=== PATIENT | female | born 1935 | race Hispanic/Latino ===

== ENCOUNTER 2018-10-23 20:38 | Inpatient (IN) | payer MEDICARE, BC ==
[2018-10-23 20:39] VITALS: BMI 24.9
--- NOTE | 2018-10-23 21:40 | ED PDOC ---
Arrival/HPI - General Chief Complaint: Altered Mental Status Time Seen by Provider: 10/23/18 20:58 Historian: Patient - History of Present Illness Narrative History of Present Illness (Text): 10/23/18 21:36 83 year old female, with some history of dementia, presents to the emergency department accompanied by son, for evaluation of shortness of breath. Son informs patient was helped onto toilet, and began becoming short of breath. Son states patient became slightly unresponsive, while breathing heavily. Son states patient has had increased leg swelling in both legs for the past few days as well. Patient denies any chest pain, abdominal pain, fevers, chills, headache, dizziness, nausea, vomiting, diarrhea, back pain, neck pain, or any other complaint. Time/Duration: Prior to Arrival Symptom Onset: Gradual Symptom Course: Resolved Activities at Onset: Light Context: Home Past Medical History - Provider Review Nursing Documentation Reviewed: Yes - Infectious Disease Hx of Infectious Diseases: None - Cardiac Hx Peripheral Edema: Yes (+1) - Pulmonary Hx Respiratory Disorders: No - Neurological Hx Neurological Disorder: No - HEENT Hx HEENT Disorder: (eye glasses) Hx Glaucoma: Yes - Renal Hx Renal Disorder: No - Endocrine/Metabolic Hx Endocrine Disorders: No - Hematological/Oncological Hx Blood Transfusions: Yes (1st transfusion running now) Hx Blood Transfusion Reaction: No - Integumentary Hx Dermatological Disorder: Yes Other/Comment: eccymosis to right lower thigh above right knee - Musculoskeletal/Rheumatological Hx Arthritis: Yes - Gastrointestinal Hx Gastrointestinal Disorders: No - Genitourinary/Gynecological Hx Genitourinary Disorders: No - Psychiatric Hx Psychophysiologic Disorder: No Hx Substance Use: No - Anesthesia Hx Anesthesia Reactions: No Hx Malignant Hyperthermia: No Family/Social History - Physician Review Nursing Documentation Reviewed: Yes Family/Social History: No Known Family HX Smoking Status: Never Smoked Hx Alcohol Use: No Hx Substance Use: No Allergies/Home Meds Allergies/Adverse Reactions: Allergies No Known Allergies Allergy (Verified 02/23/16 20:28) Review of Systems - Physician Review All systems were reviewed & negative as marked: Yes - Review of Systems Constitutional: absent: Fevers, Night Sweats Respiratory: SOB. absent: Cough Cardiovascular: absent: Chest Pain Gastrointestinal: absent: Abdominal Pain, Diarrhea, Nausea, Vomiting Musculoskeletal: absent: Back Pain, Neck Pain Neurological: absent: Headache, Dizziness Physical Exam Mental Status: No: Alert and Oriented X 3 - Systems Exam Head: Present: Atraumatic, Normocephalic Pupils: Present: PERRL Extroacular Muscles: Present: EOMI Conjunctiva: Present: Normal Mouth: Present: Dry. No: Moist Mucous Membranes Neck: Present: Normal Range of Motion Respiratory/Chest: Present: Clear to Auscultation, Decreased Breath Sounds. No: Respiratory Distress, Accessory Muscle Use Cardiovascular: Present: Regular Rate and Rhythm, Murmurs (Systolic ejection murmur) Abdomen: No: Tenderness, Distention, Peritoneal Signs Back: Present: Normal Inspection Upper Extremity: Present: Normal Inspection. No: Cyanosis, Edema Lower Extremity: Present: Edema (+3 pitting edema bilaterally ) Neurological: Present: GCS=15, CN II-XII Intact, Speech Normal Skin: Present: Warm, Dry, Normal Color. No: Rashes Psychiatric: Present: Alert, Oriented x 3, Normal Insight, Normal Concentration Medical Decision Making ED Course and Treatment: 10/23/18 21:43 Impression: 83 year old female presents for episode of shortness of breath Differential Diagnoses Include But Are Not Limited To: --ACS --PNA --CHF(new onset) Plan: -- VBG --Lasix -- Labs -- Chest X-ray -- Blood cultures -- Urinalysis -- Reassess and disposition Prior Visits: Notes and results from previous visits were reviewed. Progress Notes: 10/24/18 01:06 Labs reviewed with leukocytosis noted as well as elevated BNP 1,230 & troponin of 0.12. Call placed to Dr. House(PCP). 10/24/[address] House who accepts patient onto his service. Patient updated on plan for admission and is in agreement. - Lab Interpretations Lab Results: 10/23/18 22:41 10/23/18 23:15 Lab Results 10/23/18 23:15: Sodium 134, Chloride 101, Potassium Pending, Carbon Dioxide 25, Anion Gap 13, BUN 22 H, Creatinine 0.8, Est GFR ( Amer) > 60, Est GFR (Non-Af Amer) > 60, Random Glucose 144 H, Calcium 9.1, Magnesium 2.3 H, Total Bilirubin 0.6, AST 37 H, ALT 20, Alkaline Phosphatase 101, Troponin I Pending, NT-Pro-B Natriuret Pep Pending, Total Protein 8.1, Albumin 3.9, Globulin 4.2, Albumin/Globulin Ratio 0.9 L 10/23/18 22:41: PT 13.9 H, INR 1.25, APTT 26.3 L 10/23/18 22:41: WBC 14.2 H, RBC 4.23, Hgb 12.9, Hct 38.7, MCV 91.5, MCH 30.5, MCHC 33.3, RDW 13.7, Plt Count 231, MPV 11.0, Neut % (Auto) 77.3 H, Lymph % (Auto) 12.9 L, Chester % (Auto) 9.6 H, Eos % (Auto) 0.1 L, Baso % (Auto) 0.1, Lymph # (Auto) 1.8, Chester # (Auto) 1.4 H, Eos # (Auto) 0.0, Baso # (Auto) 0.02, Absolute Neuts (auto) 10.99 H 10/23/18 22:37: pO2 80 H, VBG pH 7.37, VBG pCO2 44.0, VBG HCO3 25.4, VBG Total CO2 26.8, VBG O2 Sat (Calc) 97.5 H, VBG Base Excess -0.2 L, VBG Potassium 6.0 H, Sodium 133.0, Chloride 102.0, Glucose 149 H, Lactate 2.2 H, FiO2 21.0, Venous Blood Potassium 6.0 H I have reviewed the lab results: Yes - RAD Interpretation Radiology Orders: 10/23/18 21:32 CHEST PORTABLE [RAD] Stat - Medication Orders Current Medication Orders: 10/27/18 08:14 Apixaban (Eliquis) 10 mg PO BID [facility]; Protocol Stop: 10/31/18 23:59 Last Admin: 10/26/18 17:30 Dose: 10 mg Apixaban (Eliquis) 5 mg PO BID [facility]; Protocol Aspirin (Ecotrin) 81 mg PO DAILY [facility] Last Admin: 10/26/18 09:53 Dose: 81 mg Furosemide (Lasix) 40 mg IVP DAILY [facility] Last Admin: 10/26/18 09:53 Dose: 40 mg MAR Blood Pressure Document 10/26/18 09:53 RDS (Rec: 10/26/18 09:53 RDS [id number]) Blood Pressure Blood Pressure (100/60-150/90 mm Hg) 120/75 IVP Administration Document 10/26/18 09:53 RDS (Rec: 10/26/18 09:53 RDS [id number]) Charges for Administration # of IVP Administrations 1 Cefepime HCl (Maxipime 1gm) 1 gm in 100 mls @ 100 mls/hr IVPB Q12 [facility]; Protocol Last Admin: 10/26/18 22:33 Dose: 100 mls/hr eMAR Start Stop Document 10/26/18 22:33 JN (Rec: 10/26/18 22:33 JN [id number]) Intravenous Solution Start Date 10/26/18 Start Time 22:33 Metoprolol Tartrate (Lopressor) 25 mg PO BID [facility] Last Admin: 10/26/18 17:31 Dose: 25 mg MAR Pulse and Blood Pressure Document 10/26/18 17:31 RDS (Rec: 10/26/18 17:31 RDS [id number]) Pulse Pulse Rate (60-90 beats/min) 82 Blood Pressure Blood Pressure (100/60-150/90 mm Hg) 134/87 Discontinued Medications Aspirin (Aspirin) 325 mg PO STAT STA Stop: 10/24/18 11:03 Last Admin: 10/24/18 11:19 Dose: 325 mg Enoxaparin Sodium (Lovenox) 65 mg SC Q12H [facility]; Protocol Enoxaparin Sodium (Lovenox) 65 mg SC Q12 [facility] Last Admin: 10/24/18 21:54 Dose: 65 mg Subcutaneous Administrations Document 10/24/18 21:54 EUSTL (Rec: 10/24/18 21:54 EUSTL [id number]) Charges for Administration # of Subcutaneous Administrations 1 Furosemide (Lasix) 40 mg IVP STAT STA Stop: 10/24/18 01:30 Last Admin: 10/24/18 02:29 Dose: 40 mg MAR Blood Pressure Document 10/24/18 02:29 JOL (Rec: 10/24/18 02:29 JOL [id number]) Blood Pressure Blood Pressure (100/60-150/90 mm Hg) 112/72 IVP Administration Document 10/24/18 02:29 JOL (Rec: 10/24/18 02:29 JOL [id number]) Charges for Administration # of IVP Administrations 1 Sodium Chloride (Sodium Chloride 0.9%) 1,000 mls @ 75 mls/hr IV .[id number] [facility] Last Admin: 10/24/18 02:29 Dose: 75 mls/hr eMAR Start Stop Document 10/24/18 02:29 JOL (Rec: 10/24/18 02:30 JOL [id number]) Intravenous Solution Start Date 10/24/18 Start Time 02:30 Metoprolol Tartrate (Lopressor) 25 mg PO STAT STA Stop: 10/24/18 11:05 Last Admin: 10/24/18 11:20 Dose: 25 mg MAR Pulse and Blood Pressure Document 10/24/18 11:20 (Rec: 10/24/18 11:20 [id number] Pulse Pulse Rate (60-90 beats/min) 84 Blood Pressure Blood Pressure (100/60-150/90 mm Hg) 114/74 Nitroglycerin (Nitro-Bid 2% Oint) 0.5 ea TOP Q6H [facility] Last Admin: 10/26/18 05:27 Dose: 0.5 ea Potassium Chloride (Potassium Chloride Oral Soln) 20 meq PO STAT STA Stop: 10/26/18 15:18 Last Admin: 10/26/18 17:46 Dose: 20 meq - Scribe Statement The provider has reviewed the documentation as recorded by the Scribadriane Hernandes Provider Scribe Attestation: All medical record entries made by the Scribe were at my direction and personal ly dictated by me. I have reviewed the chart and agree that the record accurately reflects my personal performance of the history, physical exam, medical decision making, and the department course for this patient. I have also personally directed, reviewed, and agree with the discharge instructions and disposition. Disposition/Present on Arrival - Present on Arrival Any Indicators Present on Arrival: No History of DVT/PE: No History of Uncontrolled Diabetes: No Urinary Catheter: No History of Decub. Ulcer: No History Surgical Site Infection Following: None - Disposition Have Diagnosis and Disposition been Completed?: Yes Diagnosis: NSTEMI (non-ST elevated myocardial infarction), Edema Disposition: HOSPITALIZED Disposition Time: 01:45 Patient Plan: Admission, Telemetry Patient Problems: Current Active Problems Problem Status Onset NSTEMI (non-ST elevated myocardial infarction) Acute Condition: GUARDED
[2018-10-23 22:42] LABS: VENOUS BLOOD GAS BASE EXCESS -0.2 mmol/L (0.0-2.0); VENOUS BLOOD GAS PO2 80 mm/Hg (30-55); VENOUS BLOOD PH 7.37 (7.32-7.43)
[2018-10-23 22:46] LABS: BASO # 0.02 K/mm3 (0.0-2.0); BASO % 0.1 % (0.0-3.0); EOS % 0.1 % (1.5-5.0); HEMOGLOBIN 12.9 g/dL (12.0-16.0); LYMPH # 1.8 (1.2-3.4); LYMPH % 12.9 % (22.0-35.0); MEAN CELL VOLUME 91.5 fl (80.0-105.0); MEAN CORPUSCULAR HEMOGLOBIN 30.5 pg (25.0-35.0); MEAN CORPUSCULAR HGB CONC 33.3 g/dl (31.0-37.0); MONO # 1.4 (0.1-0.6); MONO % 9.6 % (1.0-6.0); RBC 4.23 10^6/uL (3.5-6.1); RED CELL DISTRIBUTION WIDTH 13.7 % (11.5-14.5); WHITE BLOOD COUNT 14.2 10^3/uL (4.5-11.0)
[2018-10-23 23:02] LABS: INR 1.25; PARTIAL THROMBOPLASTIN TIME 26.3 Seconds (26.9-38.3); PROTHROMBIN TIME 13.9 SECONDS (9.4-12.5)
[2018-10-23] MEDS ORDERED: Dextrose 50% SYRINGE Inj (50 ml) IVP STA (23:02)
[2018-10-23] MEDS ORDERED: Albuterol 0.083% Inhal Sol (2.5 mg/3 mL) UD INH STA (23:02)
[2018-10-23] MEDS ORDERED: Insulin Regular 1 UNITS/0.01 ML ML IVP ONE (23:03)
[2018-10-24 00:27] LABS: ALB/GLOB RATIO 0.9 (1.1-1.8); ALBUMIN 3.9 g/dL (3.0-4.8); ALT/SGPT 20 U/L (7-56); AST/SGOT 37 U/L (14-36); BLOOD UREA NITROGEN 22 mg/dL (7-21); CALCIUM 9.1 mg/dL (8.4-10.5); GFR NON-AFRICAN AMERICAN > 60
[2018-10-24 01:11] LABS: B-TYPE NATRIURETIC PEPTIDE 1230 pg/mL (0-450); TROPONIN I 0.12 ng/mL
[2018-10-24] MEDS ORDERED: Sodium Chloride 0.9% 1,000 ML IV SCH (01:45)
[2018-10-24 02:38] LABS: VENOUS BLOOD GAS BASE EXCESS 1.5 mmol/L (0.0-2.0); VENOUS BLOOD GAS PO2 43 mm/Hg (30-55); VENOUS BLOOD PH 7.47 (7.32-7.43)
--- NOTE | 2018-10-24 08:29 | RAD ---
Date of service: 10/23/2018 HISTORY: sob COMPARISON: 09/26/2016 FINDINGS: LUNGS: No active pulmonary disease. PLEURA: No significant pleural effusion identified, no pneumothorax apparent. CARDIOVASCULAR: Aortic calcification and tortuosity Normal cardiac size. No pulmonary vascular congestion. OSSEOUS STRUCTURES: No significant abnormalities. VISUALIZED UPPER ABDOMEN: Normal. OTHER FINDINGS: None. IMPRESSION: No active disease.
[2018-10-24 08:56] LABS: BASO # 0.01 K/mm3 (0.0-2.0); BASO % 0.1 % (0.0-3.0); HEMOGLOBIN 12.6 g/dL (12.0-16.0); LYMPH # 2.2 (1.2-3.4); LYMPH % 20.3 % (22.0-35.0); MEAN CELL VOLUME 91.3 fl (80.0-105.0); MEAN CORPUSCULAR HEMOGLOBIN 30.5 pg (25.0-35.0); MEAN CORPUSCULAR HGB CONC 33.4 g/dl (31.0-37.0); MEAN PLATELET VOLUME 10.8 fl (7.0-11.0); MONO % 9.7 % (1.0-6.0); RBC 4.13 10^6/uL (3.5-6.1); RED CELL DISTRIBUTION WIDTH 13.7 % (11.5-14.5); WHITE BLOOD COUNT 10.6 10^3/uL (4.5-11.0)
[2018-10-24 09:12] LABS: ALB/GLOB RATIO 0.9 (1.1-1.8); ALBUMIN 3.7 g/dL (3.0-4.8); ALT/SGPT 15 U/L (7-56); AST/SGOT 42 U/L (14-36); BLOOD UREA NITROGEN 21 mg/dL (7-21); CALCIUM 8.9 mg/dL (8.4-10.5); GFR NON-AFRICAN AMERICAN 60
[2018-10-24] MEDS ORDERED: Enoxaparin 40 mg Syringe SC SCH (09:15)
[2018-10-24 09:26] LABS: TROPONIN I 0.08 ng/mL
--- NOTE | 2018-10-24 10:13 | CARD ---
APPROVED REPORT Date of service: 10/24/2018 EKG Measurement Heart [id number] <Conclusion> Normal sinus rhythm Left axis deviation Low voltage QRS Inferior infarct, age undetermined Cannot rule out Anterior infarct, age undetermined Abnormal ECG
--- NOTE | 2018-10-24 10:16 | CARD ---
APPROVED REPORT Date of service: 10/23/2018 EKG Measurement Heart [id number] ID [id number] <Conclusion> Sinus tachycardia Left axis deviation Low voltage QRS Inferior infarct, age undetermined Possible Anterolateral infarct, age undetermined Abnormal ECG
[2018-10-24] MEDS: Enoxaparin 100 mg Syringe SC SCH ×2 (10:45→21:54)
[2018-10-24] MEDS: Cefepime 1gm in NS 100ml 1 GM/100 ML BAG IVPB SCH ×2 (10:52→21:54)
--- NOTE | 2018-10-24 10:52 | CP.PCM.HP ---
<Zak Catalan - Last Filed: 10/24/18 11:00> History of Present Illness - History of Present Illness History of Present Illness: PGY-2 H&P note for Dr Gray Mrs Gil is a 83 year old female with a PMHx of dementia, chronic peripheral edema, glaucoma, right radius fracture (2016), right tibia/fibula fracture (2017) who presents because her son noticed she was weak and had increased s hortness of breath. Son stated to ED physician patient became slightly unresponsive, while breathing heavily. Son states patient has had increased leg swelling in both legs for the past few days as well. Upon interview/exam today the patient was AAOx2 (believed the year was 1948) thus hx is limited by patient's baseline dementia. She complained of pain in her right ankle. I spoke to her son who stated she lives alone and gets around with wheelchair, and has a live-in 24 hour health aide. Patient denies any chest pain, abdominal pain, fevers, chills, headache, dizziness, nausea, vomiting, diarrhea, back pain, neck pain. PMHx: dementia, chronic peripheral edema, glaucoma, right radius fracture (2016), right tibia/fibula fracture (2017) PSHx: open reduction, internal fixation right tibia/fibula 09/2016 SocialHx: never smoked; denies alcohol FamHx: denies Allergies: NKA Home Meds: latonoprost eye drops for glaucoma Present on Admission - Present on Admission Any Indicators Present on Admission: No Review of Systems - Review of Systems Systems not reviewed;Unavailable: Dementia Past Patient History - Infectious Disease Hx of Infectious Diseases: None - Past Social History Smoking Status: Never Smoked - CARDIAC Hx Cardiac Disorders: Yes Hx Angina: No Hx Cardia Arrhythmia: No Hx Congestive Heart Failure: Yes - PULMONARY Hx Respiratory Disorders: No - NEUROLOGICAL Hx Neurological Disorder: Yes Hx Dementia: Yes - HEENT Hx HEENT Problems: No - RENAL Hx Chronic Kidney Disease: No - ENDOCRINE/METABOLIC Hx Endocrine Disorders: No - HEMATOLOGICAL/ONCOLOGICAL Hx Blood Disorders: No - INTEGUMENTARY Hx Dermatological Problems: No - MUSCULOSKELETAL/RHEUMATOLOGICAL Hx Musculoskeletal Disorders: Yes Hx Falls: Yes - GASTROINTESTINAL Hx Gastrointestinal Disorders: No - GENITOURINARY/GYNECOLOGICAL Hx Genitourinary Disorders: No - PSYCHIATRIC Hx Psychophysiologic Disorder: No - SURGICAL HISTORY Hx Surgeries: No (pt couldnt answer) Hx Cardiac Catheterization: No - ANESTHESIA Hx Anesthesia Reactions: No Hx Malignant Hyperthermia: No Meds Allergies/Adverse Reactions: Allergies Allergy/AdvReac Type Severity Reaction Status Date / Time No Known Allergies Allergy Verified 02/23/16 20:28 Physical Exam - Constitutional Appears: Well, Non-toxic, No Acute Distress, Confused - Head Exam Head Exam: ATRAUMATIC, NORMAL INSPECTION - Eye Exam Eye Exam: EOMI, Normal appearance, PERRL. absent: Scleral icterus - ENT Exam ENT Exam: Mucous Membranes Moist - Respiratory Exam Respiratory Exam: Clear to Auscultation Bilateral, NORMAL BREATHING PATTERN. absent: Rales, Rhonchi, Wheezes - Cardiovascular Exam Cardiovascular Exam: Tachycardia, REGULAR RHYTHM, +S1, +S2, Systolic Murmur. absent: JVD - GI/Abdominal Exam GI & Abdominal Exam: Normal Bowel Sounds, Soft. absent: Distended, Firm, Guarding, Tenderness - Extremities Exam Extremities exam: Positive for: calf tenderness, pedal edema, tenderness. Negative for: normal inspection Additional comments: pedal pulses diminished R>L right foot cold compared to left sensation intact b/l pain to palpation of right ankle - Neurological Exam Neurological exam: Alert Additional comments: AAOx2 - Psychiatric Exam Psychiatric exam: Normal Affect - Skin Additional comments: right ankle skin changes appear to be venous stasis right ankle cold compared to left Results - Vital Signs Recent Vital Signs: Last Vital Signs Temp 97.6 F 10/24/18 06:00 Pulse 96 H 10/24/18 06:00 Resp 20 10/24/18 06:00 BP 128/95 H 10/24/18 06:00 Pulse Ox 95 10/24/18 02:59 - Labs Result Diagrams: 10/24/18 08:40 10/24/18 08:40 Labs: Laboratory Results - last 24 hr 10/23/18 10/23/18 10/23/18 22:37 22:41 22:41 WBC 14.2 H RBC 4.23 Hgb 12.9 Hct 38.7 MCV 91.5 MCH 30.5 MCHC 33.3 RDW 13.7 Plt Count 231 MPV 11.0 Neut % (Auto) 77.3 H Lymph % (Auto) 12.9 L Aiken % (Auto) 9.6 H Eos % (Auto) 0.1 L Baso % (Auto) 0.1 Lymph # (Auto) 1.8 Aiken # (Auto) 1.4 H Eos # (Auto) 0.0 Baso # (Auto) 0.02 Absolute Neuts (auto) 10.99 H PT 13.9 H INR 1.25 APTT 26.3 L D-Dimer, Quantitative pO2 80 H VBG pH 7.37 VBG pCO2 44.0 VBG HCO3 25.4 VBG Total CO2 26.8 VBG O2 Sat (Calc) 97.5 H VBG Base Excess -0.2 L VBG Potassium 6.0 H Sodium 133.0 Chloride 102.0 Glucose 149 H Lactate 2.2 H FiO2 21.0 Potassium Carbon Dioxide Anion Gap BUN Creatinine Est GFR ( Amer) Est GFR (Non-Af Amer) Random Glucose Calcium Magnesium Total Bilirubin AST ALT Alkaline Phosphatase Troponin I NT-Pro-B Natriuret Pep Total Protein Albumin Globulin Albumin/Globulin Ratio Venous Blood Potassium 6.0 H 10/23/18 10/24/18 10/24/18 23:15 02:30 02:31 WBC RBC Hgb Hct MCV MCH MCHC RDW Plt Count MPV Neut % (Auto) Lymph % (Auto) Aiken % (Auto) Eos % (Auto) Baso % (Auto) Lymph # (Auto) Aiken # (Auto) Eos # (Auto) Baso # (Auto) Absolute Neuts (auto) PT INR APTT D-Dimer, Quantitative > 5250 H pO2 43 VBG pH 7.47 H VBG pCO2 34.0 L VBG HCO3 24.7 VBG Total CO2 25.7 VBG O2 Sat (Calc) 89.0 H VBG Base Excess 1.5 VBG Potassium 4.5 Sodium 134 134.0 Chloride 101 104.0 Glucose 132 H Lactate 1.1 FiO2 21.0 Potassium 4.9 Carbon Dioxide 25 Anion Gap 13 BUN 22 H Creatinine 0.8 Est GFR ( Amer) > 60 Est GFR (Non-Af Amer) > 60 Random Glucose 144 H Calcium 9.1 Magnesium 2.3 H Total Bilirubin 0.6 AST 37 H ALT 20 Alkaline Phosphatase 101 Troponin I 0.12 D NT-Pro-B Natriuret Pep 1230 H Total Protein 8.1 Albumin 3.9 Globulin 4.2 Albumin/Globulin Ratio 0.9 L Venous Blood Potassium 4.5 10/24/18 10/24/18 08:40 08:40 WBC 10.6 D RBC 4.13 Hgb 12.6 Hct 37.7 MCV 91.3 MCH 30.5 MCHC 33.4 RDW 13.7 Plt Count 239 MPV 10.8 Neut % (Auto) 69.9 H Lymph % (Auto) 20.3 L Aiken % (Auto) 9.7 H Eos % (Auto) 0.0 L Baso % (Auto) 0.1 Lymph # (Auto) 2.2 Aiken # (Auto) 1.0 H Eos # (Auto) 0.0 Baso # (Auto) 0.01 Absolute Neuts (auto) 7.38 H PT INR APTT D-Dimer, Quantitative pO2 VBG pH VBG pCO2 VBG HCO3 VBG Total CO2 VBG O2 Sat (Calc) VBG Base Excess VBG Potassium Sodium 138 Chloride 100 Glucose Lactate FiO2 Potassium 4.1 Carbon Dioxide 31 Anion Gap 10 BUN 21 Creatinine 0.9 Est GFR ( Amer) > 60 Est GFR (Non-Af Amer) 60 Random Glucose 122 H Calcium 8.9 Magnesium Total Bilirubin 0.7 AST 42 H ALT 15 Alkaline Phosphatase 90 Troponin I 0.08 D NT-Pro-B Natriuret Pep Total Protein 7.7 Albumin 3.7 Globulin 4.0 Albumin/Globulin Ratio 0.9 L Venous Blood Potassium Assessment & Plan - Assessment and Plan (Free Text) Plan: Mrs Gil is a 83 year old female with a PMHx of dementia, chronic peripheral edema, glaucoma, right radius fracture (2016), right tibia/fibula fracture (2017) who presents because her son noticed she was weak and had increased shortness of breath: Left Leg DVT -preliminary venous duplex ultrasound shows DVT -treat with therapeutic lovenox 65mg ivp q12h (started 10/24) Elevated D-Dimer -on admission d-dimer was 5250 -order for V/Q scan (ideally prefer CTA chest however given patient's advanced age the contrast could irreversibly harm her kidneys) -currently on lovenox 65mg ivp q12h (started 10/24) Cold Right Foot -f/u arterial doppler and BRYAN Elevated pro-bnp -probnp on admission 1230 -echo from 2015 showed normal EF however and mild concentric LVH with grade-I abnormal relaxation pattern -f/u echo -metoprolol tartrate 25mg po bid -consult cardiology, Dr Leahy Equivocal Troponin -trop on admission was 0.12 -f/u repeat trops -aspirin 325mg po given once -on aspirin 81mg po qd -2% nitrobid topical q6h scheduled -metoprolol tartrate 25mg po bid -consult cardiology, Dr Leahy Elevated White Count -wbc on admission was 14.2 -possibly due to left leg DVT -f/u urine and blood cultures -start empiric cefepime 1g q12h until cultures return - if cultures negative we'll de-escalate abx Shortness of Breath, Improved -CHF vs PE -CXR 10/23 showed no active disease -lasix 40ivp qd Weakness, Chronic -uses wheel chair at home; right tibia/fibula fracture (2016) -physical therapy eval and treat Decreased Appetite, Chronic -soft dysphagia diet PPX -on therapeutic lovenox -GI ppx not indicated Case discussed with Dr Gray Decision To Admit - . Bed Request Type: Telemetry <Dave Gray S - Last Filed: 10/24/18 19:41> Results - Vital Signs Recent Vital Signs: Last Vital Signs Temp 97.7 F 10/24/18 18:43 Pulse 90 10/24/18 18:43 Resp 19 10/24/18 18:43 BP 122/79 10/24/18 18:43 Pulse Ox 95 10/24/18 02:59 - Labs Result Diagrams: 10/24/18 08:40 10/24/18 08:40 Labs: Laboratory Results - last 24 hr 10/23/18 10/23/18 10/23/18 22:37 22:41 22:41 WBC 14.2 H RBC 4.23 Hgb 12.9 Hct 38.7 MCV 91.5 MCH 30.5 MCHC 33.3 RDW 13.7 Plt Count 231 MPV 11.0 Neut % (Auto) 77.3 H Lymph % (Auto) 12.9 L Aiken % (Auto) 9.6 H Eos % (Auto) 0.1 L Baso % (Auto) 0.1 Lymph # (Auto) 1.8 Aiken # (Auto) 1.4 H Eos # (Auto) 0.0 Baso # (Auto) 0.02 Absolute Neuts (auto) 10.99 H PT 13.9 H INR 1.25 APTT 26.3 L D-Dimer, Quantitative pO2 80 H VBG pH 7.37 VBG pCO2 44.0 VBG HCO3 25.4 VBG Total CO2 26.8 VBG O2 Sat (Calc) 97.5 H VBG Base Excess -0.2 L VBG Potassium 6.0 H Sodium 133.0 Chloride 102.0 Glucose 149 H Lactate 2.2 H FiO2 21.0 Potassium Carbon Dioxide Anion Gap BUN Creatinine Est GFR ( Amer) Est GFR (Non-Af Amer) Random Glucose Calcium Magnesium Total Bilirubin AST ALT Alkaline Phosphatase Troponin I NT-Pro-B Natriuret Pep Total Protein Albumin Globulin Albumin/Globulin Ratio Venous Blood Potassium 6.0 H 10/23/18 10/24/18 10/24/18 23:15 02:30 02:31 WBC RBC Hgb Hct MCV MCH MCHC RDW Plt Count MPV Neut % (Auto) Lymph % (Auto) Aiken % (Auto) Eos % (Auto) Baso % (Auto) Lymph # (Auto) Aiken # (Auto) Eos # (Auto) Baso # (Auto) Absolute Neuts (auto) PT INR APTT D-Dimer, Quantitative > 5250 H pO2 43 VBG pH 7.47 H VBG pCO2 34.0 L VBG HCO3 24.7 VBG Total CO2 25.7 VBG O2 Sat (Calc) 89.0 H VBG Base Excess 1.5 VBG Potassium 4.5 Sodium 134 134.0 Chloride 101 104.0 Glucose 132 H Lactate 1.1 FiO2 21.0 Potassium 4.9 Carbon Dioxide 25 Anion Gap 13 BUN 22 H Creatinine 0.8 Est GFR ( Amer) > 60 Est GFR (Non-Af Amer) > 60 Random Glucose 144 H Calcium 9.1 Magnesium 2.3 H Total Bilirubin 0.6 AST 37 H ALT 20 Alkaline Phosphatase 101 Troponin I 0.12 D NT-Pro-B Natriuret Pep 1230 H Total Protein 8.1 Albumin 3.9 Globulin 4.2 Albumin/Globulin Ratio 0.9 L Venous Blood Potassium 4.5 10/24/18 10/24/18 10/24/18 08:40 08:40 13:00 WBC 10.6 D RBC 4.13 Hgb 12.6 Hct 37.7 MCV 91.3 MCH 30.5 MCHC 33.4 RDW 13.7 Plt Count 239 MPV 10.8 Neut % (Auto) 69.9 H Lymph % (Auto) 20.3 L Aiken % (Auto) 9.7 H Eos % (Auto) 0.0 L Baso % (Auto) 0.1 Lymph # (Auto) 2.2 Aiken # (Auto) 1.0 H Eos # (Auto) 0.0 Baso # (Auto) 0.01 Absolute Neuts (auto) 7.38 H PT INR APTT D-Dimer, Quantitative pO2 VBG pH VBG pCO2 VBG HCO3 VBG Total CO2 VBG O2 Sat (Calc) VBG Base Excess VBG Potassium Sodium 138 Chloride 100 Glucose Lactate FiO2 Potassium 4.1 Carbon Dioxide 31 Anion Gap 10 BUN 21 Creatinine 0.9 Est GFR ( Amer) > 60 Est GFR (Non-Af Amer) 60 Random Glucose 122 H Calcium 8.9 Magnesium Total Bilirubin 0.7 AST 42 H ALT 15 Alkaline Phosphatase 90 Troponin I 0.08 D 0.07 NT-Pro-B Natriuret Pep Total Protein 7.7 Albumin 3.7 Globulin 4.0 Albumin/Globulin Ratio 0.9 L Venous Blood Potassium Assessment & Plan - Assessment and Plan (Free Text) Plan: Pt seen and examined by me. I have reviewed the note of the medical surgery nurse and I agree with it. I have discussed the assessment and plan with the resident. I have reviewed the medications and the last labs. Pt with SOB at home and LE edema. She was found to have a DVT and PE on evaluation. She is on Lovenox. UCx are pending and she is on Cefepime for ABx. She has gait instability and will need PT. I spoke to the son this morning to give an update. The pt will need DAV and he is agreeable. Will place on Lasix for LE edema. She is deconditioned. She is not aware of her medical issues due to her Dementia- Alzh ghassan. She was given ASA and Metoprolol due to her elevated trop. This is most likely from the PE and less likely to be ACS. Will get cardiology evaluation.
[2018-10-24] MEDS: Nitroglycerin 2% Ointment Foilpak UD TOP SCH ×2 (11:19→17:18)
--- NOTE | 2018-10-24 11:30 | CP.PCM.APN ---
Subjective - Date & Time of Evaluation Date of Evaluation: 10/24/18 Time of Evaluation: 10:15 - Subjective Subjective: pt seen receiving am care pt in NAD pt with no complaints when questioned Review of Systems - Review of Systems All systems: reviewed and no additional remarkable complaints except Objective - Vital Signs/Intake and Output Vital Signs (last 24 hours): Temp Pulse Resp BP Pulse Ox 97.6 F 96 H 20 114/74 95 10/24/18 06:00 10/24/18 06:00 10/24/18 06:00 10/24/18 10:52 10/24/18 02:59 Intake and Output: 10/24/18 10/24/18 06:59 18:59 Intake Total 0 Balance 0 - Medications Medications: Current Medications Aspirin (Ecotrin) 81 mg PO DAILY [facility] Enoxaparin Sodium (Lovenox) 65 mg SC Q12 [facility] Last Admin: 10/24/18 10:45 Dose: 65 mg Furosemide (Lasix) 40 mg IVP DAILY [facility] Last Admin: 10/24/18 10:52 Dose: 40 mg Cefepime HCl (Maxipime 1gm) 1 gm in 100 mls @ 100 mls/hr IVPB Q12 [facility]; Protocol Last Admin: 10/24/18 10:52 Dose: 100 mls/hr Metoprolol Tartrate (Lopressor) 25 mg PO BID [facility] Nitroglycerin (Nitro-Bid 2% Oint) 0.5 ea TOP Q6H [facility] - Labs Labs: 10/24/18 08:40 10/24/18 08:40 PT 13.9 SECONDS (9.4-12.5) H 10/23/18 22:41 INR 1.25 10/23/18 22:41 APTT 26.3 Seconds (26.9-38.3) L 10/23/18 22:41 - Head Exam Head Exam: ATRAUMATIC - ENT Exam ENT Exam: Mucous Membranes Moist, Normal Exam - Respiratory Exam Respiratory Exam: Decreased Breath Sounds, NORMAL BREATHING PATTERN - Cardiovascular Exam Cardiovascular Exam: REGULAR RHYTHM, +S1, +S2 - GI/Abdominal Exam GI & Abdominal Exam: Soft, Normal Bowel Sounds - Extremities Exam Extremities Exam: Pedal Edema - Back Exam Back Exam: NORMAL INSPECTION - Neurological Exam Neurological Exam: Awake - Skin Skin Exam: Dry, Intact Assessment and Plan - Assessment and Plan (Free Text) Plan: ITS Impressions Chest X-Ray 10/23/18 21:32 IMPRESSION: No active disease. 83 yr old white female with pmh sig for dementia, glaucoma, right tib/fib fracture who presented to the Er with son due to increasing SOB, LE edema found to have elevated troponins, elevated ddimer over 5000, lactate 2.1, elevated BNP and leukocytosis. pt is now admitted for further mgmt with cardiology eval in progress #SOB pt with positive LE dvt on therapeutic lovenox dose VQ pending to r/o PE #LE Edema pt on IV lasix for diuresis, will monitor renal function #elevated lactate now resolved bc and uc pending # dementia stable will follow VQ results Pt discussed with [employer] team in rounds BPCI/TIC - BPCIA/TIC Educated pt/family on BPCIA/CIR/Med to Bed Programs: Yes Flyers given, including [facility] Beneficiary letter: Yes Pt/family verbalized understanding & agreed to program: Yes (info left at bedside)
--- NOTE | 2018-10-24 11:40 | US ---
PROCEDURE: Lower extremity BRYAN exam HISTORY: Peripheral vascular disease with ischemic pain PHYSICIAN(S): Bryson Obrien MD. FINDINGS: The exam is limited by calcified vessels distally. The resting ABIs are not obtainable. The brachial systolic pressures are symmetric. The high thigh PVR waveforms are relatively normal and symmetric. The calf PVR waveforms are relatively normal and symmetric. Nose obvious gradients are present. The ankle and metatarsal waveforms are moderately blunted and symmetric. This could represent bilateral tibial disease IMPRESSION: 1. Limited study due to calcified vessels. 2. Bilateral tibial disease.
--- NOTE | 2018-10-24 11:42 | US ---
HISTORY: Leg pain and swelling. Evaluate for DVT PHYSICIAN(S): Bryson Obrien MD. TECHNIQUE: Duplex sonography and color-flow Doppler with graded compression were used to evaluate the deep venous systems of both lower extremities. FINDINGS: There is hypoechoic occlusive thrombus noted in the left femoral vein and popliteal vein. Adherent thrombus is noted in the left common femoral vein. There is no sonographic evidence for deep venous thrombosis in the visualized segments of the right lower extremity. The right tibial veins are not visualized. IMPRESSION: Acute hypoechoic occlusive thrombus in the left femoral and popliteal veins.
--- NOTE | 2018-10-24 12:43 | NM ---
Date of service: 10/24/2018 COMPARISON: Chest x-ray 10/23/2018 TECHNIQUE: 30.1 mCi technetium 99-m DTPA aerosol. 4.4 mCI technetium 99-m MAA administered intravenously. FINDINGS: VENTILATION COMPONENT: Normal PERFUSION COMPONENT: Mismatched perfusion defects are seen in the right upper lobe and left lower lobe IMPRESSION: Highprobability ventilation perfusion scan for pulmonary embolism. Perfusion defects in the right upper lobe and left lower lobe
--- NOTE | 2018-10-24 18:46 | CON ---
DATE: 10/24/2018 REASON FOR CONSULTATION: Cardiac evaluation, elevated D-dimer, elevated BNP, elevated troponin, initially admitted with altered mental status. BRIEF CLINICAL HISTORY: This is an 83-year-old female, bed bound, brought by the son because of shortness of breath. Denies any chest pain. Denies any shortness of breath. Denies any palpitation. The patient is oriented to only time and place x2. Very poor historian, unable to give any detailed history, though denies specifically any chest pain or abdominal pain or leg pain. PAST MEDICAL HISTORY: Significant for hypertension borderline and history of gastroesophageal reflux. PAST SURGICAL HISTORY: Significant for fall and status post tibial fracture, status post open reduction internal fixation in 2017. Prior to that, also history of right radius fracture in 2016, history of fall, and history of glaucoma. ALLERGIES: NO KNOWN DRUG ALLERGIES. SOCIAL HISTORY: In the electronic medical record shows no history of smoking, no history of drinking. The patient is unable to give any detailed history. CURRENT MEDICATIONS: The patient at home is taking Protonix 20 mg daily, morphine 2 mg IV every 6 hours p.r.n., metoprolol tartrate 12.5 mg p.o. b.i.d., eye drops for glaucoma, Lovenox, and acetaminophen. REVIEW OF SYSTEMS: As per HPI. The patient is a poor historian, unable to get any more detailed history. PHYSICAL EXAMINATION GENERAL: Height of the patient 5 feet 2 inches, weight of the patient 145 pounds, and body mass index 26.5 kg/m2. VITAL SIGNS: Temperature afebrile, heart rate 96, and blood pressure 128/95. HEENT: PERRLA. Extraocular muscles intact. NECK: Supple. No carotid bruits or thyromegaly. CHEST: Clear to auscultation. HEART: S1 and S2, regular. ABDOMEN: Soft. EXTREMITIES: Clubbing and cyanosis negative. EKG shows normal sinus rate of 94, left axis deviation inferior wall OK of undetermined age. LABORATORY DATA: Blood workup as follows; WBC 10.6, hemoglobin 12.6, hematocrit 37.7, and platelet count 239. Chemistry shows sodium 130, potassium 4. , chloride 100, carbon dioxide 31, anion gap of 10, BUN of 20, and creatinine 0.9. Troponin 0.1 to 0.08. IMPRESSION: An 83-year-old female, very poor historian, possible dementia, bed bound, admitted after being brought by the family with shortness of breath. Denies any chest pain. History of tibial fracture in 2017, history of radial fracture in 2016, history of gastroesophageal reflux, and glaucoma. Borderline troponin positive, indeterminate range, but the patient has significantly D-dimer positive. RECOMMENDATIONS: We will start Lovenox. We will get the V/Q scan to rule out PE. The patient is bed bound completely setup for, though the patient was at home on Lovenox. We will get echo to assess LV function. Keeping the patient's condition, overall the patient's quality of life, bed bound, no evidence of ischemia or chest pain, we will try to treat medically. We will get low dose of beta kimberly, nitrates and Lovenox. We will get a V/Q scan to rule out PE, also with lower extremity duplex and echo. Further recommendations pending hospital course. We will follow with you. Thank you Dr. Gray for providing us the opportunity in taking care of the patient, Michelle Gil. Drea Leahy MD
[2018-10-25] MEDS: Nitroglycerin 2% Ointment Foilpak UD TOP SCH ×6 (02:16→22:50)
[2018-10-25 07:04] LABS: BASO # 0.01 K/mm3 (0.0-2.0); BASO % 0.1 % (0.0-3.0); EOS # 0.2 (0.0-0.7); EOS % 1.8 % (1.5-5.0); HEMOGLOBIN 10.5 g/dL (12.0-16.0); LYMPH # 2.2 (1.2-3.4); LYMPH % 24.3 % (22.0-35.0); MEAN CELL VOLUME 91.6 fl (80.0-105.0); MEAN CORPUSCULAR HEMOGLOBIN 29.2 pg (25.0-35.0); MEAN CORPUSCULAR HGB CONC 31.9 g/dl (31.0-37.0); MEAN PLATELET VOLUME 10.7 fl (7.0-11.0); MONO # 1.1 (0.1-0.6); MONO % 11.6 % (1.0-6.0); RBC 3.59 10^6/uL (3.5-6.1); RED CELL DISTRIBUTION WIDTH 13.9 % (11.5-14.5); WHITE BLOOD COUNT 9.2 10^3/uL (4.5-11.0)
[2018-10-25 07:32] LABS: TROPONIN I 0.06 ng/mL
[2018-10-25 07:52] LABS: LDL CHOLESTEROL 79 mg/dL (0-129)
[2018-10-25 07:57] LABS: ALB/GLOB RATIO 0.9 (1.1-1.8); ALBUMIN 3.2 g/dL (3.0-4.8); ALT/SGPT 15 U/L (7-56); AST/SGOT 42 U/L (14-36); BLOOD UREA NITROGEN 30 mg/dL (7-21); CALCIUM 8.5 mg/dL (8.4-10.5); GFR NON-AFRICAN AMERICAN 53; HDL CHOLESTEROL 30 mg/dL (29-60)
[2018-10-25] MEDS: Cefepime 1gm in NS 100ml 1 GM/100 ML BAG IVPB SCH ×2 (10:00→21:00)
--- NOTE | 2018-10-25 13:47 | CP.PCM.PN ---
<Zak Catalan - Last Filed: 10/25/18 13:42> Subjective - Date & Time of Evaluation Date of Evaluation: 10/25/18 Time of Evaluation: 13:42 - Subjective Subjective: PGY-[address] Gray No acute events overnight. Patient is AAOx2. Still complains of pain in right ankle. Otherwise denied other issues such as sob, abdominal pain, fevers, chest pain. Objective - Vital Signs/Intake and Output Vital Signs (last 24 hours): Temp Pulse Resp BP Pulse Ox 98.5 F 73 18 96/61 L 96 10/25/18 12:00 10/25/18 12:00 10/25/18 12:00 10/25/18 12:00 10/25/18 06:00 Intake and Output: 10/25/18 10/25/18 06:59 18:59 Intake Total 1610 Output Total 402 Balance 1208 - Medications Medications: Current Medications Apixaban (Eliquis) 10 mg PO BID [facility]; Protocol Stop: 10/31/18 23:59 Last Admin: 10/25/18 09:58 Dose: 10 mg Aspirin (Ecotrin) 81 mg PO DAILY [facility] Last Admin: 10/25/18 09:58 Dose: 81 mg Furosemide (Lasix) 40 mg IVP DAILY [facility] Last Admin: 10/25/18 09:59 Dose: 40 mg Cefepime HCl (Maxipime 1gm) 1 gm in 100 mls @ 100 mls/hr IVPB Q12 [facility]; Protocol Last Admin: 10/25/18 10:00 Dose: 100 mls/hr Metoprolol Tartrate (Lopressor) 25 mg PO BID [facility] Last Admin: 10/25/18 09:58 Dose: 25 mg Nitroglycerin (Nitro-Bid 2% Oint) 0.5 ea TOP Q6H [facility] Last Admin: 10/25/18 10:20 Dose: 0.5 ea - Labs Labs: 10/25/18 06:30 10/25/18 06:30 PT 13.9 SECONDS (9.4-12.5) H 10/23/18 22:41 INR 1.25 10/23/18 22:41 APTT 26.3 Seconds (26.9-38.3) L 10/23/18 22:41 - Additional Findings Additional findings: - Constitutional Appears: Well, Non-toxic, No Acute Distress, Confused - Head Exam Head Exam: ATRAUMATIC, NORMAL INSPECTION - Eye Exam Eye Exam: EOMI, Normal appearance, PERRL. absent: Scleral icterus - ENT Exam ENT Exam: Mucous Membranes Moist - Respiratory Exam Respiratory Exam: Clear to Auscultation Bilateral, NORMAL BREATHING PATTERN. absent: Rales, Rhonchi, Wheezes - Cardiovascular Exam Cardiovascular Exam: Tachycardia, REGULAR RHYTHM, +S1, +S2, Systolic Murmur. absent: JVD - GI/Abdominal Exam GI & Abdominal Exam: Normal Bowel Sounds, Soft. absent: Distended, Firm, Guarding, Tenderness - Extremities Exam Extremities exam: Positive for: calf tenderness, pedal edema, tenderness. Negative for: normal inspection Additional comments: pedal pulses diminished R>L right foot cold compared to left sensation intact b/l pain to palpation of right ankle - Neurological Exam Neurological exam: Alert Additional comments: AAOx2 - Psychiatric Exam Psychiatric exam: Normal Affect - Skin Additional comments: right ankle skin changes appear to be venous stasis right ankle cold compared to left Assessment and Plan - Assessment and Plan (Free Text) Plan: Mrs Gil is a 83 year old female with a PMHx of dementia, chronic peripheral edema, glaucoma, right radius fracture (2016), right tibia/fibula fracture (2017) who presents because her son noticed she was weak and had increased shortness of breath: Left Leg DVT -venous duplex ultrasound 10/24: * Acute hypoechoic occlusive thrombus in the left femoral and popliteal veins. -treat with therapeutic lovenox 65mg ivp q12h (started 10/24) Pulmonary Embolism -on admission d-dimer was 5250 -order for V/Q scan (ideally prefer CTA chest however given patient's advanced age the contrast could irreversibly harm her kidneys) * High probability ventilation perfusion scan for pulmonary embolism. Perfusion defects in the right upper lobe and left lower lobe -currently on lovenox 65mg ivp q12h (started 10/24) -will transition to eliquis soon Cold Right Foot -arterial doppler and BRYAN 10/24: * 1. Limited study due to calcified vessels. 2. Bilateral tibial disease. Elevated pro-bnp -probnp on admission 1230 -echo from 2015 showed normal EF however and mild concentric LVH with grade-I abnormal relaxation pattern -f/u echo -on metoprolol tartrate 25mg po bid and lasix 40mg ivp qd -consult cardiology, Dr Leahy Equivocal Troponin -trop on admission was 0.12 then -> 0.08 -> 0.07 -aspirin 325mg po given once -on aspirin 81mg po qd -2% nitrobid topical q6h scheduled -metoprolol tartrate 25mg po bid -consult cardiology, Dr Leahy Elevated White Count, Resolved -wbc on admission was 14.2 -possibly due to left leg DVT -f/u urine; blood cultures 10/24 are negative up to date -start empiric cefepime 1g q12h until cultures return - if cultures negative we'll de-escalate abx Shortness of Breath, Improved -etiology CHF vs PE -CXR 10/23 showed no active disease -lasix 40ivp qd Weakness, Chronic -uses wheel chair at home; right tibia/fibula fracture (2017) -physical therapy eval and treat Decreased Appetite, Chronic -soft dysphagia diet PPX -on therapeutic lovenox -GI ppx not indicated Dispo: Son prefers [facility], either [facility] or [facility]'s Case discussed with Dr Gray <Dave Gray S - Last Filed: 10/29/18 20:48> Objective - Vital Signs/Intake and Output Vital Signs (last 24 hours): Temp Pulse Resp BP Pulse Ox 98.3 F 84 20 130/71 98 10/27/18 06:00 10/27/18 10:06 10/27/18 06:00 10/27/18 10:06 10/27/18 06:00 - Labs Labs: 10/27/18 07:20 10/27/18 07:20 PT 13.9 SECONDS (9.4-12.5) H 10/23/18 22:41 INR 1.25 10/23/18 22:41 APTT 26.3 Seconds (26.9-38.3) L 10/23/18 22:41 Assessment and Plan - Assessment and Plan (Free Text) Plan: Pt seen and examined by me. This is a late entry. I have reviewed the note of the medical care evaluation specialist and I agree with it. I have discussed the assessment and plan with the resident. I have reviewed the medications and the last labs. Pt with DVT and PE and is on Lovenox. She has Dementia - Alz and is at risk for Delerium. Pt with LE edema.
--- NOTE | 2018-10-25 15:12 | PN ---
DATE: 10/25/2018 REASON FOR CONSULTATION AND FOLLOWUP: Cardiac evaluation, elevated D-dimer, elevated BNP, troponin, high probability for PE, altered mental status. SUBJECTIVE: The patient denied any chest pain, shortness of breath, or any palpitation. PHYSICAL EXAMINATION: GENERAL: Not in apparent distress. VITAL SIGNS: Temperature afebrile. Heart rate 78, blood pressure 110/62. HEENT: PERRLA. Extraocular muscles are intact. NECK: Supple. No carotid or thyromegaly. CHEST: Clear to auscultation. HEART: S1 and S2, regular. ABDOMEN: Soft. EXTREMITIES: Clubbing and cyanosis, negative. LABORATORY DATA: Blood workup as follows, WBC 9.9, hemoglobin 10.9, hematocrit 32.9, and platelet count 200. Chemistry shows sodium 137, potassium 3.9, chloride 102, carbon dioxide 22, anion gap of 9, BUN 30, and creatinine 1. Troponin 0.1 to 0.9 and 0.06. VQ scan high probability for PE. IMPRESSION: An 83-year-old female, bed-bound, very poor historian with dementia, admitted after being with the family because of shortness of breath. Denies any history of chest pain. History of fracture and internal fixation in 2017 and history of radial fracture in 2016, history of gastroesophageal reflux, glaucoma, borderline positive troponin, D-dimer was elevated. Yesterday sent a stat for VQ scan, to start a VQ scan is high probability for pulmonary embolism, most likely this is borderline troponin secondary to RV strain. RECOMMENDATION: Continue 1 mg/kg every 12 hours Lovenox and continue gentle diurese. Continue low dose beta kimberly. We will start Eliquis 10 mg p.o. b.i.d. for one week followed by 2.5 mg because of the renal adjusted dose and we will discontinue enoxaparin. We will monitor H and H. Most likely as mentioned troponin is secondary to RV strain. We will follow with you. Thank you Dr. Sen for providing us the opportunity in taking care of your patient, Michelle Gil. We will review the echo when is available. Drea Leahy MD
[2018-10-26] MEDS: Nitroglycerin 2% Ointment Foilpak UD TOP SCH (05:27)
[2018-10-26 07:15] LABS: BASO # 0.02 K/mm3 (0.0-2.0); BASO % 0.2 % (0.0-3.0); EOS # 0.1 (0.0-0.7); EOS % 1.3 % (1.5-5.0); HEMOGLOBIN 10.7 g/dL (12.0-16.0); LYMPH # 2.2 (1.2-3.4); LYMPH % 20.7 % (22.0-35.0); MEAN CELL VOLUME 91.8 fl (80.0-105.0); MEAN CORPUSCULAR HEMOGLOBIN 30.2 pg (25.0-35.0); MEAN CORPUSCULAR HGB CONC 32.9 g/dl (31.0-37.0); MEAN PLATELET VOLUME 10.7 fl (7.0-11.0); MONO # 1.1 (0.1-0.6); MONO % 10.2 % (1.0-6.0); RBC 3.54 10^6/uL (3.5-6.1); RED CELL DISTRIBUTION WIDTH 13.8 % (11.5-14.5); WHITE BLOOD COUNT 10.5 10^3/uL (4.5-11.0)
--- NOTE | 2018-10-26 07:18 | CP.PCM.PN ---
<Zak Catalan - Last Filed: 10/26/18 10:32> Subjective - Date & Time of Evaluation Date of Evaluation: 10/26/18 Time of Evaluation: 07:10 - Subjective Subjective: PGY-[address] Gray No acute events overnight. Patient stated "no" when i asked her if she was in pain. She is AAOx1 with limited verbal ability due to her dementia. Objective - Vital Signs/Intake and Output Vital Signs (last 24 hours): Temp Pulse Resp BP Pulse Ox 98.0 F 75 20 119/68 97 10/26/18 06:00 10/26/18 06:00 10/26/18 06:00 10/26/18 06:00 10/26/18 06:00 Intake and Output: 10/26/18 10/26/18 06:59 18:59 Intake Total 1236 Output Total 1100 Balance 136 - Medications Medications: Current Medications Apixaban (Eliquis) 10 mg PO BID [facility]; Protocol Stop: 10/31/18 23:59 Last Admin: 10/25/18 17:53 Dose: 10 mg Aspirin (Ecotrin) 81 mg PO DAILY [facility] Last Admin: 10/25/18 09:58 Dose: 81 mg Furosemide (Lasix) 40 mg IVP DAILY [facility] Last Admin: 10/25/18 09:59 Dose: 40 mg Cefepime HCl (Maxipime 1gm) 1 gm in 100 mls @ 100 mls/hr IVPB Q12 [facility]; Protocol Last Admin: 10/25/18 21:00 Dose: 100 mls/hr Metoprolol Tartrate (Lopressor) 25 mg PO BID [facility] Last Admin: 10/25/18 17:53 Dose: 25 mg Nitroglycerin (Nitro-Bid 2% Oint) 0.5 ea TOP Q6H [facility] Last Admin: 10/26/18 05:27 Dose: 0.5 ea - Labs Labs: 10/25/18 06:30 10/25/18 06:30 PT 13.9 SECONDS (9.4-12.5) H 10/23/18 22:41 INR 1.25 10/23/18 22:41 APTT 26.3 Seconds (26.9-38.3) L 10/23/18 22:41 - Additional Findings Additional findings: - Constitutional Appears: Well, Non-toxic, No Acute Distress, Confused - Head Exam Head Exam: ATRAUMATIC, NORMAL INSPECTION - Eye Exam Eye Exam: EOMI, Normal appearance, PERRL. absent: Scleral icterus - ENT Exam ENT Exam: Mucous Membranes Moist - Respiratory Exam Respiratory Exam: Clear to Auscultation Bilateral, NORMAL BREATHING PATTERN. absent: Rales, Rhonchi, Wheezes - Cardiovascular Exam Cardiovascular Exam: Tachycardia, REGULAR RHYTHM, +S1, +S2, Systolic Murmur. absent: JVD - GI/Abdominal Exam GI & Abdominal Exam: Normal Bowel Sounds, Soft. absent: Distended, Firm, Guarding, Tenderness - Extremities Exam Extremities exam: Positive for: calf tenderness, pedal edema, tenderness. Negative for: normal inspection Additional comments: temperature normal b/l, pedal pulses present, no pain to palpation - Neurological Exam Neurological exam: Alert Additional comments: AAOx2 - Psychiatric Exam Psychiatric exam: Normal Affect - Skin Additional comments: right ankle skin changes appear to be venous stasis Assessment and Plan - Assessment and Plan (Free Text) Plan: Mrs Gil is a 83 year old female with a PMHx of dementia, chronic peripheral edema, glaucoma, right radius fracture (2016), right tibia/fibula fracture (2017) who presents because her son noticed she was weak and had increased shortness of breath: Left Leg DVT -venous duplex ultrasound 10/24: * Acute hypoechoic occlusive thrombus in the left femoral and popliteal veins. -lovenox 65mg ivp q12h (started 10/24 - discontinued 10/25) -currently on Eliquis 10mg po bid (started evening 10/25) Pulmonary Embolism -on admission d-dimer was 5250 -order for V/Q scan (ideally prefer CTA chest however given patient's advanced age the contrast could irreversibly harm her kidneys) * High probability ventilation perfusion scan for pulmonary embolism. Perfusion defects in the right upper lobe and left lower lobe -lovenox 65mg ivp q12h (started 10/24 - discontinued 10/25) -currently on Eliquis 10mg po bid (started evening 10/25) Elevated pro-bnp -probnp on admission 1230 -echo from 2015 showed normal EF however and mild concentric LVH with grade-I abnormal relaxation pattern -f/u echo -on metoprolol tartrate 25mg po bid and lasix 40mg ivp qd -consult cardiology, Dr Leahy Equivocal Troponin -trop on admission was 0.12 then -> 0.08 -> 0.07 -aspirin 325mg po given once -lipid panel and Hgba1c normal -on aspirin 81mg po qd -2% nitrobid topical q6h scheduled -metoprolol tartrate 25mg po bid -consult cardiology, Dr Leahy Elevated White Count, Resolved -wbc on admission was 14.2 -possibly due to left leg DVT -f/u urine; blood cultures 10/24 are negative up to date -start empiric cefepime 1g q12h until cultures return - if cultures negative we'll de-escalate abx Cold Right Foot, Resolved -arterial doppler and BRYAN 10/24: * 1. Limited study due to calcified vessels. 2. Bilateral tibial disease. -currently temperature normal b/l with pedal pulses present and no pain Shortness of Breath, Improved -etiology CHF vs PE -CXR 10/23 showed no active disease -lasix 40ivp qd Weakness, Chronic -uses wheel chair at home; right tibia/fibula fracture (2017) -physical therapy eval and treat Decreased Appetite, Chronic -soft dysphagia diet PPX -on therapeutic lovenox -GI ppx not indicated Dispo: PT recs DAV; son to make a decision soon - possibly [facility] or [facility] or [facility]'s Case discussed with Dr Gray <Dave Gray S - Last Filed: 10/29/18 20:25> Objective - Vital Signs/Intake and Output Vital Signs (last 24 hours): Temp Pulse Resp BP Pulse Ox 98.3 F 84 20 130/71 98 10/27/18 06:00 10/27/18 10:06 10/27/18 06:00 10/27/18 10:06 10/27/18 06:00 - Labs Labs: 10/27/18 07:20 10/27/18 07:20 PT 13.9 SECONDS (9.4-12.5) H 10/23/18 22:41 INR 1.25 10/23/18 22:41 APTT 26.3 Seconds (26.9-38.3) L 10/23/18 22:41 Assessment and Plan - Assessment and Plan (Free Text) Plan: Pt seen and examined by me. This is a late entry. I have reviewed the note of the electromedical equipment technician and I agree with it. I have discussed the assessment and plan with the resident. I have reviewed the medications and the last labs.Pt with DVT and PE and is on anticoatulation. She will need DAV. Pt has Dementia- Alz and is at risk for Delerium. She has LE edema.
[2018-10-26 07:33] LABS: ALB/GLOB RATIO 0.9 (1.1-1.8); ALBUMIN 3.5 g/dL (3.0-4.8); ALT/SGPT 16 U/L (7-56); AST/SGOT 39 U/L (14-36); BLOOD UREA NITROGEN 34 mg/dL (7-21); CALCIUM 8.6 mg/dL (8.4-10.5); GFR NON-AFRICAN AMERICAN 60
--- NOTE | 2018-10-26 09:46 | CP.PCM.PN ---
Subjective - Date & Time of Evaluation Date of Evaluation: 10/26/18 Time of Evaluation: 06:40 - Subjective Subjective: Awake, denies shortness of breath, feels okay Reason for consultation and follow up:Cardiac evaluation of shortness of breath,elevated D-dimer,elevated BNP, high probability of pulmonary embolism Seen and examined by me and Dr. Leahy Objective - Vital Signs/Intake and Output Vital Signs (last 24 hours): Temp Pulse Resp BP Pulse Ox 98.0 F 75 20 119/68 97 10/26/18 06:00 10/26/18 06:00 10/26/18 06:00 10/26/18 06:00 10/26/18 06:00 Intake and Output: 10/26/18 10/26/18 06:59 18:59 Intake Total 1236 Output Total 1100 Balance 136 - Medications Medications: Current Medications Apixaban (Eliquis) 10 mg PO BID [facility]; Protocol Stop: 10/31/18 23:59 Last Admin: 10/25/18 17:53 Dose: 10 mg Aspirin (Ecotrin) 81 mg PO DAILY [facility] Last Admin: 10/25/18 09:58 Dose: 81 mg Furosemide (Lasix) 40 mg IVP DAILY [facility] Last Admin: 10/25/18 09:59 Dose: 40 mg Cefepime HCl (Maxipime 1gm) 1 gm in 100 mls @ 100 mls/hr IVPB Q12 [facility]; Protocol Last Admin: 10/25/18 21:00 Dose: 100 mls/hr Metoprolol Tartrate (Lopressor) 25 mg PO BID [facility] Last Admin: 10/25/18 17:53 Dose: 25 mg - Labs Labs: 10/26/18 07:05 10/26/18 07:05 PT 13.9 SECONDS (9.4-12.5) H 10/23/18 22:41 INR 1.25 10/23/18 22:41 APTT 26.3 Seconds (26.9-38.3) L 10/23/18 22:41 - Constitutional Appears: Non-toxic, No Acute Distress - Head Exam Head Exam: NORMAL INSPECTION, NORMOCEPHALIC - Eye Exam Eye Exam: Normal appearance Pupil Exam: NORMAL ACCOMODATION - ENT Exam ENT Exam: Mucous Membranes Moist, Normal Exam - Respiratory Exam Respiratory Exam: Decreased Breath Sounds, Clear to Ausculation Bilateral, NORMAL BREATHING PATTERN - Cardiovascular Exam Cardiovascular Exam: REGULAR RHYTHM, +S1, +S2 Additional comments: Telemetry NSR 70's - GI/Abdominal Exam GI & Abdominal Exam: Soft, Normal Bowel Sounds - Extremities Exam Extremities Exam: Full ROM, Normal Capillary Refill - Neurological Exam Neurological Exam: Alert, Awake, Oriented x3 - Psychiatric Exam Psychiatric exam: Normal Affect, Normal Mood - Skin Skin Exam: Dry, Normal Color, Warm Assessment and Plan - Assessment and Plan (Free Text) Assessment: An 83 year old female who came in to the ER due to altered mental status and shortness of breath. Poor historian, history dementia, chronic peripheral edema, glaucoma, right radius fracture (2016), right tibia/fibula fracture ORIF (2017). Son states increased swelling on both legs. She lives alone with home health aide, on a wheelchair. Complaints of right ankle pain. US of lower extremities done and showed bilateral tibial disease,limited study due to calcified vessels. VQ lung scan done and showed high probability of pulmonary embolism,perfusion defects on in the right upper lobe and left lower lobe. Borderline elevated troponin due to RV strain but trending down. On Eliquis for anticoagulation. Cardiac status stable. Echo done pending final results. Plan: Denies chest pain, denies shortness of breath Continue Eliquis 10 mg BID x 1 week then 2.5 mg BID Heart rate controlled Blood pressure controlled On ASA 81 mg daily, Lasix 40 mg daily, Lopressor 25 mg BID, Eliquis 10 mg BID Continue current treatment Continue current medications Will monitor renal function Echo done pending final results Will follow up Plan and treatment discussed with Dr. Leahy
[2018-10-26] MEDS: Cefepime 1gm in NS 100ml 1 GM/100 ML BAG IVPB SCH ×2 (10:03→22:33)
[2018-10-26] MEDS ORDERED: Potassium Chloride 20 mEq/15 ml LIQ UD PO STA (15:17)
--- NOTE | 2018-10-26 16:02 | CARD ---
APPROVED REPORT Date of service: 10/25/2018 EXAM: Two-dimensional and M-mode echocardiogram with Doppler and color Doppler. INDICATION Non STEMI 2D DIMENSIONS Left Atrium (2D)3.5 (1.6-4.0cm)IVSd1.0 (0.7-1.1cm) LVDd4.6 (3.9-5.9cm)PWd1.1 (0.7-1.1cm) LVDs3.2 (2.5-4.0cm)FS (%) 30.5 % LVEF (%)57.9 (>50%) M-Mode DIMENSIONS Aortic Root2.90 (2.2-3.7cm)Aortic Cusp Exc.0.80 (1.5-2.0cm) Aortic Valve AoV Peak Iylapylh099.0cm/Letha Peak GR.16mmHg Mitral Valve MV E Cebiabdb81.5cm/sMV A Shjjhdps26.5cm/sE/A ratio0.6 TDI E/Lateral E'0.0E/Medial E'0.0 Tricuspid Valve TR Peak Znufcaop810wl/sRAP [id number] Peak Gr.28mmHg [id number] LEFT VENTRICLE The left ventricle is normal size. There is normal left ventricular wall thickness. Left ventricle systolic function is low normal.EF-50% There is mild hypokinesis in the apical anterior wall. Transmitral Doppler flow pattern is Grade III-reversible restrictive diastolic dysfunction. No left ventricle thrombus noted on this study. There is no ventricular septal defect visualized. There is no left ventricular aneurysm. There is no mass noted in the left ventricle. RIGHT VENTRICLE The right ventricle is normal size. There is normal right ventricular wall thickness. The right ventricular systolic function is normal. AORTIC VALVE The aortic valve is calcified and displays decreased opening. There is trace aortic regurgitation. There is mild valvular aortic stenosis. There is no aortic valvular vegetation. MITRAL VALVE The mitral valve is thickened but opens well. Mitral regurgitation is mild. There is no mitral valve stenosis. There is no evidence of mitral valve prolapse. TRICUSPID VALVE The tricuspid valve leaflets are thickened , but open well. There is mild tricuspid regurgitation.RVSP-38 mmof hg. There is no tricuspid valve stenosis. There is no tricuspid valve prolapse or vegetation. PULMONIC VALVE The pulmonary valve is normal in structure. Trivial PI. There is no pulmonic valvular stenosis. GREAT VESSELS The aortic root is normal in size. The ascending aorta is normal in size. The pulmonary artery is normal. The IVC is normal in size and collapses >50% with inspiration. PERICARDIAL EFFUSION There is no pleural effusion. There is no pericardial effusion. <Conclusion> Normal chamber Size. EF-50-55%,low normal There is trace aortic regurgitation. There is mild valvular aortic stenosis. Mitral regurgitation is mild. There is mild tricuspid regurgitation.RVSP-38 mmof hg. Trivial PI. The IVC is normal in size and collapses >50% with inspiration. There is no pericardial effusion. No vegetatio or thrombus noted.
[2018-10-27 07:35] LABS: BASO # 0.01 K/mm3 (0.0-2.0); BASO % 0.1 % (0.0-3.0); HEMOGLOBIN 11.2 g/dL (12.0-16.0); LYMPH # 2.1 (1.2-3.4); LYMPH % 20.2 % (22.0-35.0); MEAN CORPUSCULAR HEMOGLOBIN 29.9 pg (25.0-35.0); MEAN CORPUSCULAR HGB CONC 32.5 g/dl (31.0-37.0); MEAN PLATELET VOLUME 10.7 fl (7.0-11.0); MONO # 0.8 (0.1-0.6); MONO % 7.6 % (1.0-6.0); RBC 3.75 10^6/uL (3.5-6.1); RED CELL DISTRIBUTION WIDTH 13.8 % (11.5-14.5); WHITE BLOOD COUNT 10.5 10^3/uL (4.5-11.0)
[2018-10-27 08:13] LABS: ALB/GLOB RATIO 0.9 (1.1-1.8); ALBUMIN 3.6 g/dL (3.0-4.8); ALT/SGPT 17 U/L (7-56); AST/SGOT 44 U/L (14-36); BLOOD UREA NITROGEN 36 mg/dL (7-21); CALCIUM 8.9 mg/dL (8.4-10.5); GFR NON-AFRICAN AMERICAN 60
[2018-10-27 09:21] VITALS: RESP 20; TEMP 98.3; O2SAT 98
--- NOTE | 2018-10-27 09:40 | CP.PCM.DIS ---
<AlaynaZak R - Last Filed: 10/27/18 09:36> Provider - Provider Date of Admission: 10/24/18 01:29 Attending physician: Dave Gray MD Primary care physician: NO FAMILY PROVIDER Consults: 10/24/18 06:00 Cardiology Consult ROUTINE AM Comment: Consulting Provider: Drea Leahy Consulting Physician: Drea Leahy Reason for Consult: elevated troponin and BNP Time Spent in preparation of Discharge (in minutes): 34 Diagnosis - Discharge Diagnosis (1) Pulmonary embolism Status: Acute Priority: High (2) DVT (deep venous thrombosis) Status: Acute Priority: High (3) Weakness Status: Chronic Priority: High Hospital Course - Lab Results Lab Results: Micro Results 10/24/18 00:47 Blood-Venous Blood Culture - Preliminary NO GROWTH AFTER 3 DAYS 10/23/18 22:20 Blood-Venous Blood Culture - Preliminary NO GROWTH AFTER 3 DAYS Most Recent Lab Values WBC 10.5 10^3/uL (4.5-11.0) 10/27/18 07:20 RBC 3.75 10^6/uL (3.5-6.1) 10/27/18 07:20 Hgb 11.2 g/dL (12.0-16.0) L 10/27/18 07:20 Hct 34.5 % (36.0-48.0) L 10/27/18 07:20 MCV 92.0 fl (80.0-105.0) 10/27/18 07:20 MCH 29.9 pg (25.0-35.0) 10/27/18 07:20 MCHC 32.5 g/dl (31.0-37.0) 10/27/18 07:20 RDW 13.8 % (11.5-14.5) 10/27/18 07:20 Plt Count 246 10^3/uL (120.0-450.0) 10/27/18 07:20 MPV 10.7 fl (7.0-11.0) 10/27/18 07:20 Neut % (Auto) 72.1 % (50.0-68.0) H 10/27/18 07:20 Lymph % (Auto) 20.2 % (22.0-35.0) L 10/27/18 07:20 Roberts % (Auto) 7.6 % (1.0-6.0) H 10/27/18 07:20 Eos % (Auto) 0.0 % (1.5-5.0) L 10/27/18 07:20 Baso % (Auto) 0.1 % (0.0-3.0) 10/27/18 07:20 Lymph # (Auto) 2.1 (1.2-3.4) 10/27/18 07:20 Roberts # (Auto) 0.8 (0.1-0.6) H 10/27/18 07:20 Eos # (Auto) 0.0 (0.0-0.7) 10/27/18 07:20 Baso # (Auto) 0.01 K/mm3 (0.0-2.0) 10/27/18 07:20 Absolute Neuts (auto) 7.60 (1.4-6.5) H 10/27/18 07:20 PT 13.9 SECONDS (9.4-12.5) H 10/23/18 22:41 INR 1.25 10/23/18 22:41 APTT 26.3 Seconds (26.9-38.3) L 10/23/18 22:41 D-Dimer, Quantitative > 5250 ng/mlDDU (0-243) H 10/24/18 02:31 pO2 43 mm/Hg (30-55) 10/24/18 02:30 VBG pH 7.47 (7.32-7.43) H 10/24/18 02:30 VBG pCO2 34.0 (40-60) L 10/24/18 02:30 VBG HCO3 24.7 mmol/l (21-28) 10/24/18 02:30 VBG Total CO2 25.7 mmol.L (22-28) 10/24/18 02:30 VBG O2 Sat (Calc) 89.0 % (40-65) H 10/24/18 02:30 VBG Base Excess 1.5 mmol/L (0.0-2.0) 10/24/18 02:30 VBG Potassium 4.5 mmol/L (3.6-5.2) 10/24/18 02:30 Sodium 134.0 mmol/L (132-148) 10/24/18 02:30 Chloride 104.0 mmol/L (98-107) 10/24/18 02:30 Glucose 132 mg/dl (65-105) H 10/24/18 02:30 Lactate 1.1 mmol/L (0.7-2.1) 10/24/18 02:30 FiO2 21.0 % 10/24/18 02:30 Sodium 140 mmol/L (132-148) 10/27/18 07:20 Potassium 3.6 mmol/L (3.6-5.0) 10/27/18 07:20 Chloride 102 mmol/L (98-107) 10/27/18 07:20 Carbon Dioxide 29 mmol/L (21-33) 10/27/18 07:20 Anion Gap 13 (10-20) 10/27/18 07:20 BUN 36 mg/dL (7-21) H 10/27/18 07:20 Creatinine 0.9 mg/dl (0.7-1.2) 10/27/18 07:20 Est GFR ( Amer) > 60 10/27/18 07:20 Est GFR (Non-Af Amer) 60 10/27/18 07:20 Random Glucose 115 mg/dL (70-110) H 10/27/18 07:20 Hemoglobin A1c 5.6 % (4.2-6.5) 10/25/18 06:30 Calcium 8.9 mg/dL (8.4-10.5) 10/27/18 07:20 Phosphorus 3.1 mg/dL (2.5-4.5) 10/26/18 07:05 Magnesium 2.0 mg/dL (1.7-2.2) 10/26/18 07:05 Total Bilirubin 0.8 mg/dL (0.2-1.3) 10/27/18 07:20 AST 44 U/L (14-36) H 10/27/18 07:20 ALT 17 U/L (7-56) 10/27/18 07:20 Alkaline Phosphatase 85 U/L (38-126) 10/27/18 07:20 Lactate Dehydrogenase 511 U/L (333-699) 10/25/18 06:30 Total Creatine Kinase 163 U/L (35-230) 10/25/18 06:30 Troponin I 0.06 ng/mL 10/25/18 06:30 NT-Pro-B Natriuret Pep 1230 pg/mL (0-450) H 10/23/18 23:15 Total Protein 7.6 g/dL (5.8-8.3) 10/27/18 07:20 Albumin 3.6 g/dL (3.0-4.8) 10/27/18 07:20 Globulin 4.0 gm/dL 10/27/18 07:20 Albumin/Globulin Ratio 0.9 (1.1-1.8) L 10/27/18 07:20 Triglycerides 79 mg/dL (35-160) 10/25/18 06:30 Cholesterol 129 mg/dL (130-200) L 10/25/18 06:30 LDL Cholesterol Direct 79 mg/dL (0-129) 10/25/18 06:30 HDL Cholesterol 30 mg/dL (29-60) 10/25/18 06:30 TSH 3rd Generation 2.80 mIU/mL (0.46-4.68) 10/25/18 06:30 Venous Blood Potassium 4.5 mmol/L (3.6-5.2) 10/24/18 02:30 - Hospital Course Hospital Course: Mrs Gil is a 83 year old female with a PMHx of dementia, chronic peripheral edema, glaucoma, right radius fracture (2015), right tibia/fibula fracture (2017) who presents because her son noticed she was weak and had increased shortness of breath. Son stated to ED physician patient became slightly unresponsive, while breathing heavily. Son states patient has had increased leg swelling in both legs for the past few days as well. Upon interview/exam today the patient was AAOx2 (believed the year was 1948) thus hx is limited by patient's baseline dementia. She complained of pain in her right ankle. I spoke to her son who stated she lives alone and gets around with wheelchair, and has a live-in 24 hour health aide. Patient denies any chest pain, abdominal pain, fevers, chills, headache, dizziness, nausea, vomiting, diarrhea, back pain, neck pain. PMHx: dementia, chronic peripheral edema, glaucoma, right radius fracture (2015), right tibia/fibula fracture (2017) PSHx: open reduction, internal fixation right tibia/fibula 09/2016 SocialHx: never smoked; denies alcohol FamHx: denies Allergies: NKA Home Meds: latonoprost eye drops for glaucoma Patient will be discharged to [facility] for rehab. She is currently on Eliquis 10mg po BID and will need to switch to Eliquis 5mg po BID on 11/01/18. Mrs Gil is a 83 year old female with a PMHx of dementia, chronic peripheral edema, glaucoma, right radius fracture (2015), right tibia/fibula fracture (2017) who presents because her son noticed she was weak and had increased shortness of breath: Left Leg DVT -venous duplex ultrasound 10/24: * Acute hypoechoic occlusive thrombus in the left femoral and popliteal veins. -lovenox 65mg ivp q12h (started 10/24 - discontinued 10/25) -currently on Eliquis 10mg po bid (started evening 10/25) - switch to Eliquis 5mg po bid on 11/01/18 Pulmonary Embolism -on admission d-dimer was 5250 -order for V/Q scan (ideally prefer CTA chest however given patient's advanced age the contrast could irreversibly harm her kidneys) * High probability ventilation perfusion scan for pulmonary embolism. Perfusion defects in the right upper lobe and left lower lobe -lovenox 65mg ivp q12h (started 10/24 - discontinued 10/25) -currently on Eliquis 10mg po bid (started evening 10/25) - - switch to Eliquis 5mg po bid on 11/01/18 Elevated pro-bnp -probnp on admission 1230 -echo from 2016 showed normal EF however and mild concentric LVH with grade-I abnormal relaxation pattern -f/u echo -on metoprolol tartrate 25mg po bid and lasix 40mg ivp qd -consult cardiology, Dr Leahy Equivocal Troponin -trop on admission was 0.12 then -> 0.08 -> 0.07 -aspirin 325mg po given once -lipid panel and Hgba1c normal -on aspirin 81mg po qd -metoprolol tartrate 25mg po bid -consult cardiology, Dr Leahy Elevated White Count, Resolved -wbc on admission was 14.2 -possibly due to left leg DVT -f/u urine; blood cultures 10/24 are negative up to date -start empiric cefepime 1g q12h until cultures return - if cultures negative we'll de-escalate abx Cold Right Foot, Resolved -arterial doppler and BRYAN 10/24: * 1. Limited study due to calcified vessels. 2. Bilateral tibial disease. -currently temperature normal b/l with pedal pulses present and no pain Shortness of Breath, Improved -etiology CHF vs PE -CXR 10/23 showed no active disease -lasix 40ivp qd Weakness, Chronic -uses wheel chair at home; right tibia/fibula fracture (2017) -physical therapy eval and treat Decreased Appetite, Chronic -soft dysphagia diet PPX -on therapeutic lovenox -GI ppx not indicated Dispo: PT recs DAV; son to make a decision soon - possibly [facility] or [facility] or [facility] Case discussed with Dr Gray Discharge Exam - Head Exam Head Exam: NORMAL INSPECTION, NORMOCEPHALIC - Additional Findings Additional findings: - Constitutional Appears: Well, Non-toxic, No Acute Distress, Confused - Head Exam Head Exam: ATRAUMATIC, NORMAL INSPECTION - Eye Exam Eye Exam: EOMI, Normal appearance, PERRL. absent: Scleral icterus - ENT Exam ENT Exam: Mucous Membranes Moist - Respiratory Exam Respiratory Exam: Clear to Auscultation Bilateral, NORMAL BREATHING PATTERN. absent: Rales, Rhonchi, Wheezes - Cardiovascular Exam Cardiovascular Exam: Tachycardia, REGULAR RHYTHM, +S1, +S2, Systolic Murmur. absent: JVD - GI/Abdominal Exam GI & Abdominal Exam: Normal Bowel Sounds, Soft. absent: Distended, Firm, Guarding, Tenderness - Extremities Exam Extremities exam: Positive for: calf tenderness, pedal edema, tenderness. Negative for: normal inspection Additional comments: temperature normal b/l, pedal pulses present, no pain to palpation - Neurological Exam Neurological exam: Alert Additional comments: AAOx2 - Psychiatric Exam Psychiatric exam: Normal Affect - Skin Additional comments: right ankle skin changes appear to be venous stasis Discharge Plan - Follow Up Plan Condition: GUARDED Disposition: REHAB FACILITY/REHAB UNIT Instructions: Pulmonary Embolism (Blood Clot in the Lungs), Deep Vein Thrombosis (Blood Clots in the Legs), Dangers of Secondhand Smoke, Apixaban, Flu Vaccine Additional Instructions: Patient will be discharged to [facility] She is currently on Eliquis 10mg po BID which will need to be switched over to Eliquis 5mg po BID starting 11/01/18 Please have her continue the following medications: 1. Aspirin 81mg po qd 2. Metoprolol Tartrate 25mg po BID 3. Latanoprost 0.005% Opht [Xalatan Opht] OU Daily 4. Colace 100mg po Daily 5. She is currently on Eliquis 10mg po BID which will need to be switched over to Eliquis 5mg po BID starting 11/01/18 Please have her follow-up with her primary medical doctor within 7 days If symptoms return please go to your nearest emergency department. Referrals: FAMILY PROVIDER,NO [Primary Care Provider] - <Dave Gray - Last Filed: 10/29/18 10:38> Provider - Provider Date of Admission: 10/24/18 01:29 Attending physician: Dave Gray MD Primary care physician: JEFFERY FAMILY PROVIDER Consults: 10/24/18 06:00 Cardiology Consult ROUTINE AM Comment: Consulting Provider: Drea Leahy Consulting Physician: Drea Leahy Reason for Consult: elevated troponin and BNP Hospital Course - Lab Results Lab Results: Micro Results 10/24/18 00:47 Blood-Venous Blood Culture - Final NO GROWTH AFTER 5 DAYS 10/24/18 00:47 Blood-Venous Gram Stain - Final TEST NOT PERFORMED 10/23/18 22:20 Blood-Venous Blood Culture - Final NO GROWTH AFTER 5 DAYS 10/23/18 22:20 Blood-Venous Gram Stain - Final TEST NOT PERFORMED Most Recent Lab Values WBC 10.5 10^3/uL (4.5-11.0) 10/27/18 07:20 RBC 3.75 10^6/uL (3.5-6.1) 10/27/18 07:20 Hgb 11.2 g/dL (12.0-16.0) L 10/27/18 07:20 Hct 34.5 % (36.0-48.0) L 10/27/18 07:20 MCV 92.0 fl (80.0-105.0) 10/27/18 07:20 MCH 29.9 pg (25.0-35.0) 10/27/18 07:20 MCHC 32.5 g/dl (31.0-37.0) 10/27/18 07:20 RDW 13.8 % (11.5-14.5) 10/27/18 07:20 Plt Count 246 10^3/uL (120.0-450.0) 10/27/18 07:20 MPV 10.7 fl (7.0-11.0) 10/27/18 07:20 Neut % (Auto) 72.1 % (50.0-68.0) H 10/27/18 07:20 Lymph % (Auto) 20.2 % (22.0-35.0) L 10/27/18 07:20 Roberts % (Auto) 7.6 % (1.0-6.0) H 10/27/18 07:20 Eos % (Auto) 0.0 % (1.5-5.0) L 10/27/18 07:20 Baso % (Auto) 0.1 % (0.0-3.0) 10/27/18 07:20 Lymph # (Auto) 2.1 (1.2-3.4) 10/27/18 07:20 Roberts # (Auto) 0.8 (0.1-0.6) H 10/27/18 07:20 Eos # (Auto) 0.0 (0.0-0.7) 10/27/18 07:20 Baso # (Auto) 0.01 K/mm3 (0.0-2.0) 10/27/18 07:20 Absolute Neuts (auto) 7.60 (1.4-6.5) H 10/27/18 07:20 PT 13.9 SECONDS (9.4-12.5) H 10/23/18 22:41 INR 1.25 10/23/18 22:41 APTT 26.3 Seconds (26.9-38.3) L 10/23/18 22:41 D-Dimer, Quantitative > 5250 ng/mlDDU (0-243) H 10/24/18 02:31 pO2 43 mm/Hg (30-55) 10/24/18 02:30 VBG pH 7.47 (7.32-7.43) H 10/24/18 02:30 VBG pCO2 34.0 (40-60) L 10/24/18 02:30 VBG HCO3 24.7 mmol/l (21-28) 10/24/18 02:30 VBG Total CO2 25.7 mmol.L (22-28) 10/24/18 02:30 VBG O2 Sat (Calc) 89.0 % (40-65) H 10/24/18 02:30 VBG Base Excess 1.5 mmol/L (0.0-2.0) 10/24/18 02:30 VBG Potassium 4.5 mmol/L (3.6-5.2) 10/24/18 02:30 Sodium 134.0 mmol/L (132-148) 10/24/18 02:30 Chloride 104.0 mmol/L (98-107) 10/24/18 02:30 Glucose 132 mg/dl (65-105) H 10/24/18 02:30 Lactate 1.1 mmol/L (0.7-2.1) 10/24/18 02:30 FiO2 21.0 % 10/24/18 02:30 Sodium 140 mmol/L (132-148) 10/27/18 07:20 Potassium 3.6 mmol/L (3.6-5.0) 10/27/18 07:20 Chloride 102 mmol/L (98-107) 10/27/18 07:20 Carbon Dioxide 29 mmol/L (21-33) 10/27/18 07:20 Anion Gap 13 (10-20) 10/27/18 07:20 BUN 36 mg/dL (7-21) H 10/27/18 07:20 Creatinine 0.9 mg/dl (0.7-1.2) 10/27/18 07:20 Est GFR ( Amer) > 60 10/27/18 07:20 Est GFR (Non-Af Amer) 60 10/27/18 07:20 Random Glucose 115 mg/dL (70-110) H 10/27/18 07:20 Hemoglobin A1c 5.6 % (4.2-6.5) 10/25/18 06:30 Calcium 8.9 mg/dL (8.4-10.5) 10/27/18 07:20 Phosphorus 3.1 mg/dL (2.5-4.5) 10/26/18 07:05 Magnesium 2.0 mg/dL (1.7-2.2) 10/26/18 07:05 Total Bilirubin 0.8 mg/dL (0.2-1.3) 10/27/18 07:20 AST 44 U/L (14-36) H 10/27/18 07:20 ALT 17 U/L (7-56) 10/27/18 07:20 Alkaline Phosphatase 85 U/L (38-126) 10/27/18 07:20 Lactate Dehydrogenase 511 U/L (333-699) 10/25/18 06:30 Total Creatine Kinase 163 U/L (35-230) 10/25/18 06:30 Troponin I 0.06 ng/mL 10/25/18 06:30 NT-Pro-B Natriuret Pep 1230 pg/mL (0-450) H 10/23/18 23:15 Total Protein 7.6 g/dL (5.8-8.3) 10/27/18 07:20 Albumin 3.6 g/dL (3.0-4.8) 10/27/18 07:20 Globulin 4.0 gm/dL 10/27/18 07:20 Albumin/Globulin Ratio 0.9 (1.1-1.8) L 10/27/18 07:20 Triglycerides 79 mg/dL (35-160) 10/25/18 06:30 Cholesterol 129 mg/dL (130-200) L 10/25/18 06:30 LDL Cholesterol Direct 79 mg/dL (0-129) 10/25/18 06:30 HDL Cholesterol 30 mg/dL (29-60) 10/25/18 06:30 TSH 3rd Generation 2.80 mIU/mL (0.46-4.68) 10/25/18 06:30 Venous Blood Potassium 4.5 mmol/L (3.6-5.2) 10/24/18 02:30 - Hospital Course Hospital Course: Pt seen and examined by me. This is a late entry. I have reviewed the note of the medical supply technician and I agree with it. I have discussed the assessment and plan with the resident. I have reviewed the medications and the last labs. Pt with DVT and PE. Sheis on anticoagulation. She is on Lasix for CHF and LE edema.
[2018-10-27] MEDS: Cefepime 1gm in NS 100ml 1 GM/100 ML BAG IVPB SCH (10:06)
[2018-10-27 10:09] VITALS: BP 130/71; PULSE 84
--- NOTE | 2018-10-27 19:15 | PN ---
DATE: 10/27/2018 LOCATION: The patient is in room 568, bed 1. REASON FOR CONSULTATION: Shortness of breath, swelling of legs, the patient found to have pulmonary embolism. SUBJECTIVE: The patient is lying comfortably. Denies chest pain. Breathing is stable. Denies any palpitation. PHYSICAL EXAMINATION: VITAL SIGNS: Blood pressure 130/71, respirations 20, pulse 84, temperature 98.3. HEENT: Head is normocephalic. Eyes, pupils normal. Conjunctivae normal. NECK: JVP low. Carotids equal. THORAX: AP diameter normal. LUNGS: No significant rales. CARDIOVASCULAR: S1 and S2. ABDOMEN: Soft. No tenderness. No organomegaly. EXTREMITIES: No clubbing. No cyanosis. LABORATORY DATA: WBC 10.5, hemoglobin 11.2, hematocrit 34.5, platelets 246. Sodium 140, potassium 3.6, BUN 36, creatinine 0.9. AST 44, ALT 17, total protein 7.6, albumin 3.6. The patient had an echocardiogram on 10/25/2018, which showed normal chamber sizes, LV ejection fraction 50% to 55% which is low normal, trace aortic regurg, mild valvular aortic stenosis, mild mitral regurg, mild tricuspid regurg, RVSP 38 mmHg, right ventricular size is normal, normal right ventricular wall thickness, right ventricular systolic function also normal. Ultrasound of the lower extremities showed bilateral disease, limited study due to calcified vessels. V/Q lung scan showed high probability for pulmonary embolism with perfusion defects in the right upper lobe and left lower lobe, borderline elevated troponin due to RV strain due to pulmonary embolism which has been trending now. DIAGNOSES: Pulmonary embolism, chronic edema, glaucoma, dementia, peripheral vascular disease. PLAN: The patient on Eliquis 10 mg b.i.d. until 10/31/2018 and then will be 5 mg b.i.d. starting 11/01/2018 onward. The patient on Lasix 40 IV daily, metoprolol 25 b.i.d., aspirin 81 daily. We will follow with you. Drea Story MD
--- NOTE | 2018-10-30 18:11 | PQF ---
PROVIDER RESPONSE TEXT: CHF acute due to diastolic dysfunction present on admission to the hosptial REVIEWER QUERY TEXT: Symptom Underlying Cause Please document the underlying diagnosis causing the patient?s documented symptom(s) or whether those are insignificant or unable to be further specified. The patient's Clinical Indicators include: Patient admitted with SOB, initially noted as due to CHF vs PE. CXR with no acute findings but BNP elevated and treated with Lasix IV. Lung scan revealing high probability for PE, also treated. Please document if CHF was present or ruled out. If present, type and acuity. Query created by: Meghana López on 10/26/2018 1:12 PM Electronically signed by: Dave Gray MD 10/30/2018 6:08 PM
--- NOTE | 2018-10-30 18:11 | PQF ---
PROVIDER RESPONSE TEXT: Pt with acute CHF due to diastolic dysfunction REVIEWER QUERY TEXT: CHF Acuity and Type Congestive Heart Failure is documented in the Medical Record. Please document the type and acuity (in cludes probable or suspected) Such as: Type: -- Systolic -- Diastolic -- Combined -- Other, please specify Acuity: -- Acute -- Chronic -- Acute on chronic -- Other, please specify Also please document the underlying cause of the CHF (includes probable or suspected) The patient's Clinical Indicators include: Please document the type and acuity of CHF with pro-bnp of 1230 on lasix 40 mg IVP qd Query created by: Jocelynn Valadez on 10/30/2018 7:56 AM Electronically signed by: Dave Gray MD 10/30/2018 6:08 PM
== END 2018-10-27 15:34 | DRG 175 ==
LOC: ED 20:38 → ERH 10-24 01:29 → 2RNO 10-24 03:35 → 5RNO 10-26 19:15
PROVIDERS: ADMIT Internal Medicine Nephrology; ATTEND Internal Medicine Nephrology
DX: I26.99 Other pulmonary embolism without acute cor pulmonale (principal); I50.31 Acute diastolic (congestive) heart failure; I82.412 Acute embolism and thrombosis of left femoral vein; I82.432 Acute embolism and thrombosis of left popliteal vein; I11.0 Hypertensive heart disease with heart failure; G30.9 Alzheimer's disease, unspecified; F02.80 Dementia in other diseases classified elsewhere, unspecified severity, without behavioral disturbance, psychotic disturbance, mood disturbance, and anxiety; R79.1 Abnormal coagulation profile; M19.90 Unspecified osteoarthritis, unspecified site; H40.9 Unspecified glaucoma; K21.9 Gastro-esophageal reflux disease without esophagitis; Z87.81 Personal history of (healed) traumatic fracture; R60.0 Localized edema; R41.82 Altered mental status, unspecified; Z74.01 Bed confinement status; Z79.01 Long term (current) use of anticoagulants

== ENCOUNTER 2018-11-28 09:34 | Inpatient (IN) | payer MEDICARE, BC ==
[2018-11-28 09:39] VITALS: BMI 28.1
[2018-11-28] MEDS ORDERED: Succinylcholine 200 mg/10 ml Inj IV ONE (09:42)
[2018-11-28] MEDS ORDERED: Etomidate 20 mg/10ml Inj IV ONE (09:42)
[2018-11-28] MEDS ORDERED: Sodium Chloride 0.9% 1,000 ML IV ONE (09:49)
--- NOTE | 2018-11-28 10:04 | ED PDOC ---
Arrival/HPI - General Chief Complaint: Altered Mental Status Time Seen by Provider: 11/28/18 09:49 Historian: EMS EM Caveat: Altered Mental Status, Dementia - History of Present Illness Narrative History of Present Illness (Text): 11/28/18 10:04 83 year old F with a PMH of dementia, CHF and hypertension presents to the emergency department via [facility] Staff noted melena since 5:30am, and reports that patient was less responsive than usual- she is at baseline confused but alert. EMS reports that during transport patient had labile BP, went as low as 50's systolic, and as high as 130's. HPI and ROS is limited due to dementia and acuity of condition. On arrival, large amount of melena noted in stretcher. Patient opens eyes to pain. Of note, patient was recently admitted to this hospital about a month ago for PE and was discharged on Eliquis. Time/Duration: Prior to Arrival Symptom Onset: Sudden Symptom Course: Unchanged Activities at Onset: Light Context: Other (Snf) Past Medical History - Provider Review Nursing Documentation Reviewed: Yes TREESITA Report Viewed: Yes - Travel History Have you recently traveled outside [place] w/in the past 3 mons?: No - Infectious Disease Hx of Infectious Diseases: None - Reproductive Menopause: Yes - Cardiac Hx Congestive Heart Failure: Yes Hx Peripheral Edema: Yes (+1) - Pulmonary Hx Respiratory Disorders: No - Neurological Hx Neurological Disorder: Yes Hx Dementia: Yes - HEENT Hx HEENT Disorder: (eye glasses) Hx Blind: Yes (legally blind) Hx Glaucoma: Yes - Renal Hx Renal Disorder: No - Endocrine/Metabolic Hx Endocrine Disorders: No - Hematological/Oncological Hx Blood Transfusions: Yes (1st transfusion running now) Hx Blood Transfusion Reaction: No - Integumentary Hx Dermatological Disorder: Yes Other/Comment: eccymosis to right lower thigh above right knee - Musculoskeletal/Rheumatological Hx Arthritis: Yes - Gastrointestinal Hx Gastrointestinal Disorders: No - Genitourinary/Gynecological Hx Genitourinary Disorders: No - Psychiatric Hx Psychophysiologic Disorder: No Hx Substance Use: No - Surgical History Hx Cardiac Catheterization: No Other/Comment: tib/fib OIRF - Anesthesia Hx Anesthesia: Yes Hx Anesthesia Reactions: No Hx Malignant Hyperthermia: No Family/Social History - Physician Review Nursing Documentation Reviewed: Yes Family/Social History: Unknown Family HX Smoking Status: Never Smoked Hx Alcohol Use: No Hx Substance Use: No Allergies/Home Meds Allergies/Adverse Reactions: Allergies No Known Allergies Allergy (Verified 02/23/16 20:28) Home Medications: Home Meds Medication Instructions Recorded Confirmed Acetaminophen [Tylenol] 325 mg PO PRN PRN 11/28/18 11/28/18 Apixaban [Eliquis] 5 mg PO DAILY 11/28/18 11/28/18 Aspirin [Aspirin Chewable] 81 mg PO DAILY 11/28/18 11/28/18 Latanoprost/Pf [Latanoprost 0.005% 7.5 ml OU DAILY 11/28/18 11/28/18 Eye Drop] Metoprolol Succinate [Kapspargo 25 mg PO DAILY 11/28/18 11/28/18 Sprinkle] Sennosides [Senna] 8.6 mg PO DAILY 11/28/18 11/28/18 Review of Systems - Review of Systems Systems not reviewed;Unavailable: Dementia Physical Exam - Physical Exam Physical Exam Limitations: Other (Dementia) Temperature: Afebrile Blood Pressure: Normal Pulse: Regular Respiratory Rate: Apneic Appearance: Positive for: Ill-Appearing Mental Status: No: Alert and Oriented X 3 (unresponsive to voice, opens eyes to pain) - Systems Exam Head: Present: Atraumatic, Normocephalic Pupils: Present: PERRL Conjunctiva: Present: Normal Mouth: Present: Dry Respiratory/Chest: Present: Other (Coarse breath sounds) Cardiovascular: Present: Regular Rate and Rhythm Abdomen: No: Distention, Rebound, Guarding Rectal: Present: Melena (large amount) Upper Extremity: No: Cyanosis, Edema Lower Extremity: Present: Edema (2+ pedal edema bilaterally) Neurological: Present: Other (Opened eyes to pain). No: GCS=15, Speech Normal Skin: Present: Warm, Dry. No: Rashes Psychiatric: No: Alert, Oriented x 3 Medical Decision Making ED Course and Treatment: Impression: 83 year old F presents to the emergency department via EMS complaining of dark stool since 5:30 am and unresponsiveness this morning. Prior Visits: Notes and results from previous visits were reviewed. Patient admitted last month and found to have PE, started on Eliquis. Progress Notes: Patient seen and examined. Large amount of melena present. Patient somnolent, opens eyes only to pain, with agonal respirations. Decision made to immediately intubate. 11/28/18 10:02 PROCEDURE: INTUBATION Performed by the emergency provider Time: 09:35 Consent: Discussion of the risks, benefits, and alternatives to the procedure, along with informed consent was precluded by the urgency of the procedure and the patient condition. Timeout: A timeout to verify the correct patient, procedure, and site was performed. Indication: Altered mental status, agonal respirations Pre-oxygenation: [id number] Medications: 20 mg Etomidate and 100 mg Succinylcholine ETT Size: 7.5 Confirmation: Cords directly visualized as tube passed, good bilateral breath sounds, positive CO2 detector color change, tube fogging, adequate chest rise, improving pulse oximetry reading, improved skin color, and absence of gastric sounds,. ETT Secured: The cuff was inflated and the tube was secured appropriately at a distance of 25cm at the lip. Post-Procedure: There were no immediate complications. CXR Confirmation: {Yes / No} Post intubation patient with HR in the 90's, BP normotensive- 130's systolic. Labs drawn. IV hydration initiated. Protonix 80mg ivpb followed by 8mg/hr infusion ordered for acute GI bleed. CXR done showing right mainstem intubation, RT pulled ETT back 2cm, to 23 at the lip. Initial hgb stable at 10.4, near baseline from previous admission. Leukocytosis and lactic acidosis noted. Vancomycin and aztreonam ivpb ordered for presumed sepsis. NS bolus continued. Case discussed with Dr. Gray who accepts patient to his service. Also discussed with Dr. Pereira who accepts patient to ICU. UA resulted, showing UTI, likely source of sepsis. ICU evaluated patient, would like FFP transfusion and vitamin K. 10mg vit K IV ordered. 2u FFP ordered. Also ordered 2U PRBC for transfusion. - Critical Care Critical Care Minutes: 60 minutes Critical Care Time: Excluding Proc Time, Unstable - RAD Interpretation Narrative RAD Interpretations (Text): 11/28/18 11:00 CXR: The endotracheal tube is in suboptimal position with the tip at the opening of the right mainstem bronchus. The tube should be pulled back 2 cm. Radiology Orders: 11/28/18 09:49 CHEST PORTABLE [RAD] [employer] Valuer: Radiologist - EKG Interpretation EKG Interpretation (Text): 11/28/18 10:38 EKG shows Sinus Tachcardia at 111 BPM, normal axis, Left Interval deviation, no acute ST/T wave abnormalities. Interpreted by me. Interpreted by ED Physician: Yes Type: 12 lead EKG - Medication Orders Current Medication Orders: Sodium Chloride (Sodium Chloride 0.9%) 1,000 mls @ 2,000 mls/hr IV .Q30M ONE Stop: 11/28/18 10:18 - PA / DIRECTOR REGULATORY COMPLIANCE / Resident Statement MD/DO has reviewed & agrees with the documentation as recorded. - Scribe Statement The provider has reviewed the documentation as recorded by the Jorge Parker All medical record entries made by the Jorge were at my direction and personally dictated by me. I have reviewed the chart and agree that the record accurately reflects my personal performance of the history, physical exam, medical decision making, and the department course for this patient. I have also personally directed, reviewed, and agree with the discharge instructions and disposition. Disposition/Present on Arrival - Present on Arrival Any Indicators Present on Arrival: Yes History of DVT/PE: Yes History of Uncontrolled Diabetes: No Urinary Catheter: No History of Decub. Ulcer: No History Surgical Site Infection Following: None - Disposition Have Diagnosis and Disposition been Completed?: Yes Diagnosis: GI bleed, Respiratory failure, Sepsis, UTI (urinary tract infection) Disposition: HOSPITALIZED Disposition Time: 11:48 Patient Plan: ICU Condition: SERIOUS
[2018-11-28 10:17] LABS: BASO # 0.01 K/mm3 (0.0-2.0); HEMOGLOBIN 10.4 g/dL (12.0-16.0); LYMPH # 2.3 (1.2-3.4); LYMPH % 8.3 % (22.0-35.0); MEAN CORPUSCULAR HEMOGLOBIN 30.5 pg (25.0-35.0); MEAN CORPUSCULAR HGB CONC 32.8 g/dl (31.0-37.0); MEAN PLATELET VOLUME 11.1 fl (7.0-11.0); MONO # 2.6 (0.1-0.6); MONO % 9.3 % (1.0-6.0); PLATELET COUNT 254 10^3/uL (120.0-450.0); RBC 3.41 10^6/uL (3.5-6.1); RED CELL DISTRIBUTION WIDTH 14.7 % (11.5-14.5)
[2018-11-28 10:25] LABS: INR 3.11; PROTHROMBIN TIME 35.1 SECONDS (9.4-12.5)
[2018-11-28 10:26] LABS: ARTERIAL BLOOD GAS PCO2 22 mm/Hg (35-45); ARTERIAL BLOOD GAS PH 7.38 (7.35-7.45); ARTERIAL BLOOD GAS TCO2 13.7 mmol.L (22-28)
[2018-11-28 10:27] LABS: WHITE BLOOD COUNT 27.4 10^3/uL (4.5-11.0)
[2018-11-28] MEDS ORDERED: Aztreonam 2 Gm in NS 100mL 100 ML IVPB STA (10:30)
[2018-11-28] MEDS ORDERED: Vancomycin 1gm in NS 250ml 1 GM/250 ML BAG IVPB STA (10:30)
[2018-11-28 10:31] LABS: B-TYPE NATRIURETIC PEPTIDE 1320 pg/mL (0-450)
[2018-11-28 10:45] LABS: ALB/GLOB RATIO 0.8 (1.1-1.8); ALBUMIN 2.6 g/dL (3.0-4.8); ALT/SGPT < 6 U/L (7-56); AST/SGOT 31 U/L (14-36); BLOOD UREA NITROGEN 46 mg/dL (7-21); CALCIUM 7.9 mg/dL (8.4-10.5); GFR NON-AFRICAN AMERICAN > 60
--- NOTE | 2018-11-28 10:52 | RAD ---
Date of service: 11/28/2018 HISTORY: Sepsis Patient COMPARISON: 10/23/2018 FINDINGS: LUNGS: The endotracheal tube is in suboptimal position with the tip at the opening of the right mainstem bronchus. The tube should be pulled back 2 cm. This was discussed with Dr. Velarde at 10:40 a.m... PLEURA: No significant pleural effusion identified, no pneumothorax apparent. CARDIOVASCULAR: No aortic atherosclerotic calcification present. Normal cardiac size. No pulmonary vascular congestion. OSSEOUS STRUCTURES: No significant abnormalities. VISUALIZED UPPER ABDOMEN: Normal. OTHER FINDINGS: None. IMPRESSION: The endotracheal tube is in suboptimal position with the tip at the opening of the right mainstem bronchus. The tube should be pulled back 2 cm. This was discussed with Dr. Velarde at 10:40 a.m...
[2018-11-28 10:55] LABS: ATYPICAL LYMPHOCYTE 1 % (0.0-0.0); BAND 7 % (0-2); EOSINOPHIL 1 % (0.0-3.0); LYMPHOCYTE 9 % (22.0-35.0); MONOCYTE 8 % (1.0-6.0); NEUTROPHIL 74 % (50.0-70.0)
[2018-11-28 10:56] LABS: URINE BILIRUBIN LARGE (NEGATIVE); URINE BLOOD LARGE (NEGATIVE); URINE GLUCOSE (UA) 250 mg/dL (NEGATIVE); URINE LEUKOCYTE ESTERASE MODERATE Leu/uL (NEGATIVE); URINE PROTEIN >=300 mg/dL (<30 mg/dL); URINE UROBILINOGEN >=8.0 E.U./dL (<1 E.U./dL)
[2018-11-28 11:00] LABS: URINE APPEARANCE CLOUDY (CLEAR); URINE COLOR DARK BROWN (YELLOW)
[2018-11-28 11:11] LABS: URINE BACTERIA LARGE /hpf; URINE RBC TNTC /hpf (0-2); URINE WBC TNTC /hpf (0-6)
[2018-11-28] MEDS ORDERED: Sodium Chloride 0.9% 1,000 ML IV STA (11:13)
--- NOTE | 2018-11-28 12:11 | CP.PCM.HP ---
History of Present Illness - History of Present Illness History of Present Illness: Ochoa Klein- Internal Medicine Resident- H&P on Behalf of Dr. Gray Subjective: CC: AMS and dark stools HPI: Patient is a 83 year old female with a past medical history of DVT, PE, dementia, chronic peripheral edema, glaucoma, and multiple lower extremity fractures who was brought in via EMS from [facility] for evaluation and treatment of AMS and dark stools. As per staff, the patient was found to be altered this morning in the nursing facility. They noted the patient was experiencing dark stools and was tachycardia. EMS was called. As per records, EMS noted hypotension and placed an IO in the left shoulder. Further subjective data cannot be ascertained at this time due to AMS. 12 Point ROS cannot be ascertained at this time due to AMS PMHx: DVT, PE, dementia, chronic peripheral edema, glaucoma, right radius fracture (2015), right tibia/fibula fracture (2017) PSHx: open reduction, internal fixation right tibia/fibula 09/2016 SocialHx: as per records patient previously denied ETOH use, tobacco use, and illicit drug use FamHx: unknown Allergies: NKA Physical Examination: - Constitutional Appears: Intubated, no acute distress - Head Exam Head Exam: ATRAUMATIC, NORMOCEPHALIC - Eye Exam Eye Exam: PERRL - ENT Exam ENT Exam: Mucous Membranes Dry - Respiratory Exam Respiratory Exam: Intubated, right lower lobe crackles - Cardiovascular Exam Cardiovascular Exam: Tachycardic, +S1, +S2. absent: Systolic Murmur - GI/Abdominal Exam GI & Abdominal Exam: Normal Bowel Sounds, Soft. absent: Distended, Firm, Guarding, Rebound, Rigid, Tenderness - Neurological Exam Neurological exam: Altered - Skin Skin Exam: Dry, Intact, Warm Assessment and Plan: AMS Severe sepsis secondary to UTI Hemorrhagic shock 2/2 GI Bleed Normocytic anemia Supratherapeutic INR Hyperkalemia Dementia History of DVT/ PE on AC Patient was intubated and placed on ventilator in the ED. She was given vancomycin 1 gram IV x 1, azetreonam 2 grams IV x 1 , vitamin K 10mg x 1, protonix 80mg IV x 1, and stated on a protonix drip at 20mls/hr. GI is consulted- appreciate recommendations. Transfuse 2 units pRBCs, 2 FPPs, kcentra x 1. CBC q6h to monitor hemoglobin. Continue protonix drip. Blood cultures and urine cultures ordered and pending. Continue vancomycin 1 gram IV daily and zosyn 3.325g IV q8h. Infectious disease consulted- appreciate recommendations. Hold home aspirin, eliquis, and metoprolol. Patient given 3L in ED- Recheck BMP at 1500 to monitor potassium level. Visual Associate consulted for further recommendations regarding anticoagulation in light of need to hx of DVT/PE vs GI hemorrhage. Palliative care consulted- appreciate recommendations. Patient is being transferred to ICU for further care. Patient case reviewed with and plan approved by attending physician, Dr. Gray. Present on Admission - Present on Admission Any Indicators Present on Admission: Yes Past Patient History - Infectious Disease Hx of Infectious Diseases: None - Past Social History Smoking Status: Never Smoked - CARDIAC Hx Congestive Heart Failure: Yes Hx Peripheral Edema: Yes (+1) - PULMONARY Hx Respiratory Disorders: No - NEUROLOGICAL Hx Neurological Disorder: Yes Hx Dementia: Yes - HEENT Hx HEENT Problems: (eye glasses) Hx Blind: Yes (legally blind) Hx Glaucoma: Yes - RENAL Hx Chronic Kidney Disease: No - ENDOCRINE/METABOLIC Hx Endocrine Disorders: No - HEMATOLOGICAL/ONCOLOGICAL Hx Blood Transfusions: Yes (1st transfusion running now) Hx Blood Transfusion Reaction: No - INTEGUMENTARY Hx Dermatological Problems: Yes Other/Comment: eccymosis to right lower thigh above right knee - MUSCULOSKELETAL/RHEUMATOLOGICAL Hx Arthritis: Yes - GASTROINTESTINAL Hx Gastrointestinal Disorders: No - GENITOURINARY/GYNECOLOGICAL Hx Genitourinary Disorders: No - PSYCHIATRIC Hx Psychophysiologic Disorder: No Hx Substance Use: No - SURGICAL HISTORY Hx Cardiac Catheterization: No Other/Comment: tib/fib OIRF - ANESTHESIA Hx Anesthesia: Yes Hx Anesthesia Reactions: No Hx Malignant Hyperthermia: No Meds Allergies/Adverse Reactions: Allergies Allergy/AdvReac Type Severity Reaction Status Date / Time No Known Allergies Allergy Verified 02/23/16 20:28 Results - Vital Signs Recent Vital Signs: Last Vital Signs Temp 98.1 F 11/28/18 09:35 Pulse 104 H 11/28/18 11:45 Resp 25 H 11/28/18 11:45 BP 110/67 11/28/18 11:45 Pulse Ox 100 11/28/18 11:45 - Labs Result Diagrams: 11/28/18 09:45 11/28/18 09:45 Labs: Laboratory Results - last 24 hr 11/28/18 11/28/18 11/28/18 09:45 09:45 09:45 WBC 27.4 H* D RBC 3.41 L Hgb 10.4 L Hct 31.7 L MCV 93.0 MCH 30.5 MCHC 32.8 RDW 14.7 H Plt Count 254 MPV 11.1 H Neut % (Auto) 82.4 H Lymph % (Auto) 8.3 L [place] % (Auto) 9.3 H Eos % (Auto) 0.0 L Baso % (Auto) 0.0 Lymph # (Auto) 2.3 [place] # (Auto) 2.6 H Eos # (Auto) 0.0 Baso # (Auto) 0.01 Absolute Neuts (auto) 22.52 H Neutrophils % (Manual) 74 H Band Neutrophils % 7 H Lymphocytes % (Manual) 9 L Atypical Lymphs % 1 H Monocytes % (Manual) 8 H Eosinophils % (Manual) 1 PT 35.1 H INR 3.11 APTT 26.0 L pCO2 pO2 HCO3 ABG pH ABG Total CO2 ABG O2 Saturation ABG Base Excess ABG Potassium Glucose Lactate Mechanical Rate FiO2 Tidal Volume PEEP Crit Value Called To Crit Value Called By Blood Gas Notified Time Sodium 139 Potassium 5.9 H* D Chloride 109 H Carbon Dioxide 17 L Anion Gap 20 BUN 46 H Creatinine 0.8 Est GFR ( Amer) > 60 Est GFR (Non-Af Amer) > 60 Random Glucose 227 H Calcium 7.9 L Phosphorus 4.3 Magnesium 2.3 H Total Bilirubin 0.9 AST 31 ALT < 6 L Alkaline Phosphatase 74 Troponin I NT-Pro-B Natriuret Pep 1320 H Total Protein 5.8 Albumin 2.6 L Globulin 3.2 Albumin/Globulin Ratio 0.8 L Arterial Blood Potassium Urine Color Urine Appearance Urine pH Ur Specific [place] Urine Protein Urine Glucose (UA) Urine Ketones Urine Blood Urine Nitrate Urine Bilirubin Urine Urobilinogen Ur Leukocyte Esterase Urine RBC Urine WBC Urine Bacteria Blood Type Antibody Screen BBK History Checked 11/28/18 11/28/18 11/28/18 09:45 09:45 10:15 WBC RBC Hgb Hct MCV MCH MCHC RDW Plt Count MPV Neut % (Auto) Lymph % (Auto) [place] % (Auto) Eos % (Auto) Baso % (Auto) Lymph # (Auto) [place] # (Auto) Eos # (Auto) Baso # (Auto) Absolute Neuts (auto) Neutrophils % (Manual) Band Neutrophils % Lymphocytes % (Manual) Atypical Lymphs % Monocytes % (Manual) Eosinophils % (Manual) PT INR APTT pCO2 pO2 HCO3 ABG pH ABG Total CO2 ABG O2 Saturation ABG Base Excess ABG Potassium Glucose Lactate Mechanical Rate FiO2 Tidal Volume PEEP Crit Value Called To Crit Value Called By Blood Gas Notified Time Sodium Potassium Chloride Carbon Dioxide Anion Gap BUN Creatinine Est GFR ( Amer) Est GFR (Non-Af Amer) Random Glucose Calcium Phosphorus Magnesium Total Bilirubin AST ALT Alkaline Phosphatase Troponin I 0.03 D NT-Pro-B Natriuret Pep Total Protein Albumin Globulin Albumin/Globulin Ratio Arterial Blood Potassium Urine Color Dark brown Urine Appearance Cloudy Urine pH 7.0 Ur Specific [place] 1.010 Urine Protein >=300 H Urine Glucose (UA) 250 H Urine Ketones 40 H Urine Blood Large H Urine Nitrate Positive H Urine Bilirubin Large H Urine Urobilinogen >=8.0 Ur Leukocyte Esterase Moderate H Urine RBC Tntc H Urine WBC Tntc H Urine Bacteria Large Blood Type A POSITIVE Antibody Screen Negative BBK History Checked Patient has bt 11/28/18 10:15 WBC RBC Hgb Hct MCV MCH MCHC RDW Plt Count MPV Neut % (Auto) Lymph % (Auto) [place] % (Auto) Eos % (Auto) Baso % (Auto) Lymph # (Auto) [place] # (Auto) Eos # (Auto) Baso # (Auto) Absolute Neuts (auto) Neutrophils % (Manual) Band Neutrophils % Lymphocytes % (Manual) Atypical Lymphs % Monocytes % (Manual) Eosinophils % (Manual) PT INR APTT pCO2 22 L pO2 505.0 H HCO3 13.0 L ABG pH 7.38 ABG Total CO2 13.7 L ABG O2 Saturation 99.0 H ABG Base Excess -10.0 L ABG Potassium 4.5 Glucose 181 H Lactate 5.2 H* Mechanical Rate 16 FiO2 100.0 Tidal Volume 400 PEEP 5 Crit Value Called [place] [id number] Blood Gas Notified Time 1025 Sodium 142.0 Potassium Chloride 123.0 H Carbon Dioxide Anion Gap BUN Creatinine Est GFR ( Amer) Est GFR (Non-Af Amer) Random Glucose Calcium Phosphorus Magnesium Total Bilirubin AST ALT Alkaline Phosphatase Troponin I NT-Pro-B Natriuret Pep Total Protein Albumin Globulin Albumin/Globulin Ratio Arterial Blood Potassium 4.5 Urine Color Urine Appearance Urine pH Ur Specific [place] Urine Protein Urine Glucose (UA) Urine Ketones Urine Blood Urine Nitrate Urine Bilirubin Urine Urobilinogen Ur Leukocyte Esterase Urine RBC Urine WBC Urine Bacteria Blood Type Antibody Screen BBK History Checked
[2018-11-28] MEDS: Pantoprazole 40mg/100mL NS 40 MG/100 ML BAG IVPB SCH ×2 (12:12→17:36)
[2018-11-28] MEDS ORDERED: Phytonadione 10 MG in Sodium Chloride 0.9% 50 ML IV ONE (12:18)
[2018-11-28] MEDS ORDERED: Hum Prothrombin CPLX(PCC)4FACT 1 Unit Inj IV STA ×2 (12:36→13:00)
--- NOTE | 2018-11-28 13:33 | CP.PCM.CON ---
<Sharath Soria - Last Filed: 11/28/18 13:34> History of Present Illness - History of Present Illness History of Present Illness: GI fellow PGY 4, consult note Patient is a 83-year-old female who presented earlier today for acute GI bleed with basilia melena. Patient was intubated upon my exam so history is from previous reports and discussions with ED staff. Patient came from [facility] and was intubated during transport secondary to becoming unresponsive and hypotensive. Patient has been on Eliquis for over a month for a pulmonary embolism/DVT. She takes aspirin daily as well. On admission, she was hypotensive and tachycardic, heart rate 122 on metoprolol. She was actively bleeding at bedside with large amount of melena. Workup revealed INR greater than 3. We discussed case with ED physician, ICU, primary team. Unable to obtain 12 point review of systems due to patient status. Past Patient History - Infectious Disease Hx of Infectious Diseases: None - Past Social History Smoking Status: Never Smoked - CARDIAC Hx Congestive Heart Failure: Yes Hx Peripheral Edema: Yes (+1) - PULMONARY Hx Respiratory Disorders: No - NEUROLOGICAL Hx Neurological Disorder: Yes Hx Dementia: Yes - HEENT Hx HEENT Problems: (eye glasses) Hx Blind: Yes (legally blind) Hx Glaucoma: Yes - RENAL Hx Chronic Kidney Disease: No - ENDOCRINE/METABOLIC Hx Endocrine Disorders: No - HEMATOLOGICAL/ONCOLOGICAL Hx Blood Transfusions: Yes (1st transfusion running now) Hx Blood Transfusion Reaction: No - INTEGUMENTARY Hx Dermatological Problems: Yes Other/Comment: eccymosis to right lower thigh above right knee - MUSCULOSKELETAL/RHEUMATOLOGICAL Hx Arthritis: Yes - GASTROINTESTINAL Hx Gastrointestinal Disorders: No - GENITOURINARY/GYNECOLOGICAL Hx Genitourinary Disorders: No - PSYCHIATRIC Hx Psychophysiologic Disorder: No Hx Substance Use: No - SURGICAL HISTORY Hx Cardiac Catheterization: No Other/Comment: tib/fib OIRF - ANESTHESIA Hx Anesthesia: Yes Hx Anesthesia Reactions: No Hx Malignant Hyperthermia: No Meds Allergies/Adverse Reactions: Allergies Allergy/AdvReac Type Severity Reaction Status Date / Time No Known Allergies Allergy Verified 02/23/16 20:28 - Medications Medications: Current Medications Pantoprazole Sodium (Protonix 40mg Ivpb) 40 mg in 100 mls @ 20 mls/hr IVPB .Q5H PEDRITO Last Admin: 11/28/18 12:12 Dose: 20 mls/hr Vancomycin HCl (Vancomycin 1gm) 1 gm in 250 mls @ 167 mls/hr IVPB DAILY PEDRITO; Protocol Piperacillin Sod/Tazobactam Sod (Zosyn 3.375 In Ns 100ml) 100 mls @ 25 mls/hr IVPB Q12 PEDRITO; Protocol Stop: 11/30/18 01:59 Physical Exam - Constitutional Appears: In Acute Distress, Chronically Ill - Eye Exam Eye Exam: EOMI, Normal appearance - ENT Exam ENT Exam: Mucous Membranes Moist Additional comments: Intubated - Respiratory Exam Respiratory Exam: Clear to Auscultation Bilateral, Respiratory Distress - Cardiovascular Exam Cardiovascular Exam: Tachycardia, +S1, +S2 - GI/Abdominal Exam GI & Abdominal Exam: Normal Bowel Sounds, Soft. absent: Organomegaly, Ten derness - Rectal Exam Rectal Exam: Black Stool, Bloody Stool - Extremities Exam Extremities exam: Positive for: normal inspection. Negative for: pedal edema - Neurological Exam Neurological exam: Altered - Psychiatric Exam Psychiatric exam: Normal Affect, Normal Mood - Skin Skin Exam: Dry, Pallor Results - Vital Signs Recent Vital Signs: Last Vital Signs Temp 98.1 F 11/28/18 09:35 Pulse 92 H 11/28/18 12:30 Resp 23 11/28/18 12:30 BP 120/68 11/28/18 12:30 Pulse Ox 100 11/28/18 12:30 - Labs Result Diagrams: 11/28/18 09:45 11/28/18 09:45 Labs: Laboratory Results - last 24 hr 11/28/18 11/28/18 11/28/18 09:45 09:45 09:45 WBC 27.4 H* D RBC 3.41 L Hgb 10.4 L Hct 31.7 L MCV 93.0 MCH 30.5 MCHC 32.8 RDW 14.7 H Plt Count 254 MPV 11.1 H Neut % (Auto) 82.4 H Lymph % (Auto) 8.3 L [place] % (Auto) 9.3 H Eos % (Auto) 0.0 L Baso % (Auto) 0.0 Lymph # (Auto) 2.3 [place] # (Auto) 2.6 H Eos # (Auto) 0.0 Baso # (Auto) 0.01 Absolute Neuts (auto) 22.52 H Neutrophils % (Manual) 74 H Band Neutrophils % 7 H Lymphocytes % (Manual) 9 L Atypical Lymphs % 1 H Monocytes % (Manual) 8 H Eosinophils % (Manual) 1 PT 35.1 H INR 3.11 APTT 26.0 L pCO2 pO2 HCO3 ABG pH ABG Total CO2 ABG O2 Saturation ABG Base Excess ABG Potassium Glucose Lactate Mechanical Rate FiO2 Tidal Volume PEEP Crit Value Called To Crit Value Called By Blood Gas Notified Time Sodium 139 Potassium 5.9 H* D Chloride 109 H Carbon Dioxide 17 L Anion Gap 20 BUN 46 H Creatinine 0.8 Est GFR ( Amer) > 60 Est GFR (Non-Af Amer) > 60 Random Glucose 227 H Calcium 7.9 L Phosphorus 4.3 Magnesium 2.3 H Total Bilirubin 0.9 AST 31 ALT < 6 L Alkaline Phosphatase 74 Troponin I NT-Pro-B Natriuret Pep 1320 H Total Protein 5.8 Albumin 2.6 L Globulin 3.2 Albumin/Globulin Ratio 0.8 L Arterial Blood Potassium Urine Color Urine Appearance Urine pH Ur Specific [place] Urine Protein Urine Glucose (UA) Urine Ketones Urine Blood Urine Nitrate Urine Bilirubin Urine Urobilinogen Ur Leukocyte Esterase Urine RBC Urine WBC Urine Bacteria Blood Type Antibody Screen Crossmatch BBK History Checked 11/28/18 11/28/18 11/28/18 09:45 09:45 10:15 WBC RBC Hgb Hct MCV MCH MCHC RDW Plt Count MPV Neut % (Auto) Lymph % (Auto) [place] % (Auto) Eos % (Auto) Baso % (Auto) Lymph # (Auto) [place] # (Auto) Eos # (Auto) Baso # (Auto) Absolute Neuts (auto) Neutrophils % (Manual) Band Neutrophils % Lymphocytes % (Manual) Atypical Lymphs % Monocytes % (Manual) Eosinophils % (Manual) PT INR APTT pCO2 pO2 HCO3 ABG pH ABG Total CO2 ABG O2 Saturation ABG Base Excess ABG Potassium Glucose Lactate Mechanical Rate FiO2 Tidal Volume PEEP Crit Value Called To Crit Value Called By Blood Gas Notified Time Sodium Potassium Chloride Carbon Dioxide Anion Gap BUN Creatinine Est GFR ( Amer) Est GFR (Non-Af Amer) Random Glucose Calcium Phosphorus Magnesium Total Bilirubin AST ALT Alkaline Phosphatase Troponin I 0.03 D NT-Pro-B Natriuret Pep Total Protein Albumin Globulin Albumin/Globulin Ratio Arterial Blood Potassium Urine Color Dark brown Urine Appearance Cloudy Urine pH 7.0 Ur Specific [place] 1.010 Urine Protein >=300 H Urine Glucose (UA) 250 H Urine Ketones 40 H Urine Blood Large H Urine Nitrate Positive H Urine Bilirubin Large H Urine Urobilinogen >=8.0 Ur Leukocyte Esterase Moderate H Urine RBC Tntc H Urine WBC Tntc H Urine Bacteria Large Blood Type A POSITIVE Antibody Screen Negative Crossmatch See Detail BBK History Checked Patient has bt 11/28/18 10:15 WBC RBC Hgb Hct MCV MCH MCHC RDW Plt Count MPV Neut % (Auto) Lymph % (Auto) [place] % (Auto) Eos % (Auto) Baso % (Auto) Lymph # (Auto) [place] # (Auto) Eos # (Auto) Baso # (Auto) Absolute Neuts (auto) Neutrophils % (Manual) Band Neutrophils % Lymphocytes % (Manual) Atypical Lymphs % Monocytes % (Manual) Eosinophils % (Manual) PT INR APTT pCO2 22 L pO2 505.0 H HCO3 13.0 L ABG pH 7.38 ABG Total CO2 13.7 L ABG O2 Saturation 99.0 H ABG Base Excess -10.0 L ABG Potassium 4.5 Glucose 181 H Lactate 5.2 H* Mechanical Rate 16 FiO2 100.0 Tidal Volume 400 PEEP 5 Crit Value Called To J[place]ely[place] [id number] Blood Gas Notified Time 1025 Sodium 142.0 Potassium Chloride 123.0 H Carbon Dioxide Anion Gap BUN Creatinine Est GFR ( Amer) Est GFR (Non-Af Amer) Random Glucose Calcium Phosphorus Magnesium Total Bilirubin AST ALT Alkaline Phosphatase Troponin I NT-Pro-B Natriuret Pep Total Protein Albumin Globulin Albumin/Globulin Ratio Arterial Blood Potassium 4.5 Urine Color Urine Appearance Urine pH Ur Specific [place] Urine Protein Urine Glucose (UA) Urine Ketones Urine Blood Urine Nitrate Urine Bilirubin Urine Urobilinogen Ur Leukocyte Esterase Urine RBC Urine WBC Urine Bacteria Blood Type Antibody Screen Crossmatch BBK History Checked Assessment & Plan - Assessment and Plan (Free Text) Assessment: #acute blood loss anemia due to likely upper GI bleed #Pulmonary emboli/DVT on Eliquis #Chronic NSAIDs #dementia Plan: We discussed the case with ED physician, ICU team, primary team and agreed to give anticoagulation reversal in setting of life-threatening GI bleed. agree with IV vitamin K, FFP, Kcentra -May benefit from hematology consult PPI bolus and drip started Follow hemoglobin every 6 hours and transfuse as indicated. Recommend to transfuse if unstable or hemoglobin less than 7. Patient is too unstable for upper endoscopy evaluation at this time. We will reevaluate. would consider IVC filter when patient is more stable Avoid NSAIDs/anticoagulation Case discussed with Dr. Valadez, see attestation. - Date & Time Date: 11/28/18 Time: 13:32 <Rhiannon Valadez V - Last Filed: 11/28/18 18:48> Meds - Medications Medications: Current Medications Pantoprazole Sodium (Protonix 40mg Ivpb) 40 mg in 100 mls @ 20 mls/hr IVPB .Q5H PEDRITO Last Admin: 11/28/18 17:36 Dose: 20 mls/hr Vancomycin HCl (Vancomycin 1gm) 1 gm in 250 mls @ 167 mls/hr IVPB DAILY PEDRITO; Protocol Meropenem (Merrem Iv 1 Gm Premix) 1 gm in 50 mls @ 100 mls/hr IVPB Q12 PEDRITO; Protocol Doxycycline Hyclate 100 mg/ (Sodium Chloride) 100 mls @ 100 mls/hr IVPB Q12 PEDRITO; Protocol Stop: 12/06/18 22:01 NOREPINEPHRINE BIT/0.9 % NACL (Levophed 4 Mg/ 250 Ml Ns Premixed) 4 mg in 250 mls @ 15 mls/hr IV .[id number] PRN; Protocol PRN Reason: TITRATE PER MD ORDER Last Admin: 11/28/18 16:45 Dose: 4 mcg/min, 15 mls/hr Results - Vital Signs Recent Vital Signs: Last Vital Signs Temp 98.1 F 11/28/18 18:20 Pulse 118 H 11/28/18 18:20 Resp 15 11/28/18 14:38 BP 112/68 11/28/18 18:16 Pulse Ox 100 11/28/18 18:20 - Labs Result Diagrams: 11/28/18 09:45 11/28/18 09:45 Labs: Laboratory Results - last 24 hr 11/28/18 11/28/18 11/28/18 09:45 09:45 09:45 WBC 27.4 H* D RBC 3.41 L Hgb 10.4 L Hct 31.7 L MCV 93.0 MCH 30.5 MCHC 32.8 RDW 14.7 H Plt Count 254 MPV 11.1 H Neut % (Auto) 82.4 H Lymph % (Auto) 8.3 L [place] % (Auto) 9.3 H Eos % (Auto) 0.0 L Baso % (Auto) 0.0 Lymph # (Auto) 2.3 [place] # (Auto) 2.6 H Eos # (Auto) 0.0 Baso # (Auto) 0.01 Absolute Neuts (auto) 22.52 H Neutrophils % (Manual) 74 H Band Neutrophils % 7 H Lymphocytes % (Manual) 9 L Atypical Lymphs % 1 H Monocytes % (Manual) 8 H Eosinophils % (Manual) 1 PT 35.1 H INR 3.11 APTT 26.0 L pCO2 pO2 HCO3 ABG pH ABG Total CO2 ABG O2 Saturation ABG Base Excess ABG Potassium Glucose Lactate Mechanical Rate FiO2 Tidal Volume PEEP Crit Value Called To Crit Value Called By Blood Gas Notified Time Sodium 139 Potassium 5.9 H* D Chloride 109 H Carbon Dioxide 17 L Anion Gap 20 BUN 46 H Creatinine 0.8 Est GFR ( Amer) > 60 Est GFR (Non-Af Amer) > 60 Random Glucose 227 H Calcium 7.9 L Phosphorus 4.3 Magnesium 2.3 H Total Bilirubin 0.9 AST 31 ALT < 6 L Alkaline Phosphatase 74 Troponin I NT-Pro-B Natriuret Pep 1320 H Total Protein 5.8 Albumin 2.6 L Globulin 3.2 Albumin/Globulin Ratio 0.8 L Arterial Blood Potassium Urine Color Urine Appearance Urine pH Ur Specific [place] Urine Protein Urine Glucose (UA) Urine Ketones Urine Blood Urine Nitrate Urine Bilirubin Urine Urobilinogen Ur Leukocyte Esterase Urine RBC Urine WBC Urine Bacteria Blood Type Antibody Screen Crossmatch BBK History Checked 11/28/18 11/28/18 11/28/18 09:45 09:45 10:15 WBC RBC Hgb Hct MCV MCH MCHC RDW Plt Count MPV Neut % (Auto) Lymph % (Auto) [place] % (Auto) Eos % (Auto) Baso % (Auto) Lymph # (Auto) [place] # (Auto) Eos # (Auto) Baso # (Auto) Absolute Neuts (auto) Neutrophils % (Manual) Band Neutrophils % Lymphocytes % (Manual) Atypical Lymphs % Monocytes % (Manual) Eosinophils % (Manual) PT INR APTT pCO2 pO2 HCO3 ABG pH ABG Total CO2 ABG O2 Saturation ABG Base Excess ABG Potassium Glucose Lactate Mechanical Rate FiO2 Tidal Volume PEEP Crit Value Called To Crit Value Called By Blood Gas Notified Time Sodium Potassium Chloride Carbon Dioxide Anion Gap BUN Creatinine Est GFR ( Amer) Est GFR (Non-Af Amer) Random Glucose Calcium Phosphorus Magnesium Total Bilirubin AST ALT Alkaline Phosphatase Troponin I 0.03 D NT-Pro-B Natriuret Pep Total Protein Albumin Globulin Albumin/Globulin Ratio Arterial Blood Potassium Urine Color Dark brown Urine Appearance Cloudy Urine pH 7.0 Ur Specific [place] 1.010 Urine Protein >=300 H Urine Glucose (UA) 250 H Urine Ketones 40 H Urine Blood Large H Urine Nitrate Positive H Urine Bilirubin Large H Urine Urobilinogen >=8.0 Ur Leukocyte Esterase Moderate H Urine RBC Tntc H Urine WBC Tntc H Urine Bacteria Large Blood Type A POSITIVE Antibody Screen Negative Crossmatch See Detail BBK History Checked Patient has bt 11/28/18 10:15 WBC RBC Hgb Hct MCV MCH MCHC RDW Plt Count MPV Neut % (Auto) Lymph % (Auto) [place] % (Auto) Eos % (Auto) Baso % (Auto) Lymph # (Auto) [place] # (Auto) Eos # (Auto) Baso # (Auto) Absolute Neuts (auto) Neutrophils % (Manual) Band Neutrophils % Lymphocytes % (Manual) Atypical Lymphs % Monocytes % (Manual) Eosinophils % (Manual) PT INR APTT pCO2 22 L pO2 505.0 H HCO3 13.0 L ABG pH 7.38 ABG Total CO2 13.7 L ABG O2 Saturation 99.0 H ABG Base Excess -10.0 L ABG Potassium 4.5 Glucose 181 H Lactate 5.2 H* Mechanical Rate 16 FiO2 100.0 Tidal Volume 400 PEEP 5 Crit Value Called To [place] [id number] Blood Gas Notified Time 1025 Sodium 142.0 Potassium Chloride 123.0 H Carbon Dioxide Anion Gap BUN Creatinine Est GFR ( Amer) Est GFR (Non-Af Amer) Random Glucose Calcium Phosphorus Magnesium Total Bilirubin AST ALT Alkaline Phosphatase Troponin I NT-Pro-B Natriuret Pep Total Protein Albumin Globulin Albumin/Globulin Ratio Arterial Blood Potassium 4.5 Urine Color Urine Appearance Urine pH Ur Specific [place] Urine Protein Urine Glucose (UA) Urine Ketones Urine Blood Urine Nitrate Urine Bilirubin Urine Urobilinogen Ur Leukocyte Esterase Urine RBC Urine WBC Urine Bacteria Blood Type Antibody Screen Crossmatch BBK History Checked Attending/Attestation - Attestation I have personally seen and examined this patient.: Yes I have fully participated in the care of the patient.: Yes I have reviewed all pertinent clinical information: Yes Notes (Text): This patient was seen and evaluated here earlier this is an addendum to consultation report dictated by GI fellow. Patient is intubated on vent this is a 83-year-old patient with a history of PE admitted with the active GI bleeding coagulopathic. Patient is here today Kcentra FFP closely monitor the hemoglobin hematocrit On examination abdomen distended firm bowel sounds diminished Patient's white cell count elevated 27,000 Leukocytosis could be reactionary rule out sepsis rule out acute abdomen would recommend 1 follow-up the cultures #2 continue the antibiotics 3 close follow-up of the hemoglobin hematocrit 4 CT abdomen and pelvis with no contrast when stable Discussed with employment consultant 11/28/18 18:33
[2018-11-28] MEDS ORDERED: Piperacillin/Tazobact 3.375 gm 100 ML IVPB SCH (14:00)
--- NOTE | 2018-11-28 14:16 | CP.PCM.CON ---
<Heri Pereira - Last Filed: 11/28/18 17:06> Meds Allergies/Adverse Reactions: Allergies Allergy/AdvReac Type Severity Reaction Status Date / Time No Known Allergies Allergy Verified 02/23/16 20:28 - Medications Medications: Current Medications Pantoprazole Sodium (Protonix 40mg Ivpb) 40 mg in 100 mls @ 20 mls/hr IVPB .Q5H PEDRITO Last Admin: 11/28/18 12:12 Dose: 20 mls/hr Vancomycin HCl (Vancomycin 1gm) 1 gm in 250 mls @ 167 mls/hr IVPB DAILY PEDRITO; Protocol Meropenem (Merrem Iv 1 Gm Premix) 1 gm in 50 mls @ 100 mls/hr IVPB Q12 PEDRITO; Protocol Doxycycline Hyclate 100 mg/ (Sodium Chloride) 100 mls @ 100 mls/hr IVPB Q12 PEDRITO; Protocol Stop: 12/06/18 22:01 NOREPINEPHRINE BIT/0.9 % NACL (Levophed 4 Mg/ 250 Ml Ns Premixed) 4 mg in 250 mls @ 15 mls/hr IV .[id number] PRN; Protocol PRN Reason: TITRATE PER MD ORDER Results - Vital Signs Recent Vital Signs: Last Vital Signs Temp 98.6 F 11/28/18 14:11 Pulse 96 H 11/28/18 14:11 Resp 15 11/28/18 14:38 BP 127/73 11/28/18 14:11 Pulse Ox 100 11/28/18 14:10 - Labs Result Diagrams: 11/28/18 09:45 11/28/18 09:45 Labs: Laboratory Results - last 24 hr 11/28/18 11/28/18 11/28/18 09:45 09:45 09:45 WBC 27.4 H* D RBC 3.41 L Hgb 10.4 L Hct 31.7 L MCV 93.0 MCH 30.5 MCHC 32.8 RDW 14.7 H Plt Count 254 MPV 11.1 H Neut % (Auto) 82.4 H Lymph % (Auto) 8.3 L [place] % (Auto) 9.3 H Eos % (Auto) 0.0 L Baso % (Auto) 0.0 Lymph # (Auto) 2.3 [place] # (Auto) 2.6 H Eos # (Auto) 0.0 Baso # (Auto) 0.01 Absolute Neuts (auto) 22.52 H Neutrophils % (Manual) 74 H Band Neutrophils % 7 H Lymphocytes % (Manual) 9 L Atypical Lymphs % 1 H Monocytes % (Manual) 8 H Eosinophils % (Manual) 1 PT 35.1 H INR 3.11 APTT 26.0 L pCO2 pO2 HCO3 ABG pH ABG Total CO2 ABG O2 Saturation ABG Base Excess ABG Potassium Glucose Lactate Mechanical Rate FiO2 Tidal Volume PEEP Crit Value Called To Crit Value Called By Blood Gas Notified Time Sodium 139 Potassium 5.9 H* D Chloride 109 H Carbon Dioxide 17 L Anion Gap 20 BUN 46 H Creatinine 0.8 Est GFR ( Amer) > 60 Est GFR (Non-Af Amer) > 60 Random Glucose 227 H Calcium 7.9 L Phosphorus 4.3 Magnesium 2.3 H Total Bilirubin 0.9 AST 31 ALT < 6 L Alkaline Phosphatase 74 Troponin I NT-Pro-B Natriuret Pep 1320 H Total Protein 5.8 Albumin 2.6 L Globulin 3.2 Albumin/Globulin Ratio 0.8 L Arterial Blood Potassium Urine Color Urine Appearance Urine pH Ur Specific [place] Urine Protein Urine Glucose (UA) Urine Ketones Urine Blood Urine Nitrate Urine Bilirubin Urine Urobilinogen Ur Leukocyte Esterase Urine RBC Urine WBC Urine Bacteria Blood Type Antibody Screen Crossmatch BBK History Checked 11/28/18 11/28/18 11/28/18 09:45 09:45 10:15 WBC RBC Hgb Hct MCV MCH MCHC RDW Plt Count MPV Neut % (Auto) Lymph % (Auto) [place] % (Auto) Eos % (Auto) Baso % (Auto) Lymph # (Auto) [place] # (Auto) Eos # (Auto) Baso # (Auto) Absolute Neuts (auto) Neutrophils % (Manual) Band Neutrophils % Lymphocytes % (Manual) Atypical Lymphs % Monocytes % (Manual) Eosinophils % (Manual) PT INR APTT pCO2 pO2 HCO3 ABG pH ABG Total CO2 ABG O2 Saturation ABG Base Excess ABG Potassium Glucose Lactate Mechanical Rate FiO2 Tidal Volume PEEP Crit Value Called To Crit Value Called By Blood Gas Notified Time Sodium Potassium Chloride Carbon Dioxide Anion Gap BUN Creatinine Est GFR ( Amer) Est GFR (Non-Af Amer) Random Glucose Calcium Phosphorus Magnesium Total Bilirubin AST ALT Alkaline Phosphatase Troponin I 0.03 D NT-Pro-B Natriuret Pep Total Protein Albumin Globulin Albumin/Globulin Ratio Arterial Blood Potassium Urine Color Dark brown Urine Appearance Cloudy Urine pH 7.0 Ur Specific [place] 1.010 Urine Protein >=300 H Urine Glucose (UA) 250 H Urine Ketones 40 H Urine Blood Large H Urine Nitrate Positive H Urine Bilirubin Large H Urine Urobilinogen >=8.0 Ur Leukocyte Esterase Moderate H Urine RBC Tntc H Urine WBC Tntc H Urine Bacteria Large Blood Type A POSITIVE Antibody Screen Negative Crossmatch See Detail BBK History Checked Patient has bt 11/28/18 10:15 WBC RBC Hgb Hct MCV MCH MCHC RDW Plt Count MPV Neut % (Auto) Lymph % (Auto) [place] % (Auto) Eos % (Auto) Baso % (Auto) Lymph # (Auto) [place] # (Auto) Eos # (Auto) Baso # (Auto) Absolute Neuts (auto) Neutrophils % (Manual) Band Neutrophils % Lymphocytes % (Manual) Atypical Lymphs % Monocytes % (Manual) Eosinophils % (Manual) PT INR APTT pCO2 22 L pO2 505.0 H HCO3 13.0 L ABG pH 7.38 ABG Total CO2 13.7 L ABG O2 Saturation 99.0 H ABG Base Excess -10.0 L ABG Potassium 4.5 Glucose 181 H Lactate 5.2 H* Mechanical Rate 16 FiO2 100.0 Tidal Volume 400 PEEP 5 Crit Value Called To [place] [id number] Blood Gas Notified Time 1025 Sodium 142.0 Potassium Chloride 123.0 H Carbon Dioxide Anion Gap BUN Creatinine Est GFR ( Amer) Est GFR (Non-Af Amer) Random Glucose Calcium Phosphorus Magnesium Total Bilirubin AST ALT Alkaline Phosphatase Troponin I NT-Pro-B Natriuret Pep Total Protein Albumin Globulin Albumin/Globulin Ratio Arterial Blood Potassium 4.5 Urine Color Urine Appearance Urine pH Ur Specific [place] Urine Protein Urine Glucose (UA) Urine Ketones Urine Blood Urine Nitrate Urine Bilirubin Urine Urobilinogen Ur Leukocyte Esterase Urine RBC Urine WBC Urine Bacteria Blood Type Antibody Screen Crossmatch BBK History Checked Addendum Addendum: 11/28/18 17:06 MICU Attending Follow-up Patient seen and examined with housestaff. Case discussed and agree with resident note above with the following add/exceptions: 83F with recent history last month of PE on eliquis now presents unresponsive along with acute GI bleed. She is currently have bloody stools. Will stabilize with 2 unit PRBC transfuse 2 unit PRBC to HB goal > 7 CBC q 6 h insert TLC; IO in place as well, can use for 24 hours KCntra ordered by primary team holding antiplat and anticoag given bleeding GI COnsulted - follow recs on intervention cont low vt ventilation pull back ETT as it is at the [facility] PAtient has sepsis as well with leukocytosis and bandemia with UA pos as well broad abx as per ID repeat lac and trend TNI She has hyperK as well - will given calcium, dextrose and insulin repeat chem PPI and SCDs for ppx goals of care to dicuss with family Rec pal care consult Heri Pereira MD MICU Attending <Adam Darden - Last Filed: 11/28/18 17:17> History of Present Illness - History of Present Illness History of Present Illness: Adam Darden PGY1, Critical Care Consult note for Dr Kaitlin Pereira Pt is an 83 yo female with a PMH of DVT, PE, dementia, CHF, HTN, who was found unresponsive, and also experiencing basilia melena. [facility] Pt baseline is confused. Pt is intubated at the time of the interview. At time of arrival, a code sepsis was called. HPI and ROS are limited due to pt AMS. Past Patient History - Infectious Disease Hx of Infectious Diseases: None - Past Social History Smoking Status: Never Smoked - CARDIAC Hx Congestive Heart Failure: Yes Hx Peripheral Edema: Yes (+1) - PULMONARY Hx Respiratory Disorders: No - NEUROLOGICAL Hx Neurological Disorder: Yes Hx Dementia: Yes - HEENT Hx HEENT Problems: (eye glasses) Hx Blind: Yes (legally blind) Hx Glaucoma: Yes - RENAL Hx Chronic Kidney Disease: No - ENDOCRINE/METABOLIC Hx Endocrine Disorders: No - HEMATOLOGICAL/ONCOLOGICAL Hx Blood Transfusions: Yes (1st transfusion running now) Hx Blood Transfusion Reaction: No - INTEGUMENTARY Hx Dermatological Problems: Yes Other/Comment: eccymosis to right lower thigh above right knee - MUSCULOSKELETAL/RHEUMATOLOGICAL Hx Arthritis: Yes - GASTROINTESTINAL Hx Gastrointestinal Disorders: No - GENITOURINARY/GYNECOLOGICAL Hx Genitourinary Disorders: No - PSYCHIATRIC Hx Psychophysiologic Disorder: No Hx Substance Use: No - SURGICAL HISTORY Hx Cardiac Catheterization: No Other/Comment: tib/fib OIRF - ANESTHESIA Hx Anesthesia: Yes Hx Anesthesia Reactions: No Hx Malignant Hyperthermia: No Meds - Medications Medications: Current Medications Pantoprazole Sodium (Protonix 40mg Ivpb) 40 mg in 100 mls @ 20 mls/hr IVPB .Q5H PEDRITO Last Admin: 11/28/18 12:12 Dose: 20 mls/hr Vancomycin HCl (Vancomycin 1gm) 1 gm in 250 mls @ 167 mls/hr IVPB DAILY PEDRITO; Protocol Meropenem (Merrem Iv 1 Gm Premix) 1 gm in 50 mls @ 100 mls/hr IVPB Q12 PEDRITO; P rotocol Doxycycline Hyclate 100 mg/ (Sodium Chloride) 100 mls @ 100 mls/hr IVPB Q12 PEDRITO; Protocol Stop: 12/06/18 22:01 Physical Exam - Constitutional Appears: No Acute Distress - Head Exam Head Exam: ATRAUMATIC, NORMOCEPHALIC - Eye Exam Eye Exam: EOMI - ENT Exam ENT Exam: Mucous Membranes Moist - Respiratory Exam Respiratory Exam: Clear to Auscultation Bilateral, NORMAL BREATHING PATTERN. absent: Accessory Muscle Use - Cardiovascular Exam Cardiovascular Exam: RRR, +S1, +S2. absent: Diastolic murmur, Systolic Murmur - GI/Abdominal Exam GI & Abdominal Exam: Normal Bowel Sounds, Soft - Extremities Exam Extremities exam: Positive for: pedal edema - Neurological Exam Neurological exam: Altered - Skin Skin Exam: Dry, Normal Color, Warm Results - Vital Signs Recent Vital Signs: Last Vital Signs Temp 98.5 F 11/28/18 13:52 Pulse 95 H 11/28/18 13:52 Resp 20 11/28/18 13:52 BP 88/62 L 11/28/18 13:52 Pulse Ox 100 11/28/18 12:30 - Labs Result Diagrams: 11/28/18 09:45 11/28/18 09:45 Labs: Laboratory Results - last 24 hr 11/28/18 11/28/18 11/28/18 09:45 09:45 09:45 WBC 27.4 H* D RBC 3.41 L Hgb 10.4 L Hct 31.7 L MCV 93.0 MCH 30.5 MCHC 32.8 RDW 14.7 H Plt Count 254 MPV 11.1 H Neut % (Auto) 82.4 H Lymph % (Auto) 8.3 L [place] % (Auto) 9.3 H Eos % (Auto) 0.0 L Baso % (Auto) 0.0 Lymph # (Auto) 2.3 [place] # (Auto) 2.6 H Eos # (Auto) 0.0 Baso # (Auto) 0.01 Absolute Neuts (auto) 22.52 H Neutrophils % (Manual) 74 H Band Neutrophils % 7 H Lymphocytes % (Manual) 9 L Atypical Lymphs % 1 H Monocytes % (Manual) 8 H Eosinophils % (Manual) 1 PT 35.1 H INR 3.11 APTT 26.0 L pCO2 pO2 HCO3 ABG pH ABG Total CO2 ABG O2 Saturation ABG Base Excess ABG Potassium Glucose Lactate Mechanical Rate FiO2 Tidal Volume PEEP Crit Value Called To Crit Value Called By Blood Gas Notified Time Sodium 139 Potassium 5.9 H* D Chloride 109 H Carbon Dioxide 17 L Anion Gap 20 BUN 46 H Creatinine 0.8 Est GFR ( Amer) > 60 Est GFR (Non-Af Amer) > 60 Random Glucose 227 H Calcium 7.9 L Phosphorus 4.3 Magnesium 2.3 H Total Bilirubin 0.9 AST 31 ALT < 6 L Alkaline Phosphatase 74 Troponin I NT-Pro-B Natriuret Pep 1320 H Total Protein 5.8 Albumin 2.6 L Globulin 3.2 Albumin/Globulin Ratio 0.8 L Arterial Blood Potassium Urine Color Urine Appearance Urine pH Ur Specific [place] Urine Protein Urine Glucose (UA) Urine Ketones Urine Blood Urine Nitrate Urine Bilirubin Urine Urobilinogen Ur Leukocyte Esterase Urine RBC Urine WBC Urine Bacteria Blood Type Antibody Screen Crossmatch BBK History Checked 11/28/18 11/28/18 11/28/18 09:45 09:45 10:15 WBC RBC Hgb Hct MCV MCH MCHC RDW Plt Count MPV Neut % (Auto) Lymph % (Auto) [place] % (Auto) Eos % (Auto) Baso % (Auto) Lymph # (Auto) [place] # (Auto) Eos # (Auto) Baso # (Auto) Absolute Neuts (auto) Neutrophils % (Manual) Band Neutrophils % Lymphocytes % (Manual) Atypical Lymphs % Monocytes % (Manual) Eosinophils % (Manual) PT INR APTT pCO2 pO2 HCO3 ABG pH ABG Total CO2 ABG O2 Saturation ABG Base Excess ABG Potassium Glucose Lactate Mechanical Rate FiO2 Tidal Volume PEEP Crit Value Called To Crit Value Called By Blood Gas Notified Time Sodium Potassium Chloride Carbon Dioxide Anion Gap BUN Creatinine Est GFR ( Amer) Est GFR (Non-Af Amer) Random Glucose Calcium Phosphorus Magnesium Total Bilirubin AST ALT Alkaline Phosphatase Troponin I 0.03 D NT-Pro-B Natriuret Pep Total Protein Albumin Globulin Albumin/Globulin Ratio Arterial Blood Potassium Urine Color Dark brown Urine Appearance Cloudy Urine pH 7.0 Ur Specific [place] 1.010 Urine Protein >=300 H Urine Glucose (UA) 250 H Urine Ketones 40 H Urine Blood Large H Urine Nitrate Positive H Urine Bilirubin Large H Urine Urobilinogen >=8.0 Ur Leukocyte Esterase Moderate H Urine RBC Tntc H Urine WBC Tntc H Urine Bacteria Large Blood Type A POSITIVE Antibody Screen Negative Crossmatch See Detail BBK History Checked Patient has bt 11/28/18 10:15 WBC RBC Hgb Hct MCV MCH MCHC RDW Plt Count MPV Neut % (Auto) Lymph % (Auto) [place] % (Auto) Eos % (Auto) Baso % (Auto) Lymph # (Auto) [place] # (Auto) Eos # (Auto) Baso # (Auto) Absolute Neuts (auto) Neutrophils % (Manual) Band Neutrophils % Lymphocytes % (Manual) Atypical Lymphs % Monocytes % (Manual) Eosinophils % (Manual) PT INR APTT pCO2 22 L pO2 505.0 H HCO3 13.0 L ABG pH 7.38 ABG Total CO2 13.7 L ABG O2 Saturation 99.0 H ABG Base Excess -10.0 L ABG Potassium 4.5 Glucose 181 H Lactate 5.2 H* Mechanical Rate 16 FiO2 100.0 Tidal Volume 400 PEEP 5 Crit Value Called To J[place]ely[place] [id number] Blood Gas Notified Time 1025 Sodium 142.0 Potassium Chloride 123.0 H Carbon Dioxide Anion Gap BUN Creatinine Est GFR ( Amer) Est GFR (Non-Af Amer) Random Glucose Calcium Phosphorus Magnesium Total Bilirubin AST ALT Alkaline Phosphatase Troponin I NT-Pro-B Natriuret Pep Total Protein Albumin Globulin Albumin/Globulin Ratio Arterial Blood Potassium 4.5 Urine Color Urine Appearance Urine pH Ur Specific [place] Urine Protein Urine Glucose (UA) Urine Ketones Urine Blood Urine Nitrate Urine Bilirubin Urine Urobilinogen Ur Leukocyte Esterase Urine RBC Urine WBC Urine Bacteria Blood Type Antibody Screen Crossmatch BBK History Checked Assessment & Plan - Assessment and Plan (Free Text) Assessment: Pt is an 83 yo female with a PMH of DVT, PE, dementia, CHF, HTN, who was found unresponsive, and also experiencing basilia melena who was transferred to the ICU. Plan: Neuro - Presented with AMS - continue to monitor mental status - no need for sedation at this time Cardio - HTN, CHF - central line placed for levophed - CXR free of penumothorax, in placed correctly - ca gluconate given - trop negative Pulm - Pt intubated at this time - ABG /505/13/7.38 - follow up daily CXR and ABG GI - GI bleed, melena - pantoprazole - GI consulted, Dr Valadez Renal - K 5.9, will give 1 amp D50 and 10units of insulin IV - continue to monitor BUN/Cr 46/0.8 Endocrine - maintain euglycemia - given amp D50 and 10 units insulin IV Heme/onc - history of DVT, PE - Hgb 10.4, INR 3.11 - trend CBC - pt transfused 2 units - pt given kcentra - given vit K - given FFP - given PCC - lactate 5.2, will repeat ID - UTI, septic shock - WBC 27.4 - blood culture follow up - urine culture follow up - VBG shock panel follow up - procal - doxy, merrem, vanc - ID Dr Perez consulted Pt seen, examined, assessment and plan discussed with Dr Heri Darden PGY1 - Date & Time Date: 11/28/18 Time: 03:00
--- NOTE | 2018-11-28 14:19 | CON ---
DATE OF CONSULTATION: 11/28/2018 The patient is seen in the emergency room. CHIEF COMPLAINT: Respiratory failure. The patient is intubated on a ventilator x1 day duration. HISTORY OF PRESENT ILLNESS: This is an 83-year-old group home patient, who was found unresponsive and a history of glaucoma, osteoarthritis, DVT, dementia, blind, coronary artery disease, congestive heart failure, and hypertension, brought to the emergency room, found unresponsive this morning, is in the group home, and the patient had been had systolic hypotension, and the patient is intubated on a ventilator, unable to give any information. There have been no fevers reported. It is unclear the patient was prior to the admission. REVIEW OF SYSTEMS: Twelve-point review systems performed. PAST MEDICAL HISTORY: Significant for coronary artery disease, congestive heart failure, hypertension, osteoarthritis, PVD, dementia, blindness. PAST SURGICAL HISTORY: Significant for tib-fib ORIF. ALLERGIES: THE PATIENT HAS NO KNOWN ALLERGIES TO ANY ANTIBIOTICS. MEDICATIONS: Reveals the patient to be on Eliquis, senna, metoprolol, aspirin, and Tylenol. PHYSICAL EXAMINATION: GENERAL: She is intubated on a ventilator, unresponsive. VITAL SIGNS: Temperature of 98, heart rate of 104, blood pressure was 95/60, respiratory rate on a vent. HEENT: Examination of HEENT reveals ET tube in place. NECK: Supple. LUNGS: Have decreased breath sounds. HEART: Normal S1, S2. ABDOMEN: Soft, nontender. No organomegaly, rebound, guarding, or masses. LABORATORY DATA: Laboratory examination reveals a white count of 27,000, hemoglobin of 10, platelets of 254. The patient's differential reveals the patient has 82% neutrophils. Coagulation is noted and chemistries are noted. BUN of 46, creatinine of 0.8. BNP is 1320. Urinalysis is noted. The patient's troponin is 0.03, and urinalysis too numerous to count wbc's and large bacteria. The patient's chest x-ray reveals an ET tube to be in place. There is no significant pleural effusion or pneumothorax apparent and BNP is noted to be elevated. ASSESSMENT AND PLAN: An 83-year-old female from a group home with a history of coronary artery disease, congestive heart failure, hypertension, dementia, blindness, deep venous thrombosis, osteoarthritis, glaucoma, admitted with severe sepsis with urine as the source with respiratory failure, intubated, who has had congestive heart failure. The patient had an echo done in 10/2018, which showed an ejection fraction of 57% with acute diastolic congestive heart failure on top of chronic congestive heart failure. We will treat the patient with vancomycin and meropenem. We will order blood cultures, urine cultures, sputum culture, nasal methicillin-resistant Staphylococcus aureus screen, procalcitonin, and urine for Legionella antigen. We will review the chest x-ray, and we will make further recommendations. Eron Perez MD [facility]
[2018-11-28] MEDS ORDERED: Calcium Gluconate in NS 1 GM/50 ML BAG IV ONE (15:13)
--- NOTE | 2018-11-28 15:49 | CP.PCM.CON ---
History of Present Illness - History of Present Illness History of Present Illness: Palliative consult requested by Dr Michael Gray Reason: Goals of care 83 year old female with history of DVT,PE,dementia who was found altered at [facility] . She was reported to have dark stools and tachycardia. EMS called, also found patient to be hypotensive. Intubated, code Sepsis called upon arrival. Labs: WBC 27.4, Hgb 10.4,Na 139,K 5.9, BUN 46, crt0.8, Calcium 7.9, Mg 2.3, BNP 1320, PT 35.1,INR 3.11,APTT 26.0. Urine + glucose,ketones,blood, nitrate, bilirubin,bacteria. Chest X ray: confirms ET placement. PMHx: DVT, PE,dementia, peripheral edema, glaucoma, right radial Fx, R tib/fib fracture,legally blind PSH: ORIF right tib/fib Social History: Never smoker, no alcohol or drug use. Lives with family Family History:Unable to obtain Advance Care Planning: The patient has an Advanced Directive, her son Jacinto Gil is POA- [phone] Review of Systems: per NICOLE, intubated, unresponsive unable to obtain. Past Patient History - Infectious Disease Hx of Infectious Diseases: None - Past Social History Smoking Status: Can't Answ - CARDIAC Hx Congestive Heart Failure: Yes Hx Peripheral Edema: Yes (+1) - PULMONARY Hx Respiratory Disorders: No - NEUROLOGICAL Hx Neurological Disorder: Yes Hx Dementia: Yes - HEENT Hx HEENT Problems: (eye glasses) Hx Blind: Yes (legally blind) Hx Glaucoma: Yes - RENAL Hx Chronic Kidney Disease: No - ENDOCRINE/METABOLIC Hx Endocrine Disorders: No - HEMATOLOGICAL/ONCOLOGICAL Hx Blood Disorders: No - INTEGUMENTARY Hx Dermatological Problems: Yes Other/Comment: eccymosis to right lower thigh above right knee - MUSCULOSKELETAL/RHEUMATOLOGICAL Hx Arthritis: Yes Hx Falls: Yes - GASTROINTESTINAL Hx Gastrointestinal Disorders: No - GENITOURINARY/GYNECOLOGICAL Hx Genitourinary Disorders: No - PSYCHIATRIC Hx Psychophysiologic Disorder: No - SURGICAL HISTORY Hx Cardiac Catheterization: No Other/Comment: tib/fib OIRF - ANESTHESIA Hx Anesthesia: Yes Hx Anesthesia Reactions: No Hx Malignant Hyperthermia: No Meds Allergies/Adverse Reactions: Allergies Allergy/AdvReac Type Severity Reaction Status Date / Time No Known Allergies Allergy Verified 02/23/16 20:28 - Medications Medications: Current Medications Pantoprazole Sodium (Protonix 40mg Ivpb) 40 mg in 100 mls @ 20 mls/hr IVPB .Q5H PEDRITO Last Admin: 11/28/18 12:12 Dose: 20 mls/hr Vancomycin HCl (Vancomycin 1gm) 1 gm in 250 mls @ 167 mls/hr IVPB DAILY PEDRITO; Protocol Meropenem (Merrem Iv 1 Gm Premix) 1 gm in 50 mls @ 100 mls/hr IVPB Q12 PEDRITO; Protocol Doxycycline Hyclate 100 mg/ (Sodium Chloride) 100 mls @ 100 mls/hr IVPB Q12 PEDRITO; Protocol Stop: 12/06/18 22:01 Physical Exam - Constitutional Appears: Chronically Ill - Head Exam Head Exam: NORMOCEPHALIC - Eye Exam Eye Exam: Normal appearance, PERRL - ENT Exam ENT Exam: Mucous Membranes Dry - Respiratory Exam Respiratory Exam: Decreased Breath Sounds - Cardiovascular Exam Cardiovascular Exam: Tachycardia, +S1, +S2 - GI/Abdominal Exam GI & Abdominal Exam: Hypoactive Bowel Sounds, Soft - Extremities Exam Extremities exam: Positive for: pedal edema, pedal pulses present Additional comments: ecchymosis right lower thigh and knee - Neurological Exam Neurological exam: Altered - Skin Skin Exam: Dry, Pallor - Additional Findings Additional findings: Palliative performance scale rating 20% Results - Vital Signs Recent Vital Signs: Last Vital Signs Temp 98.6 F 11/28/18 14:11 Pulse 96 H 11/28/18 14:11 Resp 15 11/28/18 14:38 BP 127/73 11/28/18 14:11 Pulse Ox 100 11/28/18 14:10 - Labs Result Diagrams: 11/29/18 04:15 11/29/18 04:15 Labs: Laboratory Results - last 24 hr 11/28/18 11/28/18 11/28/18 09:45 09:45 09:45 WBC 27.4 H* D RBC 3.41 L Hgb 10.4 L Hct 31.7 L MCV 93.0 MCH 30.5 MCHC 32.8 RDW 14.7 H Plt Count 254 MPV 11.1 H Neut % (Auto) 82.4 H Lymph % (Auto) 8.3 L Payette % (Auto) 9.3 H Eos % (Auto) 0.0 L Baso % (Auto) 0.0 Lymph # (Auto) 2.3 Payette # (Auto) 2.6 H Eos # (Auto) 0.0 Baso # (Auto) 0.01 Absolute Neuts (auto) 22.52 H Neutrophils % (Manual) 74 H Band Neutrophils % 7 H Lymphocytes % (Manual) 9 L Atypical Lymphs % 1 H Monocytes % (Manual) 8 H Eosinophils % (Manual) 1 PT 35.1 H INR 3.11 APTT 26.0 L pCO2 pO2 HCO3 ABG pH ABG Total CO2 ABG O2 Saturation ABG Base Excess ABG Potassium Glucose Lactate Mechanical Rate FiO2 Tidal Volume PEEP Crit Value Called To Crit Value Called By Blood Gas Notified Time Sodium 139 Potassium 5.9 H* D Chloride 109 H Carbon Dioxide 17 L Anion Gap 20 BUN 46 H Creatinine 0.8 Est GFR ( Amer) > 60 Est GFR (Non-Af Amer) > 60 Random Glucose 227 H Calcium 7.9 L Phosphorus 4.3 Magnesium 2.3 H Total Bilirubin 0.9 AST 31 ALT < 6 L Alkaline Phosphatase 74 Troponin I NT-Pro-B Natriuret Pep 1320 H Total Protein 5.8 Albumin 2.6 L Globulin 3.2 Albumin/Globulin Ratio 0.8 L Arterial Blood Potassium Urine Color Urine Appearance Urine pH Ur Specific Sidney Urine Protein Urine Glucose (UA) Urine Ketones Urine Blood Urine Nitrate Urine Bilirubin Urine Urobilinogen Ur Leukocyte Esterase Urine RBC Urine WBC Urine Bacteria Blood Type Antibody Screen Crossmatch BBK History Checked 11/28/18 11/28/18 11/28/18 09:45 09:45 10:15 WBC RBC Hgb Hct MCV MCH MCHC RDW Plt Count MPV Neut % (Auto) Lymph % (Auto) Payette % (Auto) Eos % (Auto) Baso % (Auto) Lymph # (Auto) Payette # (Auto) Eos # (Auto) Baso # (Auto) Absolute Neuts (auto) Neutrophils % (Manual) Band Neutrophils % Lymphocytes % (Manual) Atypical Lymphs % Monocytes % (Manual) Eosinophils % (Manual) PT INR APTT pCO2 pO2 HCO3 ABG pH ABG Total CO2 ABG O2 Saturation ABG Base Excess ABG Potassium Glucose Lactate Mechanical Rate FiO2 Tidal Volume PEEP Crit Value Called To Crit Value Called By Blood Gas Notified Time Sodium Potassium Chloride Carbon Dioxide Anion Gap BUN Creatinine Est GFR ( Amer) Est GFR (Non-Af Amer) Random Glucose Calcium Phosphorus Magnesium Total Bilirubin AST ALT Alkaline Phosphatase Troponin I 0.03 D NT-Pro-B Natriuret Pep Total Protein Albumin Globulin Albumin/Globulin Ratio Arterial Blood Potassium Urine Color Dark brown Urine Appearance Cloudy Urine pH 7.0 Ur Specific Sidney 1.010 Urine Protein >=300 H Urine Glucose (UA) 250 H Urine Ketones 40 H Urine Blood Large H Urine Nitrate Positive H Urine Bilirubin Large H Urine Urobilinogen >=8.0 Ur Leukocyte Esterase Moderate H Urine RBC Tntc H Urine WBC Tntc H Urine Bacteria Large Blood Type A POSITIVE Antibody Screen Negative Crossmatch See Detail BBK History Checked Patient has bt 11/28/18 10:15 WBC RBC Hgb Hct MCV MCH MCHC RDW Plt Count MPV Neut % (Auto) Lymph % (Auto) Payette % (Auto) Eos % (Auto) Baso % (Auto) Lymph # (Auto) Payette # (Auto) Eos # (Auto) Baso # (Auto) Absolute Neuts (auto) Neutrophils % (Manual) Band Neutrophils % Lymphocytes % (Manual) Atypical Lymphs % Monocytes % (Manual) Eosinophils % (Manual) PT INR APTT pCO2 22 L pO2 505.0 H HCO3 13.0 L ABG pH 7.38 ABG Total CO2 13.7 L ABG O2 Saturation 99.0 H ABG Base Excess -10.0 L ABG Potassium 4.5 Glucose 181 H Lactate 5.2 H* Mechanical Rate 16 FiO2 100.0 Tidal Volume 400 PEEP 5 Crit Value Called [place] [id number] Blood Gas Notified Time 1025 Sodium 142.0 Potassium Chloride 123.0 H Carbon Dioxide Anion Gap BUN Creatinine Est GFR ( Amer) Est GFR (Non-Af Amer) Random Glucose Calcium Phosphorus Magnesium Total Bilirubin AST ALT Alkaline Phosphatase Troponin I NT-Pro-B Natriuret Pep Total Protein Albumin Globulin Albumin/Globulin Ratio Arterial Blood Potassium 4.5 Urine Color Urine Appearance Urine pH Ur Specific Sidney Urine Protein Urine Glucose (UA) Urine Ketones Urine Blood Urine Nitrate Urine Bilirubin Urine Urobilinogen Ur Leukocyte Esterase Urine RBC Urine WBC Urine Bacteria Blood Type Antibody Screen Crossmatch BBK History Checked Assessment & Plan - Assessment and Plan (Free Text) Assessment: 83 year old female with history of dementia, DVT,PE, peripheral edema, glaucoma who is admitted with sepsis,UTI, GI bleed,supratherapeutic INR, respiratory failure,hyperkalemia, JORGE LUIS, AMS. I was able to reach patients son, Jacinto via phone([phone]). He was not notified by [facility] that that his mother was taken to the hospital. Son spoke with medical team and was updated of mothers condition. He states that she does have an advanced directive, but is not sure of her wishes. He will bring a copy of the document.Psychosocial support provided. Palliate services contact information left for son. Will follow along. Plan: Goals of care and advance care planning GI Bleed/anemia; GI recs reviewed, monitor CBC, Coags, FFP's, transfuses as needed. CT orf abdomen when stable ID res reviewed, Gilliam cultures pending> Continue Vancomycin, Doxycycline, Merrem. Continue vasporessors, sodium bicarb Vent support, Maintain 02 sats >95%
[2018-11-28] MEDS ORDERED: Dextrose 50% SYRINGE Inj (50 ml) IVP ONE (16:31)
[2018-11-28] MEDS ORDERED: Insulin Regular 1 UNITS/0.01 ML ML IVP ONE (16:36)
[2018-11-28] MEDS: NOREPINEPHRINE BIT/0.9 % NACL 4 MG/250 ML BAG IV PRN (16:45)
[2018-11-28] MEDS ORDERED: NOREPINEPHRINE BIT/0.9 % NACL 4 MG/250 ML BAG IV ONE (16:47)
--- NOTE | 2018-11-28 16:56 | PCM.PROC ---
Procedures Attestation:: I certify that I have explained the specified Operation(s) or Procedure(s), risks, benefits and reasonable alternatives to the Patient and/or other person responsible. The opportunity was given to ask questions and all questions answered - Central Line Placement Right Internal Jugular Aseptic technique was employed throughout the procedure: Hand Hygiene done prior to procedure, Full sterile barriers (mask, hair cover, sterile gown, sterile gloves), Full body sterile drape, Chloraprep Antiseptic: 30 second prep for IJ or SC sites Pt. Placed on Pulse Ox Monitor: Yes Central Line Prep: Chlorhexidine-Alcohol Combination Ultrasound Used for Placement: Yes Central Line Lumen Inserted: triple Secured by: Securement device Post procedure dressing: Chlorhexidine disc (Biopatch) Post Procedure X-Ray: Yes Patient Tolerated Procedure: Well, No Complications Immediate Complications: None Addendum Addendum: A time-out was completed verifying correct patient, procedure, site, and positioning. . The patient was placed in a dependent position appropriate for central line placement based on the vein to be cannulated. The patients right neck was prepped and draped in sterile fashion. A 7 sudanese triple lumen catheter was introduced into the the internal jugular using the Seldinger technique and under ultrasound guidance. The catheter was threaded smoothly over the guide wire and appropriate blood return was obtained. Each lumen of the catheter was evacuated of air and flushed with sterile saline. The catheter was then sutured in place to the skin and a sterile dressing applied. Perfusion to the extremity distal to the point of catheter insertion was checked and found to be adequate. Estimated Blood Loss: minimal
--- NOTE | 2018-11-28 17:11 | RAD ---
Date of service: 11/28/2018 HISTORY: TLC placement COMPARISON: 11/28/2018 FINDINGS: Right IJV line terminates at the cavoatrial junction. Endotracheal tube is low in position with its tip in the proximal right mainstem bronchus. The nasogastric tube terminates in the stomach. LUNGS: The lungs are well inflated and clear. There are small calcified granulomas in the left mid lung. PLEURA: No pleural effusions or pneumothorax. CARDIOVASCULAR: The heart is normal in size. No aortic atherosclerotic calcifications present. OSSEOUS STRUCTURES: Within normal limits for the patient's age. VISUALIZED UPPER ABDOMEN: Normal. OTHER FINDINGS: None. IMPRESSION: Right IJV line terminates at the cavoatrial junction. Endotracheal tube is low in position and terminates in the proximal right mainstem bronchus. No acute findings.
[2018-11-28 18:52] LABS: VENOUS BLOOD GAS BASE EXCESS -17.6 mmol/L (0.0-2.0); VENOUS BLOOD GAS PO2 72 mm/Hg (30-55); VENOUS BLOOD PH 7.12 (7.32-7.43)
[2018-11-28 18:56] LABS: BASO # 0.03 K/mm3 (0.0-2.0); BASO % 0.2 % (0.0-3.0); HEMOGLOBIN 11.5 g/dL (12.0-16.0); LYMPH # 1.6 (1.2-3.4); LYMPH % 9.2 % (22.0-35.0); MEAN CELL VOLUME 91.2 fl (80.0-105.0); MEAN CORPUSCULAR HEMOGLOBIN 29.8 pg (25.0-35.0); MEAN CORPUSCULAR HGB CONC 32.7 g/dl (31.0-37.0); MEAN PLATELET VOLUME 10.6 fl (7.0-11.0); MONO # 0.7 (0.1-0.6); MONO % 4.2 % (1.0-6.0); RBC 3.86 10^6/uL (3.5-6.1); RED CELL DISTRIBUTION WIDTH 14.6 % (11.5-14.5); WHITE BLOOD COUNT 17.3 10^3/uL (4.5-11.0)
[2018-11-28 18:57] LABS: INR 1.91; PROTHROMBIN TIME 21.2 SECONDS (9.4-12.5)
[2018-11-28 19:10] LABS: ALB/GLOB RATIO 0.7 (1.1-1.8); ALBUMIN 1.7 g/dL (3.0-4.8); ALT/SGPT 17 U/L (7-56); AST/SGOT 30 U/L (14-36); BLOOD UREA NITROGEN 38 mg/dL (7-21); CALCIUM 7.1 mg/dL (8.4-10.5); GFR NON-AFRICAN AMERICAN > 60
[2018-11-28] MEDS ORDERED: Sodium Chloride 0.9% 1,000 ML IV SCH (20:00)
--- NOTE | 2018-11-28 21:04 | CARD ---
APPROVED REPORT Date of service: 11/28/2018 EKG Measurement Heart [id number] <Conclusion> Sinus tachycardia Left axis deviation Low voltage QRS Inferior infarct, age undetermined Anterolateral infarct, age undetermined Abnormal ECG
[2018-11-28] MEDS ORDERED: Sodium Bicarbonate 8.4% 150 MEQ in Dextrose 5% In Water 1,000 ML IV SCH (21:15)
--- NOTE | 2018-11-28 21:29 | CON ---
DATE: 11/28/2018 CONSULT REQUESTED BY: Dr. Galarza. REASON FOR CONSULTATION: GI bleed, coagulopathy. HISTORY OF PRESENT ILLNESS: Ms. Gil is an 83-year-old female who presented to the ED with dark color stools since 5:30 this morning. She was found unresponsive at [facility] . She is a resident of [facility] and was transported to the ED. She also had hypotension. She was intubated. She has been on Eliquis 5 mg daily as per MAR due to prior history of DVT and pulmonary embolism. She has baseline dementia, CHF, and hypertension. PAST MEDICAL HISTORY: DVT, pulmonary embolism, congestive cardiac failure, dementia, and glaucoma. PAST SURGICAL HISTORY: Tibia fibula, ORIF. PERSONAL HISTORY: Never smoked. No history of alcohol abuse. ALLERGIES: NO KNOWN DRUG ALLERGIES. HOME MEDICATIONS: Tylenol 325 mg p.r.n., Eliquis 5 mg daily, aspirin 81 mg daily, metoprolol 25 mg daily, and Senokot p.r.n. REVIEW OF SYSTEMS: Could not be obtained. Currently, sedated and intubated. PHYSICAL EXAMINATION: GENERAL: Intubated and sedated. VITAL SIGNS: Heart rate 118 per minute, temperature 98.1, blood pressure 112/68, mean blood pressure 86, and oxygen saturation 100% on room air. HEENT: Pallor positive. NECK: No lymphadenopathy. CHEST: Air entry present equal and bilaterally. CARDIOVASCULAR: Irregular rhythm. RECTAL: Exam done in ED, showed melena. EXTREMITIES: Lower extremity 2+ pedal edema bilaterally. NEUROLOGIC: Sedated and intubated. SKIN: Pallor dry. LABORATORY DATA: White count 27,000 and repeat 17,000, hemoglobin 11.5, hematocrit 35.2, and platelet 183. Sodium 141, potassium 4.3, creatinine 0.6, total bilirubin 1.7. AST 30, ALT 17, total protein 4, albumin 1.7, and globulin 2.3. CURRENT MEDICATIONS: Doxycycline 100 mg IV every 12 hours, meropenem every 12 hours, norepinephrine, Levophed drip, Protonix drip, and vancomycin 1 g daily. She received Kcentra 3000 units IV stat at hour 13 today in ED. Vitamin K 10 mg IV given. ASSESSMENT: 1. Coagulopathy. 2. Gastrointestinal bleeding. 3. Severe anemia. 4. Hypotension. 5. Hypovolemic shock. 6. Atrial fibrillation. 7. History of deep venous thrombosis and pulmonary embolism. PLAN: Her condition remain critical. She is currently on pressors, intubated and sedated, received one dose of Kcentra in the ED, received so far 2 units of FFP. INR was elevated to 3.1. GI consultation, Dr. Valadez reviewed. INR declined to 1.9 at hours 18:40. She received one unit of blood transfusion. We would recommend monitoring hemoglobin and hematocrit every 4 to 6 hours. We will repeat PT, PTT, INR on completion of FFP. We will closely monitor coags. Coagulopathy will be corrected as needed with blood products . If she continues to bleed Novoseven can be tried. Discussed with the staff nurse. Condition remains critical. Thank you Dr. Gray, for allowing us to participate in Ms. Gil's care. Hodan Núñez MD [facility]
[2018-11-28 21:45] LABS: BASO # 0.02 K/mm3 (0.0-2.0); BASO % 0.1 % (0.0-3.0); HEMOGLOBIN 10.6 g/dL (12.0-16.0); LYMPH # 1.4 (1.2-3.4); MEAN CELL VOLUME 89.2 fl (80.0-105.0); MEAN CORPUSCULAR HGB CONC 33.7 g/dl (31.0-37.0); MEAN PLATELET VOLUME 10.5 fl (7.0-11.0); MONO # 1.4 (0.1-0.6); MONO % 8.3 % (1.0-6.0); RBC 3.53 10^6/uL (3.5-6.1); RED CELL DISTRIBUTION WIDTH 14.9 % (11.5-14.5); WHITE BLOOD COUNT 17.4 10^3/uL (4.5-11.0)
[2018-11-28] MEDS: Meropenem IV 1 gm in NS 1 GM/50 ML BAG IVPB SCH (21:48)
[2018-11-28 21:55] LABS: TROPONIN I 0.06 ng/mL
[2018-11-29 00:13] LABS: ARTERIAL BLOOD GAS HCO3 12.1 mmol/L (21-28); ARTERIAL BLOOD GAS HEMOGLOBIN 10.4 g/dL (11.7-17.4); ARTERIAL BLOOD GAS O2 CAPACITY 14.6 mL/dl (16-24); ARTERIAL BLOOD GAS O2 CONTENT 14.4 ML/dl (15-23); ARTERIAL BLOOD GAS O2 SAT 98.9 % (95-98); ARTERIAL BLOOD GAS PCO2 21 mm/Hg (35-45); ARTERIAL BLOOD GAS PH 7.37 (7.35-7.45); ARTERIAL BLOOD GAS TCO2 12.7 mmol.L (22-28)
[2018-11-29] MEDS: NOREPINEPHRINE BIT/0.9 % NACL 4 MG/250 ML BAG IV PRN ×4 (01:00→22:30)
[2018-11-29] MEDS: Pantoprazole 40mg/100mL NS 40 MG/100 ML BAG IVPB SCH ×4 (01:31→22:02)
[2018-11-29 04:35] LABS: BASO # 0.02 K/mm3 (0.0-2.0); BASO % 0.1 % (0.0-3.0); HEMOGLOBIN 9.4 g/dL (12.0-16.0); LYMPH # 1.1 (1.2-3.4); MEAN CELL VOLUME 88.9 fl (80.0-105.0); MEAN CORPUSCULAR HEMOGLOBIN 29.7 pg (25.0-35.0); MEAN CORPUSCULAR HGB CONC 33.5 g/dl (31.0-37.0); MEAN PLATELET VOLUME 10.6 fl (7.0-11.0); MONO # 1.2 (0.1-0.6); MONO % 7.5 % (1.0-6.0); RBC 3.16 10^6/uL (3.5-6.1); RED CELL DISTRIBUTION WIDTH 15.4 % (11.5-14.5); WHITE BLOOD COUNT 15.8 10^3/uL (4.5-11.0)
[2018-11-29 04:56] LABS: INR 2.1; PROTHROMBIN TIME 23.7 SECONDS (9.4-12.5)
[2018-11-29 04:59] LABS: ALB/GLOB RATIO 0.9 (1.1-1.8); ALBUMIN 2.2 g/dL (3.0-4.8); ALT/SGPT 17 U/L (7-56); AST/SGOT 33 U/L (14-36); BLOOD UREA NITROGEN 42 mg/dL (7-21); CALCIUM 7.6 mg/dL (8.4-10.5); GFR NON-AFRICAN AMERICAN > 60
[2018-11-29 05:54] LABS: ARTERIAL BLOOD GAS HCO3 16.7 mmol/L (21-28); ARTERIAL BLOOD GAS O2 SAT 98.5 % (95-98); ARTERIAL BLOOD GAS PCO2 24 mm/Hg (35-45); ARTERIAL BLOOD GAS PH 7.45 (7.35-7.45); ARTERIAL BLOOD GAS TCO2 17.4 mmol.L (22-28)
[2018-11-29] MEDS ORDERED: Vasopressin 20 UNITS in Dextrose 5% In Water 100 ML IV SCH (07:15)
[2018-11-29] MEDS ORDERED: Sodium Bicarbonate 8.4% 75 MEQ in Dextrose 5% In Water 1,000 ML IV SCH (08:00)
--- NOTE | 2018-11-29 09:21 | RAD ---
Date of service: 11/28/2018 HISTORY: eval ett COMPARISON: Earlier same day FINDINGS: LUNGS: The endotracheal and nasogastric tubes are in satisfactory position. The right IJ line is in satisfactory position in the upper right atrium. PLEURA: No significant pleural effusion identified, no pneumothorax apparent. CARDIOVASCULAR: Aortic calcification and dilatation Normal cardiac size. No pulmonary vascular congestion. OSSEOUS STRUCTURES: No significant abnormalities. VISUALIZED UPPER ABDOMEN: Normal. OTHER FINDINGS: None. IMPRESSION: No active disease.
[2018-11-29] MEDS: Meropenem IV 1 gm in NS 1 GM/50 ML BAG IVPB SCH ×2 (09:34→21:00)
[2018-11-29] MEDS: Vancomycin 1gm in NS 250ml 1 GM/250 ML BAG IVPB SCH ×2 (09:34→10:43)
--- NOTE | 2018-11-29 09:39 | RAD ---
Date of service: 11/29/2018 HISTORY: intubated COMPARISON: 11/28/2018 FINDINGS: LUNGS: No active pulmonary disease. PLEURA: No significant pleural effusion identified, no pneumothorax apparent. CARDIOVASCULAR: No aortic atherosclerotic calcification present. Normal cardiac size. No pulmonary vascular congestion. OSSEOUS STRUCTURES: No significant abnormalities. VISUALIZED UPPER ABDOMEN: Normal. OTHER FINDINGS: Central lines and tubes are unchanged IMPRESSION: No active disease.
[2018-11-29 09:47] LABS: BASO # 0.01 K/mm3 (0.0-2.0); BASO % 0.1 % (0.0-3.0); LYMPH # 1.1 (1.2-3.4); LYMPH % 6.4 % (22.0-35.0); MEAN CELL VOLUME 87.3 fl (80.0-105.0); MEAN CORPUSCULAR HGB CONC 34.4 g/dl (31.0-37.0); MEAN PLATELET VOLUME 9.8 fl (7.0-11.0); MONO # 1.3 (0.1-0.6); MONO % 7.9 % (1.0-6.0); RED CELL DISTRIBUTION WIDTH 15.3 % (11.5-14.5); WHITE BLOOD COUNT 16.4 10^3/uL (4.5-11.0)
[2018-11-29 09:48] LABS: VENOUS BLOOD GAS BASE EXCESS -3.4 mmol/L (0.0-2.0); VENOUS BLOOD GAS PO2 35 mm/Hg (30-55); VENOUS BLOOD PH 7.42 (7.32-7.43)
--- NOTE | 2018-11-29 09:53 | CP.PCM.PN ---
<Al Woods - Last Filed: 11/29/18 17:26> Subjective - Date & Time of Evaluation Date of Evaluation: 11/29/18 Time of Evaluation: 07:46 - Subjective Subjective: Al Woods PGY2 GI Progress Note for Dr. Valadez Patient was seen and examined at bedside in ICU. Overnight, the patient developed a mild fever of 100.8 per overnight nurse. The patient is currently on Levophed with Vasopressin being added due to continued hypotension. Rectal tube was initially in place but was removed as she is having less loose stools, however, the formed stills are still dark. The patient's abdomen is distended and firm, and patient grimaces upon palpation, CT needed to evaluate. Patient is intubated, and off sedation. Objective - Vital Signs/Intake and Output Vital Signs (last 24 hours): Temp Pulse Resp BP Pulse Ox 99.9 F H 110 H 15 124/55 L 92 L 11/29/18 01:00 11/29/18 04:00 11/28/18 14:38 11/29/18 09:01 11/29/18 03:20 Intake and Output: 11/29/18 11/29/18 06:59 18:59 Intake Total 1990 Output Total 550 Balance 1440 - Medications Medications: Current Medications Hydrocortisone Sodium Succinate (Solu-Cortef) 50 mg IVP Q6H PEDRITO Last Admin: 11/29/18 09:37 Dose: 50 mg Pantoprazole Sodium (Protonix 40mg Ivpb) 40 mg in 100 mls @ 20 mls/hr IVPB .Q5H PEDRITO Last Admin: 11/29/18 01:31 Dose: 20 mls/hr Vancomycin HCl (Vancomycin 1gm) 1 gm in 250 mls @ 167 mls/hr IVPB DAILY PEDRITO; Protocol Last Admin: 11/29/18 09:34 Dose: 167 mls/hr Meropenem (Merrem Iv 1 Gm Premix) 1 gm in 50 mls @ 100 mls/hr IVPB Q12 PEDRITO; Protocol Last Admin: 11/29/18 09:34 Dose: 100 mls/hr Doxycycline Hyclate 100 mg/ (Sodium Chloride) 100 mls @ 100 mls/hr IVPB Q12 PEDRITO; Protocol Stop: 12/06/18 22:01 Last Admin: 11/29/18 09:39 Dose: 100 mls/hr NOREPINEPHRINE BIT/0.9 % NACL (Levophed 4 Mg/ 250 Ml Ns Premixed) 4 mg in 250 mls @ 15 mls/hr IV .[id number] PRN; Protocol PRN Reason: TITRATE PER MD ORDER Last Admin: 11/29/18 01:00 Dose: 10 mcg/min, 37.5 mls/hr Sodium Bicarbonate 75 meq/ (Dextrose) 1,075 mls @ 100 mls/hr IV .[id number] PEDRITO Vasopressin 20 units/ Sodium (Chloride) 101 mls @ 9.09 mls/hr IV .Q11H7M PEDRITO; Protocol Last Admin: 11/29/18 09:01 Dose: 9.09 mls/hr - Labs Labs: 11/29/18 04:15 11/29/18 04:15 PT 23.7 SECONDS (9.4-12.5) H 11/29/18 04:15 INR 2.10 11/29/18 04:15 APTT 26.0 Seconds (26.9-38.3) L 11/28/18 09:45 - Constitutional Appears: No Acute Distress, Chronically Ill - Head Exam Head Exam: ATRAUMATIC, NORMAL INSPECTION - Eye Exam Eye Exam: Normal appearance, PERRL - ENT Exam Additional comments: intubated OGT in place - Neck Exam Neck Exam: Normal Inspection. absent: Thyromegaly - Respiratory Exam Respiratory Exam: absent: Rales, Wheezes, Respiratory Distress Additional comments: on vent - Cardiovascular Exam Cardiovascular Exam: Tachycardia, +S1, +S2 - GI/Abdominal Exam GI & Abdominal Exam: Distended, Firm, Guarding, Hypoactive Bowel Sounds - Rectal Exam Rectal Exam: Black Stool (somewhat formed but still loose in consistency), Hemorrhoids (interna/external) - Exam Additional comments: porras in place, dark maroon urine - Extremities Exam Extremities Exam: Normal Inspection. absent: Pedal Edema - Back Exam Back Exam: rash noted (sacral (perianal) stage 1 decubitus ) - Neurological Exam Neurological Exam: Altered (off sedation), Awake (poorly follows simple commands) - Skin Skin Exam: Pallor Additional comments: sacral exam as above Assessment and Plan - Assessment and Plan (Free Text) Assessment: 83 year old female with a PMH of DVT/PE on Xarelto [facility]ena. Patient intubated in ED for agonal breathing. Due to melena and hematuria, Kcentra, vit K, 2u FFP and 2u pRBCs were transfused to reverse anticoagulant effect. Patient is now in ICU on vasopressors required to maintain perfusion. Her stools have become less frequent and more formed, however, the patient's abdomen is becoming firm and she's at risk for an intra-abdominal sources of sepsis. Plan: - CT abd/pelvis reviewed showing severe colitis in descending colon and moderate fecal impaction (soft stools) - No plans for endoscopy at this time, given unstable INR and high risk of bleedig --Will monitor patient overnight as ICU teams transfuses more ffp and prbc and decision to be made regarding endoscopy in AM - monitor H/H - maintain Hgb > 7 - Abx per ID - further management per ICU team - further recs per Dr. Valadez Case was reviewed and discussed with Dr. Valadez <Rhiannon Valadez V - Last Filed: 11/29/18 19:43> Objective - Vital Signs/Intake and Output Vital Signs (last 24 hours): Temp Pulse Resp BP Pulse Ox 98.8 F 70 22 118/72 97 11/29/18 16:00 11/29/18 16:15 11/29/18 15:11 11/29/18 19:05 11/29/18 16:15 Intake and Output: 11/29/18 11/30/18 18:59 06:59 Intake Total 1940 50 Output Total 500 Balance 1440 50 - Medications Medications: Current Medications Hydrocortisone Sodium Succinate (Solu-Cortef) 50 mg IVP Q6H PEDRITO Last Admin: 11/29/18 15:45 Dose: 50 mg Pantoprazole Sodium (Protonix 40mg Ivpb) 40 mg in 100 mls @ 20 mls/hr IVPB .Q5H PEDRITO Last Admin: 11/29/18 15:45 Dose: 20 mls/hr Meropenem (Merrem Iv 1 Gm Premix) 1 gm in 50 mls @ 100 mls/hr IVPB Q12 PEDRITO; Protocol Last Admin: 11/29/18 09:34 Dose: 100 mls/hr NOREPINEPHRINE BIT/0.9 % NACL (Levophed 4 Mg/ 250 Ml Ns Premixed) 4 mg in 250 mls @ 15 mls/hr IV .[id number] PRN; Protocol PRN Reason: TITRATE PER MD ORDER Last Titration: 11/29/18 19:04 Dose: 12 mcg/min, 45 mls/hr Vasopressin 20 units/ Sodium (Chloride) 101 mls @ 9.09 mls/hr IV .Q11H7M PEDRITO; Protocol Last Admin: 11/29/18 19:05 Dose: 9.09 mls/hr Dexmedetomidine HCl (Precedex 400mcg/100ml) 400 mcg in 100 mls @ 17.463 mls/hr IV .Q5H44M PRN; Protocol PRN Reason: Sedation Last Admin: 11/29/18 14:59 Dose: 1 mcg/kg/hr, 17.463 mls/hr Timolol Maleate (Timoptic 0.25% Ophth Soln) 2 drop OU BID PEDRITO Last Admin: 11/29/18 17:42 Dose: 2 unit - Labs Labs: 11/29/18 13:00 11/29/18 04:15 PT 23.7 SECONDS (9.4-12.5) H 11/29/18 04:15 INR 2.10 11/29/18 04:15 APTT 26.0 Seconds (26.9-38.3) L 11/28/18 09:45 Attending/Attestation - Attestation I have personally seen and examined this patient.: Yes I have fully participated in the care of the patient.: Yes I have reviewed all pertinent clinical information, including history, physical exam and plan: Yes Notes (Text): This patient was seen and evaluated here earlier with the resident. This is an addendum to the GI progress report dictated by the pediatric medical assistant. CT scan was reviewed. Significant left-sided colitis. Patient does have a large amount of stool including rectum Still coagulopathic Discussed with the patient's son who was at bedside Would recommend to continue the antibiotics Gentle manual disimpaction of the stool rectum Rectal coagulopathy and follow-up hemoglobin and hematocrit transfuse Timing of endoscopy will be based on the clinical course will defer it for now 11/29/18 19:40
[2018-11-29] MEDS ORDERED: Piperacillin/Tazobact 3.375 gm 100 ML IVPB SCH (10:00)
--- NOTE | 2018-11-29 10:49 | CP.PCM.PN ---
<Eduardo Galloway - Last Filed: 11/29/18 10:55> Subjective - Date & Time of Evaluation Date of Evaluation: 11/29/18 Time of Evaluation: 10:35 - Subjective Subjective: Eduardo Galloway D.O. PGY-3, Internal Medicine Resident, Infectious Disease Consultation Note 83-year-old female with a past medical history of osteoarthritis, deep vein thrombosis, dementia, CAD, heart failure, hypertension, who had a pulmonary embolism last month now on Eliquis who presents after being unresponsive in the alf and found to have a GI bleed. Infectious disease consultation was requested for septic shock likely from a urinary source. Patient was seen and examined at bedside. Patient is currently intubated and on pressors. No acute overnight events noted. Objective - Vital Signs/Intake and Output Vital Signs (last 24 hours): Temp Pulse Resp BP Pulse Ox 99.9 F H 110 H 15 124/55 L 92 L 11/29/18 01:00 11/29/18 04:00 11/28/18 14:38 11/29/18 09:01 11/29/18 03:20 Intake and Output: 11/29/18 11/29/18 06:59 18:59 Intake Total 1990 Output Total 550 Balance 1440 - Medications Medications: Current Medications Hydrocortisone Sodium Succinate (Solu-Cortef) 50 mg IVP Q6H PEDRITO Last Admin: 11/29/18 09:37 Dose: 50 mg Pantoprazole Sodium (Protonix 40mg Ivpb) 40 mg in 100 mls @ 20 mls/hr IVPB .Q5H PEDRITO Last Admin: 11/29/18 01:31 Dose: 20 mls/hr Meropenem (Merrem Iv 1 Gm Premix) 1 gm in 50 mls @ 100 mls/hr IVPB Q12 PEDRITO; Protocol Last Admin: 11/29/18 09:34 Dose: 100 mls/hr NOREPINEPHRINE BIT/0.9 % NACL (Levophed 4 Mg/ 250 Ml Ns Premixed) 4 mg in 250 mls @ 15 mls/hr IV .[id number] PRN; Protocol PRN Reason: TITRATE PER MD ORDER Last Admin: 11/29/18 01:00 Dose: 10 mcg/min, 37.5 mls/hr Sodium Bicarbonate 75 meq/ (Dextrose) 1,075 mls @ 100 mls/hr IV .[id number] PEDRITO Last Admin: 11/29/18 09:48 Dose: 100 mls/hr Vasopressin 20 units/ Sodium (Chloride) 101 mls @ 9.09 mls/hr IV .Q11H7M PEDRITO; Protocol Last Admin: 11/29/18 09:01 Dose: 9.09 mls/hr Timolol Maleate (Timoptic 0.25% Ophth Soln) 2 drop OU BID PEDRITO - Labs Labs: 11/29/18 09:40 11/29/18 04:15 PT 23.7 SECONDS (9.4-12.5) H 11/29/18 04:15 INR 2.10 11/29/18 04:15 APTT 26.0 Seconds (26.9-38.3) L 11/28/18 09:45 - Constitutional Appears: intubated, Chronically Ill - Eye Exam Eye Exam: EOMI, Normal appearance - ENT Exam ENT Exam: Mucous Membranes Moist, Intubated - Respiratory Exam Respiratory Exam: Clear to Auscultation Bilateral, no rhonchi or rales noted - Cardiovascular Exam Cardiovascular Exam: Tachycardia, +S1, +S2 - GI/Abdominal Exam GI & Abdominal Exam: Normal Bowel Sounds, Soft. absent: Organomegaly, Tenderness - Extremities Exam Extremities exam: Positive for: normal inspection. Negative for: pedal edema - Neurological Exam Neurological exam: awake, not alert, intubated - Skin Skin Exam: Dry, Pallor Assessment and Plan - Assessment and Plan (Free Text) Assessment: 83-year-old female with a past medical history of osteoarthritis, deep vein thrombosis, dementia, CAD, heart failure, hypertension, who had a pulmonary embolism last month now on Eliquis who presents after being unresponsive in the alf and found to have a GI bleed. Infectious disease consultation was requested for septic shock likely from a urinary source. Plan: Severe Sepsis likely from urinary source GI bleed OA DVT and PE Dementia CAD HTN Heart failure Was started empirically on doxycycline, meropenem, vancomycin After review of chest x-ray there does not appear to be any sign of pneumonia Last fever of 100.8 yesterday at 10 PM Will discontinue doxycycline and vancomycin and continue meropenem day 2 Blood cultures are negative 2 out of 2 on day 1 Legionella antigen pending C. difficile antigen pending Pro-calcitonin pending Gastroenterology consultation by Dr. Soria was appreciated Discussed with ICU team Patient was seen and examined and case to be discussed with attending physician Thank you for the pleasure of participating in the care of this interesting patient <Eron Perez - Last Filed: 11/29/18 15:08> Objective - Vital Signs/Intake and Output Vital Signs (last 24 hours): Temp Pulse Resp BP Pulse Ox 99.1 F 97 H 15 121/93 H 89 L 11/29/18 12:00 11/29/18 11:57 11/28/18 14:38 11/29/18 11:30 11/29/18 11:50 Intake and Output: 11/29/18 11/29/18 06:59 18:59 Intake Total 1990 250 Output Total 550 Balance 1440 250 - Medications Medications: Current Medications Hydrocortisone Sodium Succinate (Solu-Cortef) 50 mg IVP Q6H PEDRITO Last Admin: 11/29/18 09:37 Dose: 50 mg Pantoprazole Sodium (Protonix 40mg Ivpb) 40 mg in 100 mls @ 20 mls/hr IVPB .Q5H PEDRITO Last Admin: 11/29/18 10:44 Dose: 20 mls/hr Meropenem (Merrem Iv 1 Gm Premix) 1 gm in 50 mls @ 100 mls/hr IVPB Q12 PEDRITO; Protocol Last Admin: 11/29/18 09:34 Dose: 100 mls/hr NOREPINEPHRINE BIT/0.9 % NACL (Levophed 4 Mg/ 250 Ml Ns Premixed) 4 mg in 250 mls @ 15 mls/hr IV .[id number] PRN; Protocol PRN Reason: TITRATE PER MD ORDER Last Admin: 11/29/18 11:20 Dose: 10 mcg/min, 37.5 mls/hr Sodium Bicarbonate 75 meq/ (Dextrose) 1,075 mls @ 100 mls/hr IV .[id number] PEDRITO Last Admin: 11/29/18 09:48 Dose: 100 mls/hr Vasopressin 20 units/ Sodium (Chloride) 101 mls @ 9.09 mls/hr IV .Q11H7M PEDRITO; Protocol Last Admin: 11/29/18 09:01 Dose: 9.09 mls/hr Dexmedetomidine HCl (Precedex 400mcg/100ml) 400 mcg in 100 mls @ 17.463 mls/hr IV .Q5H44M PRN; Protocol PRN Reason: Sedation Timolol Maleate (Timoptic 0.25% Ophth Soln) 2 drop OU BID PEDRITO Last Admin: 11/29/18 12:30 Dose: 2 unit - Labs Labs: 11/29/18 13:00 11/29/18 04:15 PT 23.7 SECONDS (9.4-12.5) H 11/29/18 04:15 INR 2.10 11/29/18 04:15 APTT 26.0 Seconds (26.9-38.3) L 11/28/18 09:45 Attending/Attestation - Attestation I have personally seen and examined this patient.: Yes I have fully participated in the care of the patient.: Yes I have reviewed all pertinent clinical information, including history, physical exam and plan: Yes
--- NOTE | 2018-11-29 11:27 | CP.CCUPN ---
<Adam Darden - Last Filed: 11/29/18 11:40> CCU Subjective - Physician Review Events Since Last Encounter (Free Text): 11/29/18 11:23 no acute events Subjective (Free Text): 11/29/18 11:26 Pt seen and examined this morning in the ICU, pt is intubated but not sedated CCU Objective - Vital Signs / Intake & Output Vital Signs (Last 4 hours): Vital Signs BP 11/29/18 09:01 124/55 L Intake and Output (Last 8hrs): Intake & Output 11/28/18 11/29/18 11/29/18 22:59 06:59 14:59 Intake Total 520 1820 250 Output Total 400 550 Balance 120 1270 250 Intake: IV 520 1820 250 Internal Jugular 350 abx 200 bicarb 1000 levo 300 protonix 240 Output: Urine 400 200 Urethral (Khanna) 400 200 Stool 350 Other: # Bowel Movements 4 3 - Physical Exam Head: Positive for: Atraumatic, Normocephalic Pupils: Positive for: PERRL Extroacular Muscles: Positive for: EOMI Mouth: Positive for: Moist Mucous Membranes Respiratory/Chest: Positive for: Clear to Auscultation, Other (Coarse breath sounds). Negative for: Respiratory Distress Cardiovascular: Positive for: Irregular Rhythm. Negative for: Murmurs Rectal: Positive for: Melena Lower Extremity: Positive for: Edema (2+ pedal edema bilaterally) Neurological: Positive for: Other (Opened eyes to pain). Negative for: GCS=15, Speech Normal Skin: Positive for: Warm, Dry. Negative for: Rashes Psychiatric: Negative for: Alert, Oriented x 3, Normal Insight - Medications Active Medications: Active Medications Generic Name Dose Route Start Last Admin Trade Name Freq PRN Reason Stop Dose Admin Hydrocortisone Sodium Succinate 50 mg 11/29/18 09:30 11/29/18 09:37 Solu-Cortef IVP 50 mg Q6H PEDRITO Administration Pantoprazole Sodium 40 mg in 100 mls @ 20 mls/hr 11/28/18 11:15 11/29/18 10:44 Protonix 40mg Ivpb IVPB 20 mls/hr .Q5H PEDRITO Administration Meropenem 1 gm in 50 mls @ 100 mls/hr 11/28/18 22:00 11/29/18 09:34 Merrem Iv 1 Gm Premix IVPB 100 mls/hr Q12 PEDRITO Administration Protocol NOREPINEPHRINE BIT/0.9 % NACL 4 mg in 250 mls @ 15 mls/hr 11/28/18 16:42 0 11/29/18 11:20 Levophed 4 Mg/ 250 Ml Ns Premixed IV 10 mcg/min .[id number] PRN 37.5 mls/hr TITRATE PER MD ORDER Administration Protocol 4 MCG/MIN Sodium Bicarbonate 75 meq/ 1,075 mls @ 100 mls/hr 11/29/18 08:00 11/29/18 09:48 Dextrose IV 100 mls/hr .[id number] PEDRITO Administration Vasopressin 20 units/ Sodium 101 mls @ 9.09 mls/hr 11/29/18 08:30 11/29/18 09:01 Chloride IV 9.09 mls/hr .[id number] PEDRITO Administration Protocol 0.03 U/MIN Timolol Maleate 2 drop 11/29/18 10:45 Timoptic 0.25% Ophth Soln OU BID PEDRITO - Patient Studies Lab Studies: Microbiology Studies 11/28/18 10:15 Blood Culture - Preliminary Blood NO GROWTH AFTER 24 HOURS 11/28/18 09:45 Blood Culture - Preliminary Blood NO GROWTH AFTER 24 HOURS Lab Studies 11/29/18 11/29/18 11/29/18 Range/Units 09:40 09:40 05:35 WBC 16.4 H (4.5-11.0) 10^3/uL RBC 3.00 L (3.5-6.1) 10^6/uL Hgb 9.0 L (12.0-16.0) g/dL Hct 26.2 L (36.0-48.0) % MCV 87.3 (80.0-105.0) fl MCH 30.0 (25.0-35.0) pg MCHC 34.4 (31.0-37.0) g/dl RDW 15.3 H (11.5-14.5) % Plt Count 136 (120.0-450.0) 10^3/uL MPV 9.8 (7.0-11.0) fl Neut % (Auto) 85.6 H (50.0-68.0) % Lymph % (Auto) 6.4 L (22.0-35.0) % Mayes % (Auto) 7.9 H (1.0-6.0) % Eos % (Auto) 0.0 L (1.5-5.0) % Baso % (Auto) 0.1 (0.0-3.0) % Lymph # (Auto) 1.1 L (1.2-3.4) Mayes # (Auto) 1.3 H (0.1-0.6) Eos # (Auto) 0.0 (0.0-0.7) Baso # (Auto) 0.01 (0.0-2.0) K/mm3 Absolute Neuts (auto) 14.05 H (1.4-6.5) PT (9.4-12.5) SECONDS INR pCO2 24 L (35-45) mm/Hg pO2 35 231.0 H (30-55) mm/Hg HCO3 16.7 L (21-28) mmol/L ABG pH 7.45 (7.35-7.45) ABG Total CO2 17.4 L (22-28) mmol.L ABG O2 Saturation 98.5 H (95-98) % ABG O2 Content (15-23) ML/dl ABG Base Excess -5.5 L (-2.0-3.0) mmol/L ABG Hemoglobin (11.7-17.4) g/dL ABG Carboxyhemoglobin (0.5-1.5) % POC ABG HHb (Measured) (0-5) % ABG Methemoglobin (0.0-3.0) % ABG O2 Capacity (16-24) mL/dl ABG Potassium 3.8 (3.6-5.2) mmol/L VBG pH 7.42 (7.32-7.43) VBG pCO2 31.0 L (40-60) VBG HCO3 20.1 L (21-28) mmol/l VBG Total CO2 21.1 L (22-28) mmol.L VBG O2 Sat (Calc) 75.8 H (40-65) % VBG Base Excess -3.4 L (0.0-2.0) mmol/L VBG Potassium 3.7 (3.6-5.2) mmol/L Hgb O2 Saturation (95.0-98.0) % Sodium 143.0 142.0 (132-148) mmol/L Chloride 115.0 H 116.0 H (98-107) mmol/L Glucose 141 H 176 H (65-105) mg/dl Lactate 4.0 H* 4.7 H* (0.7-2.1) mmol/L FiO2 21.0 50.0 % Crit Value Called To Soledad dahl rn icu Crit Value Called By [facility] Blood Gas Notified Time [id number] Potassium (3.6-5.0) mmol/L Carbon Dioxide (21-33) mmol/L Anion Gap (10-20) BUN (7-21) mg/dL Creatinine (0.7-1.2) mg/dl Est GFR ( Amer) Est GFR (Non-Af Amer) POC Glucose (mg/dL) (65-110) mg/dL Random Glucose (70-110) mg/dL Calcium (8.4-10.5) mg/dL Phosphorus (2.5-4.5) mg/dL Magnesium (1.7-2.2) mg/dL Total Bilirubin (0.2-1.3) mg/dL AST (14-36) U/L ALT (7-56) U/L Alkaline Phosphatase (38-126) U/L Troponin I ng/mL Total Protein (5.8-8.3) g/dL Albumin (3.0-4.8) g/dL Globulin gm/dL Albumin/Globulin Ratio (1.1-1.8) Lipase (23-300) U/L Arterial Blood Potassium 3.8 (3.6-5.2) mmol/L Venous Blood Potassium 3.7 (3.6-5.2) mmol/L Blood Type Antibody Screen Crossmatch BBK History Checked 11/29/18 11/29/18 11/29/18 Range/Units 05:02 04:15 04:15 WBC 15.8 H (4.5-11.0) 10^3/uL RBC 3.16 L (3.5-6.1) 10^6/uL Hgb 9.4 L (12.0-16.0) g/dL Hct 28.1 L (36.0-48.0) % MCV 88.9 (80.0-105.0) fl MCH 29.7 (25.0-35.0) pg MCHC 33.5 (31.0-37.0) g/dl RDW 15.4 H (11.5-14.5) % Plt Count 143 (120.0-450.0) 10^3/uL MPV 10.6 (7.0-11.0) fl Neut % (Auto) 85.4 H (50.0-68.0) % Lymph % (Auto) 7.0 L (22.0-35.0) % Mayes % (Auto) 7.5 H (1.0-6.0) % Eos % (Auto) 0.0 L (1.5-5.0) % Baso % (Auto) 0.1 (0.0-3.0) % Lymph # (Auto) 1.1 L (1.2-3.4) Mayes # (Auto) 1.2 H (0.1-0.6) Eos # (Auto) 0.0 (0.0-0.7) Baso # (Auto) 0.02 (0.0-2.0) K/mm3 Absolute Neuts (auto) 13.51 H (1.4-6.5) PT (9.4-12.5) SECONDS INR pCO2 (35-45) mm/Hg pO2 (30-55) mm/Hg HCO3 (21-28) mmol/L ABG pH (7.35-7.45) ABG Total CO2 (22-28) mmol.L ABG O2 Saturation (95-98) % ABG O2 Content (15-23) ML/dl ABG Base Excess (-2.0-3.0) mmol/L ABG Hemoglobin (11.7-17.4) g/dL ABG Carboxyhemoglobin (0.5-1.5) % POC ABG HHb (Measured) (0-5) % ABG Methemoglobin (0.0-3.0) % ABG O2 Capacity (16-24) mL/dl ABG Potassium (3.6-5.2) mmol/L VBG pH (7.32-7.43) VBG pCO2 (40-60) VBG HCO3 (21-28) mmol/l VBG Total CO2 (22-28) mmol.L VBG O2 Sat (Calc) (40-65) % VBG Base Excess (0.0-2.0) mmol/L VBG Potassium (3.6-5.2) mmol/L Hgb O2 Saturation (95.0-98.0) % Sodium 143 (132-148) mmol/L Chloride 116 H (98-107) mmol/L Glucose (65-105) mg/dl Lactate (0.7-2.1) mmol/L FiO2 % Crit Value Called To Crit Value Called By Blood Gas Notified Time Potassium 4.5 (3.6-5.0) mmol/L Carbon Dioxide 19 L (21-33) mmol/L Anion Gap 13 (10-20) BUN 42 H (7-21) mg/dL Creatinine 0.8 (0.7-1.2) mg/dl Est GFR ( Amer) > 60 Est GFR (Non-Af Amer) > 60 POC Glucose (mg/dL) 165 H (65-110) mg/dL Random Glucose 167 H (70-110) mg/dL Calcium 7.6 L (8.4-10.5) mg/dL Phosphorus 3.0 (2.5-4.5) mg/dL Magnesium 2.0 (1.7-2.2) mg/dL Total Bilirubin 1.6 H (0.2-1.3) mg/dL AST 33 (14-36) U/L ALT 17 (7-56) U/L Alkaline Phosphatase 51 (38-126) U/L Troponin I ng/mL Total Protein 4.7 L (5.8-8.3) g/dL Albumin 2.2 L (3.0-4.8) g/dL Globulin 2.5 gm/dL Albumin/Globulin Ratio 0.9 L (1.1-1.8) Lipase (23-300) U/L Arterial Blood Potassium (3.6-5.2) mmol/L Venous Blood Potassium (3.6-5.2) mmol/L Blood Type Antibody Screen Crossmatch BBK History Checked 11/29/18 11/29/18 11/28/18 Range/Units 04:15 00:01 21:40 WBC 17.4 H (4.5-11.0) 10^3/uL RBC 3.53 (3.5-6.1) 10^6/uL Hgb 10.6 L (12.0-16.0) g/dL Hct 31.5 L (36.0-48.0) % MCV 89.2 (80.0-105.0) fl MCH 30.0 (25.0-35.0) pg MCHC 33.7 (31.0-37.0) g/dl RDW 14.9 H (11.5-14.5) % Plt Count 160 (120.0-450.0) 10^3/uL MPV 10.5 (7.0-11.0) fl Neut % (Auto) 83.6 H (50.0-68.0) % Lymph % (Auto) 8.0 L (22.0-35.0) % Mayes % (Auto) 8.3 H (1.0-6.0) % Eos % (Auto) 0.0 L (1.5-5.0) % Baso % (Auto) 0.1 (0.0-3.0) % Lymph # (Auto) 1.4 (1.2-3.4) Mayes # (Auto) 1.4 H (0.1-0.6) Eos # (Auto) 0.0 (0.0-0.7) Baso # (Auto) 0.02 (0.0-2.0) K/mm3 Absolute Neuts (auto) 14.58 H (1.4-6.5) PT 23.7 H (9.4-12.5) SECONDS INR 2.10 pCO2 21 L (35-45) mm/Hg pO2 204.0 H (30-55) mm/Hg HCO3 12.1 L (21-28) mmol/L ABG pH 7.37 (7.35-7.45) ABG Total CO2 12.7 L (22-28) mmol.L ABG O2 Saturation 98.9 H (95-98) % ABG O2 Content 14.4 L (15-23) ML/dl ABG Base Excess -11.4 L (-2.0-3.0) mmol/L ABG Hemoglobin 10.4 L (11.7-17.4) g/dL ABG Carboxyhemoglobin 1.4 (0.5-1.5) % POC ABG HHb (Measured) 1.1 (0-5) % ABG Methemoglobin 2.5 (0.0-3.0) % ABG O2 Capacity 14.6 L (16-24) mL/dl ABG Potassium (3.6-5.2) mmol/L VBG pH (7.32-7.43) VBG pCO2 (40-60) VBG HCO3 (21-28) mmol/l VBG Total CO2 (22-28) mmol.L VBG O2 Sat (Calc) (40-65) % VBG Base Excess (0.0-2.0) mmol/L VBG Potassium (3.6-5.2) mmol/L Hgb O2 Saturation 95.0 (95.0-98.0) % Sodium (132-148) mmol/L Chloride (98-107) mmol/L Glucose (65-105) mg/dl Lactate (0.7-2.1) mmol/L FiO2 50.0 % Crit Value Called To Crit Value Called By Blood Gas Notified Time Potassium (3.6-5.0) mmol/L Carbon Dioxide (21-33) mmol/L Anion Gap (10-20) BUN (7-21) mg/dL Creatinine (0.7-1.2) mg/dl Est GFR ( Amer) Est GFR (Non-Af Amer) POC Glucose (mg/dL) (65-110) mg/dL Random Glucose (70-110) mg/dL Calcium (8.4-10.5) mg/dL Phosphorus (2.5-4.5) mg/dL Magnesium (1.7-2.2) mg/dL Total Bilirubin (0.2-1.3) mg/dL AST (14-36) U/L ALT (7-56) U/L Alkaline Phosphatase (38-126) U/L Troponin I ng/mL Total Protein (5.8-8.3) g/dL Albumin (3.0-4.8) g/dL Globulin gm/dL Albumin/Globulin Ratio (1.1-1.8) Lipase (23-300) U/L Arterial Blood Potassium (3.6-5.2) mmol/L Venous Blood Potassium (3.6-5.2) mmol/L Blood Type Antibody Screen Crossmatch BBK History Checked 11/28/18 11/28/18 11/28/18 Range/Units 18:40 18:40 18:40 WBC 17.3 H D (4.5-11.0) 10^3/uL RBC 3.86 (3.5-6.1) 10^6/uL Hgb 11.5 L (12.0-16.0) g/dL Hct 35.2 L (36.0-48.0) % MCV 91.2 (80.0-105.0) fl MCH 29.8 (25.0-35.0) pg MCHC 32.7 (31.0-37.0) g/dl RDW 14.6 H (11.5-14.5) % Plt Count 183 (120.0-450.0) 10^3/uL MPV 10.6 (7.0-11.0) fl Neut % (Auto) 86.4 H (50.0-68.0) % Lymph % (Auto) 9.2 L (22.0-35.0) % Mayes % (Auto) 4.2 (1.0-6.0) % Eos % (Auto) 0.0 L (1.5-5.0) % Baso % (Auto) 0.2 (0.0-3.0) % Lymph # (Auto) 1.6 (1.2-3.4) Mayes # (Auto) 0.7 H (0.1-0.6) Eos # (Auto) 0.0 (0.0-0.7) Baso # (Auto) 0.03 (0.0-2.0) K/mm3 Absolute Neuts (auto) 14.92 H (1.4-6.5) PT 21.2 H (9.4-12.5) SECONDS INR 1.91 pCO2 (35-45) mm/Hg pO2 (30-55) mm/Hg HCO3 (21-28) mmol/L ABG pH (7.35-7.45) ABG Total CO2 (22-28) mmol.L ABG O2 Saturation (95-98) % ABG O2 Content (15-23) ML/dl ABG Base Excess (-2.0-3.0) mmol/L ABG Hemoglobin (11.7-17.4) g/dL ABG Carboxyhemoglobin (0.5-1.5) % POC ABG HHb (Measured) (0-5) % ABG Methemoglobin (0.0-3.0) % ABG O2 Capacity (16-24) mL/dl ABG Potassium (3.6-5.2) mmol/L VBG pH (7.32-7.43) VBG pCO2 (40-60) VBG HCO3 (21-28) mmol/l VBG Total CO2 (22-28) mmol.L VBG O2 Sat (Calc) (40-65) % VBG Base Excess (0.0-2.0) mmol/L VBG Potassium (3.6-5.2) mmol/L Hgb O2 Saturation (95.0-98.0) % Sodium (132-148) mmol/L Chloride (98-107) mmol/L Glucose (65-105) mg/dl Lactate (0.7-2.1) mmol/L FiO2 % Crit Value Called To Crit Value Called By Blood Gas Notified Time Potassium (3.6-5.0) mmol/L Carbon Dioxide (21-33) mmol/L Anion Gap (10-20) BUN (7-21) mg/dL Creatinine (0.7-1.2) mg/dl Est GFR ( Amer) Est GFR (Non-Af Amer) POC Glucose (mg/dL) (65-110) mg/dL Random Glucose (70-110) mg/dL Calcium (8.4-10.5) mg/dL Phosphorus (2.5-4.5) mg/dL Magnesium (1.7-2.2) mg/dL Total Bilirubin (0.2-1.3) mg/dL AST (14-36) U/L ALT (7-56) U/L Alkaline Phosphatase (38-126) U/L Troponin I 0.06 D ng/mL Total Protein (5.8-8.3) g/dL Albumin (3.0-4.8) g/dL Globulin gm/dL Albumin/Globulin Ratio (1.1-1.8) Lipase 59 (23-300) U/L Arterial Blood Potassium (3.6-5.2) mmol/L Venous Blood Potassium (3.6-5.2) mmol/L Blood Type Antibody Screen Crossmatch BBK History Checked 11/28/18 11/28/18 11/28/18 Range/Units 18:40 18:40 09:45 WBC (4.5-11.0) 10^3/uL RBC (3.5-6.1) 10^6/uL Hgb (12.0-16.0) g/dL Hct (36.0-48.0) % MCV (80.0-105.0) fl MCH (25.0-35.0) pg MCHC (31.0-37.0) g/dl RDW (11.5-14.5) % Plt Count (120.0-450.0) 10^3/uL MPV (7.0-11.0) fl Neut % (Auto) (50.0-68.0) % Lymph % (Auto) (22.0-35.0) % Mayes % (Auto) (1.0-6.0) % Eos % (Auto) (1.5-5.0) % Baso % (Auto) (0.0-3.0) % Lymph # (Auto) (1.2-3.4) Mayes # (Auto) (0.1-0.6) Eos # (Auto) (0.0-0.7) Baso # (Auto) (0.0-2.0) K/mm3 Absolute Neuts (auto) (1.4-6.5) PT (9.4-12.5) SECONDS INR pCO2 (35-45) mm/Hg pO2 72 H (30-55) mm/Hg HCO3 (21-28) mmol/L ABG pH (7.35-7.45) ABG Total CO2 (22-28) mmol.L ABG O2 Saturation (95-98) % ABG O2 Content (15-23) ML/dl ABG Base Excess (-2.0-3.0) mmol/L ABG Hemoglobin (11.7-17.4) g/dL ABG Carboxyhemoglobin (0.5-1.5) % POC ABG HHb (Measured) (0-5) % ABG Methemoglobin (0.0-3.0) % ABG O2 Capacity (16-24) mL/dl ABG Potassium (3.6-5.2) mmol/L VBG pH 7.12 L* (7.32-7.43) VBG pCO2 33.0 L (40-60) VBG HCO3 10.7 L (21-28) mmol/l VBG Total CO2 11.7 L (22-28) mmol.L VBG O2 Sat (Calc) 94.0 H (40-65) % VBG Base Excess -17.6 L (0.0-2.0) mmol/L VBG Potassium 4.3 (3.6-5.2) mmol/L Hgb O2 Saturation (95.0-98.0) % Sodium 141 141.0 (132-148) mmol/L Chloride 119 H 115.0 H (98-107) mmol/L Glucose 245 H (65-105) mg/dl Lactate 6.9 H* (0.7-2.1) mmol/L FiO2 21.0 % Crit Value Called To Soledad wright Crit Value Called By [facility] Blood Gas Notified Time 185 Potassium 4.3 (3.6-5.0) mmol/L Carbon Dioxide 13 L (21-33) mmol/L Anion Gap 13 (10-20) BUN 38 H (7-21) mg/dL Creatinine 0.6 L (0.7-1.2) mg/dl Est GFR ( Amer) > 60 Est GFR (Non-Af Amer) > 60 POC Glucose (mg/dL) (65-110) mg/dL Random Glucose 227 H (70-110) mg/dL Calcium 7.1 L (8.4-10.5) mg/dL Phosphorus (2.5-4.5) mg/dL Magnesium (1.7-2.2) mg/dL Total Bilirubin 1.7 H (0.2-1.3) mg/dL AST 30 (14-36) U/L ALT 17 (7-56) U/L Alkaline Phosphatase 48 (38-126) U/L Troponin I ng/mL Total Protein 4.0 L (5.8-8.3) g/dL Albumin 1.7 L (3.0-4.8) g/dL Globulin 2.3 gm/dL Albumin/Globulin Ratio 0.7 L (1.1-1.8) Lipase (23-300) U/L Arterial Blood Potassium (3.6-5.2) mmol/L Venous Blood Potassium 4.3 (3.6-5.2) mmol/L Blood Type A POSITIVE Antibody Screen Negative Crossmatch See Detail BBK History Checked Patient has bt Laboratory Results - last 24 hr 11/28/18 11/28/18 11/28/18 09:45 18:40 18:40 WBC RBC Hgb Hct MCV MCH MCHC RDW Plt Count MPV Neut % (Auto) Lymph % (Auto) Mayes % (Auto) Eos % (Auto) Baso % (Auto) Lymph # (Auto) Mayes # (Auto) Eos # (Auto) Baso # (Auto) Absolute Neuts (auto) PT INR pCO2 pO2 72 H HCO3 ABG pH ABG Total CO2 ABG O2 Saturation ABG O2 Content ABG Base Excess ABG Hemoglobin ABG Carboxyhemoglobin POC ABG HHb (Measured) ABG Methemoglobin ABG O2 Capacity ABG Potassium VBG pH 7.12 L* VBG pCO2 33.0 L VBG HCO3 10.7 L VBG Total CO2 11.7 L VBG O2 Sat (Calc) 94.0 H VBG Base Excess -17.6 L VBG Potassium 4.3 Hgb O2 Saturation Sodium 141.0 141 Chloride 115.0 H 119 H Glucose 245 H Lactate 6.9 H* FiO2 21.0 Crit Value Called To Soledad wright Crit Value Called By [facility] Blood Gas Notified Time 185 Potassium 4.3 Carbon Dioxide 13 L Anion Gap 13 BUN 38 H Creatinine 0.6 L Est GFR ( Amer) > 60 Est GFR (Non-Af Amer) > 60 POC Glucose (mg/dL) Random Glucose 227 H Calcium 7.1 L Phosphorus Magnesium Total Bilirubin 1.7 H AST 30 ALT 17 Alkaline Phosphatase 48 Troponin I Total Protein 4.0 L Albumin 1.7 L Globulin 2.3 Albumin/Globulin Ratio 0.7 L Lipase Arterial Blood Potassium Venous Blood Potassium 4.3 Blood Type A POSITIVE Antibody Screen Negative Crossmatch See Detail BBK History Checked Patient has bt 11/28/18 11/28/18 11/28/18 18:40 18:40 18:40 WBC 17.3 H D RBC 3.86 Hgb 11.5 L Hct 35.2 L MCV 91.2 MCH 29.8 MCHC 32.7 RDW 14.6 H Plt Count 183 MPV 10.6 Neut % (Auto) 86.4 H Lymph % (Auto) 9.2 L Mayes % (Auto) 4.2 Eos % (Auto) 0.0 L Baso % (Auto) 0.2 Lymph # (Auto) 1.6 Mayes # (Auto) 0.7 H Eos # (Auto) 0.0 Baso # (Auto) 0.03 Absolute Neuts (auto) 14.92 H PT 21.2 H INR 1.91 pCO2 pO2 HCO3 ABG pH ABG Total CO2 ABG O2 Saturation ABG O2 Content ABG Base Excess ABG Hemoglobin ABG Carboxyhemoglobin POC ABG HHb (Measured) ABG Methemoglobin ABG O2 Capacity ABG Potassium VBG pH VBG pCO2 VBG HCO3 VBG Total CO2 VBG O2 Sat (Calc) VBG Base Excess VBG Potassium Hgb O2 Saturation Sodium Chloride Glucose Lactate FiO2 Crit Value Called To Crit Value Called By Blood Gas Notified Time Potassium Carbon Dioxide Anion Gap BUN Creatinine Est GFR ( Amer) Est GFR (Non-Af Amer) POC Glucose (mg/dL) Random Glucose Calcium Phosphorus Magnesium Total Bilirubin AST ALT Alkaline Phosphatase Troponin I 0.06 D Total Protein Albumin Globulin Albumin/Globulin Ratio Lipase 59 Arterial Blood Potassium Venous Blood Potassium Blood Type Antibody Screen Crossmatch BBK History Checked 11/28/18 11/29/18 11/29/18 21:40 00:01 04:15 WBC 17.4 H RBC 3.53 Hgb 10.6 L Hct 31.5 L MCV 89.2 MCH 30.0 MCHC 33.7 RDW 14.9 H Plt Count 160 MPV 10.5 Neut % (Auto) 83.6 H Lymph % (Auto) 8.0 L Mayes % (Auto) 8.3 H Eos % (Auto) 0.0 L Baso % (Auto) 0.1 Lymph # (Auto) 1.4 Mayes # (Auto) 1.4 H Eos # (Auto) 0.0 Baso # (Auto) 0.02 Absolute Neuts (auto) 14.58 H PT 23.7 H INR 2.10 pCO2 21 L pO2 204.0 H HCO3 12.1 L ABG pH 7.37 ABG Total CO2 12.7 L ABG O2 Saturation 98.9 H ABG O2 Content 14.4 L ABG Base Excess -11.4 L ABG Hemoglobin 10.4 L ABG Carboxyhemoglobin 1.4 POC ABG HHb (Measured) 1.1 ABG Methemoglobin 2.5 ABG O2 Capacity 14.6 L ABG Potassium VBG pH VBG pCO2 VBG HCO3 VBG Total CO2 VBG O2 Sat (Calc) VBG Base Excess VBG Potassium Hgb O2 Saturation 95.0 Sodium Chloride Glucose Lactate FiO2 50.0 Crit Value Called To Crit Value Called By Blood Gas Notified Time Potassium Carbon Dioxide Anion Gap BUN Creatinine Est GFR ( Amer) Est GFR (Non-Af Amer) POC Glucose (mg/dL) Random Glucose Calcium Phosphorus Magnesium Total Bilirubin AST ALT Alkaline Phosphatase Troponin I Total Protein Albumin Globulin Albumin/Globulin Ratio Lipase Arterial Blood Potassium Venous Blood Potassium Blood Type Antibody Screen Crossmatch BBK History Checked 11/29/18 11/29/18 11/29/18 04:15 04:15 05:02 WBC 15.8 H RBC 3.16 L Hgb 9.4 L Hct 28.1 L MCV 88.9 MCH 29.7 MCHC 33.5 RDW 15.4 H Plt Count 143 MPV 10.6 Neut % (Auto) 85.4 H Lymph % (Auto) 7.0 L Mayes % (Auto) 7.5 H Eos % (Auto) 0.0 L Baso % (Auto) 0.1 Lymph # (Auto) 1.1 L Mayes # (Auto) 1.2 H Eos # (Auto) 0.0 Baso # (Auto) 0.02 Absolute Neuts (auto) 13.51 H PT INR pCO2 pO2 HCO3 ABG pH ABG Total CO2 ABG O2 Saturation ABG O2 Content ABG Base Excess ABG Hemoglobin ABG Carboxyhemoglobin POC ABG HHb (Measured) ABG Methemoglobin ABG O2 Capacity ABG Potassium VBG pH VBG pCO2 VBG HCO3 VBG Total CO2 VBG O2 Sat (Calc) VBG Base Excess VBG Potassium Hgb O2 Saturation Sodium 143 Chloride 116 H Glucose Lactate FiO2 Crit Value Called To Crit Value Called By Blood Gas Notified Time Potassium 4.5 Carbon Dioxide 19 L Anion Gap 13 BUN 42 H Creatinine 0.8 Est GFR ( Amer) > 60 Est GFR (Non-Af Amer) > 60 POC Glucose (mg/dL) 165 H Random Glucose 167 H Calcium 7.6 L Phosphorus 3.0 Magnesium 2.0 Total Bilirubin 1.6 H AST 33 ALT 17 Alkaline Phosphatase 51 Troponin I Total Protein 4.7 L Albumin 2.2 L Globulin 2.5 Albumin/Globulin Ratio 0.9 L Lipase Arterial Blood Potassium Venous Blood Potassium Blood Type Antibody Screen Crossmatch BBK History Checked 11/29/18 11/29/18 11/29/18 05:35 09:40 09:40 WBC 16.4 H RBC 3.00 L Hgb 9.0 L Hct 26.2 L MCV 87.3 MCH 30.0 MCHC 34.4 RDW 15.3 H Plt Count 136 MPV 9.8 Neut % (Auto) 85.6 H Lymph % (Auto) 6.4 L Mayes % (Auto) 7.9 H Eos % (Auto) 0.0 L Baso % (Auto) 0.1 Lymph # (Auto) 1.1 L Mayes # (Auto) 1.3 H Eos # (Auto) 0.0 Baso # (Auto) 0.01 Absolute Neuts (auto) 14.05 H PT INR pCO2 24 L pO2 231.0 H 35 HCO3 16.7 L ABG pH 7.45 ABG Total CO2 17.4 L ABG O2 Saturation 98.5 H ABG O2 Content ABG Base Excess -5.5 L ABG Hemoglobin ABG Carboxyhemoglobin POC ABG HHb (Measured) ABG Methemoglobin ABG O2 Capacity ABG Potassium 3.8 VBG pH 7.42 VBG pCO2 31.0 L VBG HCO3 20.1 L VBG Total CO2 21.1 L VBG O2 Sat (Calc) 75.8 H VBG Base Excess -3.4 L VBG Potassium 3.7 Hgb O2 Saturation Sodium 142.0 143.0 Chloride 116.0 H 115.0 H Glucose 176 H 141 H Lactate 4.7 H* 4.0 H* FiO2 50.0 21.0 Crit Value Called To Mary dahl rn icu Soledad wright Crit Value Called By Maged parsons Ab Blood Gas Notified Time [id number] Potassium Carbon Dioxide Anion Gap BUN Creatinine Est GFR ( Amer) Est GFR (Non-Af Amer) POC Glucose (mg/dL) Random Glucose Calcium Phosphorus Magnesium Total Bilirubin AST ALT Alkaline Phosphatase Troponin I Total Protein Albumin Globulin Albumin/Globulin Ratio Lipase Arterial Blood Potassium 3.8 Venous Blood Potassium 3.7 Blood Type Antibody Screen Crossmatch BBK History Checked Radiology Impressions: Radiology Impressions Chest X-Ray 11/28/18 16:30 IMPRESSION: Right IJV line terminates at the cavoatrial junction. Endotracheal tube is low in position and terminates in the proximal right mainstem bronchus. No acute findings. Chest X-Ray 11/28/18 20:05 IMPRESSION: No active disease. Chest X-Ray 11/29/18 06:00 IMPRESSION: No active disease. Fingerstick Blood Sugar Results: 227 Critical Care Progress Note - Nutrition Nutrition: Nutrition Category Date Time Status NPO Diet [DIET] Diets 11/28/18 Breakfast Ordered Assessment/Plan - Assessment and Plan (Free Text) Assessment: Pt is an 83 yo female with a PMH of DVT, PE, dementia, CHF, HTN, who was found unresponsive, and also experiencing basilia melena who was transferred to the ICU. Plan: Neuro - Presented with AMS - continue to monitor mental status - no need for sedation at this time Cardio - HTN, CHF - central line placed for, CXR free of penumothorax, central line placed correctly - levophed, vasopressin, and hydrocortisone - ca gluconate was given to stabilize the myocardium - trop negative Pulm - Pt intubated at this time - ABG /16.7/7.45 - follow up daily CXR and ABG GI - GI bleed, melena - pantoprazole - GI consulted, Dr Valadez Renal - K 4.5, hyperkalemia has resolved, continue to monitor - BUN/Cr 42/0.8 Endocrine - maintain euglycemia - given amp D50 and 10 units insulin IV yesterday Heme/onc - history of DVT, PE - Hgb 9.0, INR 2.10 - trend CBC - pt transfused 2 units, kcentra, vit K, FFP, PCC yesterday - given FFP today - lactate 4.0, will repeat ID - UTI, septic shock - WBC 16.4 - blood culture NGTD - urine culture NGTD - merrem - ID Dr Perez consulted Pt seen, examined, assessment and plan discussed with Dr Heri Darden PGY1 - Date & Time Date: 11/29/18 Time: 07:40 <Michael Warner - Last Filed: 11/29/18 13:04> CCU Objective - Vital Signs / Intake & Output Vital Signs (Last 4 hours): Vital Signs Temp Pulse BP Pulse Ox 11/29/18 12:00 99.1 F 11/29/18 11:57 97 H 11/29/18 11:56 116 H 11/29/18 11:55 102 H 11/29/18 11:54 99 H 11/29/18 11:53 102 H 11/29/18 11:50 100 H 89 L 11/29/18 11:40 104 H 84 L 11/29/18 11:30 121/93 H 11/29/18 11:29 96 H 11/29/18 11:27 98 H 11/29/18 11:25 96 H 11/29/18 11:24 98 H 11/29/18 11:23 97 H 11/29/18 11:22 100 H 11/29/18 11:20 103 H 11/29/18 11:19 104 H 11/29/18 11:18 104 H 11/29/18 11:17 107 H 11/29/18 11:16 101 H 11/29/18 11:15 107 H 11/29/18 11:14 106 H 11/29/18 11:13 106 H 11/29/18 11:12 102 H 11/29/18 11:11 102 H 11/29/18 11:10 102 H 11/29/18 11:09 105 H 11/29/18 11:08 107 H 11/29/18 11:07 101 H 11/29/18 11:06 101 H 11/29/18 11:05 98 H 11/29/18 11:04 101 H 11/29/18 11:03 98 H 11/29/18 11:02 97 H 11/29/18 11:01 99 H 11/29/18 11:00 116/86 11/29/18 10:59 98 H 11/29/18 10:58 96 H 11/29/18 10:57 102 H 11/29/18 10:56 100 H 11/29/18 10:55 97 H 11/29/18 10:54 102 H 11/29/18 10:53 103 H 11/29/18 10:52 99 H 11/29/18 10:51 98 H 11/29/18 10:50 98 H 11/29/18 10:49 101 H 11/29/18 10:48 99 H 11/29/18 10:47 98 H 03/20/19 10:46 99 H 11/29/18 10:45 96 H 11/29/18 09:27 98 F 11/29/18 09:01 124/55 L Intake and Output (Last 8hrs): Intake & Output 11/28/18 11/29/18 11/29/18 22:59 06:59 14:59 Intake Total 520 1820 250 Output Total 400 550 Balance 120 1270 250 Intake: IV 520 1820 250 Internal Jugular 350 abx 200 bicarb 1000 levo 300 protonix 240 Output: Urine 400 200 Urethral (Khanna) 400 200 Stool 350 Other: # Bowel Movements 4 3 - Medications Active Medications: Active Medications Generic Name Dose Route Start Last Admin Trade Name Freq PRN Reason Stop Dose Admin Hydrocortisone Sodium Succinate 50 mg 11/29/18 09:30 11/29/18 09:37 Solu-Cortef IVP 50 mg Q6H PEDRITO Administration Pantoprazole Sodium 40 mg in 100 mls @ 20 mls/hr 11/28/18 11:15 11/29/18 10:44 Protonix 40mg Ivpb IVPB 20 mls/hr .Q5H PEDRITO Administration Meropenem 1 gm in 50 mls @ 100 mls/hr 11/28/18 22:00 11/29/18 09:34 Merrem Iv 1 Gm Premix IVPB 100 mls/hr Q12 PEDRITO Administration Protocol NOREPINEPHRINE BIT/0.9 % NACL 4 mg in 250 mls @ 15 mls/hr 11/28/18 16:42 11/29/18 11:20 Levophed 4 Mg/ 250 Ml Ns Premixed IV 10 mcg/min .[id number] PRN 37.5 mls/hr TITRATE PER MD ORDER Administration Protocol 4 MCG/MIN Sodium Bicarbonate 75 meq/ 1,075 mls @ 100 mls/hr 11/29/18 08:00 11/29/18 09:48 Dextrose IV 100 mls/hr .[id number] PEDRITO Administration Vasopressin 20 units/ Sodium 101 mls @ 9.09 mls/hr 11/29/18 08:30 11/29/18 09:01 Chloride IV 9.09 mls/hr .[id number] PEDRITO Administration Protocol 0.03 U/MIN Timolol Maleate 2 drop 11/29/18 10:45 11/29/18 12:30 Timoptic 0.25% Ophth Soln OU 2 unit BID PEDRITO Administration - Patient Studies Lab Studies: Microbiology Studies 11/28/18 23:00 C. difficile Antigen & Toxins A,B - Final Stool 11/28/18 10:15 Urine Culture - Final Urine Random No Growth (<1,000 CFU/ML) 11/28/18 10:15 Blood Culture - Preliminary Blood NO GROWTH AFTER 24 HOURS 11/28/18 09:45 Blood Culture - Preliminary Blood NO GROWTH AFTER 24 HOURS Lab Studies 11/29/18 11/29/18 11/29/18 Range/Units 09:40 09:40 05:35 WBC 16.4 H (4.5-11.0) 10^3/uL RBC 3.00 L (3.5-6.1) 10^6/uL Hgb 9.0 L (12.0-16.0) g/dL Hct 26.2 L (36.0-48.0) % MCV 87.3 (80.0-105.0) fl MCH 30.0 (25.0-35.0) pg MCHC 34.4 (31.0-37.0) g/dl RDW 15.3 H (11.5-14.5) % Plt Count 136 (120.0-450.0) 10^3/uL MPV 9.8 (7.0-11.0) fl Neut % (Auto) 85.6 H (50.0-68.0) % Lymph % (Auto) 6.4 L (22.0-35.0) % Mayes % (Auto) 7.9 H (1.0-6.0) % Eos % (Auto) 0.0 L (1.5-5.0) % Baso % (Auto) 0.1 (0.0-3.0) % Lymph # (Auto) 1.1 L (1.2-3.4) Mayes # (Auto) 1.3 H (0.1-0.6) Eos # (Auto) 0.0 (0.0-0.7) Baso # (Auto) 0.01 (0.0-2.0) K/mm3 Absolute Neuts (auto) 14.05 H (1.4-6.5) PT (9.4-12.5) SECONDS INR pCO2 24 L (35-45) mm/Hg pO2 35 231.0 H (30-55) mm/Hg HCO3 16.7 L (21-28) mmol/L ABG pH 7.45 (7.35-7.45) ABG Total CO2 17.4 L (22-28) mmol.L ABG O2 Saturation 98.5 H (95-98) % ABG O2 Content (15-23) ML/dl ABG Base Excess -5.5 L (-2.0-3.0) mmol/L ABG Hemoglobin (11.7-17.4) g/dL ABG Carboxyhemoglobin (0.5-1.5) % POC ABG HHb (Measured) (0-5) % ABG Methemoglobin (0.0-3.0) % ABG O2 Capacity (16-24) mL/dl ABG Potassium 3.8 (3.6-5.2) mmol/L VBG pH 7.42 (7.32-7.43) VBG pCO2 31.0 L (40-60) VBG HCO3 20.1 L (21-28) mmol/l VBG Total CO2 21.1 L (22-28) mmol.L VBG O2 Sat (Calc) 75.8 H (40-65) % VBG Base Excess -3.4 L (0.0-2.0) mmol/L VBG Potassium 3.7 (3.6-5.2) mmol/L Hgb O2 Saturation (95.0-98.0) % Sodium 143.0 142.0 (132-148) mmol/L Chloride 115.0 H 116.0 H (98-107) mmol/L Glucose 141 H 176 H (65-105) mg/dl Lactate 4.0 H* 4.7 H* (0.7-2.1) mmol/L FiO2 21.0 50.0 % Crit Value Called To Soledad dahl rn icu Crit Value Called By [facility] Blood Gas Notified Time [id number] Potassium (3.6-5.0) mmol/L Carbon Dioxide (21-33) mmol/L Anion Gap (10-20) BUN (7-21) mg/dL Creatinine (0.7-1.2) mg/dl Est GFR ( Amer) Est GFR (Non-Af Amer) POC Glucose (mg/dL) (65-110) mg/dL Random Glucose (70-110) mg/dL Calcium (8.4-10.5) mg/dL Phosphorus (2.5-4.5) mg/dL Magnesium (1.7-2.2) mg/dL Total Bilirubin (0.2-1.3) mg/dL AST (14-36) U/L ALT (7-56) U/L Alkaline Phosphatase (38-126) U/L Troponin I ng/mL Total Protein (5.8-8.3) g/dL Albumin (3.0-4.8) g/dL Globulin gm/dL Albumin/Globulin Ratio (1.1-1.8) Lipase (23-300) U/L Arterial Blood Potassium 3.8 (3.6-5.2) mmol/L Venous Blood Potassium 3.7 (3.6-5.2) mmol/L Blood Type Antibody Screen Crossmatch BBK History Checked 11/29/18 11/29/18 11/29/18 Range/Units 05:02 04:15 04:15 WBC 15.8 H (4.5-11.0) 10^3/uL RBC 3.16 L (3.5-6.1) 10^6/uL Hgb 9.4 L (12.0-16.0) g/dL Hct 28.1 L (36.0-48.0) % MCV 88.9 (80.0-105.0) fl MCH 29.7 (25.0-35.0) pg MCHC 33.5 (31.0-37.0) g/dl RDW 15.4 H (11.5-14.5) % Plt Count 143 (120.0-450.0) 10^3/uL MPV 10.6 (7.0-11.0) fl Neut % (Auto) 85.4 H (50.0-68.0) % Lymph % (Auto) 7.0 L (22.0-35.0) % Mayes % (Auto) 7.5 H (1.0-6.0) % Eos % (Auto) 0.0 L (1.5-5.0) % Baso % (Auto) 0.1 (0.0-3.0) % Lymph # (Auto) 1.1 L (1.2-3.4) Mayes # (Auto) 1.2 H (0.1-0.6) Eos # (Auto) 0.0 (0.0-0.7) Baso # (Auto) 0.02 (0.0-2.0) K/mm3 Absolute Neuts (auto) 13.51 H (1.4-6.5) PT (9.4-12.5) SECONDS INR pCO2 (35-45) mm/Hg pO2 (30-55) mm/Hg HCO3 (21-28) mmol/L ABG pH (7.35-7.45) ABG Total CO2 (22-28) mmol.L ABG O2 Saturation (95-98) % ABG O2 Content (15-23) ML/dl ABG Base Excess (-2.0-3.0) mmol/L ABG Hemoglobin (11.7-17.4) g/dL ABG Carboxyhemoglobin (0.5-1.5) % POC ABG HHb (Measured) (0-5) % ABG Methemoglobin (0.0-3.0) % ABG O2 Capacity (16-24) mL/dl ABG Potassium (3.6-5.2) mmol/L VBG pH (7.32-7.43) VBG pCO2 (40-60) VBG HCO3 (21-28) mmol/l VBG Total CO2 (22-28) mmol.L VBG O2 Sat (Calc) (40-65) % VBG Base Excess (0.0-2.0) mmol/L VBG Potassium (3.6-5.2) mmol/L Hgb O2 Saturation (95.0-98.0) % Sodium 143 (132-148) mmol/L Chloride 116 H (98-107) mmol/L Glucose (65-105) mg/dl Lactate (0.7-2.1) mmol/L FiO2 % Crit Value Called To Crit Value Called By Blood Gas Notified Time Potassium 4.5 (3.6-5.0) mmol/L Carbon Dioxide 19 L (21-33) mmol/L Anion Gap 13 (10-20) BUN 42 H (7-21) mg/dL Creatinine 0.8 (0.7-1.2) mg/dl Est GFR ( Amer) > 60 Est GFR (Non-Af Amer) > 60 POC Glucose (mg/dL) 165 H (65-110) mg/dL Random Glucose 167 H (70-110) mg/dL Calcium 7.6 L (8.4-10.5) mg/dL Phosphorus 3.0 (2.5-4.5) mg/dL Magnesium 2.0 (1.7-2.2) mg/dL Total Bilirubin 1.6 H (0.2-1.3) mg/dL AST 33 (14-36) U/L ALT 17 (7-56) U/L Alkaline Phosphatase 51 (38-126) U/L Troponin I ng/mL Total Protein 4.7 L (5.8-8.3) g/dL Albumin 2.2 L (3.0-4.8) g/dL Globulin 2.5 gm/dL Albumin/Globulin Ratio 0.9 L (1.1-1.8) Lipase (23-300) U/L Arterial Blood Potassium (3.6-5.2) mmol/L Venous Blood Potassium (3.6-5.2) mmol/L Blood Type Antibody Screen Crossmatch BBK History Checked 11/29/18 11/29/18 11/28/18 Range/Units 04:15 00:01 21:40 WBC 17.4 H (4.5-11.0) 10^3/uL RBC 3.53 (3.5-6.1) 10^6/uL Hgb 10.6 L (12.0-16.0) g/dL Hct 31.5 L (36.0-48.0) % MCV 89.2 (80.0-105.0) fl MCH 30.0 (25.0-35.0) pg MCHC 33.7 (31.0-37.0) g/dl RDW 14.9 H (11.5-14.5) % Plt Count 160 (120.0-450.0) 10^3/uL MPV 10.5 (7.0-11.0) fl Neut % (Auto) 83.6 H (50.0-68.0) % Lymph % (Auto) 8.0 L (22.0-35.0) % Mayes % (Auto) 8.3 H (1.0-6.0) % Eos % (Auto) 0.0 L (1.5-5.0) % Baso % (Auto) 0.1 (0.0-3.0) % Lymph # (Auto) 1.4 (1.2-3.4) Mayes # (Auto) 1.4 H (0.1-0.6) Eos # (Auto) 0.0 (0.0-0.7) Baso # (Auto) 0.02 (0.0-2.0) K/mm3 Absolute Neuts (auto) 14.58 H (1.4-6.5) PT 23.7 H (9.4-12.5) SECONDS INR 2.10 pCO2 21 L (35-45) mm/Hg pO2 204.0 H (30-55) mm/Hg HCO3 12.1 L (21-28) mmol/L ABG pH 7.37 (7.35-7.45) ABG Total CO2 12.7 L (22-28) mmol.L ABG O2 Saturation 98.9 H (95-98) % ABG O2 Content 14.4 L (15-23) ML/dl ABG Base Excess -11.4 L (-2.0-3.0) mmol/L ABG Hemoglobin 10.4 L (11.7-17.4) g/dL ABG Carboxyhemoglobin 1.4 (0.5-1.5) % POC ABG HHb (Measured) 1.1 (0-5) % ABG Methemoglobin 2.5 (0.0-3.0) % ABG O2 Capacity 14.6 L (16-24) mL/dl ABG Potassium (3.6-5.2) mmol/L VBG pH (7.32-7.43) VBG pCO2 (40-60) VBG HCO3 (21-28) mmol/l VBG Total CO2 (22-28) mmol.L VBG O2 Sat (Calc) (40-65) % VBG Base Excess (0.0-2.0) mmol/L VBG Potassium (3.6-5.2) mmol/L Hgb O2 Saturation 95.0 (95.0-98.0) % Sodium (132-148) mmol/L Chloride (98-107) mmol/L Glucose (65-105) mg/dl Lactate (0.7-2.1) mmol/L FiO2 50.0 % Crit Value Called To Crit Value Called By Blood Gas Notified Time Potassium (3.6-5.0) mmol/L Carbon Dioxide (21-33) mmol/L Anion Gap (10-20) BUN (7-21) mg/dL Creatinine (0.7-1.2) mg/dl Est GFR ( Amer) Est GFR (Non-Af Amer) POC Glucose (mg/dL) (65-110) mg/dL Random Glucose (70-110) mg/dL Calcium (8.4-10.5) mg/dL Phosphorus (2.5-4.5) mg/dL Magnesium (1.7-2.2) mg/dL Total Bilirubin (0.2-1.3) mg/dL AST (14-36) U/L ALT (7-56) U/L Alkaline Phosphatase (38-126) U/L Troponin I ng/mL Total Protein (5.8-8.3) g/dL Albumin (3.0-4.8) g/dL Globulin gm/dL Albumin/Globulin Ratio (1.1-1.8) Lipase (23-300) U/L Arterial Blood Potassium (3.6-5.2) mmol/L Venous Blood Potassium (3.6-5.2) mmol/L Blood Type Antibody Screen Crossmatch BBK History Checked 11/28/18 11/28/18 11/28/18 Range/Units 18:40 18:40 18:40 WBC 17.3 H D (4.5-11.0) 10^3/uL RBC 3.86 (3.5-6.1) 10^6/uL Hgb 11.5 L (12.0-16.0) g/dL Hct 35.2 L (36.0-48.0) % MCV 91.2 (80.0-105.0) fl MCH 29.8 (25.0-35.0) pg MCHC 32.7 (31.0-37.0) g/dl RDW 14.6 H (11.5-14.5) % Plt Count 183 (120.0-450.0) 10^3/uL MPV 10.6 (7.0-11.0) fl Neut % (Auto) 86.4 H (50.0-68.0) % Lymph % (Auto) 9.2 L (22.0-35.0) % Mayes % (Auto) 4.2 (1.0-6.0) % Eos % (Auto) 0.0 L (1.5-5.0) % Baso % (Auto) 0.2 (0.0-3.0) % Lymph # (Auto) 1.6 (1.2-3.4) Mayes # (Auto) 0.7 H (0.1-0.6) Eos # (Auto) 0.0 (0.0-0.7) Baso # (Auto) 0.03 (0.0-2.0) K/mm3 Absolute Neuts (auto) 14.92 H (1.4-6.5) PT 21.2 H (9.4-12.5) SECONDS INR 1.91 pCO2 (35-45) mm/Hg pO2 (30-55) mm/Hg HCO3 (21-28) mmol/L ABG pH (7.35-7.45) ABG Total CO2 (22-28) mmol.L ABG O2 Saturation (95-98) % ABG O2 Content (15-23) ML/dl ABG Base Excess (-2.0-3.0) mmol/L ABG Hemoglobin (11.7-17.4) g/dL ABG Carboxyhemoglobin (0.5-1.5) % POC ABG HHb (Measured) (0-5) % ABG Methemoglobin (0.0-3.0) % ABG O2 Capacity (16-24) mL/dl ABG Potassium (3.6-5.2) mmol/L VBG pH (7.32-7.43) VBG pCO2 (40-60) VBG HCO3 (21-28) mmol/l VBG Total CO2 (22-28) mmol.L VBG O2 Sat (Calc) (40-65) % VBG Base Excess (0.0-2.0) mmol/L VBG Potassium (3.6-5.2) mmol/L Hgb O2 Saturation (95.0-98.0) % Sodium (132-148) mmol/L Chloride (98-107) mmol/L Glucose (65-105) mg/dl Lactate (0.7-2.1) mmol/L FiO2 % Crit Value Called To Crit Value Called By Blood Gas Notified Time Potassium (3.6-5.0) mmol/L Carbon Dioxide (21-33) mmol/L Anion Gap (10-20) BUN (7-21) mg/dL Creatinine (0.7-1.2) mg/dl Est GFR ( Amer) Est GFR (Non-Af Amer) POC Glucose (mg/dL) (65-110) mg/dL Random Glucose (70-110) mg/dL Calcium (8.4-10.5) mg/dL Phosphorus (2.5-4.5) mg/dL Magnesium (1.7-2.2) mg/dL Total Bilirubin (0.2-1.3) mg/dL AST (14-36) U/L ALT (7-56) U/L Alkaline Phosphatase (38-126) U/L Troponin I 0.06 D ng/mL Total Protein (5.8-8.3) g/dL Albumin (3.0-4.8) g/dL Globulin gm/dL Albumin/Globulin Ratio (1.1-1.8) Lipase 59 (23-300) U/L Arterial Blood Potassium (3.6-5.2) mmol/L Venous Blood Potassium (3.6-5.2) mmol/L Blood Type Antibody Screen Crossmatch BBK History Checked 11/28/18 11/28/18 11/28/18 Range/Units 18:40 18:40 09:45 WBC (4.5-11.0) 10^3/uL RBC (3.5-6.1) 10^6/uL Hgb (12.0-16.0) g/dL Hct (36.0-48.0) % MCV (80.0-105.0) fl MCH (25.0-35.0) pg MCHC (31.0-37.0) g/dl RDW (11.5-14.5) % Plt Count (120.0-450.0) 10^3/uL MPV (7.0-11.0) fl Neut % (Auto) (50.0-68.0) % Lymph % (Auto) (22.0-35.0) % Mayes % (Auto) (1.0-6.0) % Eos % (Auto) (1.5-5.0) % Baso % (Auto) (0.0-3.0) % Lymph # (Auto) (1.2-3.4) Mayes # (Auto) (0.1-0.6) Eos # (Auto) (0.0-0.7) Baso # (Auto) (0.0-2.0) K/mm3 Absolute Neuts (auto) (1.4-6.5) PT (9.4-12.5) SECONDS INR pCO2 (35-45) mm/Hg pO2 72 H (30-55) mm/Hg HCO3 (21-28) mmol/L ABG pH (7.35-7.45) ABG Total CO2 (22-28) mmol.L ABG O2 Saturation (95-98) % ABG O2 Content (15-23) ML/dl ABG Base Excess (-2.0-3.0) mmol/L ABG Hemoglobin (11.7-17.4) g/dL ABG Carboxyhemoglobin (0.5-1.5) % POC ABG HHb (Measured) (0-5) % ABG Methemoglobin (0.0-3.0) % ABG O2 Capacity (16-24) mL/dl ABG Potassium (3.6-5.2) mmol/L VBG pH 7.12 L* (7.32-7.43) VBG pCO2 33.0 L (40-60) VBG HCO3 10.7 L (21-28) mmol/l VBG Total CO2 11.7 L (22-28) mmol.L VBG O2 Sat (Calc) 94.0 H (40-65) % VBG Base Excess -17.6 L (0.0-2.0) mmol/L VBG Potassium 4.3 (3.6-5.2) mmol/L Hgb O2 Saturation (95.0-98.0) % Sodium 141 141.0 (132-148) mmol/L Chloride 119 H 115.0 H (98-107) mmol/L Glucose 245 H (65-105) mg/dl Lactate 6.9 H* (0.7-2.1) mmol/L FiO2 21.0 % Crit Value Called To Soledad wright Crit Value Called By [facility] Blood Gas Notified Time 1850 Potassium 4.3 (3.6-5.0) mmol/L Carbon Dioxide 13 L (21-33) mmol/L Anion Gap 13 (10-20) BUN 38 H (7-21) mg/dL Creatinine 0.6 L (0.7-1.2) mg/dl Est GFR ( Amer) > 60 Est GFR (Non-Af Amer) > 60 POC Glucose (mg/dL) (65-110) mg/dL Random Glucose 227 H (70-110) mg/dL Calcium 7.1 L (8.4-10.5) mg/dL Phosphorus (2.5-4.5) mg/dL Magnesium (1.7-2.2) mg/dL Total Bilirubin 1.7 H (0.2-1.3) mg/dL AST 30 (14-36) U/L ALT 17 (7-56) U/L Alkaline Phosphatase 48 (38-126) U/L Troponin I ng/mL Total Protein 4.0 L (5.8-8.3) g/dL Albumin 1.7 L (3.0-4.8) g/dL Globulin 2.3 gm/dL Albumin/Globulin Ratio 0.7 L (1.1-1.8) Lipase (23-300) U/L Arterial Blood Potassium (3.6-5.2) mmol/L Venous Blood Potassium 4.3 (3.6-5.2) mmol/L Blood Type A POSITIVE Antibody Screen Negative Crossmatch See Detail BBK History Checked Patient has bt Laboratory Results - last 24 hr 11/28/18 11/28/18 11/28/18 09:45 18:40 18:40 WBC RBC Hgb Hct MCV MCH MCHC RDW Plt Count MPV Neut % (Auto) Lymph % (Auto) Mayes % (Auto) Eos % (Auto) Baso % (Auto) Lymph # (Auto) Mayes # (Auto) Eos # (Auto) Baso # (Auto) Absolute Neuts (auto) PT INR pCO2 pO2 72 H HCO3 ABG pH ABG Total CO2 ABG O2 Saturation ABG O2 Content ABG Base Excess ABG Hemoglobin ABG Carboxyhemoglobin POC ABG HHb (Measured) ABG Methemoglobin ABG O2 Capacity ABG Potassium VBG pH 7.12 L* VBG pCO2 33.0 L VBG HCO3 10.7 L VBG Total CO2 11.7 L VBG O2 Sat (Calc) 94.0 H VBG Base Excess -17.6 L VBG Potassium 4.3 Hgb O2 Saturation Sodium 141.0 141 Chloride 115.0 H 119 H Glucose 245 H Lactate 6.9 H* FiO2 21.0 Crit Value Called To Soledad wright Crit Value Called By [facility] Blood Gas Notified Time 185 Potassium 4.3 Carbon Dioxide 13 L Anion Gap 13 BUN 38 H Creatinine 0.6 L Est GFR ( Amer) > 60 Est GFR (Non-Af Amer) > 60 POC Glucose (mg/dL) Random Glucose 227 H Calcium 7.1 L Phosphorus Magnesium Total Bilirubin 1.7 H AST 30 ALT 17 Alkaline Phosphatase 48 Troponin I Total Protein 4.0 L Albumin 1.7 L Globulin 2.3 Albumin/Globulin Ratio 0.7 L Lipase Arterial Blood Potassium Venous Blood Potassium 4.3 Blood Type A POSITIVE Antibody Screen Negative Crossmatch See Detail BBK History Checked Patient has bt 11/28/18 11/28/18 11/28/18 18:40 18:40 18:40 WBC 17.3 H D RBC 3.86 Hgb 11.5 L Hct 35.2 L MCV 91.2 MCH 29.8 MCHC 32.7 RDW 14.6 H Plt Count 183 MPV 10.6 Neut % (Auto) 86.4 H Lymph % (Auto) 9.2 L Mayes % (Auto) 4.2 Eos % (Auto) 0.0 L Baso % (Auto) 0.2 Lymph # (Auto) 1.6 Mayes # (Auto) 0.7 H Eos # (Auto) 0.0 Baso # (Auto) 0.03 Absolute Neuts (auto) 14.92 H PT 21.2 H INR 1.91 pCO2 pO2 HCO3 ABG pH ABG Total CO2 ABG O2 Saturation ABG O2 Content ABG Base Excess ABG Hemoglobin ABG Carboxyhemoglobin POC ABG HHb (Measured) ABG Methemoglobin ABG O2 Capacity ABG Potassium VBG pH VBG pCO2 VBG HCO3 VBG Total CO2 VBG O2 Sat (Calc) VBG Base Excess VBG Potassium Hgb O2 Saturation Sodium Chloride Glucose Lactate FiO2 Crit Value Called To Crit Value Called By Blood Gas Notified Time Potassium Carbon Dioxide Anion Gap BUN Creatinine Est GFR ( Amer) Est GFR (Non-Af Amer) POC Glucose (mg/dL) Random Glucose Calcium Phosphorus Magnesium Total Bilirubin AST ALT Alkaline Phosphatase Troponin I 0.06 D Total Protein Albumin Globulin Albumin/Globulin Ratio Lipase 59 Arterial Blood Potassium Venous Blood Potassium Blood Type Antibody Screen Crossmatch BBK History Checked 11/28/18 11/29/18 11/29/18 21:40 00:01 04:15 WBC 17.4 H RBC 3.53 Hgb 10.6 L Hct 31.5 L MCV 89.2 MCH 30.0 MCHC 33.7 RDW 14.9 H Plt Count 160 MPV 10.5 Neut % (Auto) 83.6 H Lymph % (Auto) 8.0 L Mayes % (Auto) 8.3 H Eos % (Auto) 0.0 L Baso % (Auto) 0.1 Lymph # (Auto) 1.4 Mayes # (Auto) 1.4 H Eos # (Auto) 0.0 Baso # (Auto) 0.02 Absolute Neuts (auto) 14.58 H PT 23.7 H INR 2.10 pCO2 21 L pO2 204.0 H HCO3 12.1 L ABG pH 7.37 ABG Total CO2 12.7 L ABG O2 Saturation 98.9 H ABG O2 Content 14.4 L ABG Base Excess -11.4 L ABG Hemoglobin 10.4 L ABG Carboxyhemoglobin 1.4 POC ABG HHb (Measured) 1.1 ABG Methemoglobin 2.5 ABG O2 Capacity 14.6 L ABG Potassium VBG pH VBG pCO2 VBG HCO3 VBG Total CO2 VBG O2 Sat (Calc) VBG Base Excess VBG Potassium Hgb O2 Saturation 95.0 Sodium Chloride Glucose Lactate FiO2 50.0 Crit Value Called To Crit Value Called By Blood Gas Notified Time Potassium Carbon Dioxide Anion Gap BUN Creatinine Est GFR ( Amer) Est GFR (Non-Af Amer) POC Glucose (mg/dL) Random Glucose Calcium Phosphorus Magnesium Total Bilirubin AST ALT Alkaline Phosphatase Troponin I Total Protein Albumin Globulin Albumin/Globulin Ratio Lipase Arterial Blood Potassium Venous Blood Potassium Blood Type Antibody Screen Crossmatch BBK History Checked 11/29/18 11/29/18 11/29/18 04:15 04:15 05:02 WBC 15.8 H RBC 3.16 L Hgb 9.4 L Hct 28.1 L MCV 88.9 MCH 29.7 MCHC 33.5 RDW 15.4 H Plt Count 143 MPV 10.6 Neut % (Auto) 85.4 H Lymph % (Auto) 7.0 L Mayes % (Auto) 7.5 H Eos % (Auto) 0.0 L Baso % (Auto) 0.1 Lymph # (Auto) 1.1 L Mayes # (Auto) 1.2 H Eos # (Auto) 0.0 Baso # (Auto) 0.02 Absolute Neuts (auto) 13.51 H PT INR pCO2 pO2 HCO3 ABG pH ABG Total CO2 ABG O2 Saturation ABG O2 Content ABG Base Excess ABG Hemoglobin ABG Carboxyhemoglobin POC ABG HHb (Measured) ABG Methemoglobin ABG O2 Capacity ABG Potassium VBG pH VBG pCO2 VBG HCO3 VBG Total CO2 VBG O2 Sat (Calc) VBG Base Excess VBG Potassium Hgb O2 Saturation Sodium 143 Chloride 116 H Glucose Lactate FiO2 Crit Value Called To Crit Value Called By Blood Gas Notified Time Potassium 4.5 Carbon Dioxide 19 L Anion Gap 13 BUN 42 H Creatinine 0.8 Est GFR ( Amer) > 60 Est GFR (Non-Af Amer) > 60 POC Glucose (mg/dL) 165 H Random Glucose 167 H Calcium 7.6 L Phosphorus 3.0 Magnesium 2.0 Total Bilirubin 1.6 H AST 33 ALT 17 Alkaline Phosphatase 51 Troponin I Total Protein 4.7 L Albumin 2.2 L Globulin 2.5 Albumin/Globulin Ratio 0.9 L Lipase Arterial Blood Potassium Venous Blood Potassium Blood Type Antibody Screen Crossmatch BBK History Checked 11/29/18 11/29/18 11/29/18 05:35 09:40 09:40 WBC 16.4 H RBC 3.00 L Hgb 9.0 L Hct 26.2 L MCV 87.3 MCH 30.0 MCHC 34.4 RDW 15.3 H Plt Count 136 MPV 9.8 Neut % (Auto) 85.6 H Lymph % (Auto) 6.4 L Mayes % (Auto) 7.9 H Eos % (Auto) 0.0 L Baso % (Auto) 0.1 Lymph # (Auto) 1.1 L Mayes # (Auto) 1.3 H Eos # (Auto) 0.0 Baso # (Auto) 0.01 Absolute Neuts (auto) 14.05 H PT INR pCO2 24 L pO2 231.0 H 35 HCO3 16.7 L ABG pH 7.45 ABG Total CO2 17.4 L ABG O2 Saturation 98.5 H ABG O2 Content ABG Base Excess -5.5 L ABG Hemoglobin ABG Carboxyhemoglobin POC ABG HHb (Measured) ABG Methemoglobin ABG O2 Capacity ABG Potassium 3.8 VBG pH 7.42 VBG pCO2 31.0 L VBG HCO3 20.1 L VBG Total CO2 21.1 L VBG O2 Sat (Calc) 75.8 H VBG Base Excess -3.4 L VBG Potassium 3.7 Hgb O2 Saturation Sodium 142.0 143.0 Chloride 116.0 H 115.0 H Glucose 176 H 141 H Lactate 4.7 H* 4.0 H* FiO2 50.0 21.0 Crit Value Called To Mary dahl rn icu Soledad kyle Crit Value Called By Maged parsons Ab Blood Gas Notified Time 178 948 Potassium Carbon Dioxide Anion Gap BUN Creatinine Est GFR ( Amer) Est GFR (Non-Af Amer) POC Glucose (mg/dL) Random Glucose Calcium Phosphorus Magnesium Total Bilirubin AST ALT Alkaline Phosphatase Troponin I Total Protein Albumin Globulin Albumin/Globulin Ratio Lipase Arterial Blood Potassium 3.8 Venous Blood Potassium 3.7 Blood Type Antibody Screen Crossmatch BBK History Checked Radiology Impressions: Radiology Impressions Chest X-Ray 11/28/18 16:30 IMPRESSION: Right IJV line terminates at the cavoatrial junction. Endotracheal tube is low in position and terminates in the proximal right mainstem bronchus. No acute findings. Chest X-Ray 11/28/18 20:05 IMPRESSION: No active disease. Chest X-Ray 11/29/18 06:00 IMPRESSION: No active disease. EKG/Cardiology Studies: Cardiology / EKG Studies 11/29/18 EKG [ELECTROCARDIOGRAM] Routine Comment: Reason For Exam: EKG from monitor is not clear Critical Care Progress Note - Nutrition Nutrition: Nutrition Category Date Time Status NPO Diet [DIET] Diets 11/28/18 Breakfast Ordered Assessment/Plan - Assessment and Plan (Free Text) Plan: Patient seen and examined on rounds with resident, agree with note with following additions/exceptions: Patient is 83yo female with PMHx of DVT on Eliquis, PE, dementia, CHF, HTN admitted with shock 2/2 sepsis and GIB Currently afebrile, HD stable on Levophed 15mcg/min, Vasopressin, Stress dose steroids added Pt was given PRBC 2u yesterday, along with Kcentra, and FFP 2u Labs imaging, chart reviewed INR 2.1, to receive 1u FFP, Vit K GI following ID following On broad spectrum abx, positive UA, CXR without focal consolidation Blood cultures negative TLC R IJ in place Hemorrhagic Shock Septic Shock Hx of DVT on A/C Lactic Acidosis Coaguloapthy CHF, chronic compensated HTN Recommend: - cont with vent support, low tidal vol ventilation, duonebs, daily CPAP trial, ABG, CXR - Merrem for gram neg coverage, follow up ID - IVF, D5W with bicarb - Vasopressor support, Levophed, Vasopressin, Stress dose steroids - FS control - Monitor LFTs - PPI drip - NPO - give 1u FFP - repeat CBC, INR, lactate - GI ppx - DVT ppx, SCDs - monitor in MICU Critical care time 35 minutes
--- NOTE | 2018-11-29 11:38 | CP.PCM.PN ---
Subjective - Date & Time of Evaluation Date of Evaluation: 11/29/18 Time of Evaluation: 11:00 - Subjective Subjective: Alert, makes eye contact when name is called. No acute events Objective - Vital Signs/Intake and Output Vital Signs (last 24 hours): Temp Pulse Resp BP Pulse Ox 99.9 F H 110 H 15 124/55 L 92 L 11/29/18 01:00 11/29/18 04:00 11/28/18 14:38 11/29/18 09:01 11/29/18 03:20 Intake and Output: 11/29/18 11/29/18 06:59 18:59 Intake Total 1990 250 Output Total 550 Balance 1440 250 - Medications Medications: Current Medications Hydrocortisone Sodium Succinate (Solu-Cortef) 50 mg IVP Q6H PEDRITO Last Admin: 11/29/18 09:37 Dose: 50 mg Pantoprazole Sodium (Protonix 40mg Ivpb) 40 mg in 100 mls @ 20 mls/hr IVPB .Q5H PEDRITO Last Admin: 11/29/18 10:44 Dose: 20 mls/hr Meropenem (Merrem Iv 1 Gm Premix) 1 gm in 50 mls @ 100 mls/hr IVPB Q12 PEDRITO; Protocol Last Admin: 11/29/18 09:34 Dose: 100 mls/hr NOREPINEPHRINE BIT/0.9 % NACL (Levophed 4 Mg/ 250 Ml Ns Premixed) 4 mg in 250 mls @ 15 mls/hr IV .[id number] PRN; Protocol PRN Reason: TITRATE PER MD ORDER Last Admin: 11/29/18 11:20 Dose: 10 mcg/min, 37.5 mls/hr Sodium Bicarbonate 75 meq/ (Dextrose) 1,075 mls @ 100 mls/hr IV .[id number] PEDRITO Last Admin: 11/29/18 09:48 Dose: 100 mls/hr Vasopressin 20 units/ Sodium (Chloride) 101 mls @ 9.09 mls/hr IV .[id number] PEDRITO; Protocol Last Admin: 11/29/18 09:01 Dose: 9.09 mls/hr Timolol Maleate (Timoptic 0.25% Ophth Soln) 2 drop OU BID PEDRITO - Labs Labs: 11/29/18 09:40 11/29/18 04:15 PT 23.7 SECONDS (9.4-12.5) H 11/29/18 04:15 INR 2.10 11/29/18 04:15 APTT 26.0 Seconds (26.9-38.3) L 11/28/18 09:45 - Eye Exam Eye Exam: Normal appearance, PERRL - Respiratory Exam Respiratory Exam: Decreased Breath Sounds - Cardiovascular Exam Cardiovascular Exam: REGULAR RHYTHM, +S1, +S2 - GI/Abdominal Exam GI & Abdominal Exam: Distended, Soft, Tenderness, Hypoactive Bowel Sounds Additional comments: dark, loose BM - Extremities Exam Extremities Exam: Normal Capillary Refill, Pedal Edema - Neurological Exam Neurological Exam: Alert - Skin Skin Exam: Dry, Pallor Assessment and Plan - Assessment and Plan (Free Text) Assessment: 83 year old female with history of dementia, DVT,PE, peripheral edema, glaucoma who is admitted with sepsis,UTI, GI bleed,supratherapeutic INR, respiratory failure,hyperkalemia, JORGE LUIS, AMS. I spoke at length with patients son Jacinto regarding goals of care. Jacinto was updated of mothers medical condition by ICU team and understands that she is critically ill. We discussed the terms of her advanced directive. Son understands that she doesn't want aggressive measures if her condition is terminal. Ramifications of CPR explained. Son expressed that over recent weeks he has noted over all decline in his mother' health. Son will speak with cheyanne duarte regarding resuscitation status. For the time being son wants to continue current medical management. Psychosocial support provided. Time spent with family member in goals of care and advance care planning, 20 minutes Plan: Goals of care and advance care planning GI Bleed/anemia; GI recs reviewed, monitor CBC, Coags, FFP's, transfuse as needed. CT orf abdomen when stable ID res reviewed, Gilliam cultures pending> Continue Vancomycin, Doxycycline, Merrem. Continue vasporessors, sodium bicarb Vent support, Maintain 02 sats >95%
[2018-11-29] MEDS: Timolol 0.25% Ophth SOLN OU SCH ×2 (12:30→17:42)
--- NOTE | 2018-11-29 13:06 | CP.PCM.PN ---
<Ochoa Klein - Last Filed: 11/29/18 12:52> Subjective - Date & Time of Evaluation Date of Evaluation: 11/29/18 Time of Evaluation: 07:50 - Subjective Subjective: Ochoa Klein- Internal Medicine Resident- Progress Note Behalf of Dr. Gray Subjective: Patient seen and examined at bedside. Remained tachycardic 110s overnight with Tmax of 100.8 F. As per staff the stools are more formed however remain melanotic. Further subjective data cannot be ascertained at this time due to AMS. 12 Point ROS cannot be ascertained at this time due to AMS Physical Examination: - Constitutional Appears: Intubated, no acute distress - Head Exam Head Exam: ATRAUMATIC, NORMOCEPHALIC - Eye Exam Eye Exam: PERRL - ENT Exam ENT Exam: Mucous Membranes Dry, ETT and OGT present - Respiratory Exam Respiratory Exam: Intubated, right lower lobe crackles - Cardiovascular Exam Cardiovascular Exam: Tachycardic, +S1, +S2. 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 She was given vancomycin 1 gram IV x 1, azetreonam 2 grams IV x 1 , vitamin K 10mg x 1, protonix 80mg IV x 1, and stated on a protonix drip at 20mls/hr. GI is con sulted- appreciate recommendations- CT abdomen and pelvis without PO or IV contrast ordered and pending. CBC q6h to monitor hemoglobin. Continue protonix drip and transfuse pRBCs with Hgb <7 as needed. Continue levophed, vasopressin, stress dose steroids, and meropenem 1gram IV q12 for sepetic shock. Infectious disease consulted- appreciate recommendations. Blood cultures are negative 2 out of 2 on day 1. Legionella antigen pending.C. difficile antigen negative. Pro- calcitonin pending. Hold home aspirin, eliquis, and metoprolol. Puff Iron Operator recommended continuing to monitor H/H and coags. States that novoseven can be tried if bleeding continues. Continue replenishing bicarb via D5 water with 75meq of bicarb due to losses from diarrhea. Palliative care consulted- appreciate recommendations. Continue ICU level of care. Patient case reviewed with and plan approved by attending physician, Dr. Gray. Objective - Vital Signs/Intake and Output Vital Signs (last 24 hours): Temp Pulse Resp BP Pulse Ox 99.1 F 97 H 15 121/93 H 89 L 11/29/18 12:00 11/29/18 11:57 11/28/18 14:38 11/29/18 11:30 11/29/18 11:50 Intake and Output: 11/29/18 11/29/18 06:59 18:59 Intake Total 1990 250 Output Total 550 Balance 1440 250 - Medications Medications: Current Medications Hydrocortisone Sodium Succinate (Solu-Cortef) 50 mg IVP Q6H [facility] Last Admin: 11/29/18 09:37 Dose: 50 mg Pantoprazole Sodium (Protonix 40mg Ivpb) 40 mg in 100 mls @ 20 mls/hr IVPB .Q5H [facility] Last Admin: 11/29/18 10:44 Dose: 20 mls/hr Meropenem (Merrem Iv 1 Gm Premix) 1 gm in 50 mls @ 100 mls/hr IVPB Q12 [facility]; Protocol Last Admin: 11/29/18 09:34 Dose: 100 mls/hr NOREPINEPHRINE BIT/0.9 % NACL (Levophed 4 Mg/ 250 Ml Ns Premixed) 4 mg in 250 mls @ 15 mls/hr IV .[id number] PRN; Protocol PRN Reason: TITRATE PER MD ORDER Last Admin: 11/29/18 11:20 Dose: 10 mcg/min, 37.5 mls/hr Sodium Bicarbonate 75 meq/ (Dextrose) 1,075 mls @ 100 mls/hr IV .[id number] [facility] Last Admin: 11/29/18 09:48 Dose: 100 mls/hr Vasopressin 20 units/ Sodium (Chloride) 101 mls @ 9.09 mls/hr IV .Q11H7M [facility]; Protocol Last Admin: 11/29/18 09:01 Dose: 9.09 mls/hr Timolol Maleate (Timoptic 0.25% Ophth Soln) 2 drop OU BID [facility] Last Admin: 11/29/18 12:30 Dose: 2 unit - Labs Labs: 11/29/18 09:40 11/29/18 04:15 PT 23.7 SECONDS (9.4-12.5) H 11/29/18 04:15 INR 2.10 11/29/18 04:15 APTT 26.0 Seconds (26.9-38.3) L 11/28/18 09:45 <Dave Gray S - Last Filed: 11/29/18 18:27> Subjective - Subjective Subjective: Pt seen and examined by me. I have reviewed the note of the medical laboratory assistant and I agree with it. I have discussed the assessment and plan with the resident. I have reviewed the medications and the last labs. Objective - Vital Signs/Intake and Output Vital Signs (last 24 hours): Temp Pulse Resp BP Pulse Ox 98.8 F 70 22 101/64 97 11/29/18 16:00 11/29/18 16:15 11/29/18 15:11 11/29/18 16:15 11/29/18 16:15 Intake and Output: 11/29/18 11/29/18 06:59 18:59 Intake Total 1989 1939 Output Total 550 500 Balance 1440 1440 - Medications Medications: Current Medications Hydrocortisone Sodium Succinate (Solu-Cortef) 50 mg IVP Q6H [facility] Last Admin: 11/29/18 15:45 Dose: 50 mg Pantoprazole Sodium (Protonix 40mg Ivpb) 40 mg in 100 mls @ 20 mls/hr IVPB .Q5H [facility] Last Admin: 11/29/18 15:45 Dose: 20 mls/hr Meropenem (Merrem Iv 1 Gm Premix) 1 gm in 50 mls @ 100 mls/hr IVPB Q12 [facility]; Protocol Last Admin: 11/29/18 09:34 Dose: 100 mls/hr NOREPINEPHRINE BIT/0.9 % NACL (Levophed 4 Mg/ 250 Ml Ns Premixed) 4 mg in 250 mls @ 15 mls/hr IV .[id number] PRN; Protocol PRN Reason: TITRATE PER MD ORDER Last Admin: 11/29/18 17:41 Dose: 10 mcg/min, 37.5 mls/hr Vasopressin 20 units/ Sodium (Chloride) 101 mls @ 9.09 mls/hr IV .Q11H7M [facility]; Protocol Last Admin: 11/29/18 09:01 Dose: 9.09 mls/hr Dexmedetomidine HCl (Precedex 400mcg/100ml) 400 mcg in 100 mls @ 17.463 mls/hr IV .Q5H44M PRN; Protocol PRN Reason: Sedation Timolol Maleate (Timoptic 0.25% Oph Soln) 2 drop OU BID [facility] Last Admin: 11/29/18 17:42 Dose: 2 unit - Labs Labs: 11/29/18 13:00 11/29/18 04:15 PT 23.7 SECONDS (9.4-12.5) H 11/29/18 04:15 INR 2.10 11/29/18 04:15 APTT 26.0 Seconds (26.9-38.3) L 11/28/18 09:45
[2018-11-29 13:13] LABS: BASO # 0.01 K/mm3 (0.0-2.0); BASO % 0.1 % (0.0-3.0); HEMOGLOBIN 7.9 g/dL (12.0-16.0); LYMPH # 0.7 (1.2-3.4); LYMPH % 5.4 % (22.0-35.0); MEAN CELL VOLUME 87.8 fl (80.0-105.0); MEAN CORPUSCULAR HEMOGLOBIN 30.2 pg (25.0-35.0); MEAN CORPUSCULAR HGB CONC 34.3 g/dl (31.0-37.0); MEAN PLATELET VOLUME 10.5 fl (7.0-11.0); MONO # 0.9 (0.1-0.6); MONO % 7.6 % (1.0-6.0); RBC 2.62 10^6/uL (3.5-6.1); RED CELL DISTRIBUTION WIDTH 15.6 % (11.5-14.5); WHITE BLOOD COUNT 12.2 10^3/uL (4.5-11.0)
[2018-11-29] MEDS ORDERED: Dexmedetomidine 400mcg/100mL 400 MCG/100 ML BOTTLE IV PRN (14:12)
--- NOTE | 2018-11-29 14:12 | CT ---
Date of service: 11/29/2018 PROCEDURE: CT Abdomen and Pelvis without intravenous contrast HISTORY: firm belly, acidosis, anemia COMPARISON: None. TECHNIQUE: Without contrast.. Contrast dose: Radiation dose: Total exam DLP = 975.61 mGy-cm. This CT exam was performed using one or more of the following dose reduction techniques: Automated exposure control, adjustment of the mA and/or kV according to patient size, and/or use of iterative reconstruction technique. FINDINGS: LOWER THORAX: There is a nasogastric tube in the stomach. LIVER: Unremarkable. No gross lesion or ductal dilatation. GALLBLADDER AND BILE DUCTS: Unremarkable. PANCREAS: Unremarkable. No gross lesion or ductal dilatation. SPLEEN: Unremarkable. ADRENALS: Unremarkable. No mass. KIDNEYS AND URETERS: Unremarkable. No hydronephrosis. No solid mass. There is an 11 mm stone in the right renal pelvis. VASCULATURE: Unremarkable. No aortic aneurysm. No aortic atherosclerotic calcification or mural plaque present. BOWEL: There is severe mural thickening in the descending colon consistent with colitis. There is also mural thickening in the rectum and moderate fecal impaction. APPENDIX: Unremarkable. Normal appendix. PERITONEUM: Unremarkable. No free fluid. No free air. LYMPH NODES: Unremarkable. No enlarged lymph nodes. BLADDER: Unremarkable. REPRODUCTIVE: Unremarkable. BONES: No acute fracture. OTHER FINDINGS: None. IMPRESSION: There is severe mural thickening in the descending colon consistent with colitis. There is also mural thickening in the rectum and moderate fecal impaction.
[2018-11-29 14:18] LABS: ARTERIAL BLOOD GAS HCO3 20.9 mmol/L (21-28); ARTERIAL BLOOD GAS O2 SAT 98.7 % (95-98); ARTERIAL BLOOD GAS PCO2 25 mm/Hg (35-45); ARTERIAL BLOOD GAS PH 7.53 (7.35-7.45); ARTERIAL BLOOD GAS TCO2 21.7 mmol.L (22-28)
[2018-11-29] MEDS: Dexmedetomidine 400mcg/100mL 400 MCG/100 ML BOTTLE IV PRN ×2 (14:59→19:58)
[2018-11-29 17:14] LABS: PH,URINE 5.5 (4.7-8.0); URINE APPEARANCE SLIGHT-CLOUDY (CLEAR); URINE BILIRUBIN SMALL (NEGATIVE); URINE BLOOD LARGE (NEGATIVE); URINE COLOR BROWN (YELLOW); URINE GLUCOSE (UA) NEGATIVE (NEGATIVE); URINE LEUKOCYTE ESTERASE TRACE Leu/uL (NEGATIVE); URINE PROTEIN 30 mg/dL (<30 mg/dL)
[2018-11-29 17:17] LABS: URINE BACTERIA MANY /hpf; URINE RBC TNTC /hpf (0-2)
--- NOTE | 2018-11-29 22:02 | CARD ---
APPROVED REPORT Date of service: 11/29/2018 EKG Measurement Heart [id number] <Conclusion> Normal sinus rhythm Low voltage QRS Cannot rule out Anterior infarct, age undetermined Prolonged QT Abnormal ECG
--- NOTE | 2018-11-29 22:28 | PN ---
DATE: 11/29/2018 SUBJECTIVE: The patient was seen and examined. I do agree with the note of the medical biller/coder. I was involved in the plan of care. The patient has severe mural thickening in the descending colon consistent with colitis. The patient also has moderate stool due to constipation. The patient's blood pressure is better, though bicarbonate has improved. She was given transfusions for her anemia because of acute GI bleed. She is currently intubated. She has hemorrhagic shock. She is on Levophed. She has elevated INR that was improved by FFP and vitamin K. The patient's hyperkalemia has improved as well. She has advanced dementia. She has a history of DVT and PE difficult to give anticoagulation. Her overall prognosis is guarded. I also gave her bicarb because of acute diarrhea. She has metabolic acidosis with respiratory alkalosis. We will repeat her blood work tomorrow. Her overall prognosis is guarded. Dave Gray MD
[2018-11-29 23:37] LABS: BASO # 0.01 K/mm3 (0.0-2.0); BASO % 0.1 % (0.0-3.0); LYMPH % 6.7 % (22.0-35.0); MEAN CELL VOLUME 85.6 fl (80.0-105.0); MEAN CORPUSCULAR HEMOGLOBIN 29.4 pg (25.0-35.0); MEAN CORPUSCULAR HGB CONC 34.3 g/dl (31.0-37.0); MEAN PLATELET VOLUME 10.7 fl (7.0-11.0); MONO % 6.7 % (1.0-6.0); RBC 3.47 10^6/uL (3.5-6.1); RED CELL DISTRIBUTION WIDTH 15.1 % (11.5-14.5); WHITE BLOOD COUNT 14.4 10^3/uL (4.5-11.0)
[2018-11-29 23:43] LABS: HEMOGLOBIN 10.2 g/dL (12.0-16.0)
[2018-11-29 23:44] LABS: INR 1.86; PROTHROMBIN TIME 20.7 SECONDS (9.4-12.5)
[2018-11-30] MEDS: Pantoprazole 40mg/100mL NS 40 MG/100 ML BAG IVPB SCH ×4 (03:59→23:04)
[2018-11-30] MEDS: Dexmedetomidine 400mcg/100mL 400 MCG/100 ML BOTTLE IV PRN (03:59)
[2018-11-30 05:18] LABS: ARTERIAL BLOOD GAS HCO3 19.7 mmol/L (21-28); ARTERIAL BLOOD GAS HEMOGLOBIN 11.5 g/dL (11.7-17.4); ARTERIAL BLOOD GAS O2 CAPACITY 16.1 mL/dl (16-24); ARTERIAL BLOOD GAS O2 CONTENT 15.8 ML/dl (15-23); ARTERIAL BLOOD GAS O2 SAT 98.4 % (95-98); ARTERIAL BLOOD GAS PCO2 27 mm/Hg (35-45); ARTERIAL BLOOD GAS PH 7.47 (7.35-7.45); ARTERIAL BLOOD GAS TCO2 20.5 mmol.L (22-28)
[2018-11-30 06:54] LABS: ALB/GLOB RATIO 0.9 (1.1-1.8); ALBUMIN 2.1 g/dL (3.0-4.8); ALT/SGPT 21 U/L (7-56); AST/SGOT 37 U/L (14-36); BLOOD UREA NITROGEN 36 mg/dL (7-21); CALCIUM 7.6 mg/dL (8.4-10.5); GFR NON-AFRICAN AMERICAN > 60
--- NOTE | 2018-11-30 07:27 | CP.PCM.PN ---
<Al Woods - Last Filed: 11/30/18 11:47> Subjective - Date & Time of Evaluation Date of Evaluation: 11/30/18 Time of Evaluation: 06:27 - Subjective Subjective: Al Woods PGY2 GI Progress Note for Dr. Valadez Patient was seen and examined at bedside in ICU. Overnight, the patient had one small soft BM that was dark, otherwise no loose BMs. Upon rectal exam, there doesn't appear to be rectal impaction as the stool in the vault is soft. Patient is afebrile overnight, remains on 2 vasopressors and was started on low rate of Precedex. Abdomen is less firm but remains distended. Remains intubated on vent. Objective - Vital Signs/Intake and Output Vital Signs (last 24 hours): Temp Pulse Resp BP Pulse Ox 99 F 59 L 20 161/99 H 98 11/30/18 03:55 11/30/18 03:54 11/30/18 03:11 11/30/18 00:38 11/30/18 03:11 Intake and Output: 11/30/18 11/30/18 06:59 18:59 Intake Total 250 Balance 250 - Medications Medications: Current Medications Hydrocortisone Sodium Succinate (Solu-Cortef) 50 mg IVP Q6H [facility] Last Admin: 11/30/18 04:02 Dose: 50 mg Pantoprazole Sodium (Protonix 40mg Ivpb) 40 mg in 100 mls @ 20 mls/hr IVPB .Q5H [facility] Last Admin: 11/30/18 03:59 Dose: 20 mls/hr Meropenem (Merrem Iv 1 Gm Premix) 1 gm in 50 mls @ 100 mls/hr IVPB Q12 [facility]; Protocol Last Admin: 11/29/18 21:00 Dose: 100 mls/hr NOREPINEPHRINE BIT/0.9 % NACL (Levophed 4 Mg/ 250 Ml Ns Premixed) 4 mg in 250 mls @ 15 mls/hr IV .[id number] PRN; Protocol PRN Reason: TITRATE PER MD ORDER Last Titration: 11/29/18 19:04 Dose: 12 mcg/min, 45 mls/hr Vasopressin 20 units/ Sodium (Chloride) 101 mls @ 9.09 mls/hr IV .Q11H7M [facility]; Protocol Last Admin: 11/29/18 19:05 Dose: 9.09 mls/hr Dexmedetomidine HCl (Precedex 400mcg/100ml) 400 mcg in 100 mls @ 17.463 mls/hr IV .Q5H44M PRN; Protocol PRN Reason: Sedation Last Admin: 11/30/18 03:59 Dose: 1 mcg/kg/hr, 17.463 mls/hr Timolol Maleate (Timoptic 0.25% Ophth Soln) 2 drop OU BID [facility] Last Admin: 11/29/18 17:42 Dose: 2 unit - Labs Labs: 11/29/18 23:24 11/30/18 05:15 PT 20.7 SECONDS (9.4-12.5) H 11/29/18 23:24 INR 1.86 11/29/18 23:24 APTT 26.0 Seconds (26.9-38.3) L 11/28/18 09:45 - Constitutional Appears: No Acute Distress, Chronically Ill - Head Exam Head Exam: ATRAUMATIC, NORMAL INSPECTION - Eye Exam Eye Exam: Normal appearance Additional comments: pinpoint pupils - ENT Exam Additional comments: ETT/OGT in place - Neck Exam Neck Exam: Normal Inspection. absent: Thyromegaly - Respiratory Exam Respiratory Exam: absent: Rales, Wheezes, Respiratory Distress Additional comments: on vent - Cardiovascular Exam Cardiovascular Exam: Tachycardia, +S1, +S2 - GI/Abdominal Exam GI & Abdominal Exam: Distended, Firm, Guarding, Hypoactive Bowel Sounds - Rectal Exam Rectal Exam: Black Stool (somewhat formed but still loose in consistency), He morrhoids (internal/external) - Exam Additional comments: porras in place, dark maroon urine - Extremities Exam Extremities Exam: Normal Inspection. absent: Pedal Edema Additional comments: pinpoint pupils - Back Exam Back Exam: rash noted (sacral (perianal) stage 1 decubitus ) - Neurological Exam Neurological Exam: Altered (on sedation). absent: Awake - Skin Skin Exam: Pallor Additional comments: sacral exam as above Assessment and Plan - Assessment and Plan (Free Text) Assessment: 83 year old female with a PMH of DVT/PE on Eliquis [facility] for [facility]. Patient intubated in ED for agonal breathing. Due to melena and hematuria, Kcentra, vit K, 2u FFP and 2u pRBCs were transfused upon admission to reverse anticoagulant effect. Patient is now in ICU on vasopressors required to maintain perfusion. Her stools have become less frequent and more formed. CT reviewed showing colitis, patient is on abx. Patient does EGD to evaluate and treat possible upper GI bleed, however, patient's prognosis is poor and family is still deciding on advanced directives. At this time, risk of procedure outweighs benefits given decreased degree of bleeding and current medical condition. Plan: - CT abd/pelvis reviewed showing severe colitis in descending colon and moderate fecal impaction (soft stools) - INR reviewed and has trended down after FFP -- no plans for endoscopy at this time; should bleeding worsen again, decision will be revisited - monitor H/H - maintain Hgb > 7 - Abx per ID - further management per ICU team - further recs per Dr. Valadez Case was reviewed and discussed with Dr. Valadez <Rhiannon Valadez V - Last Filed: 11/30/18 20:04> Objective - Vital Signs/Intake and Output Vital Signs (last 24 hours): Temp Pulse Resp BP Pulse Ox 98.5 F 52 L 20 118/54 L 91 L 11/30/18 16:00 11/30/18 18:40 11/30/18 16:00 11/30/18 18:30 11/30/18 18:40 Intake and Output: 11/30/18 12/01/18 18:59 06:59 Intake Total 1472 Output Total 225 Balance 1247 - Medications Medications: Current Medications Hydrocortisone Sodium Succinate (Solu-Cortef) 50 mg IVP Q6H [facility] Last Admin: 11/30/18 14:29 Dose: 50 mg Pantoprazole Sodium (Protonix 40mg Ivpb) 40 mg in 100 mls @ 20 mls/hr IVPB .Q5H [facility] Last Admin: 11/30/18 16:54 Dose: 20 mls/hr Meropenem (Merrem Iv 1 Gm Premix) 1 gm in 50 mls @ 100 mls/hr IVPB Q12 [facility]; Protocol Last Admin: 11/30/18 09:08 Dose: 100 mls/hr Vasopressin 20 units/ Sodium (Chloride) 101 mls @ 9.09 mls/hr IV .Q11H7M [facility]; Protocol Last Admin: 11/30/18 09:40 Dose: 9.09 mls/hr Lactated Ringer's (Lactated Ringer's) 1,000 mls @ 50 mls/hr IV .Q20H [facility] Last Admin: 11/30/18 09:08 Dose: 50 mls/hr NOREPINEPHRINE BIT/0.9 % NACL (Levophed 4 Mg/ 250 Ml Ns Premixed) 4 mg in 250 mls @ 7.5 mls/hr IV .Q24H PRN; Protocol PRN Reason: TITRATE PER MD ORDER Last Titration: 11/30/18 13:00 Dose: 2 mcg/min, 7.5 mls/hr Linezolid (Zyvox 600mg/300ml D5w) 600 mg in 300 mls @ 200 mls/hr IVPB Q12 [facility]; Protocol Stop: 12/07/18 16:31 Last Admin: 11/30/18 16:57 Dose: 200 mls/hr Timolol Maleate (Timoptic 0.25% Ophth Soln) 2 drop OU BID [facility] Last Admin: 11/30/18 18:25 Dose: 2 drop - Labs Labs: 11/30/18 17:20 11/30/18 05:15 PT 20.7 SECONDS (9.4-12.5) H 11/29/18 23:24 INR 1.86 11/29/18 23:24 APTT 26.0 Seconds (26.9-38.3) L 11/28/18 09:45 Attending/Attestation - Attestation I have personally seen and examined this patient.: Yes I have fully participated in the care of the patient.: Yes I have reviewed all pertinent clinical information, including history, physical exam and plan: Yes Notes (Text): This patient was seen and evaluated earlier along with resident. This is an addendum to the GI progress report dictated by the medical cost consultant. Discussed with ICU team. Patient still coagulopathic with a significantly elevated INR of 1.86 patient is still on vasopressor being slowly titrated down. Significant left-sided colitis possibly ischemic colitis. Sepsis .large amount of stool in the rectum soft stools. Would avoid enema. We will defer EGD now the timing of the procedure will be based on the clinical course. Patient was transfused 2 units of packed RBC since admission and the third unit in progress. Times he is totaling 3 units of FFP status post Kcentra INR is still elevated. Continue antibiotics Continue aggressive supportive care and optimization 11/30/18 19:59
[2018-11-30 08:24] LABS: BASO # 0.01 K/mm3 (0.0-2.0); BASO % 0.1 % (0.0-3.0); HEMOGLOBIN 9.5 g/dL (12.0-16.0); LYMPH # 1.2 (1.2-3.4); LYMPH % 9.6 % (22.0-35.0); MEAN CORPUSCULAR HEMOGLOBIN 30.2 pg (25.0-35.0); MEAN CORPUSCULAR HGB CONC 35.1 g/dl (31.0-37.0); MONO % 7.9 % (1.0-6.0); RBC 3.15 10^6/uL (3.5-6.1); RED CELL DISTRIBUTION WIDTH 15.4 % (11.5-14.5); WHITE BLOOD COUNT 12.5 10^3/uL (4.5-11.0)
[2018-11-30] MEDS: Lactated Ringer's 1,000 ML IV SCH (09:08)
[2018-11-30] MEDS: Meropenem IV 1 gm in NS 1 GM/50 ML BAG IVPB SCH ×2 (09:08→21:05)
[2018-11-30] MEDS: Timolol 0.25% Ophth SOLN OU SCH ×2 (09:09→18:25)
[2018-11-30] MEDS: NOREPINEPHRINE BIT/0.9 % NACL 4 MG/250 ML BAG IV PRN ×2 (09:42→20:25)
--- NOTE | 2018-11-30 10:14 | CP.PCM.PN ---
<Ochoa Klein - Last Filed: 11/30/18 10:50> Subjective - Date & Time of Evaluation Date of Evaluation: 11/30/18 Time of Evaluation: 07:55 - Subjective Subjective: Ochoa Klein- Internal Medicine Resident- Progress Note Behalf of Dr. Gray Subjective: Patient seen and examined at bedside. Experienced one small dark colored BM overnight. Precedex was started in order to control agitation and prevent self extubation. Further subjective data cannot be ascertained at this time due to AMS/sedation. 12 Point ROS cannot be ascertained at this time due to AMS Physical Examination: - Constitutional Appears: Intubated, no acute distress - Head Exam Head Exam: ATRAUMATIC, NORMOCEPHALIC - Eye Exam Eye Exam: PERRL - ENT Exam ENT Exam: Mucous Membranes Dry, ETT and OGT present - Respiratory Exam Respiratory Exam: Intubated, right lower lobe crackles - Cardiovascular Exam Cardiovascular Exam: +S1, +S2. 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 She was given vancomycin 1 gram IV x 1, azetreonam 2 grams IV x 1 , vitamin K 10mg x 1, protonix 80mg IV x 1, and stated on a protonix drip at 20mls/hr. Ventilator management as per ICU. Continue daily weaning and sedation vacations. GI is consulted- appreciate recommendations- CT abdomen and pelvis without PO or IV contrast showed severe colitis in descending colon and moderate fecal impaction. Continue protonix drip and transfuse pRBCs with Hgb <7 as needed. Possible scope when patient is deemed stable for procedure. Keep NPO. Started on LR @50cc/hr for maintenance IVF. Continue levophed, vasopressin, stress dose steroids, and meropenem 1gram IV q12 for sepetic shock. Wean pressors as tolerated. Infectious disease consulted- appreciate recommendations. Blood cultures are negative 2 out of 2 on day 2. Legionella antigen negative. C. difficile antigen negative. Pro- calcitonin elevated. Hold home aspirin, eliquis, and metoprolol. Wreath And Garland Maker recommended continuing to monitor H/H and coags. States that novoseven can be tried if bleeding continues. Discontinue replenishing bicarb via D5 water with 75meq of bicarb due to losses from diarrhea. Palliative care consulted- appreciate recommendations. Continue ICU level of care. Patient case reviewed with and plan approved by attending physician, Dr. Gray. Objective - Vital Signs/Intake and Output Vital Signs (last 24 hours): Temp Pulse Resp BP Pulse Ox 99 F 59 L 20 161/99 H 98 11/30/18 03:55 11/30/18 03:54 11/30/18 03:11 11/30/18 00:38 11/30/18 03:11 Intake and Output: 11/30/18 11/30/18 06:59 18:59 Intake Total 450 50 Balance 450 50 - Medications Medications: Current Medications Hydrocortisone Sodium Succinate (Solu-Cortef) 50 mg IVP Q6H [facility] Last Admin: 11/30/18 08:46 Dose: 50 mg Pantoprazole Sodium (Protonix 40mg Ivpb) 40 mg in 100 mls @ 20 mls/hr IVPB .Q5H [facility] Last Admin: 11/30/18 03:59 Dose: 20 mls/hr Meropenem (Merrem Iv 1 Gm Premix) 1 gm in 50 mls @ 100 mls/hr IVPB Q12 [facility]; Protocol Last Admin: 11/30/18 09:08 Dose: 100 mls/hr Vasopressin 20 units/ Sodium (Chloride) 101 mls @ 9.09 mls/hr IV .Q11H7M [facility]; Protocol Last Admin: 11/29/18 19:05 Dose: 9.09 mls/hr Dexmedetomidine HCl (Precedex 400mcg/100ml) 400 mcg in 100 mls @ 17.463 mls/hr IV .Q5H44M PRN; Protocol PRN Reason: Sedation Last Titration: 11/30/18 07:30 Dose: 0.2 mcg/kg/hr, 3.493 mls/hr Lactated Ringer's (Lactated Ringer's) 1,000 mls @ 50 mls/hr IV .Q20H [facility] Last Admin: 11/30/18 09:08 Dose: 50 mls/hr NOREPINEPHRINE BIT/0.9 % NACL (Levophed 4 Mg/ 250 Ml Ns Premixed) 4 mg in 250 mls @ 7.5 mls/hr IV .Q24H PRN; Protocol PRN Reason: TITRATE PER MD ORDER Timolol Maleate (Timoptic 0.25% Ophth Soln) 2 drop OU BID [facility] Last Admin: 11/30/18 09:09 Dose: 2 drop - Labs Labs: 11/30/18 07:20 11/30/18 05:15 PT 20.7 SECONDS (9.4-12.5) H 11/29/18 23:24 INR 1.86 11/29/18 23:24 APTT 26.0 Seconds (26.9-38.3) L 11/28/18 09:45 <Dave Gray S - Last Filed: 11/30/18 13:44> Subjective - Subjective Subjective: Pt seen and examined by me. I have reviewed the note of the medical equipment repair technician and I agree with it. I have discussed the assessment and plan with the resident. I have reviewed the medications and the last labs. Objective - Vital Signs/Intake and Output Vital Signs (last 24 hours): Temp Pulse Resp BP Pulse Ox 99 F 58 L 20 119/54 L 98 11/30/18 03:55 11/30/18 11:00 11/30/18 03:11 11/30/18 09:40 11/30/18 03:11 Intake and Output: 11/30/18 11/30/18 06:59 18:59 Intake Total 450 265 Balance 450 265 - Medications Medications: Current Medications Hydrocortisone Sodium Succinate (Solu-Cortef) 50 mg IVP Q6H [facility] Last Admin: 11/30/18 08:46 Dose: 50 mg Pantoprazole Sodium (Protonix 40mg Ivpb) 40 mg in 100 mls @ 20 mls/hr IVPB .Q5H [facility] Last Admin: 11/30/18 10:57 Dose: 20 mls/hr Meropenem (Merrem Iv 1 Gm Premix) 1 gm in 50 mls @ 100 mls/hr IVPB Q12 [facility]; Protocol Last Admin: 11/30/18 09:08 Dose: 100 mls/hr Vasopressin 20 units/ Sodium (Chloride) 101 mls @ 9.09 mls/hr IV .Q11H7M [facility]; Protocol Last Admin: 11/30/18 09:40 Dose: 9.09 mls/hr Lactated Ringer's (Lactated Ringer's) 1,000 mls @ 50 mls/hr IV .Q20H [facility] Last Admin: 11/30/18 09:08 Dose: 50 mls/hr NOREPINEPHRINE BIT/0.9 % NACL (Levophed 4 Mg/ 250 Ml Ns Premixed) 4 mg in 250 mls @ 7.5 mls/hr IV .Q24H PRN; Protocol PRN Reason: TITRATE PER MD ORDER Last Titration: 11/30/18 10:22 Dose: 1 mcg/min, 3.75 mls/hr Timolol Maleate (Timoptic 0.25% Ophth Soln) 2 drop OU BID [facility] Last Admin: 11/30/18 09:09 Dose: 2 drop - Labs Labs: 11/30/18 07:20 11/30/18 05:15 PT 20.7 SECONDS (9.4-12.5) H 11/29/18 23:24 INR 1.86 11/29/18 23:24 APTT 26.0 Seconds (26.9-38.3) L 11/28/18 09:45
--- NOTE | 2018-11-30 10:24 | RAD ---
Date of service: 11/30/2018 HISTORY: ET tube evaluation COMPARISON: 11/29/2018 FINDINGS: LUNGS: No active pulmonary disease. PLEURA: No significant pleural effusion identified, no pneumothorax apparent. CARDIOVASCULAR: Aortic calcification Normal cardiac size. No pulmonary vascular congestion. OSSEOUS STRUCTURES: No significant abnormalities. VISUALIZED UPPER ABDOMEN: Normal. OTHER FINDINGS: Central lines and tubes are unchanged IMPRESSION: No active disease.
--- NOTE | 2018-11-30 10:56 | CP.CCUPN ---
<Adam Darden - Last Filed: 11/30/18 11:23> CCU Subjective - Physician Review Events Since Last Encounter (Free Text): 11/30/18 10:53 no acute events overnight Subjective (Free Text): 11/29/18 11:26 Pt seen and examined this morning in the ICU, pt is intubated but not sedated 11/30/18 10:52 pt seen and examined this morning. Pt intubated CCU Objective - Vital Signs / Intake & Output Vital Signs (Last 4 hours): Vital Signs BP 11/30/18 09:40 119/54 L Intake and Output (Last 8hrs): Intake & Output 11/29/18 11/30/18 11/30/18 22:59 06:59 14:59 Intake Total 2040 100 265 Output Total 500 Balance 1540 100 265 Weight 163 lb Intake: IV 2040 100 265 Right Wrist 1440 Oral 0 Output: Urine 500 Urethral (Khanna) 500 Other: # Bowel Movements 5 - Physical Exam Head: Positive for: Atraumatic, Normocephalic Pupils: Positive for: PERRL Extroacular Muscles: Positive for: EOMI Conjunctiva: Positive for: Normal Mouth: Positive for: Moist Mucous Membranes Respiratory/Chest: Positive for: Clear to Auscultation, Other (Coarse breath sounds). Negative for: Respiratory Distress Cardiovascular: Positive for: Irregular Rhythm. Negative for: Murmurs Abdomen: Negative for: Distention, Rebound, Guarding Rectal: Positive for: Melena Upper Extremity: Negative for: Cyanosis, Edema Lower Extremity: Positive for: Edema (2+ pedal edema bilaterally) Neurological: Positive for: Other (Opened eyes to pain). Negative for: GCS=15, Speech Normal Skin: Positive for: Warm, Dry. Negative for: Rashes Psychiatric: Negative for: Alert, Oriented x 3, Normal Insight - Medications Active Medications: Active Medications Generic Name Dose Route Start Last Admin Trade Name Freq PRN Reason Stop Dose Admin Hydrocortisone Sodium Succinate 50 mg 11/29/18 09:30 11/30/18 08:46 Solu-Cortef IVP 50 mg Q6H PEDRITO Administration Pantoprazole Sodium 40 mg in 100 mls @ 20 mls/hr 11/28/18 11:15 11/30/18 03:59 Protonix 40mg Ivpb IVPB 20 mls/hr .Q5H PEDRITO Administration Meropenem 1 gm in 50 mls @ 100 mls/hr 11/28/18 22:00 11/30/18 09:08 Merrem Iv 1 Gm Premix IVPB 100 mls/hr Q12 PEDRITO Administration Protocol Vasopressin 20 units/ Sodium 101 mls @ 9.09 mls/hr 11/29/18 08:30 11/30/18 09:40 Chloride IV 9.09 mls/hr .Q11H7M PEDRITO Administration Protocol 0.03 U/MIN Dexmedetomidine HCl 400 mcg in 100 mls @ 17.463 mls/hr 11/29/18 14:59 11/30/18 09:39 Precedex 400mcg/100ml IV 0.1 mcg/kg/hr .Q5H44M PRN 1.746 mls/hr Sedation Titration Protocol 1 MCG/KG/HR Lactated Ringer's 1,000 mls @ 50 mls/hr 11/30/18 09:00 11/30/18 09:08 Lactated Ringer's IV 50 mls/hr .Q20H PEDRITO Administration NOREPINEPHRINE BIT/0.9 % NACL 4 mg in 250 mls @ 7.5 mls/hr 11/30/18 09:34 11/30/18 10:22 Levophed 4 Mg/ 250 Ml Ns Premixed IV 1 mcg/min .Q24H PRN 3.75 mls/hr TITRATE PER MD ORDER Titration Protocol 2 MCG/MIN Timolol Maleate 2 drop 11/29/18 10:45 11/30/18 09:09 Timoptic 0.25% Ophth Soln OU 2 drop BID PEDRITO Administration - Patient Studies Lab Studies: Microbiology Studies 11/28/18 10:15 Blood Culture - Preliminary Blood NO GROWTH AFTER 48 HOURS 11/28/18 09:45 Blood Culture - Preliminary Blood NO GROWTH AFTER 48 HOURS 11/28/18 15:30 MRSA Culture (Admit) - Final Naris MRSA NOT DETECTED 11/29/18 08:00 Gram Stain - Final Sputum Induced 11/28/18 23:00 C. difficile Antigen & Toxins A,B - Final Stool 11/28/18 10:15 Urine Culture - Final Urine Random No Growth (<1,000 CFU/ML) Lab Studies 11/30/18 11/30/18 11/30/18 Range/Units 07:20 05:15 05:00 WBC 12.5 H (4.5-11.0) 10^3/uL RBC 3.15 L (3.5-6.1) 10^6/uL Hgb 9.5 L (12.0-16.0) g/dL Hct 27.1 L (36.0-48.0) % MCV 86.0 (80.0-105.0) fl MCH 30.2 (25.0-35.0) pg MCHC 35.1 (31.0-37.0) g/dl RDW 15.4 H (11.5-14.5) % Plt Count 125 (120.0-450.0) 10^3/uL MPV 11.0 (7.0-11.0) fl Neut % (Auto) 82.4 H (50.0-68.0) % Lymph % (Auto) 9.6 L (22.0-35.0) % [place] % (Auto) 7.9 H (1.0-6.0) % Eos % (Auto) 0.0 L (1.5-5.0) % Baso % (Auto) 0.1 (0.0-3.0) % Lymph # (Auto) 1.2 (1.2-3.4) [place] # (Auto) 1.0 H (0.1-0.6) Eos # (Auto) 0.0 (0.0-0.7) Baso # (Auto) 0.01 (0.0-2.0) K/mm3 Absolute Neuts (auto) 10.28 H (1.4-6.5) PT (9.4-12.5) SECONDS INR pCO2 27 L (35-45) mm/Hg pO2 163.0 H (80-100) mm/Hg HCO3 19.7 L (21-28) mmol/L ABG pH 7.47 H (7.35-7.45) ABG Total CO2 20.5 L (22-28) mmol.L ABG O2 Saturation 98.4 H (95-98) % ABG O2 Content 15.8 (15-23) ML/dl ABG Base Excess -2.9 L (-2.0-3.0) mmol/L ABG Hemoglobin 11.5 L (11.7-17.4) g/dL ABG Carboxyhemoglobin 1.0 (0.5-1.5) % POC ABG HHb (Measured) 1.6 (0-5) % ABG Methemoglobin 1.7 (0.0-3.0) % ABG O2 Capacity 16.1 (16-24) mL/dl ABG Potassium (3.6-5.2) mmol/L Hgb O2 Saturation 95.6 (95.0-98.0) % Sodium 143 (132-148) mmol/L Chloride 115 H (98-107) mmol/L Glucose (65-105) mg/dl Lactate (0.7-2.1) mmol/L FiO2 40.0 % Crit Value Called To Crit Value Called By Blood Gas Notified Time Potassium 4.1 (3.6-5.0) mmol/L Carbon Dioxide 23 (21-33) mmol/L Anion Gap 9 L (10-20) BUN 36 H (7-21) mg/dL Creatinine 0.7 (0.7-1.2) mg/dl Est GFR ( Amer) > 60 Est GFR (Non-Af Amer) > 60 Random Glucose 141 H (70-110) mg/dL Calcium 7.6 L (8.4-10.5) mg/dL Total Bilirubin 1.4 H (0.2-1.3) mg/dL AST 37 H (14-36) U/L ALT 21 (7-56) U/L Alkaline Phosphatase 55 (38-126) U/L Total Protein 4.5 L (5.8-8.3) g/dL Albumin 2.1 L (3.0-4.8) g/dL Globulin 2.4 gm/dL Albumin/Globulin Ratio 0.9 L (1.1-1.8) Procalcitonin (0.19-0.49) NG/ML Arterial Blood Potassium (3.6-5.2) mmol/L Urine Color (YELLOW) Urine Appearance (CLEAR) Urine pH (4.7-8.0) Ur Specific [place] (1.005-1.035) Urine Protein (<30 mg/dL) mg/dL Urine Glucose (UA) (NEGATIVE) mg/dL Urine Ketones (NEGATIVE) mg/dL Urine Blood (NEGATIVE) Urine Nitrate (NEGATIVE) Urine Bilirubin (NEGATIVE) Urine Urobilinogen (<1 E.U./dL) E.U./dL Ur Leukocyte Esterase (NEGATIVE) Oneil/uL Urine RBC (0-2) /hpf Urine WBC (0-6) /hpf Urine Bacteria (NONE) /hpf Ur L.pneumophila Ag (NEGATIVE) Blood Type Antibody Screen Crossmatch BBK History Checked 11/29/18 11/29/18 11/29/18 Range/Units 23:24 23:24 17:08 WBC 14.4 H (4.5-11.0) 10^3/uL RBC 3.47 L (3.5-6.1) 10^6/uL Hgb 10.2 L D (12.0-16.0) g/dL Hct 29.7 L (36.0-48.0) % MCV 85.6 (80.0-105.0) fl MCH 29.4 (25.0-35.0) pg MCHC 34.3 (31.0-37.0) g/dl RDW 15.1 H (11.5-14.5) % Plt Count 127 (120.0-450.0) 10^3/uL MPV 10.7 (7.0-11.0) fl Neut % (Auto) 86.5 H (50.0-68.0) % Lymph % (Auto) 6.7 L (22.0-35.0) % [place] % (Auto) 6.7 H (1.0-6.0) % Eos % (Auto) 0.0 L (1.5-5.0) % Baso % (Auto) 0.1 (0.0-3.0) % Lymph # (Auto) 1.0 L (1.2-3.4) [place] # (Auto) 1.0 H (0.1-0.6) Eos # (Auto) 0.0 (0.0-0.7) Baso # (Auto) 0.01 (0.0-2.0) K/mm3 Absolute Neuts (auto) 12.49 H (1.4-6.5) PT 20.7 H (9.4-12.5) SECONDS INR 1.86 pCO2 (35-45) mm/Hg pO2 (80-100) mm/Hg HCO3 (21-28) mmol/L ABG pH (7.35-7.45) ABG Total CO2 (22-28) mmol.L ABG O2 Saturation (95-98) % ABG O2 Content (15-23) ML/dl ABG Base Excess (-2.0-3.0) mmol/L ABG Hemoglobin (11.7-17.4) g/dL ABG Carboxyhemoglobin (0.5-1.5) % POC ABG HHb (Measured) (0-5) % ABG Methemoglobin (0.0-3.0) % ABG O2 Capacity (16-24) mL/dl ABG Potassium (3.6-5.2) mmol/L Hgb O2 Saturation (95.0-98.0) % Sodium (132-148) mmol/L Chloride (98-107) mmol/L Glucose (65-105) mg/dl Lactate (0.7-2.1) mmol/L FiO2 % Crit Value Called To Crit Value Called By Blood Gas Notified Time Potassium (3.6-5.0) mmol/L Carbon Dioxide (21-33) mmol/L Anion Gap (10-20) BUN (7-21) mg/dL Creatinine (0.7-1.2) mg/dl Est GFR ( Amer) Est GFR (Non-Af Amer) Random Glucose (70-110) mg/dL Calcium (8.4-10.5) mg/dL Total Bilirubin (0.2-1.3) mg/dL AST (14-36) U/L ALT (7-56) U/L Alkaline Phosphatase (38-126) U/L Total Protein (5.8-8.3) g/dL Albumin (3.0-4.8) g/dL Globulin gm/dL Albumin/Globulin Ratio (1.1-1.8) Procalcitonin (0.19-0.49) NG/ML Arterial Blood Potassium (3.6-5.2) mmol/L Urine Color (YELLOW) Urine Appearance (CLEAR) Urine pH (4.7-8.0) Ur Specific [place] (1.005-1.035) Urine Protein (<30 mg/dL) mg/dL Urine Glucose (UA) (NEGATIVE) mg/dL Urine Ketones (NEGATIVE) mg/dL Urine Blood (NEGATIVE) Urine Nitrate (NEGATIVE) Urine Bilirubin (NEGATIVE) Urine Urobilinogen (<1 E.U./dL) E.U./dL Ur Leukocyte Esterase (NEGATIVE) Oneil/uL Urine RBC (0-2) /hpf Urine WBC (0-6) /hpf Urine Bacteria (NONE) /hpf Ur L.pneumophila Ag Negative (NEGATIVE) Blood Type Antibody Screen Crossmatch BBK History Checked 11/29/18 11/29/18 11/29/18 Range/Units 17:08 14:10 13:00 WBC 12.2 H D (4.5-11.0) 10^3/uL RBC 2.62 L (3.5-6.1) 10^6/uL Hgb 7.9 L (12.0-16.0) g/dL Hct 23.0 L (36.0-48.0) % MCV 87.8 (80.0-105.0) fl MCH 30.2 (25.0-35.0) pg MCHC 34.3 (31.0-37.0) g/dl RDW 15.6 H (11.5-14.5) % Plt Count 132 (120.0-450.0) 10^3/uL MPV 10.5 (7.0-11.0) fl Neut % (Auto) 86.9 H (50.0-68.0) % Lymph % (Auto) 5.4 L (22.0-35.0) % [place] % (Auto) 7.6 H (1.0-6.0) % Eos % (Auto) 0.0 L (1.5-5.0) % Baso % (Auto) 0.1 (0.0-3.0) % Lymph # (Auto) 0.7 L (1.2-3.4) [place] # (Auto) 0.9 H (0.1-0.6) Eos # (Auto) 0.0 (0.0-0.7) Baso # (Auto) 0.01 (0.0-2.0) K/mm3 Absolute Neuts (auto) 10.64 H (1.4-6.5) PT (9.4-12.5) SECONDS INR pCO2 25 L (35-45) mm/Hg pO2 191.0 H (80-100) mm/Hg HCO3 20.9 L (21-28) mmol/L ABG pH 7.53 H (7.35-7.45) ABG Total CO2 21.7 L (22-28) mmol.L ABG O2 Saturation 98.7 H (95-98) % ABG O2 Content (15-23) ML/dl ABG Base Excess -0.3 (-2.0-3.0) mmol/L ABG Hemoglobin (11.7-17.4) g/dL ABG Carboxyhemoglobin (0.5-1.5) % POC ABG HHb (Measured) (0-5) % ABG Methemoglobin (0.0-3.0) % ABG O2 Capacity (16-24) mL/dl ABG Potassium 3.5 L (3.6-5.2) mmol/L Hgb O2 Saturation (95.0-98.0) % Sodium 142.0 (132-148) mmol/L Chloride 115.0 H (98-107) mmol/L Glucose 172 H (65-105) mg/dl Lactate 3.6 H (0.7-2.1) mmol/L FiO2 40.0 % Crit Value Called To Crit Value Called By Alicja Blood Gas Notified Time 1418 Potassium (3.6-5.0) mmol/L Carbon Dioxide (21-33) mmol/L Anion Gap (10-20) BUN (7-21) mg/dL Creatinine (0.7-1.2) mg/dl Est GFR ( Amer) Est GFR (Non-Af Amer) Random Glucose (70-110) mg/dL Calcium (8.4-10.5) mg/dL Total Bilirubin (0.2-1.3) mg/dL AST (14-36) U/L ALT (7-56) U/L Alkaline Phosphatase (38-126) U/L Total Protein (5.8-8.3) g/dL Albumin (3.0-4.8) g/dL Globulin gm/dL Albumin/Globulin Ratio (1.1-1.8) Procalcitonin (0.19-0.49) NG/ML Arterial Blood Potassium 3.5 L (3.6-5.2) mmol/L Urine Color Brown (YELLOW) Urine Appearance Slight-cloudy (CLEAR) Urine pH 5.5 (4.7-8.0) Ur Specific [place] 1.025 (1.005-1.035) Urine Protein 30 H (<30 mg/dL) mg/dL Urine Glucose (UA) Negative (NEGATIVE) mg/dL Urine Ketones Negative (NEGATIVE) mg/dL Urine Blood Large H (NEGATIVE) Urine Nitrate Positive H (NEGATIVE) Urine Bilirubin Small H (NEGATIVE) Urine Urobilinogen 2.0 H (<1 E.U./dL) E.U./dL Ur Leukocyte Esterase Trace H (NEGATIVE) Oneil/uL Urine RBC Tntc H (0-2) /hpf Urine WBC 5 - 10 H (0-6) /hpf Urine Bacteria Many (NONE) /hpf Ur L.pneumophila Ag (NEGATIVE) Blood Type Antibody Screen Crossmatch BBK History Checked 11/28/18 11/28/18 Range/Units 18:40 09:45 WBC (4.5-11.0) 10^3/uL RBC (3.5-6.1) 10^6/uL Hgb (12.0-16.0) g/dL Hct (36.0-48.0) % MCV (80.0-105.0) fl MCH (25.0-35.0) pg MCHC (31.0-37.0) g/dl RDW (11.5-14.5) % Plt Count (120.0-450.0) 10^3/uL MPV (7.0-11.0) fl Neut % (Auto) (50.0-68.0) % Lymph % (Auto) (22.0-35.0) % [place] % (Auto) (1.0-6.0) % Eos % (Auto) (1.5-5.0) % Baso % (Auto) (0.0-3.0) % Lymph # (Auto) (1.2-3.4) [place] # (Auto) (0.1-0.6) Eos # (Auto) (0.0-0.7) Baso # (Auto) (0.0-2.0) K/mm3 Absolute Neuts (auto) (1.4-6.5) PT (9.4-12.5) SECONDS INR pCO2 (35-45) mm/Hg pO2 (80-100) mm/Hg HCO3 (21-28) mmol/L ABG pH (7.35-7.45) ABG Total CO2 (22-28) mmol.L ABG O2 Saturation (95-98) % ABG O2 Content (15-23) ML/dl ABG Base Excess (-2.0-3.0) mmol/L ABG Hemoglobin (11.7-17.4) g/dL ABG Carboxyhemoglobin (0.5-1.5) % POC ABG HHb (Measured) (0-5) % ABG Methemoglobin (0.0-3.0) % ABG O2 Capacity (16-24) mL/dl ABG Potassium (3.6-5.2) mmol/L Hgb O2 Saturation (95.0-98.0) % Sodium (132-148) mmol/L Chloride (98-107) mmol/L Glucose (65-105) mg/dl Lactate (0.7-2.1) mmol/L FiO2 % Crit Value Called To Crit Value Called By Blood Gas Notified Time Potassium (3.6-5.0) mmol/L Carbon Dioxide (21-33) mmol/L Anion Gap (10-20) BUN (7-21) mg/dL Creatinine (0.7-1.2) mg/dl Est GFR ( Amer) Est GFR (Non-Af Amer) Random Glucose (70-110) mg/dL Calcium (8.4-10.5) mg/dL Total Bilirubin (0.2-1.3) mg/dL AST (14-36) U/L ALT (7-56) U/L Alkaline Phosphatase (38-126) U/L Total Protein (5.8-8.3) g/dL Albumin (3.0-4.8) g/dL Globulin gm/dL Albumin/Globulin Ratio (1.1-1.8) Procalcitonin 3.03 H (0.19-0.49) NG/ML Arterial Blood Potassium (3.6-5.2) mmol/L Urine Color (YELLOW) Urine Appearance (CLEAR) Urine pH (4.7-8.0) Ur Specific [place] (1.005-1.035) Urine Protein (<30 mg/dL) mg/dL Urine Glucose (UA) (NEGATIVE) mg/dL Urine Ketones (NEGATIVE) mg/dL Urine Blood (NEGATIVE) Urine Nitrate (NEGATIVE) Urine Bilirubin (NEGATIVE) Urine Urobilinogen (<1 E.U./dL) E.U./dL Ur Leukocyte Esterase (NEGATIVE) Oneil/uL Urine RBC (0-2) /hpf Urine WBC (0-6) /hpf Urine Bacteria (NONE) /hpf Ur L.pneumophila Ag (NEGATIVE) Blood Type A POSITIVE Antibody Screen Negative Crossmatch See Detail BBK History Checked Patient has bt Laboratory Results - last 24 hr 11/28/18 11/28/18 11/29/18 09:45 18:40 13:00 WBC 12.2 H D RBC 2.62 L Hgb 7.9 L Hct 23.0 L MCV 87.8 MCH 30.2 MCHC 34.3 RDW 15.6 H Plt Count 132 MPV 10.5 Neut % (Auto) 86.9 H Lymph % (Auto) 5.4 L [place] % (Auto) 7.6 H Eos % (Auto) 0.0 L Baso % (Auto) 0.1 Lymph # (Auto) 0.7 L [place] # (Auto) 0.9 H Eos # (Auto) 0.0 Baso # (Auto) 0.01 Absolute Neuts (auto) 10.64 H PT INR pCO2 pO2 HCO3 ABG pH ABG Total CO2 ABG O2 Saturation ABG O2 Content ABG Base Excess ABG Hemoglobin ABG Carboxyhemoglobin POC ABG HHb (Measured) ABG Methemoglobin ABG O2 Capacity ABG Potassium Hgb O2 Saturation Sodium Chloride Glucose Lactate FiO2 Crit Value Called To Crit Value Called By Blood Gas Notified Time Potassium Carbon Dioxide Anion Gap BUN Creatinine Est GFR ( Amer) Est GFR (Non-Af Amer) Random Glucose Calcium Total Bilirubin AST ALT Alkaline Phosphatase Total Protein Albumin Globulin Albumin/Globulin Ratio Procalcitonin 3.03 H Arterial Blood Potassium Urine Color Urine Appearance Urine pH Ur Specific [place] Urine Protein Urine Glucose (UA) Urine Ketones Urine Blood Urine Nitrate Urine Bilirubin Urine Urobilinogen Ur Leukocyte Esterase Urine RBC Urine WBC Urine Bacteria Ur L.pneumophila Ag Blood Type A POSITIVE Antibody Screen Negative Crossmatch See Detail BBK History Checked Patient has bt 11/29/18 11/29/18 11/29/18 14:10 17:08 17:08 WBC RBC Hgb Hct MCV MCH MCHC RDW Plt Count MPV Neut % (Auto) Lymph % (Auto) [place] % (Auto) Eos % (Auto) Baso % (Auto) Lymph # (Auto) [place] # (Auto) Eos # (Auto) Baso # (Auto) Absolute Neuts (auto) PT INR pCO2 25 L pO2 191.0 H HCO3 20.9 L ABG pH 7.53 H ABG Total CO2 21.7 L ABG O2 Saturation 98.7 H ABG O2 Content ABG Base Excess -0.3 ABG Hemoglobin ABG Carboxyhemoglobin POC ABG HHb (Measured) ABG Methemoglobin ABG O2 Capacity ABG Potassium 3.5 L Hgb O2 Saturation Sodium 142.0 Chloride 115.0 H Glucose 172 H Lactate 3.6 H FiO2 40.0 Crit Value Called To Crit Value Called By Alicja Blood Gas Notified Time 1418 Potassium Carbon Dioxide Anion Gap BUN Creatinine Est GFR ( Amer) Est GFR (Non-Af Amer) Random Glucose Calcium Total Bilirubin AST ALT Alkaline Phosphatase Total Protein Albumin Globulin Albumin/Globulin Ratio Procalcitonin Arterial Blood Potassium 3.5 L Urine Color Brown Urine Appearance Slight-cloudy Urine pH 5.5 Ur Specific [place] 1.025 Urine Protein 30 H Urine Glucose (UA) Negative Urine Ketones Negative Urine Blood Large H Urine Nitrate Positive H Urine Bilirubin Small H Urine Urobilinogen 2.0 H Ur Leukocyte Esterase Trace H Urine RBC Tntc H Urine WBC 5 - 10 H Urine Bacteria Many Ur L.pneumophila Ag Negative Blood Type Antibody Screen Crossmatch BBK History Checked 11/29/18 11/29/18 11/30/18 23:24 23:24 05:00 WBC 14.4 H RBC 3.47 L Hgb 10.2 L D Hct 29.7 L MCV 85.6 MCH 29.4 MCHC 34.3 RDW 15.1 H Plt Count 127 MPV 10.7 Neut % (Auto) 86.5 H Lymph % (Auto) 6.7 L [place] % (Auto) 6.7 H Eos % (Auto) 0.0 L Baso % (Auto) 0.1 Lymph # (Auto) 1.0 L [place] # (Auto) 1.0 H Eos # (Auto) 0.0 Baso # (Auto) 0.01 Absolute Neuts (auto) 12.49 H PT 20.7 H INR 1.86 pCO2 27 L pO2 163.0 H HCO3 19.7 L ABG pH 7.47 H ABG Total CO2 20.5 L ABG O2 Saturation 98.4 H ABG O2 Content 15.8 ABG Base Excess -2.9 L ABG Hemoglobin 11.5 L ABG Carboxyhemoglobin 1.0 POC ABG HHb (Measured) 1.6 ABG Methemoglobin 1.7 ABG O2 Capacity 16.1 ABG Potassium Hgb O2 Saturation 95.6 Sodium Chloride Glucose Lactate FiO2 40.0 Crit Value Called To Crit Value Called By Blood Gas Notified Time Potassium Carbon Dioxide Anion Gap BUN Creatinine Est GFR ( Amer) Est GFR (Non-Af Amer) Random Glucose Calcium Total Bilirubin AST ALT Alkaline Phosphatase Total Protein Albumin Globulin Albumin/Globulin Ratio Procalcitonin Arterial Blood Potassium Urine Color Urine Appearance Urine pH Ur Specific [place] Urine Protein Urine Glucose (UA) Urine Ketones Urine Blood Urine Nitrate Urine Bilirubin Urine Urobilinogen Ur Leukocyte Esterase Urine RBC Urine WBC Urine Bacteria Ur L.pneumophila Ag Blood Type Antibody Screen Crossmatch BBK History Checked 11/30/18 11/30/18 05:15 07:20 WBC 12.5 H RBC 3.15 L Hgb 9.5 L Hct 27.1 L MCV 86.0 MCH 30.2 MCHC 35.1 RDW 15.4 H Plt Count 125 MPV 11.0 Neut % (Auto) 82.4 H Lymph % (Auto) 9.6 L [place] % (Auto) 7.9 H Eos % (Auto) 0.0 L Baso % (Auto) 0.1 Lymph # (Auto) 1.2 [place] # (Auto) 1.0 H Eos # (Auto) 0.0 Baso # (Auto) 0.01 Absolute Neuts (auto) 10.28 H PT INR pCO2 pO2 HCO3 ABG pH ABG Total CO2 ABG O2 Saturation ABG O2 Content ABG Base Excess ABG Hemoglobin ABG Carboxyhemoglobin POC ABG HHb (Measured) ABG Methemoglobin ABG O2 Capacity ABG Potassium Hgb O2 Saturation Sodium 143 Chloride 115 H Glucose Lactate FiO2 Crit Value Called To Crit Value Called By Blood Gas Notified Time Potassium 4.1 Carbon Dioxide 23 Anion Gap 9 L BUN 36 H Creatinine 0.7 Est GFR ( Amer) > 60 Est GFR (Non-Af Amer) > 60 Random Glucose 141 H Calcium 7.6 L Total Bilirubin 1.4 H AST 37 H ALT 21 Alkaline Phosphatase 55 Total Protein 4.5 L Albumin 2.1 L Globulin 2.4 Albumin/Globulin Ratio 0.9 L Procalcitonin Arterial Blood Potassium Urine Color Urine Appearance Urine pH Ur Specific [place] Urine Protein Urine Glucose (UA) Urine Ketones Urine Blood Urine Nitrate Urine Bilirubin Urine Urobilinogen Ur Leukocyte Esterase Urine RBC Urine WBC Urine Bacteria Ur L.pneumophila Ag Blood Type Antibody Screen Crossmatch BBK History Checked Radiology Impressions: Radiology Impressions Abdomen/Pelvis CT 11/29/18 09:38 IMPRESSION: There is severe mural thickening in the descending colon consistent with colitis. There is also mural thickening in the rectum and moderate fecal impaction. Chest X-Ray 11/30/18 09:30 IMPRESSION: No active disease. Fingerstick Blood Sugar Results: 227 Critical Care Progress Note - Nutrition Nutrition: Nutrition Category Date Time Status NPO Diet [DIET] Diets 11/28/18 Breakfast Ordered Assessment/Plan - Assessment and Plan (Free Text) Assessment: Pt is an 83 yo female with a PMH of DVT, PE, dementia, CHF, HTN, who was found unresponsive, and also experiencing basilia melena who was transferred to the ICU. Plan: Neuro - Presented with AMS - continue to monitor mental status - precedex Cardio - HTN, CHF - pt has central line - ca gluconate was given to stabilize the myocardium - trop negative x2 - begin to wean levophed - continue vasopressin, and hydrocortisone Pulm - Pt intubated at this time - ABG 27/163/19.7/7.47 - follow up daily CXR and ABG GI - GI bleed, melena - c diff negative - pantoprazole - GI consulted, Dr Valadez Renal - hyperkalemia has resolved, continue to monitor - BUN/Cr 36/0.7 Endocrine - maintain euglycemia Heme/onc - history of DVT, PE - Hgb 9.5, INR 1.86 - trend CBC - pt has been transfused pRBC, kcentra, vit K, FFP, PCC ID - urosepsis - WBC 12.5 - blood culture NGTD - urine culture NGTD - sputum culture S.a. - merrem - ID Dr Perez consulted Pt seen, examined, assessment and plan discussed with Dr Alana Darden PGY1 - Date & Time Date: 11/30/18 Time: 07:35 <Michael Warner - Last Filed: 11/30/18 12:30> CCU Objective - Vital Signs / Intake & Output Vital Signs (Last 4 hours): Vital Signs Pulse BP 11/30/18 11:00 58 L 11/30/18 09:40 119/54 L Intake and Output (Last 8hrs): Intake & Output 11/29/18 11/30/18 11/30/18 22:59 06:59 14:59 Intake Total 2040 100 265 Output Total 500 Balance 1540 100 265 Weight 163 lb Intake: IV 0 100 265 Right Wrist 1440 Oral 0 Output: Urine 500 Urethral (Khanna) 500 Other: # Bowel Movements 5 - Medications Active Medications: Active Medications Generic Name Dose Route Start Last Admin Trade Name Freq PRN Reason Stop Dose Admin Hydrocortisone Sodium Succinate 50 mg 11/29/18 09:30 11/30/18 08:46 Solu-Cortef IVP 50 mg Q6H PEDRITO Administration Pantoprazole Sodium 40 mg in 100 mls @ 20 mls/hr 11/28/18 11:15 11/30/18 10:57 Protonix 40mg Ivpb IVPB 20 mls/hr .Q5H PEDRITO Administration Meropenem 1 gm in 50 mls @ 100 mls/hr 11/28/18 22:00 11/30/18 09:08 Merrem Iv 1 Gm Premix IVPB 100 mls/hr Q12 PEDRITO Administration Protocol Vasopressin 20 units/ Sodium 101 mls @ 9.09 mls/hr 11/29/18 08:30 11/30/18 09:40 Chloride IV 9.09 mls/hr .Q11H7M PEDRITO Administration Protocol 0.03 U/MIN Lactated Ringer's 1,000 mls @ 50 mls/hr 11/30/18 09:00 11/30/18 09:08 Lactated Ringer's IV 50 mls/hr .Q20H PEDRITO Administration NOREPINEPHRINE BIT/0.9 % NACL 4 mg in 250 mls @ 7.5 mls/hr 11/30/18 09:34 11/30/18 10:22 Levophed 4 Mg/ 250 Ml Ns Premixed IV 1 mcg/min .Q24H PRN 3.75 mls/hr TITRATE PER MD ORDER Titration Protocol 2 MCG/MIN Timolol Maleate 2 drop 11/29/18 10:45 11/30/18 09:09 Timoptic 0.25% Ophth Soln OU 2 drop BID PEDRITO Administration - Patient Studies Lab Studies: Microbiology Studies 11/29/18 08:00 Gram Stain - Final Sputum Induced Sputum Culture - Preliminary Staphylococcus Aureus 11/28/18 10:15 Blood Culture - Preliminary Blood NO GROWTH AFTER 48 HOURS 11/28/18 09:45 Blood Culture - Preliminary Blood NO GROWTH AFTER 48 HOURS 11/28/18 15:30 MRSA Culture (Admit) - Final Naris MRSA NOT DETECTED 11/28/18 23:00 C. difficile Antigen & Toxins A,B - Final Stool 11/28/18 10:15 Urine Culture - Final Urine Random No Growth (<1,000 CFU/ML) Lab Studies 11/30/18 11/30/18 11/30/18 Range/Units 07:20 05:15 05:00 WBC 12.5 H (4.5-11.0) 10^3/uL RBC 3.15 L (3.5-6.1) 10^6/uL Hgb 9.5 L (12.0-16.0) g/dL Hct 27.1 L (36.0-48.0) % MCV 86.0 (80.0-105.0) fl MCH 30.2 (25.0-35.0) pg MCHC 35.1 (31.0-37.0) g/dl RDW 15.4 H (11.5-14.5) % Plt Count 125 (120.0-450.0) 10^3/uL MPV 11.0 (7.0-11.0) fl Neut % (Auto) 82.4 H (50.0-68.0) % Lymph % (Auto) 9.6 L (22.0-35.0) % [place] % (Auto) 7.9 H (1.0-6.0) % Eos % (Auto) 0.0 L (1.5-5.0) % Baso % (Auto) 0.1 (0.0-3.0) % Lymph # (Auto) 1.2 (1.2-3.4) [place] # (Auto) 1.0 H (0.1-0.6) Eos # (Auto) 0.0 (0.0-0.7) Baso # (Auto) 0.01 (0.0-2.0) K/mm3 Absolute Neuts (auto) 10.28 H (1.4-6.5) PT (9.4-12.5) SECONDS INR pCO2 27 L (35-45) mm/Hg pO2 163.0 H (80-100) mm/Hg HCO3 19.7 L (21-28) mmol/L ABG pH 7.47 H (7.35-7.45) ABG Total CO2 20.5 L (22-28) mmol.L ABG O2 Saturation 98.4 H (95-98) % ABG O2 Content 15.8 (15-23) ML/dl ABG Base Excess -2.9 L (-2.0-3.0) mmol/L ABG Hemoglobin 11.5 L (11.7-17.4) g/dL ABG Carboxyhemoglobin 1.0 (0.5-1.5) % POC ABG HHb (Measured) 1.6 (0-5) % ABG Methemoglobin 1.7 (0.0-3.0) % ABG O2 Capacity 16.1 (16-24) mL/dl ABG Potassium (3.6-5.2) mmol/L Hgb O2 Saturation 95.6 (95.0-98.0) % Sodium 143 (132-148) mmol/L Chloride 115 H (98-107) mmol/L Glucose (65-105) mg/dl Lactate (0.7-2.1) mmol/L FiO2 40.0 % Crit Value Called To Crit Value Called By Blood Gas Notified Time Potassium 4.1 (3.6-5.0) mmol/L Carbon Dioxide 23 (21-33) mmol/L Anion Gap 9 L (10-20) BUN 36 H (7-21) mg/dL Creatinine 0.7 (0.7-1.2) mg/dl Est GFR ( Amer) > 60 Est GFR (Non-Af Amer) > 60 Random Glucose 141 H (70-110) mg/dL Calcium 7.6 L (8.4-10.5) mg/dL Total Bilirubin 1.4 H (0.2-1.3) mg/dL AST 37 H (14-36) U/L ALT 21 (7-56) U/L Alkaline Phosphatase 55 (38-126) U/L Total Protein 4.5 L (5.8-8.3) g/dL Albumin 2.1 L (3.0-4.8) g/dL Globulin 2.4 gm/dL Albumin/Globulin Ratio 0.9 L (1.1-1.8) Procalcitonin (0.19-0.49) NG/ML Arterial Blood Potassium (3.6-5.2) mmol/L Urine Color (YELLOW) Urine Appearance (CLEAR) Urine pH (4.7-8.0) Ur Specific [place] (1.005-1.035) Urine Protein (<30 mg/dL) mg/dL Urine Glucose (UA) (NEGATIVE) mg/dL Urine Ketones (NEGATIVE) mg/dL Urine Blood (NEGATIVE) Urine Nitrate (NEGATIVE) Urine Bilirubin (NEGATIVE) Urine Urobilinogen (<1 E.U./dL) E.U./dL Ur Leukocyte Esterase (NEGATIVE) Oneil/uL Urine RBC (0-2) /hpf Urine WBC (0-6) /hpf Urine Bacteria (NONE) /hpf Ur L.pneumophila Ag (NEGATIVE) Blood Type Antibody Screen Crossmatch BBK History Checked 11/29/18 11/29/18 11/29/18 Range/Units 23:24 23:24 17:08 WBC 14.4 H (4.5-11.0) 10^3/uL RBC 3.47 L (3.5-6.1) 10^6/uL Hgb 10.2 L D (12.0-16.0) g/dL Hct 29.7 L (36.0-48.0) % MCV 85.6 (80.0-105.0) fl MCH 29.4 (25.0-35.0) pg MCHC 34.3 (31.0-37.0) g/dl RDW 15.1 H (11.5-14.5) % Plt Count 127 (120.0-450.0) 10^3/uL MPV 10.7 (7.0-11.0) fl Neut % (Auto) 86.5 H (50.0-68.0) % Lymph % (Auto) 6.7 L (22.0-35.0) % [place] % (Auto) 6.7 H (1.0-6.0) % Eos % (Auto) 0.0 L (1.5-5.0) % Baso % (Auto) 0.1 (0.0-3.0) % Lymph # (Auto) 1.0 L (1.2-3.4) [place] # (Auto) 1.0 H (0.1-0.6) Eos # (Auto) 0.0 (0.0-0.7) Baso # (Auto) 0.01 (0.0-2.0) K/mm3 Absolute Neuts (auto) 12.49 H (1.4-6.5) PT 20.7 H (9.4-12.5) SECONDS INR 1.86 pCO2 (35-45) mm/Hg pO2 (80-100) mm/Hg HCO3 (21-28) mmol/L ABG pH (7.35-7.45) ABG Total CO2 (22-28) mmol.L ABG O2 Saturation (95-98) % ABG O2 Content (15-23) ML/dl ABG Base Excess (-2.0-3.0) mmol/L ABG Hemoglobin (11.7-17.4) g/dL ABG Carboxyhemoglobin (0.5-1.5) % POC ABG HHb (Measured) (0-5) % ABG Methemoglobin (0.0-3.0) % ABG O2 Capacity (16-24) mL/dl ABG Potassium (3.6-5.2) mmol/L Hgb O2 Saturation (95.0-98.0) % Sodium (132-148) mmol/L Chloride (98-107) mmol/L Glucose (65-105) mg/dl Lactate (0.7-2.1) mmol/L FiO2 % Crit Value Called To Crit Value Called By Blood Gas Notified Time Potassium (3.6-5.0) mmol/L Carbon Dioxide (21-33) mmol/L Anion Gap (10-20) BUN (7-21) mg/dL Creatinine (0.7-1.2) mg/dl Est GFR ( Amer) Est GFR (Non-Af Amer) Random Glucose (70-110) mg/dL Calcium (8.4-10.5) mg/dL Total Bilirubin (0.2-1.3) mg/dL AST (14-36) U/L ALT (7-56) U/L Alkaline Phosphatase (38-126) U/L Total Protein (5.8-8.3) g/dL Albumin (3.0-4.8) g/dL Globulin gm/dL Albumin/Globulin Ratio (1.1-1.8) Procalcitonin (0.19-0.49) NG/ML Arterial Blood Potassium (3.6-5.2) mmol/L Urine Color (YELLOW) Urine Appearance (CLEAR) Urine pH (4.7-8.0) Ur Specific [place] (1.005-1.035) Urine Protein (<30 mg/dL) mg/dL Urine Glucose (UA) (NEGATIVE) mg/dL Urine Ketones (NEGATIVE) mg/dL Urine Blood (NEGATIVE) Urine Nitrate (NEGATIVE) Urine Bilirubin (NEGATIVE) Urine Urobilinogen (<1 E.U./dL) E.U./dL Ur Leukocyte Esterase (NEGATIVE) Oneil/uL Urine RBC (0-2) /hpf Urine WBC (0-6) /hpf Urine Bacteria (NONE) /hpf Ur L.pneumophila Ag Negative (NEGATIVE) Blood Type Antibody Screen Crossmatch BBK History Checked 11/29/18 11/29/18 11/29/18 Range/Units 17:08 14:10 13:00 WBC 12.2 H D (4.5-11.0) 10^3/uL RBC 2.62 L (3.5-6.1) 10^6/uL Hgb 7.9 L (12.0-16.0) g/dL Hct 23.0 L (36.0-48.0) % MCV 87.8 (80.0-105.0) fl MCH 30.2 (25.0-35.0) pg MCHC 34.3 (31.0-37.0) g/dl RDW 15.6 H (11.5-14.5) % Plt Count 132 (120.0-450.0) 10^3/uL MPV 10.5 (7.0-11.0) fl Neut % (Auto) 86.9 H (50.0-68.0) % Lymph % (Auto) 5.4 L (22.0-35.0) % [place] % (Auto) 7.6 H (1.0-6.0) % Eos % (Auto) 0.0 L (1.5-5.0) % Baso % (Auto) 0.1 (0.0-3.0) % Lymph # (Auto) 0.7 L (1.2-3.4) [place] # (Auto) 0.9 H (0.1-0.6) Eos # (Auto) 0.0 (0.0-0.7) Baso # (Auto) 0.01 (0.0-2.0) K/mm3 Absolute Neuts (auto) 10.64 H (1.4-6.5) PT (9.4-12.5) SECONDS INR pCO2 25 L (35-45) mm/Hg pO2 191.0 H (80-100) mm/Hg HCO3 20.9 L (21-28) mmol/L ABG pH 7.53 H (7.35-7.45) ABG Total CO2 21.7 L (22-28) mmol.L ABG O2 Saturation 98.7 H (95-98) % ABG O2 Content (15-23) ML/dl ABG Base Excess -0.3 (-2.0-3.0) mmol/L ABG Hemoglobin (11.7-17.4) g/dL ABG Carboxyhemoglobin (0.5-1.5) % POC ABG HHb (Measured) (0-5) % ABG Methemoglobin (0.0-3.0) % ABG O2 Capacity (16-24) mL/dl ABG Potassium 3.5 L (3.6-5.2) mmol/L Hgb O2 Saturation (95.0-98.0) % Sodium 142.0 (132-148) mmol/L Chloride 115.0 H (98-107) mmol/L Glucose 172 H (65-105) mg/dl Lactate 3.6 H (0.7-2.1) mmol/L FiO2 40.0 % Crit Value Called To Crit Value Called By Alicja Blood Gas Notified Time 1418 Potassium (3.6-5.0) mmol/L Carbon Dioxide (21-33) mmol/L Anion Gap (10-20) BUN (7-21) mg/dL Creatinine (0.7-1.2) mg/dl Est GFR ( Amer) Est GFR (Non-Af Amer) Random Glucose (70-110) mg/dL Calcium (8.4-10.5) mg/dL Total Bilirubin (0.2-1.3) mg/dL AST (14-36) U/L ALT (7-56) U/L Alkaline Phosphatase (38-126) U/L Total Protein (5.8-8.3) g/dL Albumin (3.0-4.8) g/dL Globulin gm/dL Albumin/Globulin Ratio (1.1-1.8) Procalcitonin (0.19-0.49) NG/ML Arterial Blood Potassium 3.5 L (3.6-5.2) mmol/L Urine Color Brown (YELLOW) Urine Appearance Slight-cloudy (CLEAR) Urine pH 5.5 (4.7-8.0) Ur Specific [place] 1.025 (1.005-1.035) Urine Protein 30 H (<30 mg/dL) mg/dL Urine Glucose (UA) Negative (NEGATIVE) mg/dL Urine Ketones Negative (NEGATIVE) mg/dL Urine Blood Large H (NEGATIVE) Urine Nitrate Positive H (NEGATIVE) Urine Bilirubin Small H (NEGATIVE) Urine Urobilinogen 2.0 H (<1 E.U./dL) E.U./dL Ur Leukocyte Esterase Trace H (NEGATIVE) Oneil/uL Urine RBC Tntc H (0-2) /hpf Urine WBC 5 - 10 H (0-6) /hpf Urine Bacteria Many (NONE) /hpf Ur L.pneumophila Ag (NEGATIVE) Blood Type Antibody Screen Crossmatch BBK History Checked 11/28/18 11/28/18 Range/Units 18:40 09:45 WBC (4.5-11.0) 10^3/uL RBC (3.5-6.1) 10^6/uL Hgb (12.0-16.0) g/dL Hct (36.0-48.0) % MCV (80.0-105.0) fl MCH (25.0-35.0) pg MCHC (31.0-37.0) g/dl RDW (11.5-14.5) % Plt Count (120.0-450.0) 10^3/uL MPV (7.0-11.0) fl Neut % (Auto) (50.0-68.0) % Lymph % (Auto) (22.0-35.0) % [place] % (Auto) (1.0-6.0) % Eos % (Auto) (1.5-5.0) % Baso % (Auto) (0.0-3.0) % Lymph # (Auto) (1.2-3.4) [place] # (Auto) (0.1-0.6) Eos # (Auto) (0.0-0.7) Baso # (Auto) (0.0-2.0) K/mm3 Absolute Neuts (auto) (1.4-6.5) PT (9.4-12.5) SECONDS INR pCO2 (35-45) mm/Hg pO2 (80-100) mm/Hg HCO3 (21-28) mmol/L ABG pH (7.35-7.45) ABG Total CO2 (22-28) mmol.L ABG O2 Saturation (95-98) % ABG O2 Content (15-23) ML/dl ABG Base Excess (-2.0-3.0) mmol/L ABG Hemoglobin (11.7-17.4) g/dL ABG Carboxyhemoglobin (0.5-1.5) % POC ABG HHb (Measured) (0-5) % ABG Methemoglobin (0.0-3.0) % ABG O2 Capacity (16-24) mL/dl ABG Potassium (3.6-5.2) mmol/L Hgb O2 Saturation (95.0-98.0) % Sodium (132-148) mmol/L Chloride (98-107) mmol/L Glucose (65-105) mg/dl Lactate (0.7-2.1) mmol/L FiO2 % Crit Value Called To Crit Value Called By Blood Gas Notified Time Potassium (3.6-5.0) mmol/L Carbon Dioxide (21-33) mmol/L Anion Gap (10-20) BUN (7-21) mg/dL Creatinine (0.7-1.2) mg/dl Est GFR ( Amer) Est GFR (Non-Af Amer) Random Glucose (70-110) mg/dL Calcium (8.4-10.5) mg/dL Total Bilirubin (0.2-1.3) mg/dL AST (14-36) U/L ALT (7-56) U/L Alkaline Phosphatase (38-126) U/L Total Protein (5.8-8.3) g/dL Albumin (3.0-4.8) g/dL Globulin gm/dL Albumin/Globulin Ratio (1.1-1.8) Procalcitonin 3.03 H (0.19-0.49) NG/ML Arterial Blood Potassium (3.6-5.2) mmol/L Urine Color (YELLOW) Urine Appearance (CLEAR) Urine pH (4.7-8.0) Ur Specific [place] (1.005-1.035) Urine Protein (<30 mg/dL) mg/dL Urine Glucose (UA) (NEGATIVE) mg/dL Urine Ketones (NEGATIVE) mg/dL Urine Blood (NEGATIVE) Urine Nitrate (NEGATIVE) Urine Bilirubin (NEGATIVE) Urine Urobilinogen (<1 E.U./dL) E.U./dL Ur Leukocyte Esterase (NEGATIVE) Oneil/uL Urine RBC (0-2) /hpf Urine WBC (0-6) /hpf Urine Bacteria (NONE) /hpf Ur L.pneumophila Ag (NEGATIVE) Blood Type A POSITIVE Antibody Screen Negative Crossmatch See Detail BBK History Checked Patient has bt Laboratory Results - last 24 hr 11/28/18 11/28/18 11/29/18 09:45 18:40 13:00 WBC 12.2 H D RBC 2.62 L Hgb 7.9 L Hct 23.0 L MCV 87.8 MCH 30.2 MCHC 34.3 RDW 15.6 H Plt Count 132 MPV 10.5 Neut % (Auto) 86.9 H Lymph % (Auto) 5.4 L [place] % (Auto) 7.6 H Eos % (Auto) 0.0 L Baso % (Auto) 0.1 Lymph # (Auto) 0.7 L [place] # (Auto) 0.9 H Eos # (Auto) 0.0 Baso # (Auto) 0.01 Absolute Neuts (auto) 10.64 H PT INR pCO2 pO2 HCO3 ABG pH ABG Total CO2 ABG O2 Saturation ABG O2 Content ABG Base Excess ABG Hemoglobin ABG Carboxyhemoglobin POC ABG HHb (Measured) ABG Methemoglobin ABG O2 Capacity ABG Potassium Hgb O2 Saturation Sodium Chloride Glucose Lactate FiO2 Crit Value Called To Crit Value Called By Blood Gas Notified Time Potassium Carbon Dioxide Anion Gap BUN Creatinine Est GFR ( Amer) Est GFR (Non-Af Amer) Random Glucose Calcium Total Bilirubin AST ALT Alkaline Phosphatase Total Protein Albumin Globulin Albumin/Globulin Ratio Procalcitonin 3.03 H Arterial Blood Potassium Urine Color Urine Appearance Urine pH Ur Specific [place] Urine Protein Urine Glucose (UA) Urine Ketones Urine Blood Urine Nitrate Urine Bilirubin Urine Urobilinogen Ur Leukocyte Esterase Urine RBC Urine WBC Urine Bacteria Ur L.pneumophila Ag Blood Type A POSITIVE Antibody Screen Negative Crossmatch See Detail BBK History Checked Patient has bt 11/29/18 11/29/18 11/29/18 14:10 17:08 17:08 WBC RBC Hgb Hct MCV MCH MCHC RDW Plt Count MPV Neut % (Auto) Lymph % (Auto) [place] % (Auto) Eos % (Auto) Baso % (Auto) Lymph # (Auto) [place] # (Auto) Eos # (Auto) Baso # (Auto) Absolute Neuts (auto) PT INR pCO2 25 L pO2 191.0 H HCO3 20.9 L ABG pH 7.53 H ABG Total CO2 21.7 L ABG O2 Saturation 98.7 H ABG O2 Content ABG Base Excess -0.3 ABG Hemoglobin ABG Carboxyhemoglobin POC ABG HHb (Measured) ABG Methemoglobin ABG O2 Capacity ABG Potassium 3.5 L Hgb O2 Saturation Sodium 142.0 Chloride 115.0 H Glucose 172 H Lactate 3.6 H FiO2 40.0 Crit Value Called To Crit Value Called By Alicja Blood Gas Notified Time 1418 Potassium Carbon Dioxide Anion Gap BUN Creatinine Est GFR ( Amer) Est GFR (Non-Af Amer) Random Glucose Calcium Total Bilirubin AST ALT Alkaline Phosphatase Total Protein Albumin Globulin Albumin/Globulin Ratio Procalcitonin Arterial Blood Potassium 3.5 L Urine Color Brown Urine Appearance Slight-cloudy Urine pH 5.5 Ur Specific [place] 1.025 Urine Protein 30 H Urine Glucose (UA) Negative Urine Ketones Negative Urine Blood Large H Urine Nitrate Positive H Urine Bilirubin Small H Urine Urobilinogen 2.0 H Ur Leukocyte Esterase Trace H Urine RBC Tntc H Urine WBC 5 - 10 H Urine Bacteria Many Ur L.pneumophila Ag Negative Blood Type Antibody Screen Crossmatch BBK History Checked 11/29/18 11/29/18 11/30/18 23:24 23:24 05:00 WBC 14.4 H RBC 3.47 L Hgb 10.2 L D Hct 29.7 L MCV 85.6 MCH 29.4 MCHC 34.3 RDW 15.1 H Plt Count 127 MPV 10.7 Neut % (Auto) 86.5 H Lymph % (Auto) 6.7 L [place] % (Auto) 6.7 H Eos % (Auto) 0.0 L Baso % (Auto) 0.1 Lymph # (Auto) 1.0 L [place] # (Auto) 1.0 H Eos # (Auto) 0.0 Baso # (Auto) 0.01 Absolute Neuts (auto) 12.49 H PT 20.7 H INR 1.86 pCO2 27 L pO2 163.0 H HCO3 19.7 L ABG pH 7.47 H ABG Total CO2 20.5 L ABG O2 Saturation 98.4 H ABG O2 Content 15.8 ABG Base Excess -2.9 L ABG Hemoglobin 11.5 L ABG Carboxyhemoglobin 1.0 POC ABG HHb (Measured) 1.6 ABG Methemoglobin 1.7 ABG O2 Capacity 16.1 ABG Potassium Hgb O2 Saturation 95.6 Sodium Chloride Glucose Lactate FiO2 40.0 Crit Value Called To Crit Value Called By Blood Gas Notified Time Potassium Carbon Dioxide Anion Gap BUN Creatinine Est GFR ( Amer) Est GFR (Non-Af Amer) Random Glucose Calcium Total Bilirubin AST ALT Alkaline Phosphatase Total Protein Albumin Globulin Albumin/Globulin Ratio Procalcitonin Arterial Blood Potassium Urine Color Urine Appearance Urine pH Ur Specific [place] Urine Protein Urine Glucose (UA) Urine Ketones Urine Blood Urine Nitrate Urine Bilirubin Urine Urobilinogen Ur Leukocyte Esterase Urine RBC Urine WBC Urine Bacteria Ur L.pneumophila Ag Blood Type Antibody Screen Crossmatch BBK History Checked 11/30/18 11/30/18 05:15 07:20 WBC 12.5 H RBC 3.15 L Hgb 9.5 L Hct 27.1 L MCV 86.0 MCH 30.2 MCHC 35.1 RDW 15.4 H Plt Count 125 MPV 11.0 Neut % (Auto) 82.4 H Lymph % (Auto) 9.6 L [place] % (Auto) 7.9 H Eos % (Auto) 0.0 L Baso % (Auto) 0.1 Lymph # (Auto) 1.2 [place] # (Auto) 1.0 H Eos # (Auto) 0.0 Baso # (Auto) 0.01 Absolute Neuts (auto) 10.28 H PT INR pCO2 pO2 HCO3 ABG pH ABG Total CO2 ABG O2 Saturation ABG O2 Content ABG Base Excess ABG Hemoglobin ABG Carboxyhemoglobin POC ABG HHb (Measured) ABG Methemoglobin ABG O2 Capacity ABG Potassium Hgb O2 Saturation Sodium 143 Chloride 115 H Glucose Lactate FiO2 Crit Value Called To Crit Value Called By Blood Gas Notified Time Potassium 4.1 Carbon Dioxide 23 Anion Gap 9 L BUN 36 H Creatinine 0.7 Est GFR ( Amer) > 60 Est GFR (Non-Af Amer) > 60 Random Glucose 141 H Calcium 7.6 L Total Bilirubin 1.4 H AST 37 H ALT 21 Alkaline Phosphatase 55 Total Protein 4.5 L Albumin 2.1 L Globulin 2.4 Albumin/Globulin Ratio 0.9 L Procalcitonin Arterial Blood Potassium Urine Color Urine Appearance Urine pH Ur Specific [place] Urine Protein Urine Glucose (UA) Urine Ketones Urine Blood Urine Nitrate Urine Bilirubin Urine Urobilinogen Ur Leukocyte Esterase Urine RBC Urine WBC Urine Bacteria Ur L.pneumophila Ag Blood Type Antibody Screen Crossmatch BBK History Checked Radiology Impressions: Radiology Impressions Abdomen/Pelvis CT 11/29/18 09:38 IMPRESSION: There is severe mural thickening in the descending colon consistent with colitis. There is also mural thickening in the rectum and moderate fecal impaction. Chest X-Ray 11/30/18 09:30 IMPRESSION: No active disease. Critical Care Progress Note - Nutrition Nutrition: Nutrition Category Date Time Status NPO Diet [DIET] Diets 11/28/18 Breakfast Ordered Assessment/Plan - Assessment and Plan (Free Text) Plan: Patient seen and examined on rounds with resident, agree with note with jose cruz chicas additions/exceptions: Patient is 83yo female with PMHx of DVT on Eliquis, PE, dementia, CHF, HTN admitted with shock 2/2 sepsis and GIB Currently afebrile, HD stable on Levophed 4mcg/min, Vasopressin, Stress dose steroids added Pt was given PRBC 1u yesterday, appropriate response Labs imaging, chart reviewed INR 1.8 GI following ID following On broad spectrum abx, positive UA, CXR without focal consolidation Blood cultures negative TLC R IJ in place Hemorrhagic Shock Septic Shock Hx of DVT on A/C Lactic Acidosis Coaguloapthy CHF, chronic compensated HTN Recommend: - cont with vent support, low tidal vol ventilation, duonebs, daily CPAP trial, ABG, CXR - Merrem for gram neg coverage, follow up ID - IVF, LR - DC D5W with bicarb - Vasopressor support, Levophed, Vasopressin, Stress dose steroids - FS control - Monitor LFTs - ECHO - PPI BID - NPO - possible EGD today as per GI - GI ppx - DVT ppx, SCDs - follow up palliative care - monitor in MICU Poor prognosis Critical care time 40 minutes
--- NOTE | 2018-11-30 13:27 | CP.PCM.PN ---
<Eduardo Galloway - Last Filed: 11/30/18 13:23> Subjective - Date & Time of Evaluation Date of Evaluation: 11/30/18 Time of Evaluation: 07:25 - Subjective Subjective: Eduardo Galloway D.O. PGY-3, Internal Medicine Resident, Infectious Disease Consultation Note 83-year-old female with a past medical history of osteoarthritis, deep vein thrombosis, dementia, CAD, heart failure, hypertension, who had a pulmonary embolism last month now on Eliquis who presents after being unresponsive in the senior care and found to have a GI bleed. Infectious disease consultation was requested for septic shock likely from a urinary source. Patient was seen and examined at bedside. Continues to be intubated. Does not appear uncomfortable. Objective - Vital Signs/Intake and Output Vital Signs (last 24 hours): Temp Pulse Resp BP Pulse Ox 99 F 58 L 20 119/54 L 98 11/30/18 03:55 11/30/18 11:00 11/30/18 03:11 11/30/18 09:40 11/30/18 03:11 Intake and Output: 11/30/18 11/30/18 06:59 18:59 Intake Total 450 265 Balance 450 265 - Medications Medications: Current Medications Hydrocortisone Sodium Succinate (Solu-Cortef) 50 mg IVP Q6H PEDRITO Last Admin: 11/30/18 08:46 Dose: 50 mg Pantoprazole Sodium (Protonix 40mg Ivpb) 40 mg in 100 mls @ 20 mls/hr IVPB .Q5H PEDRITO Last Admin: 11/30/18 10:57 Dose: 20 mls/hr Meropenem (Merrem Iv 1 Gm Premix) 1 gm in 50 mls @ 100 mls/hr IVPB Q12 PEDRITO; Protocol Last Admin: 11/30/18 09:08 Dose: 100 mls/hr Vasopressin 20 units/ Sodium (Chloride) 101 mls @ 9.09 mls/hr IV .Q11H7M PEDRITO; Protocol Last Admin: 11/30/18 09:40 Dose: 9.09 mls/hr Lactated Ringer's (Lactated Ringer's) 1,000 mls @ 50 mls/hr IV .Q20H PEDRITO Last Admin: 11/30/18 09:08 Dose: 50 mls/hr NOREPINEPHRINE BIT/0.9 % NACL (Levophed 4 Mg/ 250 Ml Ns Premixed) 4 mg in 250 mls @ 7.5 mls/hr IV .Q24H PRN; Protocol PRN Reason: TITRATE PER MD ORDER Last Titration: 11/30/18 10:22 Dose: 1 mcg/min, 3.75 mls/hr Timolol Maleate (Timoptic 0.25% Ophth Soln) 2 drop OU BID PEDRITO Last Admin: 11/30/18 09:09 Dose: 2 drop - Labs Labs: 11/30/18 07:20 11/30/18 05:15 PT 20.7 SECONDS (9.4-12.5) H 11/29/18 23:24 INR 1.86 11/29/18 23:24 APTT 26.0 Seconds (26.9-38.3) L 11/28/18 09:45 - Constitutional Appears: intubated, Chronically Ill - Eye Exam Eye Exam: EOMI, Normal appearance - ENT Exam ENT Exam: Mucous Membranes Moist, Intubated - Respiratory Exam Respiratory Exam: Clear to Auscultation Bilateral, no rhonchi or rales noted - Cardiovascular Exam Cardiovascular Exam: RRR, +S1, +S2 - GI/Abdominal Exam GI & Abdominal Exam: Normal Bowel Sounds, Soft. absent: Organomegaly, T enderness - Extremities Exam Extremities exam: Positive for: normal inspection. Negative for: pedal edema - Neurological Exam Neurological exam: awake, not alert, intubated - Skin Skin Exam: Dry, Pallor Assessment and Plan - Assessment and Plan (Free Text) Assessment: 83-year-old female with a past medical history of osteoarthritis, deep vein thrombosis, dementia, CAD, heart failure, hypertension, who had a pulmonary embolism last month now on Eliquis who presents after being unresponsive in the senior care and found to have a GI bleed. Infectious disease consultation was requested for septic shock likely from a urinary source. Plan: Severe Sepsis likely from urinary source GI bleed Colitis OA DVT and PE Dementia CAD HTN Heart failure Continue merrem day 3 Pro-calcitonin elevated Has been afebrile with downtrending leukocytosis Blood cultures are negative 2 out of 2 on day 2 C diff negative Legionella antigen negative Gastroenterology consultation by Dr. Woods was appreciated Discussed with ICU team We will follow with you Patient was seen and examined and case to be discussed with attending physician Thank you for the pleasure of participating in the care of this interesting patient <Eron Perez - Last Filed: 11/30/18 16:32> Objective - Vital Signs/Intake and Output Vital Signs (last 24 hours): Temp Pulse Resp BP Pulse Ox 99 F 58 L 20 119/54 L 98 11/30/18 03:55 11/30/18 11:00 11/30/18 03:11 11/30/18 09:40 11/30/18 03:11 Intake and Output: 11/30/18 11/30/18 06:59 18:59 Intake Total 450 265 Balance 450 265 - Medications Medications: Current Medications Hydrocortisone Sodium Succinate (Solu-Cortef) 50 mg IVP Q6H PEDRITO Last Admin: 11/30/18 14:29 Dose: 50 mg Pantoprazole Sodium (Protonix 40mg Ivpb) 40 mg in 100 mls @ 20 mls/hr IVPB .Q5H PEDRITO Last Admin: 11/30/18 10:57 Dose: 20 mls/hr Meropenem (Merrem Iv 1 Gm Premix) 1 gm in 50 mls @ 100 mls/hr IVPB Q12 PEDRITO; Protocol Last Admin: 11/30/18 09:08 Dose: 100 mls/hr Vasopressin 20 units/ Sodium (Chloride) 101 mls @ 9.09 mls/hr IV .Q11H7M PEDRITO; Protocol Last Admin: 11/30/18 09:40 Dose: 9.09 mls/hr Lactated Ringer's (Lactated Ringer's) 1,000 mls @ 50 mls/hr IV .Q20H PEDRITO Last Admin: 11/30/18 09:08 Dose: 50 mls/hr NOREPINEPHRINE BIT/0.9 % NACL (Levophed 4 Mg/ 250 Ml Ns Premixed) 4 mg in 250 mls @ 7.5 mls/hr IV .Q24H PRN; Protocol PRN Reason: TITRATE PER MD ORDER Last Titration: 11/30/18 10:22 Dose: 1 mcg/min, 3.75 mls/hr Linezolid (Zyvox 600mg/300ml D5w) 600 mg in 300 mls @ 200 mls/hr IVPB Q12 PEDRITO; Protocol Stop: 12/07/18 16:31 Timolol Maleate (Timoptic 0.25% Ophth Soln) 2 drop OU BID PEDRITO Last Admin: 11/30/18 09:09 Dose: 2 drop - Labs Labs: 11/30/18 07:20 11/30/18 05:15 PT 20.7 SECONDS (9.4-12.5) H 11/29/18 23:24 INR 1.86 11/29/18 23:24 APTT 26.0 Seconds (26.9-38.3) L 11/28/18 09:45 Attending/Attestation - Attestation I have personally seen and examined this patient.: Yes I have fully participated in the care of the patient.: Yes I have reviewed all pertinent clinical information, including history, physical exam and plan: Yes Notes (Text): 11/30/18 16:31 staph aureus in sputum add zyvox pending sensitivity
--- NOTE | 2018-11-30 13:49 | CP.PCM.PN ---
Subjective - Date & Time of Evaluation Date of Evaluation: 11/30/18 Time of Evaluation: 13:00 - Subjective Subjective: Intubated, responds to tactile stimuli. Objective - Vital Signs/Intake and Output Vital Signs (last 24 hours): Temp Pulse Resp BP Pulse Ox 99 F 58 L 20 119/54 L 98 11/30/18 03:55 11/30/18 11:00 11/30/18 03:11 11/30/18 09:40 11/30/18 03:11 Intake and Output: 11/30/18 11/30/18 06:59 18:59 Intake Total 450 265 Balance 450 265 - Medications Medications: Current Medications Hydrocortisone Sodium Succinate (Solu-Cortef) 50 mg IVP Q6H PEDRITO Last Admin: 11/30/18 08:46 Dose: 50 mg Pantoprazole Sodium (Protonix 40mg Ivpb) 40 mg in 100 mls @ 20 mls/hr IVPB .Q5H PEDRITO Last Admin: 11/30/18 10:57 Dose: 20 mls/hr Meropenem (Merrem Iv 1 Gm Premix) 1 gm in 50 mls @ 100 mls/hr IVPB Q12 PEDRITO; Protocol Last Admin: 11/30/18 09:08 Dose: 100 mls/hr Vasopressin 20 units/ Sodium (Chloride) 101 mls @ 9.09 mls/hr IV .Q11H7M PEDRITO; Protocol Last Admin: 11/30/18 09:40 Dose: 9.09 mls/hr Lactated Ringer's (Lactated Ringer's) 1,000 mls @ 50 mls/hr IV .Q20H PEDRITO Last Admin: 11/30/18 09:08 Dose: 50 mls/hr NOREPINEPHRINE BIT/0.9 % NACL (Levophed 4 Mg/ 250 Ml Ns Premixed) 4 mg in 250 mls @ 7.5 mls/hr IV .Q24H PRN; Protocol PRN Reason: TITRATE PER MD ORDER Last Titration: 11/30/18 10:22 Dose: 1 mcg/min, 3.75 mls/hr Timolol Maleate (Timoptic 0.25% Ophth Soln) 2 drop OU BID PEDRITO Last Admin: 11/30/18 09:09 Dose: 2 drop - Labs Labs: 11/30/18 07:20 11/30/18 05:15 PT 20.7 SECONDS (9.4-12.5) H 11/29/18 23:24 INR 1.86 11/29/18 23:24 APTT 26.0 Seconds (26.9-38.3) L 11/28/18 09:45 - Constitutional Appears: Chronically Ill - Eye Exam Eye Exam: Normal appearance, PERRL - ENT Exam ENT Exam: Normal Exam - Respiratory Exam Respiratory Exam: Decreased Breath Sounds - Cardiovascular Exam Cardiovascular Exam: Bradycardia, +S1, +S2 - GI/Abdominal Exam GI & Abdominal Exam: Soft, Normal Bowel Sounds - Exam Additional comments: oliguria - Extremities Exam Extremities Exam: Pedal Edema - Skin Skin Exam: Dry, Pallor Assessment and Plan - Assessment and Plan (Free Text) Assessment: 83 year old female with history of dementia, DVT,PE, peripheral edema, glaucoma who is admitted with sepsis,UTI, GI bleed,supratherapeutic INR, respiratory failure,hyperkalemia, JORGE LUIS, AMS. CT of abdomen showed severe mural thickening in the descending colon consistent with colitis. There is also mural thickening in the rectum and moderate fecal impaction POBeatrice Jacinto was updated of mothers medical condition by ICU team. He understands that her overall prognosis is poor. We revisited the terms of her advanced directive. I explained that she was dependent on ventilator and medications to maintain her breathing and blood pressure and if her heart were to fail this would be a strong indiction that her condition was irreversible. I reiterated that his mother did not want aggressive resuscitation under these conditions. Ramifications of CPR explained. Encouraged Jacinto to speak with his brother about honoring mother wishes for DNR. Son will let me know of his decision. We also briefly discussed the possibility that his mother may remain ventilator dependent. If this occurs, it was explained that additional goals of care discussion would follow. Psychosocial support provided. Time spent with family member in goals of care and advance care planning, 40 minutes Plan: Goals of care and advance care planning GI Bleed/anemia; GI recs reviewed, monitor CBC, Coags, FFP's, transfuse as needed. CT orf abdomen when stable ID res reviewed, Gilliam cultures pending> Continue Vancomycin, Doxycycline, Merrem. Continue vasporessors, sodium bicarb Vent support, Maintain 02 sats >95%
--- NOTE | 2018-11-30 14:48 | PN ---
DATE: 11/30/2018 SUBJECTIVE: The patient was seen and examined. I do agree with the note of the medical records receptionist. I was involved in the plan of care. The patient is clinically improving. She does not need any kind of endoscopy currently. I did speak to Dr. Valadez regarding the case. The patient has a colitis and this may have triggered her sepsis as well as the GI bleed. The patient may need a vena cava filter. The patient is currently on IV fluids with bicarb. I will discontinue the patient's bicarb at this point. The patient is currently a full code. She is going to be continued on her steroids. She is on meropenem. I will start to decrease her steroid usage. The patient is going to remain in the ICU. She is going to be weaned. The patient is currently on lactated Ringer's, this will be continued. She does have urine output about 500 mL. I am not sure how accurate this is from the last 24 hours. The patient is getting an echo. We will continue to follow her white cell count. Her hemoglobin is improving. Dave Gray MD
[2018-11-30] MEDS: Linezolid 600 mg in D5W 300 ml 600 MG/300 ML BAG IVPB SCH (16:57)
[2018-11-30 17:32] LABS: BASO # 0.01 K/mm3 (0.0-2.0); BASO % 0.1 % (0.0-3.0); HEMOGLOBIN 8.9 g/dL (12.0-16.0); LYMPH # 1.2 (1.2-3.4); LYMPH % 9.4 % (22.0-35.0); MEAN CORPUSCULAR HEMOGLOBIN 29.6 pg (25.0-35.0); MEAN PLATELET VOLUME 10.3 fl (7.0-11.0); MONO # 0.9 (0.1-0.6); MONO % 6.9 % (1.0-6.0); RBC 3.01 10^6/uL (3.5-6.1); RED CELL DISTRIBUTION WIDTH 15.6 % (11.5-14.5); WHITE BLOOD COUNT 12.7 10^3/uL (4.5-11.0)
[2018-12-01] MEDS: Pantoprazole 40mg/100mL NS 40 MG/100 ML BAG IVPB SCH (03:57)
[2018-12-01 05:35] LABS: ARTERIAL BLOOD GAS HCO3 20.4 mmol/L (21-28); ARTERIAL BLOOD GAS HEMOGLOBIN 9.1 g/dL (11.7-17.4); ARTERIAL BLOOD GAS O2 CAPACITY 12.7 mL/dl (16-24); ARTERIAL BLOOD GAS O2 CONTENT 12.5 ML/dl (15-23); ARTERIAL BLOOD GAS O2 SAT 98.4 % (95-98); ARTERIAL BLOOD GAS PCO2 28 mm/Hg (35-45); ARTERIAL BLOOD GAS PH 7.47 (7.35-7.45); ARTERIAL BLOOD GAS TCO2 21.3 mmol.L (22-28)
[2018-12-01 06:35] LABS: BASO # 0.02 K/mm3 (0.0-2.0); BASO % 0.1 % (0.0-3.0); HEMOGLOBIN 9.5 g/dL (12.0-16.0); LYMPH # 1.3 (1.2-3.4); LYMPH % 9.2 % (22.0-35.0); MEAN CELL VOLUME 88.5 fl (80.0-105.0); MEAN CORPUSCULAR HEMOGLOBIN 29.5 pg (25.0-35.0); MEAN CORPUSCULAR HGB CONC 33.3 g/dl (31.0-37.0); MEAN PLATELET VOLUME 10.9 fl (7.0-11.0); MONO # 0.8 (0.1-0.6); MONO % 6.2 % (1.0-6.0); RBC 3.22 10^6/uL (3.5-6.1); RED CELL DISTRIBUTION WIDTH 15.7 % (11.5-14.5); WHITE BLOOD COUNT 13.6 10^3/uL (4.5-11.0)
[2018-12-01 07:02] LABS: ALB/GLOB RATIO 0.8 (1.1-1.8); ALBUMIN 2.1 g/dL (3.0-4.8); ALT/SGPT 25 U/L (7-56); AST/SGOT 50 U/L (14-36); BLOOD UREA NITROGEN 39 mg/dL (7-21); CALCIUM 7.7 mg/dL (8.4-10.5); GFR NON-AFRICAN AMERICAN > 60
--- NOTE | 2018-12-01 07:22 | CP.PCM.PN ---
<Al Woods - Last Filed: 12/01/18 08:53> Subjective - Date & Time of Evaluation Date of Evaluation: 12/01/18 Time of Evaluation: :22 - Subjective Subjective: Al Woods PGY2 GI Progress Note for Dr. Valadez Patient was seen and examined at bedside in ICU. There were no acute overnight events. Patient remains afebrile, remains on 2 vasopressors (but decreasing doses) and off sedation. Abdomen is less firm than on presentation but remains distended. Remains intubated on vent. Sputum culture is positive for staph and Zyvox was added. Notes, labs were reviewed. Ditetician recs were noted. Objective - Vital Signs/Intake and Output Vital Signs (last 24 hours): Temp Pulse Resp BP Pulse Ox 98.5 F 59 L 20 112/57 L 95 12/01/18 06:00 12/01/18 06:30 11/30/18 16:00 12/01/18 07:01 12/01/18 06:30 Intake and Output: 12/01/18 12/01/18 06:59 18:59 Intake Total 2380 Output Total 150 Balance 2230 - Medications Medications: Current Medications Hydrocortisone Sodium Succinate (Solu-Cortef) 50 mg IVP Q6H PEDRITO Last Admin: 12/01/18 04:00 Dose: 50 mg Pantoprazole Sodium (Protonix 40mg Ivpb) 40 mg in 100 mls @ 20 mls/hr IVPB .Q5H PEDRITO Last Admin: 12/01/18 03:57 Dose: 20 mls/hr Meropenem (Merrem Iv 1 Gm Premix) 1 gm in 50 mls @ 100 mls/hr IVPB Q12 PEDRITO; Protocol Last Admin: 11/30/18 21:05 Dose: 100 mls/hr Vasopressin 20 units/ Sodium (Chloride) 101 mls @ 9.09 mls/hr IV .Q11H7M PEDRITO; Protocol Last Admin: 12/01/18 07:01 Dose: 9.09 mls/hr Lactated Ringer's (Lactated Ringer's) 1,000 mls @ 50 mls/hr IV .Q20H PEDRITO Last Admin: 11/30/18 09:08 Dose: 50 mls/hr NOREPINEPHRINE BIT/0.9 % NACL (Levophed 4 Mg/ 250 Ml Ns Premixed) 4 mg in 250 mls @ 7.5 mls/hr IV .Q24H PRN; Protocol PRN Reason: TITRATE PER MD ORDER Last Admin: 11/30/18 20:25 Dose: 2 mcg/min, 7.5 mls/hr Linezolid (Zyvox 600mg/300ml D5w) 600 mg in 300 mls @ 200 mls/hr IVPB Q12 PEDRITO; Protocol Stop: 12/07/18 16:31 Last Admin: 11/30/18 16:57 Dose: 200 mls/hr Timolol Maleate (Timoptic 0.25% Ophth Soln) 2 drop OU BID PEDRITO Last Admin: 11/30/18 18:25 Dose: 2 drop - Labs Labs: 12/01/18 06:15 12/01/18 06:15 PT 20.7 SECONDS (9.4-12.5) H 11/29/18 23:24 INR 1.86 11/29/18 23:24 APTT 26.0 Seconds (26.9-38.3) L 11/28/18 09:45 - Constitutional Appears: No Acute Distress, Chronically Ill - Head Exam Head Exam: ATRAUMATIC, NORMAL INSPECTION - Eye Exam Eye Exam: Normal appearance - ENT Exam Additional comments: ETT/OGT in place - Neck Exam Neck Exam: Normal Inspection. absent: Thyromegaly - Respiratory Exam Respiratory Exam: absent: Rales, Wheezes, Respiratory Distress Additional comments: on vent - Cardiovascular Exam Cardiovascular Exam: Tachycardia, +S1, +S2 - GI/Abdominal Exam GI & Abdominal Exam: Distended, Firm, Guarding, Hypoactive Bowel Sounds - Rectal Exam Rectal Exam: Black Stool (soft), Hemorrhoids (internal/external) - Exam Additional comments: porras in place, dark maroon urine - Extremities Exam Extremities Exam: Normal Inspection. absent: Pedal Edema - Back Exam Back Exam: rash noted (sacral (perianal) stage 1 decubitus ) - Neurological Exam Neurological Exam: Altered (off sedation). absent: Awake - Skin Skin Exam: Pallor Additional comments: sacral exam as above Assessment and Plan - Assessment and Plan (Free Text) Assessment: 83 year old female with a PMH of DVT/PE on Eliquis admitted from [facility] for melena. Patient intubated in ED for agonal breathing. Due to melena and hematuria, Kcentra, vit K, 2u FFP and 2u pRBCs were transfused upon admission to reverse anticoagulant effect. Patient is now in ICU on vasopressors required to maintain perfusion. Her stools have become less frequent and more formed. CT reviewed showing colitis, patient is on abx. Patient does need EGD to evaluate and treat possible upper GI bleed, however, patient's prognosis is poor and family is still deciding on advanced directives. At this time, risk of procedure outweighs benefits given decreased degree of bleeding and current medical condition. Plan: - INR reviewed and has trended down after FFP -- no plans for endoscopy at this time; should bleeding worsen again, decision will be revisited - remains on PTX gtt for GI bleed - monitor H/H - maintain Hgb > 7 - LR for IVF - Abx per ID - further management per ICU team - further recs per Dr. Valadez - would continue NPO At this time to avoid aggravation in case of presence of ulcer This note is not finalized until signed Case was reviewed and discussed with Dr. Valadez <Rhiannon Valadez V - Last Filed: 12/01/18 21:36> Objective - Vital Signs/Intake and Output Vital Signs (last 24 hours): Temp Pulse Resp BP Pulse Ox 98.9 F 85 20 95/53 L 100 12/01/18 16:00 12/01/18 15:43 12/01/18 15:43 12/01/18 15:00 12/01/18 16:00 Intake and Output: 12/01/18 12/02/18 18:59 06:59 Intake Total 510 Output Total 200 Balance 310 - Medications Medications: Current Medications Hydrocortisone Sodium Succinate (Solu-Cortef) 25 mg IVP Q12 PEDRITO Last Admin: 12/01/18 09:58 Dose: 25 mg Meropenem (Merrem Iv 1 Gm Premix) 1 gm in 50 mls @ 100 mls/hr IVPB Q12 PEDRITO; Protocol Last Admin: 12/01/18 09:52 Dose: 100 mls/hr Lactated Ringer's (Lactated Ringer's) 1,000 mls @ 50 mls/hr IV .Q20H PEDRITO Last Admin: 12/01/18 09:00 Dose: 50 mls/hr Linezolid (Zyvox 600mg/300ml D5w) 600 mg in 300 mls @ 200 mls/hr IVPB Q12 PEDRITO; Protocol Stop: 12/07/18 16:31 Last Admin: 12/01/18 09:56 Dose: 200 mls/hr Pantoprazole Sodium (Protonix Inj) 40 mg IVP Q12 PEDRITO Last Admin: 12/01/18 09:51 Dose: 40 mg Timolol Maleate (Timoptic 0.25% Ophth Soln) 2 drop OU BID PEDRITO Last Admin: 12/01/18 18:04 Dose: 2 drop - Labs Labs: 12/01/18 06:15 12/01/18 06:15 PT 20.7 SECONDS (9.4-12.5) H 11/29/18 23:24 INR 1.86 11/29/18 23:24 APTT 26.0 Seconds (26.9-38.3) L 11/28/18 09:45 Attending/Attestation - Attestation I have personally seen and examined this patient.: Yes I have fully participated in the care of the patient.: Yes I have reviewed all pertinent clinical information, including history, physical exam and plan: Yes Notes (Text): The patient was seen and evaluated earlier. This is an addendum to the GI progress report dictated by the medical dermatologist. Patient is presently DNR/DNI. Dr. Gray's note was reviewed. Palliative care note reviewed Overall prognosis prognosis is poor for this patient Supportive care 12/01/18 21:34
--- NOTE | 2018-12-01 07:57 | CP.PCM.PN ---
<Ochoa Klein - Last Filed: 12/01/18 11:37> Subjective - Date & Time of Evaluation Date of Evaluation: 12/01/18 Time of Evaluation: 08:00 - Subjective Subjective: Ochoa Klein- Internal Medicine Resident- Progress Note Behalf of Dr. Gray Subjective: Patient seen and examined at bedside. No acute events overnight. Precedex was discontinued however further subjective data cannot be ascertained at this time due to AMS. 12 Point ROS cannot be ascertained at this time Physical Examination: - Constitutional Appears: Intubated, no acute distress - Head Exam Head Exam: ATRAUMATIC, NORMOCEPHALIC - Eye Exam Eye Exam: PERRL - ENT Exam ENT Exam: Mucous Membranes Dry, ETT and OGT present - Respiratory Exam Respiratory Exam: Intubated, right lower lobe crackles - Cardiovascular Exam Cardiovascular Exam: +S1, +S2. absent: Systolic Murmur - GI/Abdominal Exam GI & Abdominal Exam: Distended, Firm - Exam Additional comments: porras in place - Neurological Exam Neurological exam: awake, responds to verbal stimuli, follows commands- blinks eyes when asked to perform task, unable to nod/shake head to answer questions appropriately - Skin Skin Exam: sacral stage 1 decubitus Assessment and Plan: AMS Severe sepsis secondary to UTI Hemorrhagic shock 2/2 GI Bleed Diarrhea- improved Normocytic anemia Supratherapeutic INR- improved s/p 1 kcentra, 2 FFP, and vitamin K Hyperkalemia- resolved Stage 1 Sacral Ulcer Dementia 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 She was given vancomycin 1 gram IV x 1, azetreonam 2 grams IV x 1 , vitamin K 10mg x 1, protonix 80mg IV x 1, and stated on a protonix drip at 20mls/hr. Ventilator management as per ICU. Continue daily weaning trials. GI is consulted- appreciate recommendations- CT abdomen and pelvis without PO or IV contrast showed severe colitis in descending colon and moderate fecal impaction. Continue protonix drip and transfuse pRBCs with Hgb <7 as needed. No plan for scope at this time. Keep NPO. Continue on LR @50cc/hr for maintenance IVF. Continue weaning levophed, vasopressin and continue stress dose steroids, and meropenem 1gram IV q12 for septic shock. Zyvox added by ID due to staph aureus in the sputum. Infectious disease consulted- appreciate recommendations. Blood cultures are negative 2 out of 2 on day 2. Legionella antigen negative. C. difficile antigen negative. Pro-calcitonin elevated. Hold home aspirin, eliquis, and metoprolol. Plant Sprayer recommended continuing to monitor H/H and coags. States that novoseven can be tried if bleeding continues. Continue LR @50cc/hr for maintenance IVF. Palliative care consulted- appreciate recommendations. Continue ICU level of care. Patient case reviewed with and plan approved by attending physician, Dr. Gray. Objective - Vital Signs/Intake and Output Vital Signs (last 24 hours): Temp Pulse Resp BP Pulse Ox 98.5 F 59 L 16 112/57 L 95 12/01/18 06:00 12/01/18 06:30 12/01/18 07:38 12/01/18 07:01 12/01/18 07:38 Intake and Output: 12/01/18 12/01/18 06:59 18:59 Intake Total 2380 Output Total 150 Balance 2230 - Medications Medications: Current Medications Hydrocortisone Sodium Succinate (Solu-Cortef) 50 mg IVP Q6H PEDRITO Last Admin: 12/01/18 04:00 Dose: 50 mg Pantoprazole Sodium (Protonix 40mg Ivpb) 40 mg in 100 mls @ 20 mls/hr IVPB .Q5H PEDRITO Last Admin: 12/01/18 03:57 Dose: 20 mls/hr Meropenem (Merrem Iv 1 Gm Premix) 1 gm in 50 mls @ 100 mls/hr IVPB Q12 PEDRITO; Protocol Last Admin: 11/30/18 21:05 Dose: 100 mls/hr Vasopressin 20 units/ Sodium (Chloride) 101 mls @ 9.09 mls/hr IV .Q11H7M PEDRITO; P rotocol Last Admin: 12/01/18 07:01 Dose: 9.09 mls/hr Lactated Ringer's (Lactated Ringer's) 1,000 mls @ 50 mls/hr IV .Q20H PEDRITO Last Admin: 11/30/18 09:08 Dose: 50 mls/hr NOREPINEPHRINE BIT/0.9 % NACL (Levophed 4 Mg/ 250 Ml Ns Premixed) 4 mg in 250 mls @ 7.5 mls/hr IV .Q24H PRN; Protocol PRN Reason: TITRATE PER MD ORDER Last Admin: 11/30/18 20:25 Dose: 2 mcg/min, 7.5 mls/hr Linezolid (Zyvox 600mg/300ml D5w) 600 mg in 300 mls @ 200 mls/hr IVPB Q12 PEDRITO; Protocol Stop: 12/07/18 16:31 Last Admin: 11/30/18 16:57 Dose: 200 mls/hr Timolol Maleate (Timoptic 0.25% Ophth Soln) 2 drop OU BID PEDRITO Last Admin: 11/30/18 18:25 Dose: 2 drop - Labs Labs: 12/01/18 06:15 12/01/18 06:15 PT 20.7 SECONDS (9.4-12.5) H 11/29/18 23:24 INR 1.86 11/29/18 23:24 APTT 26.0 Seconds (26.9-38.3) L 11/28/18 09:45 <Dave Gray S - Last Filed: 12/01/18 12:07> Subjective - Subjective Subjective: Pt seen and examined by me. I have reviewed the note of the medical reception specialist and I agree with it. I have discussed the assessment and plan with the resident. I have reviewed the medications and the last labs. Objective - Vital Signs/Intake and Output Vital Signs (last 24 hours): Temp Pulse Resp BP Pulse Ox 97.7 F 74 19 95/52 L 91 L 12/01/18 08:00 12/01/18 11:59 12/01/18 11:59 12/01/18 12:00 12/01/18 08:10 Intake and Output: 12/01/18 12/01/18 06:59 18:59 Intake Total 2380 10 Output Total 150 Balance 2230 10 - Medications Medications: Current Medications Hydrocortisone Sodium Succinate (Solu-Cortef) 25 mg IVP Q12 PEDRITO Last Admin: 12/01/18 09:58 Dose: 25 mg Meropenem (Merrem Iv 1 Gm Premix) 1 gm in 50 mls @ 100 mls/hr IVPB Q12 PEDRITO; Protocol Last Admin: 12/01/18 09:52 Dose: 100 mls/hr Vasopressin 20 units/ Sodium (Chloride) 101 mls @ 9.09 mls/hr IV .Q11H7M PEDRITO; Protocol Last Admin: 12/01/18 07:01 Dose: 9.09 mls/hr Lactated Ringer's (Lactated Ringer's) 1,000 mls @ 50 mls/hr IV .Q20H PEDRITO Last Admin: 11/30/18 09:08 Dose: 50 mls/hr NOREPINEPHRINE BIT/0.9 % NACL (Levophed 4 Mg/ 250 Ml Ns Premixed) 4 mg in 250 mls @ 7.5 mls/hr IV .Q24H PRN; Protocol PRN Reason: TITRATE PER MD ORDER Last Titration: 12/01/18 08:30 Dose: 0 mcg/min, 0 mls/hr Linezolid (Zyvox 600mg/300ml D5w) 600 mg in 300 mls @ 200 mls/hr IVPB Q12 PEDRITO; Protocol Stop: 12/07/18 16:31 Last Admin: 12/01/18 09:56 Dose: 200 mls/hr Pantoprazole Sodium (Protonix Inj) 40 mg IVP Q12 PEDRITO Last Admin: 12/01/18 09:51 Dose: 40 mg Timolol Maleate (Timoptic 0.25% Oph Soln) 2 drop OU BID PEDRITO Last Admin: 12/01/18 10:33 Dose: 2 drop - Labs Labs: 12/01/18 06:15 12/01/18 06:15 PT 20.7 SECONDS (9.4-12.5) H 11/29/18 23:24 INR 1.86 11/29/18 23:24 APTT 26.0 Seconds (26.9-38.3) L 11/28/18 09:45
[2018-12-01] MEDS: Lactated Ringer's 1,000 ML IV SCH (09:00)
--- NOTE | 2018-12-01 09:23 | RAD ---
Date of service: 12/01/2018 HISTORY: ET tube evaluation COMPARISON: 11/30/2018 FINDINGS: LUNGS: No active pulmonary disease. PLEURA: No significant pleural effusion identified, no pneumothorax apparent. CARDIOVASCULAR: No aortic atherosclerotic calcification present. Normal cardiac size. No pulmonary vascular congestion. OSSEOUS STRUCTURES: No significant abnormalities. VISUALIZED UPPER ABDOMEN: Normal. OTHER FINDINGS: Central lines and tubes are unchanged IMPRESSION: No active disease.
[2018-12-01] MEDS: Meropenem IV 1 gm in NS 1 GM/50 ML BAG IVPB SCH ×2 (09:52→23:10)
[2018-12-01] MEDS: Linezolid 600 mg in D5W 300 ml 600 MG/300 ML BAG IVPB SCH ×2 (09:56→23:10)
[2018-12-01] MEDS: Timolol 0.25% Ophth SOLN OU SCH ×2 (10:33→18:04)
--- NOTE | 2018-12-01 10:38 | CP.CCUPN ---
<Adam Darden - Last Filed: 12/01/18 10:50> CCU Subjective - Physician Review Events Since Last Encounter (Free Text): 12/01/18 10:34 no acute events overnight Subjective (Free Text): 11/29/18 11:26 Pt seen and examined this morning in the ICU, pt is intubated but not sedated 11/30/18 10:52 pt seen and examined this morning. Pt intubated 12/01/18 10:35 seen and examined in ICU CCU Objective - Vital Signs / Intake & Output Vital Signs (Last 4 hours): Vital Signs Temp Pulse Resp BP Pulse Ox 12/01/18 09:54 17 12/01/18 08:47 78 12/01/18 08:46 77 12/01/18 08:45 76 12/01/18 08:44 76 12/01/18 08:43 74 12/01/18 08:42 76 12/01/18 08:41 76 12/01/18 08:40 76 12/01/18 08:39 75 12/01/18 08:38 74 12/01/18 08:37 76 12/01/18 08:36 72 12/01/18 08:35 74 12/01/18 08:34 74 12/01/18 08:33 72 12/01/18 08:32 75 12/01/18 08:31 73 12/01/18 08:30 88/43 L 12/01/18 08:29 74 12/01/18 08:28 71 12/01/18 08:27 71 12/01/18 08:26 72 12/01/18 08:25 75 12/01/18 08:24 73 12/01/18 08:23 74 12/01/18 08:22 72 12/01/18 08:21 74 12/01/18 08:20 78 12/01/18 08:10 76 91 L 12/01/18 08:00 97.7 F 74 96/50 L 90 L 12/01/18 07:50 68 94 L 12/01/18 07:40 69 94 L 12/01/18 07:38 16 95 12/01/18 07:30 57 L 111/52 L 94 L 12/01/18 07:20 61 95 12/01/18 07:10 61 95 12/01/18 07:01 112/57 L 12/01/18 07:00 64 112/57 L 94 L 12/01/18 06:50 65 94 L 12/01/18 06:40 63 95 Intake and Output (Last 8hrs): Intake & Output 11/30/18 12/01/18 12/01/18 22:59 06:59 14:59 Intake Total 1241 2343 Output Total 225 150 Balance 1016 2193 Intake: IV 1241 2343 Internal Jugular 1204 1204 LR 600 abx 100 levo 90 protonix 240 vaso 109 Oral 0 Output: Urine 225 150 Urethral (Khanna) 225 150 Other: # Bowel Movements 2 3 - Physical Exam Head: Positive for: Atraumatic, Normocephalic Pupils: Positive for: PERRL Extroacular Muscles: Positive for: EOMI Conjunctiva: Positive for: Normal Mouth: Positive for: Moist Mucous Membranes Respiratory/Chest: Positive for: Clear to Auscultation, Other (Coarse breath sounds). Negative for: Respiratory Distress Cardiovascular: Positive for: Irregular Rhythm. Negative for: Murmurs Abdomen: Negative for: Distention, Rebound, Guarding Rectal: Positive for: Melena Upper Extremity: Negative for: Cyanosis, Edema Lower Extremity: Positive for: Edema (2+ pedal edema bilaterally) Neurological: Positive for: Other (Opened eyes to pain). Negative for: GCS=15, Speech Normal Skin: Positive for: Warm, Dry. Negative for: Rashes Psychiatric: Negative for: Alert, Oriented x 3, Normal Insight - Medications Active Medications: Active Medications Generic Name Dose Route Start Last Admin Trade Name Freq PRN Reason Stop Dose Admin Hydrocortisone Sodium Succinate 25 mg 12/01/18 10:00 12/01/18 09:58 Solu-Cortef IVP 25 mg Q12 PEDRITO Administration Meropenem 1 gm in 50 mls @ 100 mls/hr 11/28/18 22:00 12/01/18 09:52 Merrem Iv 1 Gm Premix IVPB 100 mls/hr Q12 PEDRITO Administration Protocol Vasopressin 20 units/ Sodium 101 mls @ 9.09 mls/hr 11/29/18 08:30 12/01/18 07:01 Chloride IV 9.09 mls/hr .Q11H7M PEDRITO Administration Protocol 0.03 U/MIN Lactated Ringer's 1,000 mls @ 50 mls/hr 11/30/18 09:00 11/30/18 09:08 Lactated Ringer's IV 50 mls/hr .Q20H PEDRITO Administration NOREPINEPHRINE BIT/0.9 % NACL 4 mg in 250 mls @ 7.5 mls/hr 11/30/18 09:34 11/30/18 20:25 Levophed 4 Mg/ 250 Ml Ns Premixed IV 2 mcg/min .Q24H PRN 7.5 mls/hr TITRATE PER MD ORDER Administration Protocol 2 MCG/MIN Linezolid 600 mg in 300 mls @ 200 mls/hr 11/30/18 16:30 12/01/18 09:56 Zyvox 600mg/300ml D5w IVPB 12/07/18 16:31 200 mls/hr Q12 PEDRITO Administration Protocol Pantoprazole Sodium 40 mg 12/01/18 10:00 12/01/18 09:51 Protonix Inj IVP 40 mg Q12 PEDRITO Administration Timolol Maleate 2 drop 11/29/18 10:45 11/30/18 18:25 Timoptic 0.25% Ophth Soln OU 2 drop BID PEDRITO Administration - Patient Studies Lab Studies: Microbiology Studies 11/28/18 09:45 Blood Culture - Preliminary Blood NO GROWTH AFTER 3 DAYS 11/29/18 08:00 Gram Stain - Final Sputum Induced Sputum Culture - Final Staphylococcus Aureus 11/28/18 10:15 Blood Culture - Preliminary Blood NO GROWTH AFTER 48 HOURS Lab Studies 12/01/18 12/01/18 12/01/18 Range/Units 06:15 06:15 05:15 WBC 13.6 H (4.5-11.0) 10^3/uL RBC 3.22 L (3.5-6.1) 10^6/uL Hgb 9.5 L (12.0-16.0) g/dL Hct 28.5 L (36.0-48.0) % MCV 88.5 (80.0-105.0) fl MCH 29.5 (25.0-35.0) pg MCHC 33.3 (31.0-37.0) g/dl RDW 15.7 H (11.5-14.5) % Plt Count 118 L (120.0-450.0) 10^3/uL MPV 10.9 (7.0-11.0) fl Neut % (Auto) 84.5 H (50.0-68.0) % Lymph % (Auto) 9.2 L (22.0-35.0) % Gaines % (Auto) 6.2 H (1.0-6.0) % Eos % (Auto) 0.0 L (1.5-5.0) % Baso % (Auto) 0.1 (0.0-3.0) % Lymph # (Auto) 1.3 (1.2-3.4) Gaines # (Auto) 0.8 H (0.1-0.6) Eos # (Auto) 0.0 (0.0-0.7) Baso # (Auto) 0.02 (0.0-2.0) K/mm3 Absolute Neuts (auto) 11.47 H (1.4-6.5) pCO2 28 L (35-45) mm/Hg pO2 124.0 H (80-100) mm/Hg HCO3 20.4 L (21-28) mmol/L ABG pH 7.47 H (7.35-7.45) ABG Total CO2 21.3 L (22-28) mmol.L ABG O2 Saturation 98.4 H (95-98) % ABG O2 Content 12.5 L (15-23) ML/dl ABG Base Excess -2.6 L (-2.0-3.0) mmol/L ABG Hemoglobin 9.1 L (11.7-17.4) g/dL ABG Carboxyhemoglobin 1.1 (0.5-1.5) % POC ABG HHb (Measured) 1.6 (0-5) % ABG Methemoglobin 1.5 (0.0-3.0) % ABG O2 Capacity 12.7 L (16-24) mL/dl Hgb O2 Saturation 95.9 (95.0-98.0) % FiO2 35.0 % Sodium 144 (132-148) mmol/L Potassium 3.9 (3.6-5.0) mmol/L Chloride 116 H (98-107) mmol/L Carbon Dioxide 22 (21-33) mmol/L Anion Gap 10 (10-20) BUN 39 H (7-21) mg/dL Creatinine 0.7 (0.7-1.2) mg/dl Est GFR ( Amer) > 60 Est GFR (Non-Af Amer) > 60 Random Glucose 130 H (70-110) mg/dL Calcium 7.7 L (8.4-10.5) mg/dL Total Bilirubin 1.0 (0.2-1.3) mg/dL AST 50 H D (14-36) U/L ALT 25 (7-56) U/L Alkaline Phosphatase 59 (38-126) U/L Total Protein 4.6 L (5.8-8.3) g/dL Albumin 2.1 L (3.0-4.8) g/dL Globulin 2.5 gm/dL Albumin/Globulin Ratio 0.8 L (1.1-1.8) 11/30/18 Range/Units 17:20 WBC 12.7 H (4.5-11.0) 10^3/uL RBC 3.01 L (3.5-6.1) 10^6/uL Hgb 8.9 L (12.0-16.0) g/dL Hct 26.2 L (36.0-48.0) % MCV 87.0 (80.0-105.0) fl MCH 29.6 (25.0-35.0) pg MCHC 34.0 (31.0-37.0) g/dl RDW 15.6 H (11.5-14.5) % Plt Count 109 L (120.0-450.0) 10^3/uL MPV 10.3 (7.0-11.0) fl Neut % (Auto) 83.6 H (50.0-68.0) % Lymph % (Auto) 9.4 L (22.0-35.0) % Gaines % (Auto) 6.9 H (1.0-6.0) % Eos % (Auto) 0.0 L (1.5-5.0) % Baso % (Auto) 0.1 (0.0-3.0) % Lymph # (Auto) 1.2 (1.2-3.4) Gaines # (Auto) 0.9 H (0.1-0.6) Eos # (Auto) 0.0 (0.0-0.7) Baso # (Auto) 0.01 (0.0-2.0) K/mm3 Absolute Neuts (auto) 10.58 H (1.4-6.5) pCO2 (35-45) mm/Hg pO2 (80-100) mm/Hg HCO3 (21-28) mmol/L ABG pH (7.35-7.45) ABG Total CO2 (22-28) mmol.L ABG O2 Saturation (95-98) % ABG O2 Content (15-23) ML/dl ABG Base Excess (-2.0-3.0) mmol/L ABG Hemoglobin (11.7-17.4) g/dL ABG Carboxyhemoglobin (0.5-1.5) % POC ABG HHb (Measured) (0-5) % ABG Methemoglobin (0.0-3.0) % ABG O2 Capacity (16-24) mL/dl Hgb O2 Saturation (95.0-98.0) % FiO2 % Sodium (132-148) mmol/L Potassium (3.6-5.0) mmol/L Chloride (98-107) mmol/L Carbon Dioxide (21-33) mmol/L Anion Gap (10-20) BUN (7-21) mg/dL Creatinine (0.7-1.2) mg/dl Est GFR ( Amer) Est GFR (Non-Af Amer) Random Glucose (70-110) mg/dL Calcium (8.4-10.5) mg/dL Total Bilirubin (0.2-1.3) mg/dL AST (14-36) U/L ALT (7-56) U/L Alkaline Phosphatase (38-126) U/L Total Protein (5.8-8.3) g/dL Albumin (3.0-4.8) g/dL Globulin gm/dL Albumin/Globulin Ratio (1.1-1.8) Laboratory Results - last 24 hr 11/30/18 12/01/18 12/01/18 17:20 05:15 06:15 WBC 12.7 H RBC 3.01 L Hgb 8.9 L Hct 26.2 L MCV 87.0 MCH 29.6 MCHC 34.0 RDW 15.6 H Plt Count 109 L MPV 10.3 Neut % (Auto) 83.6 H Lymph % (Auto) 9.4 L Gaines % (Auto) 6.9 H Eos % (Auto) 0.0 L Baso % (Auto) 0.1 Lymph # (Auto) 1.2 Gaines # (Auto) 0.9 H Eos # (Auto) 0.0 Baso # (Auto) 0.01 Absolute Neuts (auto) 10.58 H pCO2 28 L pO2 124.0 H HCO3 20.4 L ABG pH 7.47 H ABG Total CO2 21.3 L ABG O2 Saturation 98.4 H ABG O2 Content 12.5 L ABG Base Excess -2.6 L ABG Hemoglobin 9.1 L ABG Carboxyhemoglobin 1.1 POC ABG HHb (Measured) 1.6 ABG Methemoglobin 1.5 ABG O2 Capacity 12.7 L Hgb O2 Saturation 95.9 FiO2 35.0 Sodium 144 Potassium 3.9 Chloride 116 H Carbon Dioxide 22 Anion Gap 10 BUN 39 H Creatinine 0.7 Est GFR ( Amer) > 60 Est GFR (Non-Af Amer) > 60 Random Glucose 130 H Calcium 7.7 L Total Bilirubin 1.0 AST 50 H D ALT 25 Alkaline Phosphatase 59 Total Protein 4.6 L Albumin 2.1 L Globulin 2.5 Albumin/Globulin Ratio 0.8 L 12/01/ 06:15 WBC 13.6 H RBC 3.22 L Hgb 9.5 L Hct 28.5 L MCV 88.5 MCH 29.5 MCHC 33.3 RDW 15.7 H Plt Count 118 L MPV 10.9 Neut % (Auto) 84.5 H Lymph % (Auto) 9.2 L Gaines % (Auto) 6.2 H Eos % (Auto) 0.0 L Baso % (Auto) 0.1 Lymph # (Auto) 1.3 Gaines # (Auto) 0.8 H Eos # (Auto) 0.0 Baso # (Auto) 0.02 Absolute Neuts (auto) 11.47 H pCO2 pO2 HCO3 ABG pH ABG Total CO2 ABG O2 Saturation ABG O2 Content ABG Base Excess ABG Hemoglobin ABG Carboxyhemoglobin POC ABG HHb (Measured) ABG Methemoglobin ABG O2 Capacity Hgb O2 Saturation FiO2 Sodium Potassium Chloride Carbon Dioxide Anion Gap BUN Creatinine Est GFR ( Amer) Est GFR (Non-Af Amer) Random Glucose Calcium Total Bilirubin AST ALT Alkaline Phosphatase Total Protein Albumin Globulin Albumin/Globulin Ratio Radiology Impressions: Radiology Impressions Chest X-Ray 12/01/18 05:00 IMPRESSION: No active disease. Fingerstick Blood Sugar Results: 227 Critical Care Progress Note - Nutrition Nutrition: Nutrition Category Date Time Status NPO Diet [DIET] Diets 11/28/18 Breakfast Ordered Assessment/Plan - Assessment and Plan (Free Text) Assessment: Pt is an 83 yo female with a PMH of DVT, PE, dementia, CHF, HTN, who was found unresponsive, and also experiencing basilia melena who was transferred to the ICU. Plan: Neuro - Presented with AMS - continue to monitor mental status Cardio - HTN, CHF - pt has central line - ca gluconate was given to stabilize the myocardium - trop negative x2 - stop levophed, and vasopressin - [id number] q12 Pulm - Pt intubated at this time, weaning protocol today - follow up daily CXR and ABG GI - GI bleed, melena - c diff negative - pantoprazole - GI consulted, Dr Valadez Renal - hyperkalemia has resolved, continue to monitor - BUN/Cr 39/0.7 Endocrine - maintain euglycemia Heme/onc - history of DVT, PE - Hgb 9.5, INR 1.86 - pt has been transfused pRBC, kcentra, vit K, FFP, PCC ID - urosepsis - WBC 13.6 - blood culture NGTD - urine culture NGTD - sputum culture S.a. - continue merrem - start zyvox - ID Dr Perez consulted Pt seen, examined, assessment and plan discussed with Dr Alana Darden PGY1 - Date & Time Date: 12/01/18 Time: 07:00 <Michael Warner - Last Filed: 12/01/18 13:13> CCU Objective - Vital Signs / Intake & Output Vital Signs (Last 4 hours): Vital Signs Pulse Resp BP 12/01/18 12:00 95/52 L 12/01/18 11:59 74 19 12/01/18 11:58 74 18 12/01/18 11:57 73 18 12/01/18 11:56 74 17 12/01/18 11:55 72 18 12/01/18 11:54 71 20 12/01/18 11:53 79 17 12/01/18 11:52 75 17 12/01/18 11:51 76 18 12/01/18 11:50 74 18 12/01/18 11:49 76 17 12/01/18 11:48 76 12/01/18 11:47 75 19 12/01/18 11:46 76 18 12/01/18 11:45 77 18 12/01/18 11:44 73 18 12/01/18 11:43 77 18 12/01/18 11:42 73 19 12/01/18 11:41 75 17 12/01/18 11:40 75 18 12/01/18 11:39 74 18 12/01/18 11:38 77 18 12/01/18 11:37 77 19 12/01/18 11:36 75 18 12/01/18 11:35 73 18 12/01/18 11:34 71 18 12/01/18 11:33 71 18 12/01/18 11:32 75 20 12/01/18 11:31 74 19 12/01/18 11:30 76 18 12/01/18 11:29 76 18 12/01/18 11:25 73 23 12/01/18 11:24 77 17 12/01/18 11:23 74 19 12/01/18 11:22 76 22 12/01/18 11:21 79 23 12/01/18 11:20 78 19 12/01/18 11:19 74 24 12/01/18 11:18 90 17 12/01/18 11:17 79 24 12/01/18 11:16 79 26 H 12/01/18 11:15 82 20 12/01/18 11:14 86 17 12/01/18 11:13 71 13 12/01/18 11:12 73 18 12/01/18 11:11 75 12/01/18 11:10 75 12/01/18 11:09 78 12/01/18 11:08 74 12/01/18 09:54 17 Intake and Output (Last 8hrs): Intake & Output 11/30/18 12/01/18 12/01/18 22:59 06:59 14:59 Intake Total 1241 2343 10 Output Total 225 150 Balance 1016 2193 10 Intake: IV 1241 2343 10 Internal Jugular 1204 1204 LR 600 abx 100 levo 90 protonix 240 vaso 109 Oral 0 Output: Urine 225 150 Urethral (Khanna) 225 150 Other: # Bowel Movements 2 3 - Medications Active Medications: Active Medications Generic Name Dose Route Start Last Admin Trade Name Freq PRN Reason Stop Dose Admin Hydrocortisone Sodium Succinate 25 mg 12/01/18 10:00 12/01/18 09:58 Solu-Cortef IVP 25 mg Q12 PEDRITO Administration Meropenem 1 gm in 50 mls @ 100 mls/hr 11/28/18 22:00 12/01/18 09:52 Merrem Iv 1 Gm Premix IVPB 100 mls/hr Q12 PEDRITO Administration Protocol Vasopressin 20 units/ Sodium 101 mls @ 9.09 mls/hr 11/29/18 08:30 12/01/18 07:01 Chloride IV 9.09 mls/hr .Q11H7M PEDRITO Administration Protocol 0.03 U/MIN Lactated Ringer's 1,000 mls @ 50 mls/hr 11/30/18 09:00 11/30/18 09:08 Lactated Ringer's IV 50 mls/hr .Q20H PEDRITO Administration NOREPINEPHRINE BIT/0.9 % NACL 4 mg in 250 mls @ 7.5 mls/hr 11/30/18 09:34 12/01/18 08:30 Levophed 4 Mg/ 250 Ml Ns Premixed IV 0 mcg/min .Q24H PRN 0 mls/hr TITRATE PER MD ORDER Titration Protocol 2 MCG/MIN Linezolid 600 mg in 300 mls @ 200 mls/hr 11/30/18 16:30 12/01/18 09:56 Zyvox 600mg/300ml D5w IVPB 12/07/18 16:31 200 mls/hr Q12 PEDRITO Administration Protocol Pantoprazole Sodium 40 mg 12/01/18 10:00 12/01/18 09:51 Protonix Inj IVP 40 mg Q12 PEDRITO Administration Timolol Maleate 2 drop 11/29/18 10:45 12/01/18 10:33 Timoptic 0.25% Ophth Soln OU 2 drop BID PEDRITO Administration - Patient Studies Lab Studies: Microbiology Studies 11/29/18 17:08 Urine Culture - Final Urine,Khanna No Growth (<1,000 CFU/ML) 11/28/18 10:15 Blood Culture - Preliminary Blood NO GROWTH AFTER 3 DAYS 11/28/18 09:45 Blood Culture - Preliminary Blood NO GROWTH AFTER 3 DAYS 11/29/18 08:00 Gram Stain - Final Sputum Induced Sputum Culture - Final Staphylococcus Aureus Lab Studies 12/01/18 12/01/18 12/01/18 Range/Units 06:15 06:15 05:15 WBC 13.6 H (4.5-11.0) 10^3/uL RBC 3.22 L (3.5-6.1) 10^6/uL Hgb 9.5 L (12.0-16.0) g/dL Hct 28.5 L (36.0-48.0) % MCV 88.5 (80.0-105.0) fl MCH 29.5 (25.0-35.0) pg MCHC 33.3 (31.0-37.0) g/dl RDW 15.7 H (11.5-14.5) % Plt Count 118 L (120.0-450.0) 10^3/uL MPV 10.9 (7.0-11.0) fl Neut % (Auto) 84.5 H (50.0-68.0) % Lymph % (Auto) 9.2 L (22.0-35.0) % Gaines % (Auto) 6.2 H (1.0-6.0) % Eos % (Auto) 0.0 L (1.5-5.0) % Baso % (Auto) 0.1 (0.0-3.0) % Lymph # (Auto) 1.3 (1.2-3.4) Gaines # (Auto) 0.8 H (0.1-0.6) Eos # (Auto) 0.0 (0.0-0.7) Baso # (Auto) 0.02 (0.0-2.0) K/mm3 Absolute Neuts (auto) 11.47 H (1.4-6.5) pCO2 28 L (35-45) mm/Hg pO2 124.0 H (80-100) mm/Hg HCO3 20.4 L (21-28) mmol/L ABG pH 7.47 H (7.35-7.45) ABG Total CO2 21.3 L (22-28) mmol.L ABG O2 Saturation 98.4 H (95-98) % ABG O2 Content 12.5 L (15-23) ML/dl ABG Base Excess -2.6 L (-2.0-3.0) mmol/L ABG Hemoglobin 9.1 L (11.7-17.4) g/dL ABG Carboxyhemoglobin 1.1 (0.5-1.5) % POC ABG HHb (Measured) 1.6 (0-5) % ABG Methemoglobin 1.5 (0.0-3.0) % ABG O2 Capacity 12.7 L (16-24) mL/dl Hgb O2 Saturation 95.9 (95.0-98.0) % FiO2 35.0 % Sodium 144 (132-148) mmol/L Potassium 3.9 (3.6-5.0) mmol/L Chloride 116 H (98-107) mmol/L Carbon Dioxide 22 (21-33) mmol/L Anion Gap 10 (10-20) BUN 39 H (7-21) mg/dL Creatinine 0.7 (0.7-1.2) mg/dl Est GFR ( Amer) > 60 Est GFR (Non-Af Amer) > 60 Random Glucose 130 H (70-110) mg/dL Calcium 7.7 L (8.4-10.5) mg/dL Total Bilirubin 1.0 (0.2-1.3) mg/dL AST 50 H D (14-36) U/L ALT 25 (7-56) U/L Alkaline Phosphatase 59 (38-126) U/L Total Protein 4.6 L (5.8-8.3) g/dL Albumin 2.1 L (3.0-4.8) g/dL Globulin 2.5 gm/dL Albumin/Globulin Ratio 0.8 L (1.1-1.8) 11/30/18 Range/Units 17:20 WBC 12.7 H (4.5-11.0) 10^3/uL RBC 3.01 L (3.5-6.1) 10^6/uL Hgb 8.9 L (12.0-16.0) g/dL Hct 26.2 L (36.0-48.0) % MCV 87.0 (80.0-105.0) fl MCH 29.6 (25.0-35.0) pg MCHC 34.0 (31.0-37.0) g/dl RDW 15.6 H (11.5-14.5) % Plt Count 109 L (120.0-450.0) 10^3/uL MPV 10.3 (7.0-11.0) fl Neut % (Auto) 83.6 H (50.0-68.0) % Lymph % (Auto) 9.4 L (22.0-35.0) % Gaines % (Auto) 6.9 H (1.0-6.0) % Eos % (Auto) 0.0 L (1.5-5.0) % Baso % (Auto) 0.1 (0.0-3.0) % Lymph # (Auto) 1.2 (1.2-3.4) Gaines # (Auto) 0.9 H (0.1-0.6) Eos # (Auto) 0.0 (0.0-0.7) Baso # (Auto) 0.01 (0.0-2.0) K/mm3 Absolute Neuts (auto) 10.58 H (1.4-6.5) pCO2 (35-45) mm/Hg pO2 (80-100) mm/Hg HCO3 (21-28) mmol/L ABG pH (7.35-7.45) ABG Total CO2 (22-28) mmol.L ABG O2 Saturation (95-98) % ABG O2 Content (15-23) ML/dl ABG Base Excess (-2.0-3.0) mmol/L ABG Hemoglobin (11.7-17.4) g/dL ABG Carboxyhemoglobin (0.5-1.5) % POC ABG HHb (Measured) (0-5) % ABG Methemoglobin (0.0-3.0) % ABG O2 Capacity (16-24) mL/dl Hgb O2 Saturation (95.0-98.0) % FiO2 % Sodium (132-148) mmol/L Potassium (3.6-5.0) mmol/L Chloride (98-107) mmol/L Carbon Dioxide (21-33) mmol/L Anion Gap (10-20) BUN (7-21) mg/dL Creatinine (0.7-1.2) mg/dl Est GFR ( Amer) Est GFR (Non-Af Amer) Random Glucose (70-110) mg/dL Calcium (8.4-10.5) mg/dL Total Bilirubin (0.2-1.3) mg/dL AST (14-36) U/L ALT (7-56) U/L Alkaline Phosphatase (38-126) U/L Total Protein (5.8-8.3) g/dL Albumin (3.0-4.8) g/dL Globulin gm/dL Albumin/Globulin Ratio (1.1-1.8) Laboratory Results - last 24 hr 11/30/18 12/01/18 12/01/18 17:20 05:15 06:15 WBC 12.7 H RBC 3.01 L Hgb 8.9 L Hct 26.2 L MCV 87.0 MCH 29.6 MCHC 34.0 RDW 15.6 H Plt Count 109 L MPV 10.3 Neut % (Auto) 83.6 H Lymph % (Auto) 9.4 L Gaines % (Auto) 6.9 H Eos % (Auto) 0.0 L Baso % (Auto) 0.1 Lymph # (Auto) 1.2 Gaines # (Auto) 0.9 H Eos # (Auto) 0.0 Baso # (Auto) 0.01 Absolute Neuts (auto) 10.58 H pCO2 28 L pO2 124.0 H HCO3 20.4 L ABG pH 7.47 H ABG Total CO2 21.3 L ABG O2 Saturation 98.4 H ABG O2 Content 12.5 L ABG Base Excess -2.6 L ABG Hemoglobin 9.1 L ABG Carboxyhemoglobin 1.1 POC ABG HHb (Measured) 1.6 ABG Methemoglobin 1.5 ABG O2 Capacity 12.7 L Hgb O2 Saturation 95.9 FiO2 35.0 Sodium 144 Potassium 3.9 Chloride 116 H Carbon Dioxide 22 Anion Gap 10 BUN 39 H Creatinine 0.7 Est GFR ( Amer) > 60 Est GFR (Non-Af Amer) > 60 Random Glucose 130 H Calcium 7.7 L Total Bilirubin 1.0 AST 50 H D ALT 25 Alkaline Phosphatase 59 Total Protein 4.6 L Albumin 2.1 L Globulin 2.5 Albumin/Globulin Ratio 0.8 L 12/01/18 06:15 WBC 13.6 H RBC 3.22 L Hgb 9.5 L Hct 28.5 L MCV 88.5 MCH 29.5 MCHC 33.3 RDW 15.7 H Plt Count 118 L MPV 10.9 Neut % (Auto) 84.5 H Lymph % (Auto) 9.2 L Gaines % (Auto) 6.2 H Eos % (Auto) 0.0 L Baso % (Auto) 0.1 Lymph # (Auto) 1.3 Gaines # (Auto) 0.8 H Eos # (Auto) 0.0 Baso # (Auto) 0.02 Absolute Neuts (auto) 11.47 H pCO2 pO2 HCO3 ABG pH ABG Total CO2 ABG O2 Saturation ABG O2 Content ABG Base Excess ABG Hemoglobin ABG Carboxyhemoglobin POC ABG HHb (Measured) ABG Methemoglobin ABG O2 Capacity Hgb O2 Saturation FiO2 Sodium Potassium Chloride Carbon Dioxide Anion Gap BUN Creatinine Est GFR ( Amer) Est GFR (Non-Af Amer) Random Glucose Calcium Total Bilirubin AST ALT Alkaline Phosphatase Total Protein Albumin Globulin Albumin/Globulin Ratio Radiology Impressions: Radiology Impressions Chest X-Ray 12/01/18 05:00 IMPRESSION: No active disease. Critical Care Progress Note - Nutrition Nutrition: Nutrition Category Date Time Status NPO Diet [DIET] Diets 11/28/18 Breakfast Ordered Assessment/Plan - Assessment and Plan (Free Text) Plan: Patient seen and examined on rounds with resident, agree with note with following additions/exceptions: Patient is 83yo female with PMHx of DVT on Eliquis, PE, dementia, CHF, HTN admitted with shock 2/2 sepsis and GIB Currently afebrile, HD stable OFF pressors, HD stable Labs imaging, chart reviewed GI following ID following On broad spectrum abx, positive UA, CXR without focal consolidation Blood cultures negative TLC R IJ in place Patient has advanced directives, palliative care following Patient placed on CPAP trial today, did well, RSBI 40s, awake, alert, following simple commands, subsequently extubated Pt's son made patient DNR/DNI, as per her advanced directives Hemorrhagic Shock, resolved Septic Shock, resolved Hx of DVT on A/C Lactic Acidosis, resolved Coaguloapthy, corrected CHF, chronic compensated HTN Recommend: - cont supp O2 as needed, goal sat 90% - Merrem for gram neg coverage, follow up ID - IV, LR - FS control - Monitor LFTs - ECHO - PPI BID - NPO - may need IVC filter, will discuss with son, goals of care - GI ppx - DVT ppx, SCDs - follow up palliative care - monitor in MICU Poor prognosis Critical care time 30 minutes
--- NOTE | 2018-12-01 10:42 | CP.PCM.APN ---
Subjective - Date & Time of Evaluation Date of Evaluation: 12/01/18 Time of Evaluation: 10:00 - Subjective Subjective: Pt seen and examined at bedside. Still intubated. Objective - Vital Signs/Intake and Output Vital Signs (last 24 hours): Temp Pulse Resp BP Pulse Ox 97.7 F 78 17 88/43 L 91 L 12/01/18 08:00 12/01/18 08:47 12/01/18 09:54 12/01/18 08:30 12/01/18 08:10 Intake and Output: 12/01/18 12/01/18 06:59 18:59 Intake Total 2380 10 Output Total 150 Balance 2230 10 - Medications Medications: Current Medications Hydrocortisone Sodium Succinate (Solu-Cortef) 25 mg IVP Q12 PEDRITO Last Admin: 12/01/18 09:58 Dose: 25 mg Meropenem (Merrem Iv 1 Gm Premix) 1 gm in 50 mls @ 100 mls/hr IVPB Q12 PEDRITO; Protocol Last Admin: 12/01/18 09:52 Dose: 100 mls/hr Vasopressin 20 units/ Sodium (Chloride) 101 mls @ 9.09 mls/hr IV .Q11H7M PEDRITO; Protocol Last Admin: 12/01/18 07:01 Dose: 9.09 mls/hr Lactated Ringer's (Lactated Ringer's) 1,000 mls @ 50 mls/hr IV .Q20H PEDRITO Last Admin: 11/30/18 09:08 Dose: 50 mls/hr NOREPINEPHRINE BIT/0.9 % NACL (Levophed 4 Mg/ 250 Ml Ns Premixed) 4 mg in 250 mls @ 7.5 mls/hr IV .Q24H PRN; Protocol PRN Reason: TITRATE PER MD ORDER Last Titration: 12/01/18 08:30 Dose: 0 mcg/min, 0 mls/hr Linezolid (Zyvox 600mg/300ml D5w) 600 mg in 300 mls @ 200 mls/hr IVPB Q12 PEDRITO; Protocol Stop: 12/07/18 16:31 Last Admin: 12/01/18 09:56 Dose: 200 mls/hr Pantoprazole Sodium (Protonix Inj) 40 mg IVP Q12 PEDRITO Last Admin: 12/01/18 09:51 Dose: 40 mg Timolol Maleate (Timoptic 0.25% Ophth Soln) 2 drop OU BID PEDRITO Last Admin: 12/01/18 10:33 Dose: 2 drop - Labs Labs: 12/01/18 06:15 12/01/18 06:15 PT 20.7 SECONDS (9.4-12.5) H 11/29/18 23:24 INR 1.86 11/29/18 23:24 APTT 26.0 Seconds (26.9-38.3) L 11/28/18 09:45 - Respiratory Exam Respiratory Exam: Decreased Breath Sounds Additional comments: ventilator dependent - Cardiovascular Exam Cardiovascular Exam: REGULAR RHYTHM, +S1, +S2 - GI/Abdominal Exam GI & Abdominal Exam: Distended, Soft - Exam Additional comments: Khanna +hematuria Assessment and Plan - Assessment and Plan (Free Text) Assessment: Pt is an 83 y.o. who is admitted for AMS, severe sepsis secondary to UTI, hemorrhagic shock 2/2 GI Bleed. Currently intubated and on pressors. She was started on Zyvox 2/2 s. aureus in sputum. ITS Impressions Chest X-Ray 11/28/18 09:49 IMPRESSION: The endotracheal tube is in suboptimal position with the tip at the opening of the right mainstem bronchus. The tube should be pulled back 2 cm. This was discussed with Dr. Velarde at 10:40 a.m... Chest X-Ray 11/28/18 16:30 IMPRESSION: Right IJV line terminates at the cavoatrial junction. Endotracheal tube is low in position and terminates in the proximal right mainstem bronchus. No acute findings. Chest X-Ray 11/28/18 20:05 IMPRESSION: No active disease. Chest X-Ray 11/29/18 06:00 IMPRESSION: No active disease. Abdomen/Pelvis CT 11/29/18 09:38 IMPRESSION: There is severe mural thickening in the descending colon consistent with colitis. There is also mural thickening in the rectum and moderate fecal impaction. Chest X-Ray 11/30/18 09:30 IMPRESSION: No active disease. Chest X-Ray 12/01/18 05:00 IMPRESSION: No active disease. Plan: On Levophed/Vasopressin/Solucortef On Merrem/Zyvox per ID recs Currently intubated GI, ID, Heme and Palliative on consult Meds per MAR Will continue to follow
--- NOTE | 2018-12-01 12:22 | CP.PCM.PN ---
Subjective - Date & Time of Evaluation Date of Evaluation: 12/01/18 Time of Evaluation: 11:00 - Subjective Subjective: Palliative Care progress note Patient is intubated but was able to follow simple commands. ROS could not be ob tained. Objective - Vital Signs/Intake and Output Vital Signs (last 24 hours): Temp Pulse Resp BP Pulse Ox 97.7 F 74 19 95/52 L 91 L 12/01/18 08:00 12/01/18 11:59 12/01/18 11:59 12/01/18 12:00 12/01/18 08:10 Intake and Output: 12/01/18 12/01/18 06:59 18:59 Intake Total 2380 10 Output Total 150 Balance 2230 10 - Medications Medications: Current Medications Hydrocortisone Sodium Succinate (Solu-Cortef) 25 mg IVP Q12 [facility] Last Admin: 12/01/18 09:58 Dose: 25 mg Meropenem (Merrem Iv 1 Gm Premix) 1 gm in 50 mls @ 100 mls/hr IVPB Q12 [facility]; Protocol Last Admin: 12/01/18 09:52 Dose: 100 mls/hr Vasopressin 20 units/ Sodium (Chloride) 101 mls @ 9.09 mls/hr IV .Q11H7M [facility]; Protocol Last Admin: 12/01/18 07:01 Dose: 9.09 mls/hr Lactated Ringer's (Lactated Ringer's) 1,000 mls @ 50 mls/hr IV .Q20H [facility] Last Admin: 11/30/18 09:08 Dose: 50 mls/hr NOREPINEPHRINE BIT/0.9 % NACL (Levophed 4 Mg/ 250 Ml Ns Premixed) 4 mg in 250 mls @ 7.5 mls/hr IV .Q24H PRN; Protocol PRN Reason: TITRATE PER MD ORDER Last Titration: 12/01/18 08:30 Dose: 0 mcg/min, 0 mls/hr Linezolid (Zyvox 600mg/300ml D5w) 600 mg in 300 mls @ 200 mls/hr IVPB Q12 [facility]; Protocol Stop: 12/07/18 16:31 Last Admin: 12/01/18 09:56 Dose: 200 mls/hr Pantoprazole Sodium (Protonix Inj) 40 mg IVP Q12 [facility] Last Admin: 12/01/18 09:51 Dose: 40 mg Timolol Maleate (Timoptic 0.25% Ophth Soln) 2 drop OU BID [facility] Last Admin: 12/01/18 10:33 Dose: 2 drop - Labs Labs: 12/01/18 06:15 12/01/18 06:15 PT 20.7 SECONDS (9.4-12.5) H 11/29/18 23:24 INR 1.86 11/29/18 23:24 APTT 26.0 Seconds (26.9-38.3) L 11/28/18 09:45 - Constitutional Appears: No Acute Distress, Chronically Ill - Head Exam Head Exam: ATRAUMATIC, NORMAL INSPECTION, NORMOCEPHALIC - Eye Exam Eye Exam: PERRL Pupil Exam: NORMAL ACCOMODATION, PERRL - ENT Exam ENT Exam: Mucous Membranes Dry - Respiratory Exam Respiratory Exam: Decreased Breath Sounds, NORMAL BREATHING PATTERN - Cardiovascular Exam Cardiovascular Exam: REGULAR RHYTHM, +S1, +S2. absent: Gallop, Rubs, Murmur - GI/Abdominal Exam GI & Abdominal Exam: Soft. absent: Guarding, Tenderness, Rebound - Extremities Exam Extremities Exam: absent: Calf Tenderness, Pedal Edema - Neurological Exam Neurological Exam: Alert - Skin Skin Exam: Dry, Warm Assessment and Plan - Assessment and Plan (Free Text) Assessment: This is an 83 year old female with history of dementia, DVT,PE, peripheral edema, glaucoma who is admitted with sepsis, UTI, GI bleed, supratherapeutic INR, respiratory failure, hyperkalemia, JORGE LUIS, and AMS. Patient's POAJacinto at bedside. Matthias palomoats to make his mother DNR/DNI in accordance with her advanced directive wishes. POLST directive completed. Son is in agreement that once patient is extubated that she will not be re intubated. Son wishes to continue current medical treatment. I expressed that if her condition worsens, goals of care will be revisited. Psychosocial support given. Time spent with family member in goals of care and advance care planning, 35 minutes Plan: Goals of care. POLST:DNR/DNI Extubated; continue O2, nebulizers, Solu medrol. Continue Merrem, Zyvox. IV fluids As per GI, conservative measures for GI bleed.
--- NOTE | 2018-12-01 14:04 | PN ---
DATE: 12/01/2018 SUBJECTIVE: The patient is seen and examined. I do agree with the note of the medical technologist. I was involved in the plan of care. The patient has acute lower GI bleed from a colitis that was seen on CAT scan. The patient has severe sepsis that is improving. She also had shock because of the bleeding. She was given IV fluids as well as transfusion with packed red blood cells. The patient is currently on a ventilator because of respiratory failure secondary to changes in her mental status. She had a chest x-ray that shows no active disease. Her labs showed a hemoglobin was 9.5. She has a creatinine of 0.7, INR is 1.86. She had blood cultures that have been negative. Urine cultures have been negative. She is currently on lactated Ringer's. She has her vasopressin and Levophed discontinued. She is being followed by multiple consultants. She is continuing on her hydrocortisone. We will repeat her blood work tomorrow. She is DNR/DNI. The patient remains critically ill, but has made some improvement. I appreciate input from LEXI Hope from palliative care. I did review her note. Goals of care, advanced care planning was done. The patient's family were informed about the current plan of care and diagnosis. Dave Gray MD
--- NOTE | 2018-12-01 14:48 | CP.PCM.PN ---
<Eduardo Galloway - Last Filed: 12/01/18 14:45> Subjective - Date & Time of Evaluation Date of Evaluation: 12/01/18 Time of Evaluation: 10:10 - Subjective Subjective: Eduardo Galloway D.O. PGY-3, Internal Medicine Resident, Infectious Disease Progress Note 83-year-old female with a past medical history of osteoarthritis, deep vein thrombosis, dementia, CAD, heart failure, hypertension, who had a pulmonary emb olism last month now on Eliquis who [facility] and found to have a GI bleed. Infectious disease consultation was requested for septic shock likely from a urinary source. Patient was seen and examined at bedside. Continues to be intubated. No more melena per nursing. Objective - Vital Signs/Intake and Output Vital Signs (last 24 hours): Temp Pulse Resp BP Pulse Ox 97.7 F 81 18 94/53 L 87 L 12/01/18 08:00 12/01/18 14:37 12/01/18 14:37 12/01/18 14:26 12/01/18 13:30 Intake and Output: 12/01/18 12/01/18 06:59 18:59 Intake Total 2380 10 Output Total 150 Balance 2230 10 - Medications Medications: Current Medications Hydrocortisone Sodium Succinate (Solu-Cortef) 25 mg IVP Q12 [facility] Last Admin: 12/01/18 09:58 Dose: 25 mg Meropenem (Merrem Iv 1 Gm Premix) 1 gm in 50 mls @ 100 mls/hr IVPB Q12 [facility]; Protocol Last Admin: 12/01/18 09:52 Dose: 100 mls/hr Vasopressin 20 units/ Sodium (Chloride) 101 mls @ 9.09 mls/hr IV .Q11H7M [facility]; Protocol Last Admin: 12/01/18 07:01 Dose: 9.09 mls/hr Lactated Ringer's (Lactated Ringer's) 1,000 mls @ 50 mls/hr IV .Q20H [facility] Last Admin: 11/30/18 09:08 Dose: 50 mls/hr NOREPINEPHRINE BIT/0.9 % NACL (Levophed 4 Mg/ 250 Ml Ns Premixed) 4 mg in 250 mls @ 7.5 mls/hr IV .Q24H PRN; Protocol PRN Reason: TITRATE PER MD ORDER Last Titration: 12/01/18 08:30 Dose: 0 mcg/min, 0 mls/hr Linezolid (Zyvox 600mg/300ml D5w) 600 mg in 300 mls @ 200 mls/hr IVPB Q12 [facility]; Protocol Stop: 12/07/18 16:31 Last Admin: 12/01/18 09:56 Dose: 200 mls/hr Pantoprazole Sodium (Protonix Inj) 40 mg IVP Q12 [facility] Last Admin: 12/01/18 09:51 Dose: 40 mg Timolol Maleate (Timoptic 0.25% Ophth Soln) 2 drop OU BID [facility] Last Admin: 12/01/18 10:33 Dose: 2 drop - Labs Labs: 12/01/18 06:15 12/01/18 06:15 PT 20.7 SECONDS (9.4-12.5) H 11/29/18 23:24 INR 1.86 11/29/18 23:24 APTT 26.0 Seconds (26.9-38.3) L 11/28/18 09:45 - Constitutional Appears: intubated, Chronically Ill - Eye Exam Eye Exam: EOMI, Normal appearance - ENT Exam ENT Exam: Mucous Membranes Moist, Intubated - Respiratory Exam Respiratory Exam: Clear to Auscultation Bilateral, no rhonchi or rales noted - Cardiovascular Exam Cardiovascular Exam: RRR, +S1, +S2 - GI/Abdominal Exam GI & Abdominal Exam: Normal Bowel Sounds, Soft. absent: Organomegaly, Tenderness - Extremities Exam Extremities exam: Positive for: normal inspection. Negative for: pedal edema - Neurological Exam Neurological exam: not alert, intubated - Skin Skin Exam: Dry, Pallor Assessment and Plan - Assessment and Plan (Free Text) Assessment: 83-year-old female with a past medical history of osteoarthritis, deep vein thrombosis, dementia, CAD, heart failure, hypertension, who had a pulmonary embolism last month now on Eliquis who presents [facility] and found to have a GI bleed. Infectious disease consultation was requested for septic shock likely from a urinary source. Plan: Severe Sepsis likely from urinary source GI bleed Colitis OA DVT and PE Dementia CAD HTN Heart failure Continue merrem day 4 Added zyvox for staph in sputum day 2 Afebrile Blood cultures are negative 2 out of 2 on day 3 Primary team note reviewed and appreciated GI note reviewed and appreciated Discussed with ICU team We will follow with you Patient was seen and examined and case to be discussed with attending physician Thank you for the pleasure of participating in the care of this interesting patient <Eron Perez - Last Filed: 12/01/18 19:24> Objective - Vital Signs/Intake and Output Vital Signs (last 24 hours): Temp Pulse Resp BP Pulse Ox 98.9 F 85 20 95/53 L 100 12/01/18 16:00 12/01/18 15:43 12/01/18 15:43 12/01/18 15:00 12/01/18 16:00 Intake and Output: 12/01/18 12/02/18 18:59 06:59 Intake Total 510 Output Total 200 Balance 310 - Medications Medications: Current Medications Hydrocortisone Sodium Succinate (Solu-Cortef) 25 mg IVP Q12 [facility] Last Admin: 12/01/18 09:58 Dose: 25 mg Meropenem (Merrem Iv 1 Gm Premix) 1 gm in 50 mls @ 100 mls/hr IVPB Q12 [facility]; Protocol Last Admin: 12/01/18 09:52 Dose: 100 mls/hr Lactated Ringer's (Lactated Ringer's) 1,000 mls @ 50 mls/hr IV .Q20H [facility] Last Admin: 12/01/18 09:00 Dose: 50 mls/hr Linezolid (Zyvox 600mg/300ml D5w) 600 mg in 300 mls @ 200 mls/hr IVPB Q12 [facility]; Protocol Stop: 12/07/18 16:31 Last Admin: 12/01/18 09:56 Dose: 200 mls/hr Pantoprazole Sodium (Protonix Inj) 40 mg IVP Q12 [facility] Last Admin: 12/01/18 09:51 Dose: 40 mg Timolol Maleate (Timoptic 0.25% Ophth Soln) 2 drop OU BID [facility] Last Admin: 12/01/18 18:04 Dose: 2 drop - Labs Labs: 12/01/18 06:15 12/01/18 06:15 PT 20.7 SECONDS (9.4-12.5) H 11/29/18 23:24 INR 1.86 11/29/18 23:24 APTT 26.0 Seconds (26.9-38.3) L 11/28/18 09:45 Attending/Attestation - Attestation I have personally seen and examined this patient.: Yes I have fully participated in the care of the patient.: Yes I have reviewed all pertinent clinical information, including history, physical exam and plan: Yes
[2018-12-02] MEDS: Lactated Ringer's 1,000 ML IV SCH ×2 (06:09→21:51)
[2018-12-02 07:06] LABS: BASO # 0.02 K/mm3 (0.0-2.0); BASO % 0.2 % (0.0-3.0); HEMOGLOBIN 8.9 g/dL (12.0-16.0); LYMPH # 1.4 (1.2-3.4); LYMPH % 12.8 % (22.0-35.0); MEAN CELL VOLUME 92.4 fl (80.0-105.0); MEAN CORPUSCULAR HEMOGLOBIN 29.6 pg (25.0-35.0); MEAN PLATELET VOLUME 11.6 fl (7.0-11.0); MONO # 0.8 (0.1-0.6); MONO % 7.1 % (1.0-6.0); RBC 3.01 10^6/uL (3.5-6.1); RED CELL DISTRIBUTION WIDTH 15.6 % (11.5-14.5); WHITE BLOOD COUNT 11.1 10^3/uL (4.5-11.0)
[2018-12-02 08:10] LABS: ALB/GLOB RATIO 0.8 (1.1-1.8); ALT/SGPT 27 U/L (7-56); AST/SGOT 77 U/L (14-36); BLOOD UREA NITROGEN 31 mg/dL (7-21); CALCIUM 7.3 mg/dL (8.4-10.5); GFR NON-AFRICAN AMERICAN > 60
[2018-12-02] MEDS: Meropenem IV 1 gm in NS 1 GM/50 ML BAG IVPB SCH (09:29)
[2018-12-02] MEDS: Timolol 0.25% Ophth SOLN OU SCH ×2 (09:32→17:18)
[2018-12-02] MEDS: Linezolid 600 mg in D5W 300 ml 600 MG/300 ML BAG IVPB SCH (09:33)
--- NOTE | 2018-12-02 12:35 | PN ---
DATE: 12/02/2018 SUBJECTIVE: The patient opens eyes, but is not able to communicate. PHYSICAL EXAMINATION: VITAL SIGNS: Temperature is 97.3, pulse of 79, blood pressure 101/64, and respirations 18. GENERAL: The patient is lying in bed, flat, comfortable. HEENT: No oral lesion. Anicteric sclerae. Moist mucosa. NECK: No JVD, adenopathy, or thyromegaly. CARDIOVASCULAR: S1 and S2, regular. No murmurs, rubs, or gallops. LUNGS: Clear to auscultation bilaterally. No wheeze, rales, or rhonchi. ABDOMEN: Bowel sounds are positive, soft, nontender and nondistended. EXTREMITIES: No cyanosis, clubbing or edema. LABORATORY DATA: White count of 11.1 and hemoglobin 8.9. Creatinine is 0.5, and potassium is 3.5. ASSESSMENT: 1. Respiratory failure, status post terminal extubation. 2. Delirium. 3. Septic shock. 4. Acute lower gastrointestinal bleed with hemorrhagic shock. 5. Coagulopathy secondary to . 6. Hyperkalemia, improved. 7. Stage I sacral ulcer. 8. Dementia, Alzheimer's type. 9. Deep venous thrombosis/pulmonary embolism, anticoagulation on hold. 10. Do not resuscitate/do not intubate. PLAN: The patient is currently comfortable. The patient was extubated yesterday. She is currently DNR/DNI. She is not going to be re-intubated. She is currently on lactated Ringer's. She is on IV Protonix. She is going to continue with meropenem for antibiotics as well as linezolid. I did speak to Dr. Perez from Infectious Disease. We will continue to manage the patient. Overall prognosis is poor. Dave Gray MD
--- NOTE | 2018-12-02 14:03 | RAD ---
Date of service: 12/02/2018 HISTORY: ET tube evaluation COMPARISON: 12/01/2018. FINDINGS: LUNGS: Status post extubation. The lungs are well inflated. There is worsening pulmonary venous congestion with pulmonary redistribution. PLEURA: Worsening pleural effusions, worse on the right. CARDIOVASCULAR: Mild cardiomegaly. There are aortic atherosclerotic calcifications present. OSSEOUS STRUCTURES: Within normal limits for the patient's age. VISUALIZED UPPER ABDOMEN: Normal. OTHER FINDINGS: None. IMPRESSION: Status post extubation. Worsening congestive heart failure with worsening pleural effusions, worse on the right.
[2018-12-02] MEDS: ceFAZolin 1 gm in NS 1 GM/100 ML BAG IVPB SCH (18:25)
--- NOTE | 2018-12-02 18:34 | CP.PCM.PN ---
<Catie Klein - Last Filed: 12/02/18 18:36> Subjective - Date & Time of Evaluation Date of Evaluation: 12/02/18 Time of Evaluation: 08:00 - Subjective Subjective: PGY5 GI Follow-up Pt seen and examined bedside does not respond to verbal cues still NPO no signs of GI bleed as per RN ROS: 12 point ROS could not be conducted 2/2 non-verbal state Objective - Vital Signs/Intake and Output Vital Signs (last 24 hours): Temp Pulse Resp BP Pulse Ox 97.4 F L 84 20 94/60 L 98 12/02/18 16:27 12/02/18 16:27 12/02/18 16:27 12/02/18 16:27 12/02/18 16:27 - Medications Medications: Current Medications Hydrocortisone Sodium Succinate (Solu-Cortef) 25 mg IVP Q12 [facility] Last Admin: 12/02/18 09:31 Dose: 25 mg Lactated Ringer's (Lactated Ringer's) 1,000 mls @ 50 mls/hr IV .Q20H [facility] Last Admin: 12/02/18 06:09 Dose: Not Given Cefazolin Sodium (Ancef 1gm In Ns) 1 gm in 100 mls @ 200 mls/hr IVPB Q8H [facility] Last Admin: 12/02/18 18:25 Dose: 200 mls/hr Pantoprazole Sodium (Protonix Inj) 40 mg IVP Q12 [facility] Last Admin: 12/02/18 09:30 Dose: 40 mg Timolol Maleate (Timoptic 0.25% Ophth Soln) 2 drop OU BID [facility] Last Admin: 12/02/18 17:18 Dose: 2 drop - Labs Labs: 12/02/18 05:00 12/02/18 07:00 PT 20.7 SECONDS (9.4-12.5) H 11/29/18 23:24 INR 1.86 11/29/18 23:24 APTT 26.0 Seconds (26.9-38.3) L 11/28/18 09:45 - Constitutional Appears: No Acute Distress, Chronically Ill - Head Exam Head Exam: ATRAUMATIC, NORMOCEPHALIC - Eye Exam Eye Exam: Normal appearance - ENT Exam ENT Exam: Mucous Membranes Moist - Neck Exam Neck Exam: Normal Inspection - Respiratory Exam Respiratory Exam: Clear to Ausculation Bilateral, NORMAL BREATHING PATTERN. absent: Rales, Rhonchi, Wheezes, Respiratory Distress - Cardiovascular Exam Cardiovascular Exam: REGULAR RHYTHM, +S1, +S2 - GI/Abdominal Exam GI & Abdominal Exam: Soft, Normal Bowel Sounds. absent: Distended, Firm, Guarding, Rigid, Tenderness, Organomegaly - Extremities Exam Extremities Exam: Pedal Edema - Neurological Exam Neurological Exam: Altered, Awake - Psychiatric Exam Additional comments: cannot assess - Skin Skin Exam: Dry, Intact, Normal Color, Warm Assessment and Plan - Assessment and Plan (Free Text) Assessment: 83 year old female with a PMH of DVT/PE on Eliquis admitted from intermediate for melena. s/p intubation and extubation. Melena Anemia 2/2 above Dementia Colitis no plans for endoscopy at this time; should bleeding worsen again, decision will be revisited - remains on PTX gtt for GI bleed - monitor H/H - maintain Hgb > 7 -continue Protonix 40mg IV daily -pt is made DNR/DNI -keep NPO if pt cannot pass swallow eval -palliative on board D/W Dr. Valadez <Rhiannon Valadez V - Last Filed: 12/03/18 00:40> Objective - Vital Signs/Intake and Output Vital Signs (last 24 hours): Temp Pulse Resp BP Pulse Ox 97.4 F L 84 20 94/60 L 98 12/02/18 16:27 12/02/18 16:27 12/02/18 16:27 12/02/18 16:27 12/02/18 16:27 Intake and Output: 12/02/18 12/03/18 18:59 06:59 Intake Total 0 Output Total 600 Balance -600 - Medications Medications: Current Medications Hydrocortisone Sodium Succinate (Solu-Cortef) 25 mg IVP Q12 [facility] Last Admin: 12/02/18 21:51 Dose: 25 mg Lactated Ringer's (Lactated Ringer's) 1,000 mls @ 50 mls/hr IV .Q20H [facility] Last Admin: 12/02/18 21:51 Dose: 50 mls/hr Cefazolin Sodium (Ancef 1gm In Ns) 1 gm in 100 mls @ 200 mls/hr IVPB Q8H [facility] Last Admin: 12/02/18 18:25 Dose: 200 mls/hr Pantoprazole Sodium (Protonix Inj) 40 mg IVP Q12 [facility] Last Admin: 12/02/18 21:51 Dose: 40 mg Timolol Maleate (Timoptic 0.25% Ophth Soln) 2 drop OU BID [facility] Last Admin: 12/02/18 17:18 Dose: 2 drop - Labs Labs: 12/02/18 05:00 12/02/18 07:00 PT 20.7 SECONDS (9.4-12.5) H 11/29/18 23:24 INR 1.86 11/29/18 23:24 APTT 26.0 Seconds (26.9-38.3) L 11/28/18 09:45 Attending/Attestation - Attestation I have personally seen and examined this patient.: Yes I have fully participated in the care of the patient.: Yes I have reviewed all pertinent clinical information, including history, physical exam and plan: Yes Notes (Text): The patient was seen and evaluated here earlier this is an addendum to the progress report dictated by the GI fellow. Patient is lethargic DNR/DNI status sepsis colitis GI bleeding overall poor prognosis Supportive care Discussed with the nursing staff 12/03/18 00:39
--- NOTE | 2018-12-02 22:30 | PN ---
DATE: 12/02/2018 SUBJECTIVE: The patient is in bed. No acute distress. Nontoxic. PHYSICAL EXAMINATION: VITAL SIGNS: Temperature is 98, blood pressure is 94/60, respiratory rate of 18. HEENT: Unremarkable. NECK: Supple. LUNGS: Decreased breath sounds. HEART: Normal S1 and S2. ABDOMEN: Soft and nontender. LABORATORY DATA: White count of 11,000, hemoglobin of 8, platelets 118. Chemistries reveal a BUN of 31, creatinine of 0.5. Urinalysis is noted. Serology is noted. Urine Legionella antigen, Staph aureus in the sputum culture, which is sensitive, Staph aureus is noted. The patient is a DNR/DNI. Dr. Galarza's note is reviewed. Dr. Galarza states the patient had a terminal extubation. I discussed the case with him. He states continued antibiotic is requested. The patient's blood cultures are negative. Nares MRSA is negative. ASSESSMENT AND PLAN: An 83-year-old female with a history of osteoarthritis, deep venous thrombosis, dementia, coronary artery disease, congestive heart failure, hypertension, pulmonary emboli. The patient with severe sepsis, most likely urinary tract, also had sensitive Staphylococcus in the sputum in a patient with gastrointestinal bleed, dementia, hypertension. We will switch to nonsteroidal anti-inflammatory drugs for sensitive Staphylococcus aureus. Discontinue the meropenem. Today is day #5 of therapy. Would complete 4 to 7 days of antibiotics. The urine culture is negative. The patient also had a chest x-ray this morning. There is a worsening congestion, worsening on the right, pleural fluid. Prognosis is poor. Eron Perez MD
[2018-12-03] MEDS: ceFAZolin 1 gm in NS 1 GM/100 ML BAG IVPB SCH ×3 (02:19→18:30)
[2018-12-03 07:03] LABS: BASO # 0.02 K/mm3 (0.0-2.0); BASO % 0.3 % (0.0-3.0); HEMOGLOBIN 9.1 g/dL (12.0-16.0); LYMPH # 1.3 (1.2-3.4); LYMPH % 16.5 % (22.0-35.0); MEAN CELL VOLUME 92.8 fl (80.0-105.0); MEAN CORPUSCULAR HEMOGLOBIN 29.6 pg (25.0-35.0); MEAN CORPUSCULAR HGB CONC 31.9 g/dl (31.0-37.0); MONO # 0.9 (0.1-0.6); MONO % 11.1 % (1.0-6.0); RBC 3.07 10^6/uL (3.5-6.1); RED CELL DISTRIBUTION WIDTH 15.4 % (11.5-14.5); WHITE BLOOD COUNT 7.6 10^3/uL (4.5-11.0)
[2018-12-03 07:19] LABS: ALB/GLOB RATIO 0.9 (1.1-1.8); ALBUMIN 2.1 g/dL (3.0-4.8); ALT/SGPT 28 U/L (7-56); AST/SGOT 69 U/L (14-36); BLOOD UREA NITROGEN 23 mg/dL (7-21); CALCIUM 7.4 mg/dL (8.4-10.5); GFR NON-AFRICAN AMERICAN > 60
[2018-12-03] MEDS: Timolol 0.25% Ophth SOLN OU SCH ×2 (09:31→18:29)
--- NOTE | 2018-12-03 09:48 | RAD ---
Date of service: 12/03/2018 HISTORY: ET tube evaluation COMPARISON: 12/02/2018. FINDINGS: LUNGS: Again seen is moderate pulmonary venous congestion and mild interstitial pulmonary edema. PLEURA: There are moderate layering pleural effusions. CARDIOVASCULAR: Mild cardiomegaly. No aortic atherosclerotic calcifications present. OSSEOUS STRUCTURES: Within normal limits for the patient's age. VISUALIZED UPPER ABDOMEN: Normal. OTHER FINDINGS: None. IMPRESSION: No change in mild congestive heart failure with layering pleural effusions.
--- NOTE | 2018-12-03 12:00 | PN ---
DATE: 12/03/2018 SUBJECTIVE: The patient is in bed in no acute distress, nontoxic in room 363, bed 2. PHYSICAL EXAMINATION VITAL SIGNS: Temperature is 98, blood pressure is 109/70, respiratory rate of 20. HEENT: Unremarkable. NECK: Supple. CARDIOPULMONARY: Heart; normal S1, S2. LUNGS: Have decreased breath sounds ABDOMEN: Soft, nontender. LABORATORY DATA: Reveals a white count of 7.6, hemoglobin of 9, platelets of 137. BUN of 23, creatinine of 0.5. Procalcitonin is 3.3. Urinalysis is noted. Serology is negative. Sputum culture is sensitive staph aureus, sensitive to oxacillin. ASSESSMENT AND PLAN: An 83-year-old female with a history of osteoarthritis, deep venous thrombosis, dementia, coronary artery disease, congestive heart failure, hypertension, pulmonary emboli, severe sepsis with urine as the source and also has sensitive staphylococcus aureus in the sputum with a gastrointestinal bleed. Today is day #6, currently on Ancef. Would complete 4 to 7 days of antibiotics. Overall prognosis is quite poor. Dr. Valadez's note is reviewed. Eron Perez MD
--- NOTE | 2018-12-03 15:07 | CP.PCM.PN ---
<Catie Klein - Last Filed: 12/03/18 15:07> Subjective - Date & Time of Evaluation Date of Evaluation: 12/03/18 Time of Evaluation: 07:35 - Subjective Subjective: PGY5 GI Follow-up Pt seen and examined bedside non-verbal still NPO, could not attempt swallow eval due to inability to follow- commands ROS: could not be conducted Objective - Vital Signs/Intake and Output Vital Signs (last 24 hours): Temp Pulse Resp BP Pulse Ox 98.3 F 88 20 109/73 96 12/03/18 07:45 12/03/18 07:45 12/03/18 07:45 12/03/18 07:45 12/03/18 07:45 Intake and Output: 12/03/18 12/03/18 06:59 18:59 Intake Total 0 Output Total 900 Balance -900 - Medications Medications: Current Medications Hydrocortisone Sodium Succinate (Solu-Cortef) 25 mg IVP Q12 [facility] Last Admin: 12/03/18 09:24 Dose: 25 mg Lactated Ringer's (Lactated Ringer's) 1,000 mls @ 50 mls/hr IV .Q20H [facility] Last Admin: 12/02/18 21:51 Dose: 50 mls/hr Cefazolin Sodium (Ancef 1gm In Ns) 1 gm in 100 mls @ 200 mls/hr IVPB Q8H [facility] Last Admin: 12/03/18 09:29 Dose: 200 mls/hr Pantoprazole Sodium (Protonix Inj) 40 mg IVP Q12 [facility] Last Admin: 12/03/18 09:25 Dose: 40 mg Timolol [facility] O[facility] BID [facility] Last Admin: 12/03/18 09:31 Dose: 2 drop - Labs Labs: 12/03/18 05:00 12/03/18 05:00 PT 20.7 SECONDS (9.4-12.5) H 11/29/18 23:24 INR 1.86 11/29/18 23:24 APTT 26.0 Seconds (26.9-38.3) L 11/28/18 09:45 - Constitutional Appears: No Acute Distress, Chronically Ill - Head Exam Head Exam: ATRAUMATIC, NORMOCEPHALIC - Eye Exam Eye Exam: Normal appearance - ENT Exam ENT Exam: Mucous Membranes Moist - Neck Exam Neck Exam: Normal Inspection - Respiratory Exam Respiratory Exam: Rhonchi, NORMAL BREATHING PATTERN. absent: Wheezes, Respiratory Distress - Cardiovascular Exam Cardiovascular Exam: REGULAR RHYTHM, +S1, +S2 - GI/Abdominal Exam GI & Abdominal Exam: Soft, Normal Bowel Sounds. absent: Distended, Guarding, Rigid, Tenderness, Organomegaly, Rebound - Extremities Exam Extremities Exam: absent: Joint Swelling, Pedal Edema - Neurological Exam Neurological Exam: Altered, Awake - Psychiatric Exam Additional comments: could not assess - Skin Skin Exam: Dry, Intact, Normal Color, Warm Assessment and Plan - Assessment and Plan (Free Text) Assessment: 83 year old female with a PMH of DVT/PE on Eliquis admitted [facility] for [facility]ena. s/p intubation and extubation. Melena Anemia 2/2 above Dementia Colitis no plans for endoscopy at this time; should bleeding worsen again, decision will be revisited -remains NPO -no active bleeding -hgb stable -family meeting tomorrow to discuss goals of care -DNR/DNI at this time D/W Dr. Valadez <Rhiannon Valadez V - Last Filed: 12/03/18 17:21> Objective - Vital Signs/Intake and Output Vital Signs (last 24 hours): Temp Pulse Resp BP Pulse Ox 97 F L 86 20 100/60 96 12/03/18 16:22 12/03/18 16:22 12/03/18 16:22 12/03/18 16:22 12/03/18 16:22 Intake and Output: 12/03/18 12/03/18 06:59 18:59 Intake Total 0 Output Total 900 Balance -900 - Medications Medications: Current Medications Hydrocortisone Sodium Succinate (Solu-Cortef) 25 mg IVP Q12 [facility] Last Admin: 12/03/18 09:24 Dose: 25 mg Lactated Ringer's (Lactated Ringer's) 1,000 mls @ 50 mls/hr IV .Q20H [facility] Last Admin: 12/02/18 21:51 Dose: 50 mls/hr Cefazolin Sodium (Ancef 1gm In Ns) 1 gm in 100 mls @ 200 mls/hr IVPB Q8H [facility] Last Admin: 12/03/18 09:29 Dose: 200 mls/hr Pantoprazole Sodium (Protonix Inj) 40 mg IVP Q12 [facility] Last Admin: 12/03/18 09:25 Dose: 40 mg Timolol Maleate (Timoptic 0.25% Ophth Soln) 2 drop OU BID [facility] Last Admin: 12/03/18 09:31 Dose: 2 drop - Labs Labs: 12/03/18 05:00 12/03/18 05:00 PT 20.7 SECONDS (9.4-12.5) H 11/29/18 23:24 INR 1.86 11/29/18 23:24 APTT 26.0 Seconds (26.9-38.3) L 11/28/18 09:45 Attending/Attestation - Attestation I have personally seen and examined this patient.: Yes I have fully participated in the care of the patient.: Yes I have reviewed all pertinent clinical information, including history, physical exam and plan: Yes Notes (Text): This patient was seen and evaluated here earlier. This is an addendum to the GI progress report as dictated by the fellow. 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 No further endoscopy procedures are planned. Status post a colostomy for palliative care Oncology planned to have family meeting regarding long-term plan/management of the care of the patient 12/03/18 17:19
--- NOTE | 2018-12-03 15:57 | PN ---
DATE: 12/03/2018 SUBJECTIVE: The patient is an 83-year-old, seen and examined, lying in bed, seems to have generalized weakness, is decent as per nurse, which was not seem to be in any kind of distress. No shortness of breath. Complained of back pain. PHYSICAL EXAMINATION VITAL SIGNS: She is afebrile. Pulse 88, respiration 20 and blood pressure 109/73. LUNGS: Bilateral fair airflow. No rhonchi or crackle. HEART: S1 and S2, audible. ABDOMEN: Soft and nontender. No rebound. No guarding. NEUROLOGIC: She is awake and alert, answer simple question. EXTREMITIES: Bilateral leg +2 edema. LABORATORY DATA: WBC 7.6, hemoglobin 9.1, hematocrit 28.5, and platelet 137. PT 20.7 and INR 1.86. Chemistry; sodium 144, potassium 3.2, chloride 115, CO2 of 27, BUN 23, creatinine 0.5 and blood sugar of 90. Blood culture and urine cultures are negative. CT scan of the abdomen and pelvis done on 11/29/2018 shows severe mural thickening in the descending colon consistent with colitis. ASSESSMENT: 1. Sepsis. 2. Gastrointestinal bleed. 3. Descending colitis. 4. Status post respiratory failure. 5. Acute on chronic renal failure. 6. Dementia. 7. History of deep venous thrombosis. 8. History of pulmonary embolism. PLAN: Currently the patient is getting Apresoline. She is on IV fluid. She is on Protonix. She is on Solu-Cortef. We will start her on liquid diet and she responded okay. Her potassium is supplemented. We will followup her electrolyte intermittently. Eventually, she is going to need subacute rehab. Mahesh Aiken MD
[2018-12-03] MEDS: Lactated Ringer's 1,000 ML IV SCH ×2 (18:28→21:31)
[2018-12-04] MEDS: ceFAZolin 1 gm in NS 1 GM/100 ML BAG IVPB SCH ×3 (02:40→18:04)
[2018-12-04 06:43] LABS: BASO # 0.01 K/mm3 (0.0-2.0); BASO % 0.2 % (0.0-3.0); EOS % 0.3 % (1.5-5.0); HEMOGLOBIN 9.1 g/dL (12.0-16.0); LYMPH # 1.3 (1.2-3.4); LYMPH % 21.3 % (22.0-35.0); MEAN CELL VOLUME 92.5 fl (80.0-105.0); MEAN CORPUSCULAR HEMOGLOBIN 29.6 pg (25.0-35.0); MEAN PLATELET VOLUME 10.9 fl (7.0-11.0); MONO # 0.6 (0.1-0.6); MONO % 9.8 % (1.0-6.0); RBC 3.07 10^6/uL (3.5-6.1); RED CELL DISTRIBUTION WIDTH 15.3 % (11.5-14.5); WHITE BLOOD COUNT 6.2 10^3/uL (4.5-11.0)
[2018-12-04 07:05] LABS: ALB/GLOB RATIO 0.9 (1.1-1.8); ALT/SGPT 19 U/L (7-56); AST/SGOT 48 U/L (14-36); BLOOD UREA NITROGEN 17 mg/dL (7-21); CALCIUM 7.3 mg/dL (8.4-10.5); GFR NON-AFRICAN AMERICAN > 60
--- NOTE | 2018-12-04 07:18 | CP.PCM.PN ---
<Ochoa Klein - Last Filed: 12/04/18 09:33> Subjective - Date & Time of Evaluation Date of Evaluation: 12/04/18 Time of Evaluation: 07:30 - Subjective Subjective: Ochoa Klein- Internal Medicine Resident- Progress Note Behalf of Dr. Gray Subjective: Patient seen and examined at bedside. No acute events overnight. Patient is awake and responds to questions appropriately. Able to tolerate diet. Denies abdominal pain and N/V. 12 Point ROS negative except as indicated in the HPI Physical Examination: - Constitutional Appears: no acute distress - Head Exam Head Exam: ATRAUMATIC, NORMOCEPHALIC - Eye Exam Eye Exam: PERRL - ENT Exam ENT Exam: Mucous Membranes Dry - Respiratory Exam Respiratory Exam: CTA bilaterally - Cardiovascular Exam Cardiovascular Exam: +S1, +S2. absent: Systolic Murmur - GI/Abdominal Exam GI & Abdominal Exam: soft, non- distended - Neurological Exam Neurological exam: awake, responds to verbal stimuli, follows commands- blinks eyes when asked to perform task - Skin Skin Exam: sacral stage 1 decubitus Assessment and Plan: AMS- improved Severe sepsis secondary to UTI- resolved Hemorrhagic shock- resolved Diarrhea- resolved Normocytic anemia- stable H/H Supratherapeutic INR- improved s/p 1 kcentra, 2 FFP, and vitamin K Hyperkalemia Stage 1 Sacral Ulcer Dementia History of DVT/ PE on AC Patient was weaned off for pressor support and successfully extubated. S GI is consulted- appreciate recommendations- CT abdomen and pelvis without PO or IV contrast showed severe colitis in descending colon and moderate fecal impaction. Continue protonix 40VI q12h and transfuse pRBCs with Hgb <7 as needed. No plan for scope at this time. Continue liquid diet. Continue on LR @50cc/hr for maintenance IVF. Continue weaning stress dose steroids. Infectious disease consulted- appreciate recommendations. Blood cultures are negative 2 out of 2 on day 5. Legionella antigen negative. C. difficile antigen negative. Pro- calcitonin elevated. Continue on cefazolin. Hold home aspirin, eliquis, and metoprolol. Continue LR @50cc/hr for maintenance IVF. Palliative care consulted- appreciate recommendations. Patient case reviewed with and plan approved by attending physician, Dr. Nimco manley. Objective - Vital Signs/Intake and Output Vital Signs (last 24 hours): Temp Pulse Resp BP Pulse Ox 97 F L 86 20 100/60 96 12/03/18 16:22 12/03/18 16:22 12/03/18 16:22 12/03/18 16:22 12/03/18 16:22 Intake and Output: 12/04/18 12/04/18 06:59 18:59 Intake Total 240 Output Total 600 Balance -360 - Medications Medications: Current Medications Hydrocortisone Sodium Succinate (Solu-Cortef) 25 mg IVP Q12 [facility] Last Admin: 12/03/18 21:31 Dose: 25 mg Lactated Ringer's (Lactated Ringer's) 1,000 mls @ 50 mls/hr IV .Q20H [facility] Last Admin: 12/03/18 21:31 Dose: 50 mls/hr Cefazolin Sodium (Ancef 1gm In Ns) 1 gm in 100 mls @ 200 mls/hr IVPB Q8H [facility] Last Admin: 12/04/18 02:40 Dose: 200 mls/hr Potassium Chloride (Potassium Chloride 10 Meq/100 Ml) 10 meq in 100 mls @ 100 mls/hr IVPB Q2H [facility] Stop: 12/04/18 10:14 Potassium Chloride (Potassium Chloride 10 Meq/100 Ml) 10 meq in 100 mls @ 100 mls/hr IVPB Q2H [facility] Stop: 12/04/18 10:14 Pantoprazole Sodium (Protonix Inj) 40 mg IVP Q12 [facility] Last Admin: 12/03/18 21:31 Dose: 40 mg Timolol Maleate (Timoptic 0.25% Ophth Soln) 2 drop OU BID [facility] Last Admin: 12/03/18 18:29 Dose: 2 drop - Labs Labs: 12/04/18 06:00 12/04/18 06:00 PT 20.7 SECONDS (9.4-12.5) H 11/29/18 23:24 INR 1.86 11/29/18 23:24 APTT 26.0 Seconds (26.9-38.3) L 11/28/18 09:45 <Dave Gray S - Last Filed: 12/04/18 15:34> Subjective - Subjective Subjective: Pt seen and examined by me. I have reviewed the note of the medical csr and I agree with it. I have discussed the assessment and plan with the resident. I have reviewed the medications and the last labs. Objective - Vital Signs/Intake and Output Vital Signs (last 24 hours): Temp Pulse Resp BP Pulse Ox 97.8 F 88 18 127/75 97 12/04/18 07:28 12/04/18 07:28 12/04/18 07:28 12/04/18 07:28 12/04/18 07:28 Intake and Output: 12/04/18 12/04/18 06:59 18:59 Intake Total 640 Output Total 1000 Balance -360 - Medications Medications: Current Medications Hydrocortisone Sodium Succinate (Solu-Cortef) 25 mg IVP Q12 [facility] Last Admin: 12/04/18 10:06 Dose: 25 mg Lactated Ringer's (Lactated Ringer's) 1,000 mls @ 50 mls/hr IV .Q20H [facility] Last Admin: 12/03/18 21:31 Dose: 50 mls/hr Cefazolin Sodium (Ancef 1gm In Ns) 1 gm in 100 mls @ 200 mls/hr IVPB Q8H [facility] Last Admin: 12/04/18 10:06 Dose: 200 mls/hr Potassium Chloride (Potassium Chloride 20 Meq/100 Ml) 20 meq in 100 mls @ 50 mls/hr IVPB Q2H [facility] Stop: 12/04/18 18:14 Pantoprazole Sodium (Protonix Inj) 40 mg IVP Q12 [facility] Last Admin: 12/04/18 10:10 Dose: 40 mg Timolol Maleate (Timoptic 0.25% Ophth Soln) 2 drop OU BID [facility] Last Admin: 12/04/18 10:10 Dose: 2 drop - Labs Labs: 12/04/18 06:00 12/04/18 06:00 PT 20.7 SECONDS (9.4-12.5) H 11/29/18 23:24 INR 1.86 11/29/18 23:24 APTT 26.0 Seconds (26.9-38.3) L 11/28/18 09:45
--- NOTE | 2018-12-04 08:11 | CP.PCM.PN ---
<Al Woods - Last Filed: 12/04/18 08:13> Subjective - Date & Time of Evaluation Date of Evaluation: 12/04/18 Time of Evaluation: 07:08 - Subjective Subjective: Al Woods PGY2 GI Progress Note for Dr. Valadez Patient was seen and examined at bedside. There were no acute overnight events. Patient is able to tolerate a minimal amount of PO liquid diet that she was recommended by the speech pathologist. Objective - Vital Signs/Intake and Output Vital Signs (last 24 hours): Temp Pulse Resp BP Pulse Ox 97.8 F 88 18 127/75 97 12/04/18 07:28 12/04/18 07:28 12/04/18 07:28 12/04/18 07:28 12/04/18 07:28 Intake and Output: 12/04/18 12/04/18 06:59 18:59 Intake Total 640 Output Total 1000 Balance -360 - Medications Medications: Current Medications Hydrocortisone Sodium Succinate (Solu-Cortef) 25 mg IVP Q12 [facility] Last Admin: 12/03/18 21:31 Dose: 25 mg Lactated Ringer's (Lactated Ringer's) 1,000 mls @ 50 mls/hr IV .Q20H [facility] Last Admin: 12/03/18 21:31 Dose: 50 mls/hr Cefazolin Sodium (Ancef 1gm In Ns) 1 gm in 100 mls @ 200 mls/hr IVPB Q8H [facility] Last Admin: 12/04/18 02:40 Dose: 200 mls/hr Potassium Chloride (Potassium Chloride 10 Meq/100 Ml) 10 meq in 100 mls @ 100 mls/hr IVPB Q2H [facility] Stop: 12/04/18 10:14 Pantoprazole Sodium (Protonix Inj) 40 mg IVP Q12 [facility] Last Admin: 12/03/18 21:31 Dose: 40 mg Timolol Maleate (Timoptic 0.25% Ophth Soln) 2 drop OU BID [facility] Last Admin: 12/03/18 18:29 Dose: 2 drop - Labs Labs: 12/04/18 06:00 12/04/18 06:00 PT 20.7 SECONDS (9.4-12.5) H 11/29/18 23:24 INR 1.86 11/29/18 23:24 APTT 26.0 Seconds (26.9-38.3) L 11/28/18 09:45 - Constitutional Appears: Well, No Acute Distress, Chronically Ill - Head Exam Head Exam: ATRAUMATIC, NORMAL INSPECTION - Eye Exam Eye Exam: EOMI, Normal appearance - ENT Exam ENT Exam: Mucous Membranes Dry, Normal Oropharynx - Neck Exam Neck Exam: Full ROM, Normal Inspection - Respiratory Exam Respiratory Exam: NORMAL BREATHING PATTERN. absent: Respiratory Distress - Cardiovascular Exam Cardiovascular Exam: RRR, +S1, +S2, Murmur - GI/Abdominal Exam GI & Abdominal Exam: Soft. absent: Distended, Tenderness - Extremities Exam Extremities Exam: absent: Full ROM, Pedal Edema - Neurological Exam Neurological Exam: Altered, Awake - Skin Skin Exam: Pallor, Warm Assessment and Plan - Assessment and Plan (Free Text) Assessment: 83 year old female with a PMH of DVT/PE on Eliquis [facility]. Patient intubated in ED for agonal breathing. Due to melena and hematuria, Kcentra, vit K, 2u FFP and 2u pRBCs were transfused upon admission to reverse anticoagulant effect. Patient is now in ICU on vasopressors required to maintain perfusion. Her stools have become less frequent and more formed. CT reviewed showing colitis, patient is on abx. Patient now extubated, and out of ICU. She has been made DNR/DNI. Plan: - PTX gtt switched to PTX 40mg IVP q12 - monitor H/H - maintain Hgb > 7 - LR for IVF - Abx per ID - further recs per Dr. Valadez - diet advanced per speech pathologist recs and is being tolerated This note is not finalized until signed Case was reviewed and discussed with Dr. Valadez <Rhiannon Valadez V - Last Filed: 12/04/18 21:15> Objective - Vital Signs/Intake and Output Vital Signs (last 24 hours): Temp Pulse Resp BP Pulse Ox 97 F L 84 20 110/64 98 12/04/18 17:06 12/04/18 17:06 12/04/18 17:06 12/04/18 17:06 12/04/18 17:06 Intake and Output: 12/04/18 12/05/18 18:59 06:59 Intake Total 650 Balance 650 - Medications Medications: Current Medications Hydrocortisone Sodium Succinate (Solu-Cortef) 25 mg IVP Q12 [facility] Last Admin: 12/04/18 10:06 Dose: 25 mg Lactated Ringer's (Lactated Ringer's) 1,000 mls @ 50 mls/hr IV .Q20H [facility] Last Admin: 12/04/18 18:05 Dose: 50 mls/hr Pantoprazole Sodium (Protonix Inj) 40 mg IVP Q12 [facility] Last Admin: 12/04/18 10:10 Dose: 40 mg Timolol Maleate (Timoptic 0.25% Ophth Soln) 2 drop OU BID [facility] Last Admin: 12/04/18 18:04 Dose: 2 drop - Labs Labs: 12/04/18 06:00 12/04/18 06:00 PT 20.7 SECONDS (9.4-12.5) H 11/29/18 23:24 INR 1.86 11/29/18 23:24 APTT 26.0 Seconds (26.9-38.3) L 11/28/18 09:45 Attending/Attestation - Attestation I have personally seen and examined this patient.: Yes I have fully participated in the care of the patient.: Yes I have reviewed all pertinent clinical information, including history, physical exam and plan: Yes Notes (Text): This patient was seen and evaluated with the medical clinic manager here earlier today. This is an addendum to the progress report dictated by the resident. Patient is remains weak and lethargic. Tolerating small amount of food. Tiffany ent is DNR/DNI. Overall prognosis remains poor Discussed with the patient's son yesterday 12/04/18 21:13
[2018-12-04] MEDS ORDERED: Potassium Chloride 40 mEq/30 ml LIQ UD PO ONE (08:36)
--- NOTE | 2018-12-04 09:39 | RAD ---
Date of service: 12/04/2018 HISTORY: ET tube evaluation COMPARISON: 12/03/2018 TECHNIQUE: 1 view obtained. FINDINGS: LUNGS: No active pulmonary disease. PLEURA: Small to moderate bilateral pleural effusions. CARDIOVASCULAR: Aortic calcification Normal cardiac size. No pulmonary vascular congestion. OSSEOUS STRUCTURES: No significant abnormalities. VISUALIZED UPPER ABDOMEN: Normal. OTHER FINDINGS: None. IMPRESSION: Small to moderate bilateral pleural effusions.
[2018-12-04] MEDS: Timolol 0.25% Ophth SOLN OU SCH ×2 (10:10→18:04)
--- NOTE | 2018-12-04 16:01 | CP.PCM.PN ---
Subjective - Date & Time of Evaluation Date of Evaluation: 12/04/18 Time of Evaluation: 11:00 - Subjective Subjective: Lethargic, opens eyes when her name is called Objective - Vital Signs/Intake and Output Vital Signs (last 24 hours): Temp Pulse Resp BP Pulse Ox 97.8 F 88 18 127/75 97 12/04/18 07:28 12/04/18 07:28 12/04/18 07:28 12/04/18 07:28 12/04/18 07:28 Intake and Output: 12/04/18 12/04/18 06:59 18:59 Intake Total 640 Output Total 1000 Balance -360 - Medications Medications: Current Medications Hydrocortisone Sodium Succinate (Solu-Cortef) 25 mg IVP Q12 [facility] Last Admin: 12/04/18 10:06 Dose: 25 mg Lactated Ringer's (Lactated Ringer's) 1,000 mls @ 50 mls/hr IV .Q20H [facility] Last Admin: 12/03/18 21:31 Dose: 50 mls/hr Cefazolin Sodium (Ancef 1gm In Ns) 1 gm in 100 mls @ 200 mls/hr IVPB Q8H [facility] Last Admin: 12/04/18 10:06 Dose: 200 mls/hr Potassium Chloride (Potassium Chloride 20 Meq/100 Ml) 20 meq in 100 mls @ 50 mls/hr IVPB Q2H [facility] Stop: 12/04/18 18:14 Pantoprazole Sodium (Protonix Inj) 40 mg IVP Q12 [facility] Last Admin: 12/04/18 10:10 Dose: 40 mg Timolol Maleate (Timoptic 0.25% Ophth Soln) 2 drop OU BID [facility] Last Admin: 12/04/18 10:10 Dose: 2 drop - Labs Labs: 12/04/18 06:00 12/04/18 06:00 PT 20.7 SECONDS (9.4-12.5) H 11/29/18 23:24 INR 1.86 11/29/18 23:24 APTT 26.0 Seconds (26.9-38.3) L 11/28/18 09:45 - Constitutional Appears: Cachectic, Chronically Ill - Eye Exam Eye Exam: Normal appearance, PERRL - ENT Exam ENT Exam: Mucous Membranes Moist - Respiratory Exam Respiratory Exam: Decreased Breath Sounds, Rhonchi, NORMAL BREATHING PATTERN - Cardiovascular Exam Cardiovascular Exam: REGULAR RHYTHM, +S1 - GI/Abdominal Exam GI & Abdominal Exam: Soft, Hypoactive Bowel Sounds - Extremities Exam Extremities Exam: Pedal Edema - Neurological Exam Neurological Exam: Altered - Skin Skin Exam: Dry, Pallor, Warm Assessment and Plan - Assessment and Plan (Free Text) Assessment: 83 year old female with history of dementia, PE/DVT,anemia who is admitted with AMS, sepsis, sacral decubiti, dysphagia,supratherapeutic INR which has improved and GI bleed, diarrhea, respiratory failure(s/p extubation) which have since resolved. Patient's son at bedside. Son verbalized that his mother is really not rebounding. He is aware that her PO intake is poor. Patient's advance directive stipulates no penitentiary feeding tube/artificial nutrition. Given patient's condition and poor prognosis, hospice care was explained. Questions were answered. Son was hoping to give her a few more days with IVF's /antibiotics to see if her condition will improve. I explained that this was unlikely. Son will consider hospice but not ready to make a decision today. Psychosocial support provided. Time spent with son in goals of care discussion, 40 minutes Plan: DNR/DNI Goals of care Dyspahgia; continue liquid diet. Repeat swallow eval as needed Continue IVF's. Continue weaning steroids. Infectious disease recs reviewed, continue on cefazolin. GI bleed: Hold aspirin, eliquis. Metoprolol on hold due to hypotension
[2018-12-04] MEDS: Lactated Ringer's 1,000 ML IV SCH (18:05)
--- NOTE | 2018-12-04 20:57 | PN ---
DATE: 12/04/2018 The patient was seen and examined. I do agree with the note of the director medical surgical. I was involved in the plan of care. The patient had a terminal extubation, but she did improve well to her current treatment. The patient has severe sepsis secondary to UTI that has resolved. She also had hemorrhagic shock because of lower GI bleeding. Hemoglobin has been stable. The patient has a stage 1 sacral wound and getting local wound care. She has advanced dementia. The patient will probably need to stay off of anticoagulation because of the risk of bleeding. Dave Gray MD
--- NOTE | 2018-12-05 01:33 | PN ---
DATE: 12/04/2018 SUBJECTIVE: The patient is in bed, in no acute distress, nontoxic. PHYSICAL EXAMINATION: VITAL SIGNS: Temperature is 98, blood pressure is 110/60, respiratory rate is 20, heart rate is 84. HEENT: Unremarkable. NECK: Supple. LUNGS: Decreased breath sounds. HEART: Normal S1 and S2. ABDOMEN: Soft, nontender. LABORATORY EXAMINATION: Reveals a white count of 6.2. Coagulation is noted. Chemistries are noted. BUN of 17, creatinine of 0.7. Urinalysis is noted. Serology is reviewed. Microbiology sputum with sensitive Staph. ASSESSMENT AND PLAN: An 83-year-old female who was seen earlier today in room 363, bed two, with a history of osteoarthritis, deep venous thrombosis, dementia, coronary artery disease, congestive heart failure, hypertension, pulmonary emboli, severe sepsis with urine as the source and sensitive Staphylococcus aureus in the sputum with a gastrointestinal bleed. Today is day #7 of antibiotics. We will discontinue the Ancef. Jocelynn White's progress note from today is reviewed. The patient has received seven days of antibiotics; no further antibiotics at this point. Eron Perez MD
--- NOTE | 2018-12-05 06:40 | CP.PCM.PN ---
<Tracy Cisneros - Last Filed: 12/05/18 11:02> Subjective - Date & Time of Evaluation Date of Evaluation: 12/05/18 Time of Evaluation: 06:39 - Subjective Subjective: Tracy Cisneros, PGY2, GI Progress Note for Dr. Valadez: Patient was seen and examined at bedside. No acute overnight events. Patient awake this morning, denies abdominal pain, nausea, vomiting. States that she would has an appetite and would like to eat. As per nurse, patient had brown, non bloody BMs yesterday. Patient having poor PO intake as well. Objective - Vital Signs/Intake and Output Vital Signs (last 24 hours): Temp Pulse Resp BP Pulse Ox 97 F L 84 20 110/64 98 12/04/18 17:06 12/04/18 17:06 12/04/18 17:06 12/04/18 17:06 12/04/18 17:06 Intake and Output: 12/04/18 12/05/18 18:59 06:59 Intake Total 650 1560 Output Total 700 Balance 650 860 - Medications Medications: Current Medications Hydrocortisone Sodium Succinate (Solu-Cortef) 25 mg IVP Q12 [facility] Last Admin: 12/04/18 22:01 Dose: 25 mg Lactated Ringer's (Lactated Ringer's) 1,000 mls @ 50 mls/hr IV .Q20H [facility] Last Admin: 12/04/18 18:05 Dose: 50 mls/hr Pantoprazole Sodium (Protonix Inj) 40 mg IVP Q12 [facility] Last Admin: 12/04/18 22:00 Dose: 40 mg Timolol Maleate (Timoptic 0.25% Ophth Soln) 2 drop OU BID [facility] Last Admin: 12/04/18 18:04 Dose: 2 drop - Labs Labs: 12/04/18 06:00 12/04/18 06:00 PT 20.7 SECONDS (9.4-12.5) H 11/29/18 23:24 INR 1.86 11/29/18 23:24 APTT 26.0 Seconds (26.9-38.3) L 11/28/18 09:45 - Additional Findings Additional findings: - Constitutional Appears: Well, No Acute Distress, Chronically Ill - Head Exam Head Exam: ATRAUMATIC, NORMAL INSPECTION - Eye Exam Eye Exam: EOMI, Normal appearance - ENT Exam ENT Exam: Mucous Membranes Dry, Normal Oropharynx - Neck Exam Neck Exam: Full ROM, Normal Inspection - Respiratory Exam Respiratory Exam: NORMAL BREATHING PATTERN. absent: Respiratory Distress - Cardiovascular Exam Cardiovascular Exam: RRR, +S1, +S2, Murmur - GI/Abdominal Exam GI & Abdominal Exam: Soft. normal bowel sounds. absent: Distended, Tenderness, mass, organomegaly. - Extremities Exam Extremities Exam: absent: Full ROM, Pedal Edema - Neurological Exam Neurological Exam: Altered, Awake - Skin Skin Exam: Pallor, Warm Assessment and Plan - Assessment and Plan (Free Text) Assessment: 83 year old female with a PMH of DVT/PE on Eliquis admitted from [facility] for melena. Patient intubated in ED for agonal breathing. Due to melena and hematuria, Kcentra, vit K, 2u FFP and 2u pRBCs were transfused upon admission to reverse anticoagulant effect. Patient s/p vasopressor therapy in ICU, current doing well with brown, non bloody stool, tolerating some PO intake: - can discharge with daily PPI - Abx per ID - continue with PO diet - DNR/DNI Case reviewed and discussed with Dr. Valadez <Rhiannon Valadez V - Last Filed: 12/06/18 00:09> Objective - Vital Signs/Intake and Output Vital Signs (last 24 hours): Temp Pulse Resp BP Pulse Ox 97.3 F L 74 20 134/79 99 12/05/18 16:10 12/05/18 16:10 12/05/18 16:10 12/05/18 16:22 12/05/18 16:10 Intake and Output: 12/05/18 12/06/18 18:59 06:59 Intake Total 480 Output Total 1999 Balance -1520 - Medications Medications: Current Medications Pantoprazole Sodium (Protonix Inj) 40 mg IVP DAILY [facility] Prednisone (Prednisone Tab) 30 mg PO ONCE ONE Stop: 12/06/18 10:01 Prednisone (Prednisone Tab) 20 mg PO ONCE ONE Stop: 12/07/18 10:01 Prednisone (Prednisone Tab) 10 mg PO ONCE ONE Stop: 12/08/18 10:01 Timolol Maleate (Timoptic 0.25% Ophth Soln) 2 drop OU BID [facility] Last Admin: 12/05/18 20:05 Dose: 2 drop - Labs Labs: 12/05/18 07:50 12/05/18 07:50 PT 20.7 SECONDS (9.4-12.5) H 11/29/18 23:24 INR 1.86 11/29/18 23:24 APTT 26.0 Seconds (26.9-38.3) L 11/28/18 09:45 Attending/Attestation - Attestation I have personally seen and examined this patient.: Yes I have fully participated in the care of the patient.: Yes I have reviewed all pertinent clinical information, including history, physical exam and plan: Yes Notes (Text): Is an addendum to the GI progress report dictated by the resident. The patient was seen in evaluated with the resident here earlier. Patient is tolerating minimal p.o. No further episodes of bleeding. Patient is DNR/DNI supportive care Continue PPI follow-up hemoglobin 12/06/18 00:08
[2018-12-05 08:09] LABS: BASO # 0.02 K/mm3 (0.0-2.0); BASO % 0.3 % (0.0-3.0); EOS % 0.1 % (1.5-5.0); HEMOGLOBIN 9.1 g/dL (12.0-16.0); LYMPH # 1.7 (1.2-3.4); LYMPH % 22.5 % (22.0-35.0); MEAN CORPUSCULAR HEMOGLOBIN 30.1 pg (25.0-35.0); MEAN CORPUSCULAR HGB CONC 32.4 g/dl (31.0-37.0); MONO # 0.9 (0.1-0.6); MONO % 12.7 % (1.0-6.0); RBC 3.02 10^6/uL (3.5-6.1); RED CELL DISTRIBUTION WIDTH 15.3 % (11.5-14.5); WHITE BLOOD COUNT 7.4 10^3/uL (4.5-11.0)
--- NOTE | 2018-12-05 08:23 | CP.PCM.PN ---
<Ochoa Klein - Last Filed: 12/05/18 09:06> Subjective - Date & Time of Evaluation Date of Evaluation: 12/05/18 Time of Evaluation: 07:30 - Subjective Subjective: Ochoa Klein- Internal Medicine Resident- Progress Note Behalf of Dr. Gray Subjective: Patient seen and examined at bedside. No acute events overnight. Patient is awake and responds to questions appropriately. Admits desire to rest. Able to tolerate diet. Denies fever, chills, chest pain, SOB, abdominal pain, N/V, diarrhea, constipation, and urinary symptoms. 12 Point ROS negative except as indicated in the HPI Physical Examination: - Constitutional Appears: no acute distress - Head Exam Head Exam: ATRAUMATIC, NORMOCEPHALIC - Eye Exam Eye Exam: PERRL - ENT Exam ENT Exam: Mucous Membranes Dry - Respiratory Exam Respiratory Exam: CTA bilaterally - Cardiovascular Exam Cardiovascular Exam: +S1, +S2. 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 GI is consulted- appreciate recommendations- CT abdomen and pelvis without PO or IV contrast showed severe colitis in descending colon and moderate fecal impaction. Okay to switch protonix 40 q12h to daily and transfuse pRBCs with Hgb <7 as needed. No plan for scope at this time. Continue liquid diet. Continue on LR @50cc/hr for maintenance IVF. Continue weaning stress dose steroids. Will switch to prednisone 30mg PO on 12/06/2018, 20mg PO on 12/07, and 10mg PO 12/08. Infectious disease consulted- appreciate recommendations. Blood cultures are negative 2 out of 2 on day 5. Legionella antigen negative. C. difficile antigen negative. Pro-calcitonin elevated. Completed course of cefazolin. Hold home aspirin, eliquis, and metoprolol. Cannot restart anticoagulation at this time. IR consulted for potential placement of IVC filter. Hypokalemia noted- replete with both IV and PO supplements. Repeat BMP after supplementation. Mag ordered and pending. Palliative care consulted- appreciate recommendations. Patient case reviewed with and plan approved by attending physician, Dr. Gray. Objective - Vital Signs/Intake and Output Vital Signs (last 24 hours): Temp Pulse Resp BP Pulse Ox 97 F L 84 20 110/64 98 12/04/18 17:06 12/04/18 17:06 12/04/18 17:06 12/04/18 17:06 12/04/18 17:06 Intake and Output: 12/05/18 12/05/18 06:59 18:59 Intake Total 1560 Output Total 1000 Balance 560 - Medications Medications: Current Medications Hydrocortisone Sodium Succinate (Solu-Cortef) 25 mg IVP Q12 [facility] Last Admin: 12/04/18 22:01 Dose: 25 mg Lactated Ringer's (Lactated Ringer's) 1,000 mls @ 50 mls/hr IV .Q20H [facility] Last Admin: 12/04/18 18:05 Dose: 50 mls/hr Pantoprazole Sodium (Protonix Inj) 40 mg IVP Q12 [facility] Last Admin: 12/04/18 22:00 Dose: 40 mg Timolol Maleate (Timoptic 0.25% Ophth Soln) 2 drop OU BID [facility] Last Admin: 12/04/18 18:04 Dose: 2 drop - Labs Labs: 12/04/18 06:00 12/04/18 06:00 PT 20.7 SECONDS (9.4-12.5) H 11/29/18 23:24 INR 1.86 11/29/18 23:24 APTT 26.0 Seconds (26.9-38.3) L 11/28/18 09:45 <Dave Gray S - Last Filed: 12/05/18 10:42> Subjective - Subjective Subjective: Patient was seen and examined by me. I have reviewed the note of the medical research scientist and have gone over the plan of care. I agree with the note. I have reviewed the medications and the last labs. Objective - Vital Signs/Intake and Output Vital Signs (last 24 hours): Temp Pulse Resp BP Pulse Ox 97.3 F L 74 20 94/63 L 99 12/05/18 08:06 12/05/18 08:06 12/05/18 08:06 12/05/18 08:06 12/05/18 08:06 Intake and Output: 12/05/18 12/05/18 06:59 18:59 Intake Total 1560 Output Total 1000 Balance 560 - Medications Medications: Current Medications Lactated Ringer's (Lactated Ringer's) 1,000 mls @ 50 mls/hr IV .Q20H [facility] Last Admin: 12/04/18 18:05 Dose: 50 mls/hr Potassium Chloride (Potassium Chloride 10 Meq/100 Ml) 10 meq in 100 mls @ 100 mls/hr IVPB Q2H [facility] Stop: 12/05/18 11:59 Pantoprazole Sodium (Protonix Inj) 40 mg IVP Q12 [facility] Last Admin: 12/04/18 22:00 Dose: 40 mg Potassium Chloride (Potassium Chloride Oral Soln) 40 meq PO ONCE ONE Stop: 12/05/18 16:01 Prednisone (Prednisone Tab) 30 mg PO ONCE ONE Stop: 12/06/18 10:01 Prednisone (Prednisone Tab) 20 mg PO ONCE ONE Stop: 12/07/18 10:01 Prednisone (Prednisone Tab) 10 mg PO ONCE ONE Stop: 12/08/18 10:01 Timolol Maleate (Timoptic 0.25% Ophth Soln) 2 drop OU BID [facility] Last Admin: 12/04/18 18:04 Dose: 2 drop - Labs Labs: 12/05/18 07:50 12/05/18 07:50 PT 20.7 SECONDS (9.4-12.5) H 11/29/18 23:24 INR 1.86 11/29/18 23:24 APTT 26.0 Seconds (26.9-38.3) L 11/28/18 09:45
[2018-12-05 08:30] LABS: ALB/GLOB RATIO 0.8 (1.1-1.8); ALBUMIN 1.9 g/dL (3.0-4.8); ALT/SGPT 21 U/L (7-56); AST/SGOT 34 U/L (14-36); BLOOD UREA NITROGEN 14 mg/dL (7-21); CALCIUM 7.3 mg/dL (8.4-10.5); GFR NON-AFRICAN AMERICAN > 60
[2018-12-05] MEDS ORDERED: Potassium Chloride 40 mEq/30 ml LIQ UD PO ONE ×3 (08:48→22:00)
[2018-12-05] MEDS: Timolol 0.25% Ophth SOLN OU SCH ×2 (11:08→20:05)
--- NOTE | 2018-12-05 12:14 | RAD ---
Date of service: 12/05/2018 HISTORY: r/o aspiration COMPARISON: 12/04/2018. FINDINGS: LUNGS: There is worsening pulmonary edema with diffuse haziness in the lungs. PLEURA: Stable to worsening bilateral pleural effusions. CARDIOVASCULAR: The heart is normal in size. No aortic atherosclerotic calcifications present. OSSEOUS STRUCTURES: Within normal limits for the patient's age. VISUALIZED UPPER ABDOMEN: Normal. OTHER FINDINGS: None. IMPRESSION: Worsening congestive heart failure with worsening pulmonary edema.
--- NOTE | 2018-12-05 13:24 | PN ---
DATE: 12/05/2018 SUBJECTIVE: The patient was seen and examined. I do agree with the note of the medical microbiologist. I was involved in plan of care. The patient is currently able to open her eyes. She does not follow much commands. She is not eating well. She had hypokalemia and replaced. She is going to continue her lactated ringers. The patient is not on anticoagulation because of her low GI bleed. She has aspirin that is on hold as well. She almost likely need an IVC filter placed. She is getting blood work done. The patient's son has been informed an update about the patient's diagnosis and plan of care. The patient is currently DNR/DNI. She is on prednisone and this has been tapered and will be changed to p.o. The patient is currently on a liquid diet, but not able to tolerate further advancement of her diet. Dave Gray MD
[2018-12-05] MEDS ORDERED: Lidocaine PF 2% (5 ml) Inj (For Cardiac Arrhy) ONE (14:02)
[2018-12-05] MEDS ORDERED: Iodixanol 320 mg/ml 150 ml Bottle IV ONE (14:02)
[2018-12-05] MEDS ORDERED: Iodixanol 320 MG/ML 100 ML BOTTLE IV ONE (14:09)
--- NOTE | 2018-12-05 15:07 | PN ---
DATE: 12/05/2018 SUBJECTIVE: The patient is in bed, in no acute distress, nontoxic; however, chronically ill. PHYSICAL EXAMINATION: VITAL SIGNS: Temperature is 97, blood pressure is 94/60, and respiratory rate is 18. HEENT: Unremarkable. NECK: Supple. LUNGS: Decreased breath sounds. HEART: Normal S1 and S2. ABDOMEN: Soft and nontender. LABORATORY DATA: Reveals a white count of 7.4 and hemoglobin of 9. BUN of 14, creatinine of 0.5, and urine Legionella antigen is negative. ASSESSMENT AND PLAN: This is an 83-year-old female with history of osteoarthritis, deep venous thrombosis, dementia, coronary artery disease, congestive heart failure, severe sepsis with urine as the source, sensitive staphylococcus aureus in the sputum, gastrointestinal bleed, and completed 7 days of antibiotics, currently off of antibiotics. The patient is at risk for developing nosocomial infections. The patient is on prednisone. Eron Perez MD
--- NOTE | 2018-12-05 16:17 | VASCULAR ---
PROCEDURE: IVC Filter placement HISTORY: Recent DVT and pulmonary embolus. GI bleeding on anticoagulation. Needs IVC filter PHYSICIAN(S): Bryson Obrien MD. TECHNIQUE: The relative risks and indications of the procedure were explained to the patient's son and consent obtained. The patient was placed supine on the arteriogram table the right groin prepped and draped usual sterile fashion. Conscious sedation and monitoring were provided throughout the procedure by a nurse. The right common femoral vein was punctured under ultrasound guidance with a micropuncture set. Exchange is made for a 5 [place] sheath. A 5 [place] flush catheter was placed in the left common iliac vein and a PA DSA IVC gram performed. Exchange was made for a support wire placed in the right atrium. The 7 [place] sheath was advanced to the level of the renal veins. Next a argon retrievable filter was deployed in the infrarenal IVC at the level of L2. A post deployment cavagram was performed through the introducer sheath. The sheath was removed and hemostasis obtained. Patient tolerated the procedure well. FINDINGS: A web-like narrowing of the origin of the left common iliac vein is seen with collaterals. 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 The visualized right common iliac vein is normal. The IVC is normal in appearance IMPRESSION: 1. Successful deployment of an argon retrievable filter in the IVC at the level of L2 2. 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 No thrombus is appreciated on these limited images
[2018-12-05] MEDS ORDERED: Potassium Chloride 20 mEq ER Tab PO ONE (18:57)
[2018-12-06 00:09] LABS: BLOOD UREA NITROGEN 12 mg/dL (7-21); CALCIUM 7.3 mg/dL (8.4-10.5); GFR NON-AFRICAN AMERICAN > 60
[2018-12-06] MEDS ORDERED: Potassium Chloride 40 mEq/30 ml LIQ UD PO STA (01:02)
[2018-12-06] MEDS ORDERED: Potassium Chloride 20 mEq ER Tab PO ONE (06:04)
[2018-12-06] MEDS ORDERED: Potassium Chloride 40 mEq/30 ml LIQ UD PO ONE ×4 (06:26→17:00)
[2018-12-06 07:11] LABS: BASO # 0.02 K/mm3 (0.0-2.0); BASO % 0.2 % (0.0-3.0); EOS # 0.2 (0.0-0.7); EOS % 2.3 % (1.5-5.0); HEMOGLOBIN 9.7 g/dL (12.0-16.0); LYMPH # 1.7 (1.2-3.4); LYMPH % 19.6 % (22.0-35.0); MEAN CELL VOLUME 92.9 fl (80.0-105.0); MEAN CORPUSCULAR HEMOGLOBIN 29.8 pg (25.0-35.0); MEAN PLATELET VOLUME 10.4 fl (7.0-11.0); MONO # 0.7 (0.1-0.6); MONO % 7.7 % (1.0-6.0); RBC 3.26 10^6/uL (3.5-6.1); RED CELL DISTRIBUTION WIDTH 15.4 % (11.5-14.5); WHITE BLOOD COUNT 8.5 10^3/uL (4.5-11.0)
[2018-12-06 07:42] LABS: BLOOD UREA NITROGEN 11 mg/dL (7-21); CALCIUM 7.4 mg/dL (8.4-10.5); GFR NON-AFRICAN AMERICAN > 60
--- NOTE | 2018-12-06 08:43 | CP.PCM.DIS ---
Provider - Provider Date of Admission: 11/28/18 11:48 Attending physician: Dave Gray MD Consults: 11/28/18 11:49 Gastroenterology Consult Stat Comment: Consulting Provider: Rhiannon Valadez V Consulting Physician: Rhiannon Valadez V Reason for Consult: GI bleed 11/28/18 12:42 Infectious Disease Consult Stat Comment: Consulting Provider: Eron Perez Consulting Physician: Eron Perez Reason for Consult: Septic shock- UTI 11/28/18 14:27 Physician Consult Routine Comment: Consulting Provider: Hodan Núñez Consulting Physician: Hodan Núñez Reason for Consult: hx of DVT, PE on eliquis, supratherapeutic INR, GI hemorrhage 11/28/18 14:30 Physician Consult Routine Comment: Consulting Provider: Jocelynn White Consulting Physician: Jocelynn White Reason for Consult: advanced directive 11/28/18 14:39 Social Work Referral Routine Comment: To return [facility] Physician Instructions: Reason For Exam: To return to [facility] 11/28/18 14:41 Nursing Referral for Palliative Care Routine Comment: Physician Instructions: Reason For Exam: PT with active bleed 11/28/18 15:00 Nursing Referral for Wound Care Routine Comment: Physician Instructions: Reason For Exam: PT as risk 11/28/18 15:04 Nursing Referral for Wound Care Routine Comment: Physician Instructions: Reason For Exam: Brusing at risk for breakdown 11/29/18 08:19 TCU [Evaluation for TRCU] Routine Comment: Physician Instructions: Reason For Exam: deconditioning, HCAP 12/05/18 08:05 Physician Consult Routine Comment: Consulting Provider: Bryson Obrien Consulting Physician: Bryson Obrien Reason for Consult: IVC filter Hospital Course - Lab Results Lab Results: Micro Results 11/28/18 10:15 Blood Blood Culture - Final NO GROWTH AFTER 5 DAYS 11/28/18 10:15 Blood Gram Stain - Final TEST NOT PERFORMED 11/28/18 09:45 Blood Blood Culture - Final NO GROWTH AFTER 5 DAYS 11/28/18 09:45 Blood Gram Stain - Final TEST NOT PERFORMED 11/29/18 17:08 Urine,Khanna Urine Culture - Final No Growth (<1,000 CFU/ML) 11/29/18 08:00 Sputum Induced Gram Stain - Final 11/29/18 08:00 Sputum Induced Sputum Culture - Final Staphylococcus Aureus 11/28/18 15:30 Naris MRSA Culture (Admit) - Final MRSA NOT DETECTED 11/28/18 23:00 Stool C. difficile Antigen & Toxins A,B - Final 11/28/18 10:15 Urine Random Urine Culture - Final No Growth (<1,000 CFU/ML) Most Recent Lab Values WBC 8.5 10^3/uL (4.5-11.0) 12/06/18 06:45 RBC 3.26 10^6/uL (3.5-6.1) L 12/06/18 06:45 Hgb 9.7 g/dL (12.0-16.0) L 12/06/18 06:45 Hct 30.3 % (36.0-48.0) L 12/06/18 06:45 MCV 92.9 fl (80.0-105.0) 12/06/18 06:45 MCH 29.8 pg (25.0-35.0) 12/06/18 06:45 MCHC 32.0 g/dl (31.0-37.0) 12/06/18 06:45 RDW 15.4 % (11.5-14.5) H 12/06/18 06:45 Plt Count 248 10^3/uL (120.0-450.0) 12/06/18 06:45 MPV 10.4 fl (7.0-11.0) 12/06/18 06:45 Neut % (Auto) 70.2 % (50.0-68.0) H 12/06/18 06:45 Lymph % (Auto) 19.6 % (22.0-35.0) L 12/06/18 06:45 [place] % (Auto) 7.7 % (1.0-6.0) H 12/06/18 06:45 Eos % (Auto) 2.3 % (1.5-5.0) 12/06/18 06:45 Baso % (Auto) 0.2 % (0.0-3.0) 12/06/18 06:45 Lymph # (Auto) 1.7 (1.2-3.4) 12/06/18 06:45 [place] # (Auto) 0.7 (0.1-0.6) H 12/06/18 06:45 Eos # (Auto) 0.2 (0.0-0.7) 12/06/18 06:45 Baso # (Auto) 0.02 K/mm3 (0.0-2.0) 12/06/18 06:45 Absolute Neuts (auto) 5.98 (1.4-6.5) 12/06/18 06:45 Neutrophils % (Manual) 74 % (50.0-70.0) H 11/28/18 09:45 Band Neutrophils % 7 % (0-2) H 11/28/18 09:45 Lymphocytes % (Manual) 9 % (22.0-35.0) L 11/28/18 09:45 Atypical Lymphs % 1 % (0.0-0.0) H 11/28/18 09:45 Monocytes % (Manual) 8 % (1.0-6.0) H 11/28/18 09:45 Eosinophils % (Manual) 1 % (0.0-3.0) 11/28/18 09:45 PT 20.7 SECONDS (9.4-12.5) H 11/29/18 23:24 INR 1.86 11/29/18 23:24 APTT 26.0 Seconds (26.9-38.3) L 11/28/18 09:45 pCO2 28 mm/Hg (35-45) L 12/01/18 05:15 pO2 124.0 mm/Hg (80-100) H 12/01/18 05:15 HCO3 20.4 mmol/L (21-28) L 12/01/18 05:15 ABG pH 7.47 (7.35-7.45) H 12/01/18 05:15 ABG Total CO2 21.3 mmol.L (22-28) L 12/01/18 05:15 ABG O2 Saturation 98.4 % (95-98) H 12/01/18 05:15 ABG O2 Content 12.5 ML/dl (15-23) L 12/01/18 05:15 ABG Base Excess -2.6 mmol/L (-2.0-3.0) L 12/01/18 05:15 ABG Hemoglobin 9.1 g/dL (11.7-17.4) L 12/01/18 05:15 ABG Carboxyhemoglobin 1.1 % (0.5-1.5) 12/01/18 05:15 POC ABG HHb (Measured) 1.6 % (0-5) 12/01/18 05:15 ABG Methemoglobin 1.5 % (0.0-3.0) 12/01/18 05:15 ABG O2 Capacity 12.7 mL/dl (16-24) L 12/01/18 05:15 ABG Potassium 3.5 mmol/L (3.6-5.2) L 11/29/18 14:10 VBG pH 7.42 (7.32-7.43) 11/29/18 09:40 VBG pCO2 31.0 (40-60) L 11/29/18 09:40 VBG HCO3 20.1 mmol/l (21-28) L 11/29/18 09:40 VBG Total CO2 21.1 mmol.L (22-28) L 11/29/18 09:40 VBG O2 Sat (Calc) 75.8 % (40-65) H 11/29/18 09:40 VBG Base Excess -3.4 mmol/L (0.0-2.0) L 11/29/18 09:40 VBG Potassium 3.7 mmol/L (3.6-5.2) 11/29/18 09:40 Hgb O2 Saturation 95.9 % (95.0-98.0) 12/01/18 05:15 Sodium 142.0 mmol/L (132-148) 11/29/18 14:10 Chloride 115.0 mmol/L (98-107) H 11/29/18 14:10 Glucose 172 mg/dl (65-105) H 11/29/18 14:10 Lactate 3.6 mmol/L (0.7-2.1) H 11/29/18 14:10 Mechanical Rate 16 11/28/18 10:15 FiO2 35.0 % 12/01/18 05:15 Tidal Volume 400 11/28/18 10:15 PEEP 5 11/28/18 10:15 Crit Value Called To 11/29/18 14:10 Crit Value Called By Alicja 11/29/18 14:10 Blood Gas Notified Time 1418 11/29/18 14:10 Sodium 144 mmol/L (132-148) 12/06/18 06:45 Potassium 2.9 mmol/L (3.6-5.0) L* 12/06/18 06:45 Chloride 107 mmol/L (98-107) 12/06/18 06:45 Carbon Dioxide 35 mmol/L (21-33) H 12/06/18 06:45 Anion Gap 5 (10-20) L 12/06/18 06:45 BUN 11 mg/dL (7-21) 12/06/18 06:45 Creatinine 0.4 mg/dl (0.7-1.2) L 12/06/18 06:45 Est GFR ( Amer) > 60 12/06/18 06:45 Est GFR (Non-Af Amer) > 60 12/06/18 06:45 POC Glucose (mg/dL) 165 mg/dL (65-110) H 11/29/18 05:02 Random Glucose 103 mg/dL (70-110) 12/06/18 06:45 Calcium 7.4 mg/dL (8.4-10.5) L 12/06/18 06:45 Phosphorus 3.0 mg/dL (2.5-4.5) 11/29/18 04:15 Magnesium 1.9 mg/dL (1.7-2.2) 12/06/18 06:45 Total Bilirubin 0.5 mg/dL (0.2-1.3) 12/05/18 07:50 AST 34 U/L (14-36) 12/05/18 07:50 ALT 21 U/L (7-56) 12/05/18 07:50 Alkaline Phosphatase 47 U/L (38-126) 12/05/18 07:50 Troponin I 0.06 ng/mL D 11/28/18 18:40 NT-Pro-B Natriuret Pep 52346 pg/mL (0-450) H 12/05/18 07:50 Total Protein 4.4 g/dL (5.8-8.3) L 12/05/18 07:50 Albumin 1.9 g/dL (3.0-4.8) L 12/05/18 07:50 Globulin 2.5 gm/dL 12/05/18 07:50 Albumin/Globulin Ratio 0.8 (1.1-1.8) L 12/05/18 07:50 Lipase 59 U/L (23-300) 11/28/18 18:40 Procalcitonin 3.03 NG/ML (0.19-0.49) H 11/28/18 18:40 Arterial Blood Potassium 3.5 mmol/L (3.6-5.2) L 11/29/18 14:10 Venous Blood Potassium 3.7 mmol/L (3.6-5.2) 11/29/18 09:40 Urine Color Brown (YELLOW) 11/29/18 17:08 Urine Appearance Slight-cloudy (CLEAR) 11/29/18 17:08 Urine pH 5.5 (4.7-8.0) 11/29/18 17:08 Ur Specific [place] 1.025 (1.005-1.035) 11/29/18 17:08 Urine Protein 30 mg/dL (<30 mg/dL) H 11/29/18 17:08 Urine Glucose (UA) Negative mg/dL (NEGATIVE) 11/29/18 17:08 Urine Ketones Negative mg/dL (NEGATIVE) 11/29/18 17:08 Urine Blood Large (NEGATIVE) H 11/29/18 17:08 Urine Nitrate Positive (NEGATIVE) H 11/29/18 17:08 Urine Bilirubin Small (NEGATIVE) H 11/29/18 17:08 Urine Urobilinogen 2.0 E.U./dL (<1 E.U./dL) H 11/29/18 17:08 Ur Leukocyte Esterase Trace Oneil/uL (NEGATIVE) H 11/29/18 17:08 Urine RBC Tntc /hpf (0-2) H 11/29/18 17:08 Urine WBC 5 - 10 /hpf (0-6) H 11/29/18 17:08 Urine Bacteria Many /hpf (NONE) 11/29/18 17:08 Ur L.pneumophila Ag Negative (NEGATIVE) 11/29/18 17:08 Blood Type A POSITIVE 11/28/18 09:45 Antibody Screen Negative 11/28/18 09:45 Crossmatch See Detail 11/28/18 09:45 BBK History Checked Patient has bt 11/28/18 09:45 Discharge Exam - Head Exam Head Exam: ATRAUMATIC, NORMAL INSPECTION Discharge Plan - Follow Up Plan Condition: SERIOUS Disposition: HOME/ ROUTINE
[2018-12-06 08:47] LABS: ALB/GLOB RATIO 0.8 (1.1-1.8); ALBUMIN 2.2 g/dL (3.0-4.8); ALT/SGPT 17 U/L (7-56); AST/SGOT 43 U/L (14-36)
--- NOTE | 2018-12-06 09:52 | US ---
HISTORY: Arm pain and swelling. Evaluate for deep venous thrombosis. PHYSICIAN(S): Bryson Obrien MD. FINDINGS: The visualized internal jugular veins are sonographically normal and compressible. No evidence of obstruction or thrombus this is seen. The visualized segments of the subclavian veins are patent with normal waveforms. No sonographic evidence of obstruction or thrombosis is seen. The visualized deep venous systems of both upper extremities proximally are sonographically normal and compressible. IMPRESSION: 1. No sonographic evidence for deep venous thrombosis in the visualized segments of both upper strategies.
[2018-12-06] MEDS: Timolol 0.25% Ophth SOLN OU SCH ×2 (10:09→18:42)
--- NOTE | 2018-12-06 10:58 | CP.PCM.PN ---
<Al Woods - Last Filed: 12/06/18 16:40> Subjective - Date & Time of Evaluation Date of Evaluation: 12/06/18 Time of Evaluation: 09:58 - Subjective Subjective: Al Woods PGY2 GI Progress Note for Dr. Valadez Patient was seen and examined at bedside. There were no acute overnight events. Patient is tolerating a minimal amount of PO liquid diet, including her K supplement due to not having IV access. No fevers overnight. Objective - Vital Signs/Intake and Output Vital Signs (last 24 hours): Temp Pulse Resp BP Pulse Ox 97.3 F L 74 20 134/79 99 12/05/18 16:10 12/05/18 16:10 12/05/18 16:10 12/05/18 16:22 12/05/18 16:10 Intake and Output: 12/06/18 12/06/18 06:59 18:59 Intake Total 480 120 Output Total 2000 2425 Balance -1520 -2305 - Medications Medications: Current Medications Pantoprazole Sodium (Protonix Ec Tab) 40 mg PO 0600 [facility] Potassium Chloride (Potassium Chloride Oral Soln) 40 meq PO ONCE ONE Stop: 12/06/18 12:01 Potassium Chloride (Potassium Chloride Oral Soln) 40 meq PO ONCE ONE Stop: 12/06/18 17:01 Prednisone (Prednisone Tab) 20 mg PO ONCE ONE Stop: 12/07/18 10:01 Prednisone (Prednisone Tab) 10 mg PO ONCE ONE Stop: 12/08/18 10:01 Timolol Maleate (Timoptic 0.25% Ophth Soln) 2 drop OU BID [facility] Last Admin: 12/06/18 10:09 Dose: 2 drop - Labs Labs: 12/06/18 06:45 12/06/18 06:45 PT 20.7 SECONDS (9.4-12.5) H 11/29/18 23:24 INR 1.86 11/29/18 23:24 APTT 26.0 Seconds (26.9-38.3) L 11/28/18 09:45 - Constitutional Appears: Well, No Acute Distress, Chronically Ill, Confused - Head Exam Head Exam: ATRAUMATIC, NORMAL INSPECTION - Eye Exam Eye Exam: EOMI, Normal appearance - ENT Exam ENT Exam: Mucous Membranes Dry, Normal Oropharynx - Neck Exam Neck Exam: Full ROM, Normal Inspection - Respiratory Exam Respiratory Exam: NORMAL BREATHING PATTERN. absent: Respiratory Distress - Cardiovascular Exam Cardiovascular Exam: RRR, +S1, +S2, Murmur - GI/Abdominal Exam GI & Abdominal Exam: Soft. absent: Distended, Tenderness - Extremities Exam Extremities Exam: absent: Full ROM, Pedal Edema - Neurological Exam Neurological Exam: Altered, Awake - Skin Skin Exam: Pallor, Warm Assessment and Plan - Assessment and Plan (Free Text) Assessment: 83 year old female with a PMH of DVT/PE on Eliquis admitted from senior care for melena. Patient intubated in ED for agonal breathing. Due to melena and hematuria, Kcentra, vit K, 2u FFP and 2u pRBCs were transfused upon admission to reverse anticoagulant effect. Patient is now in ICU on vasopressors required to maintain perfusion. Her stools have become less frequent and more formed. CT reviewed showing colitis, patient is on abx. Patient now extubated, and out of ICU. She has been made DNR/DNI. she has received IVC filter due to her hx DVTs and risk of further bleeding. Plan: - started on PO Protonix - monitor H/H - maintain Hgb > 7 - K supplementation - diet advanced per speech pathologist recs and is being tolerated - discharge planning per primary medical team - further recs per Dr. Valadez Case was reviewed and discussed with Dr. Valadez <Rhiannon Valadez V - Last Filed: 12/06/18 22:54> Objective - Vital Signs/Intake and Output Vital Signs (last 24 hours): Temp Pulse Resp BP Pulse Ox 98.7 F 85 20 124/79 95 12/06/18 06:00 12/06/18 06:00 12/06/18 06:00 12/06/18 06:00 12/06/18 06:00 Intake and Output: 12/06/18 12/07/18 18:59 06:59 Intake Total 120 630 Output Total 2425 1200 Balance -2305 -570 - Medications Medications: Current Medications Pantoprazole Sodium (Protonix Ec Tab) 40 mg PO 0600 [facility] Prednisone (Prednisone Tab) 20 mg PO ONCE ONE Stop: 12/07/18 10:01 Prednisone (Prednisone Tab) 10 mg PO ONCE ONE Stop: 12/08/18 10:01 Timolol Maleate (Timoptic 0.25% Ophth Soln) 2 drop OU BID [facility] Last Admin: 12/06/18 18:42 Dose: 2 drop - Labs Labs: 12/06/18 06:45 12/06/18 06:45 PT 20.7 SECONDS (9.4-12.5) H 11/29/18 23:24 INR 1.86 11/29/18 23:24 APTT 26.0 Seconds (26.9-38.3) L 11/28/18 09:45 Attending/Attestation - Attestation I have personally seen and examined this patient.: Yes I have fully participated in the care of the patient.: Yes I have reviewed all pertinent clinical information, including history, physical exam and plan: Yes Notes (Text): The patient was seen and evaluated here earlier along with the resident this is an addendum to the GI progress report dictated by the resident. Discussed with the patient's family who were at the bedside. Patient is DNR/DNI continue the supportive care follow-up of the hemoglobin no further episodes of GI bleeding 12/06/18 22:53
--- NOTE | 2018-12-06 11:51 | CP.PCM.PN ---
<Ochoa Klein - Last Filed: 12/06/18 11:43> Subjective - Date & Time of Evaluation Date of Evaluation: 12/06/18 Time of Evaluation: 11:40 - Subjective Subjective: Ochoa Klein- Internal Medicine Resident- Progress Note Behalf of Dr. Gray Subjective: Patient seen and examined at bedside. No acute events overnight. Patient was unable to completely swallow the potassium oral supplementations and so her serum potassium remained low. Patient is awake however appears weaker compared to yesterday. Expresses desire to rest. Denies fever, chills, chest pain, SOB, abdominal pain, N/V, diarrhea, constipation, and urinary symptoms. 12 Point ROS negative except as indicated in the HPI Physical Examination: - Constitutional Appears: no acute distress - Head Exam Head Exam: ATRAUMATIC, NORMOCEPHALIC - Eye Exam Eye Exam: PERRL - ENT Exam ENT Exam: Mucous Membranes Dry - Respiratory Exam Respiratory Exam: CTA bilaterally - Cardiovascular Exam Cardiovascular Exam: +S1, +S2. 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 GI is consulted- appreciate recommendations- CT abdomen and pelvis without PO or IV contrast showed severe colitis in descending colon and moderate fecal impaction. Continue daily protonix and transfuse pRBCs with Hgb <7 as needed. No plan for scope at this time. Continue liquid diet. Disontinue LR @50cc/hr for maint enance IVF. Continue prednisone 30mg PO on 12/06/2018, 20mg PO on 12/07, and 10mg PO 12/08. Infectious disease consulted- appreciate recommendations. Blood cultures are negative 2 out of 2 on day 5. Completed course of cefazolin. Continue to hold home aspirin, eliquis, and metoprolol. Cannot restart anticoagulation at this time. IR consulted- patient underwent placement of IVC filter. Hypokalemia noted- replete with PO supplements- ensure patient is swallowing liquid supplement. Spoke with son. Unable to take patient home today. Able to take patient home tomorrow. DAV potentially pending PT recs and social work. Palliative care consulted- appreciate recommendations. Patient case reviewed with and plan approved by attending physician, Dr. Gray. Objective - Vital Signs/Intake and Output Vital Signs (last 24 hours): Temp Pulse Resp BP Pulse Ox 97.3 F L 74 20 134/79 99 12/05/18 16:10 12/05/18 16:10 12/05/18 16:10 12/05/18 16:22 12/05/18 16:10 Intake and Output: 12/06/18 12/06/18 06:59 18:59 Intake Total 480 120 Output Total 1999 3414 Balance -5147 -4382 - Medications Medications: Current Medications Pantoprazole Sodium (Protonix Ec Tab) 40 mg PO 0600 [facility] Potassium Chloride (Potassium Chloride Oral Soln) 40 meq PO ONCE ONE Stop: 12/06/18 12:01 Potassium Chloride (Potassium Chloride Oral Soln) 40 meq PO ONCE ONE Stop: 12/06/18 17:01 Prednisone (Prednisone Tab) 20 mg PO ONCE ONE Stop: 12/07/18 10:01 Prednisone (Prednisone Tab) 10 mg PO ONCE ONE Stop: 12/08/18 10:01 Timolol Maleate (Timoptic 0.25% Ophth Soln) 2 drop OU BID [facility] Last Admin: 12/06/18 10:09 Dose: 2 drop - Labs Labs: 12/06/18 06:45 12/06/18 06:45 PT 20.7 SECONDS (9.4-12.5) H 11/29/18 23:24 INR 1.86 11/29/18 23:24 APTT 26.0 Seconds (26.9-38.3) L 11/28/18 09:45 <Dave Gray - Last Filed: 12/06/18 17:12> Subjective - Subjective Subjective: Pt seen and examined by me. I have reviewed the note of the emergency medical dispatcher and I agree with it. I have discussed the assessment and plan with the resident. I have reviewed the medications and the last labs. Objective - Vital Signs/Intake and Output Vital Signs (last 24 hours): Temp Pulse Resp BP Pulse Ox 98.7 F 85 20 124/79 95 12/06/18 06:00 12/06/18 06:00 12/06/18 06:00 12/06/18 06:00 12/06/18 06:00 Intake and Output: 12/06/18 12/06/18 06:59 18:59 Intake Total 480 120 Output Total 1999 8838 Balance -0759 -7674 - Medications Medications: Current Medications Pantoprazole Sodium (Protonix Ec Tab) 40 mg PO 0600 [facility] Prednisone (Prednisone Tab) 20 mg PO ONCE ONE Stop: 12/07/18 10:01 Prednisone (Prednisone Tab) 10 mg PO ONCE ONE Stop: 12/08/18 10:01 Timolol Maleate (Timoptic 0.25% Oph Soln) 2 drop OU BID [facility] Last Admin: 12/06/18 10:09 Dose: 2 drop - Labs Labs: 12/06/18 06:45 12/06/18 06:45 PT 20.7 SECONDS (9.4-12.5) H 11/29/18 23:24 INR 1.86 11/29/18 23:24 APTT 26.0 Seconds (26.9-38.3) L 11/28/18 09:45
--- NOTE | 2018-12-06 19:35 | CP.PCM.PN ---
Subjective - Date & Time of Evaluation Date of Evaluation: 12/06/18 Time of Evaluation: 07:05 - Subjective Subjective: Comfortable, not in distress, no fevers noted. Objective - Vital Signs/Intake and Output Vital Signs (last 24 hours): Temp Pulse Resp BP Pulse Ox 97.3 F L 74 20 134/79 99 12/05/18 16:10 12/05/18 16:10 12/05/18 16:10 12/05/18 16:22 12/05/18 16:10 Intake and Output: 12/05/18 12/06/18 18:59 06:59 Intake Total 480 Output Total 1999 Balance -1520 - Medications Medications: Current Medications Pantoprazole Sodium (Protonix Inj) 40 mg IVP DAILY [facility] Prednisone (Prednisone Tab) 30 mg PO ONCE ONE Stop: 12/06/18 10:01 Prednisone (Prednisone Tab) 20 mg PO ONCE ONE Stop: 12/07/18 10:01 Prednisone (Prednisone Tab) 10 mg PO ONCE ONE Stop: 12/08/18 10:01 Timolol Maleate (Timoptic 0.25% [facility] Soln) 2 drop OU BID [facility] Last Admin: 12/05/18 20:05 Dose: 2 drop - Labs Labs: 12/05/18 07:50 12/05/18 07:50 PT 20.7 SECONDS (9.4-12.5) H 11/29/18 23:24 INR 1.86 11/29/18 23:24 APTT 26.0 Seconds (26.9-38.3) L 11/28/18 09:45 - Constitutional Appears: Chronically Ill - Head Exam Head Exam: NORMAL INSPECTION - Respiratory Exam Respiratory Exam: Decreased Breath Sounds - Cardiovascular Exam Cardiovascular Exam: +S1, +S2 - GI/Abdominal Exam GI & Abdominal Exam: Soft. absent: Tenderness Assessment and Plan - Assessment and Plan (Free Text) Plan: Assessment S/P severe sepsis due to UTI S/P GI bleed history of DVT and pulmonary embolism dementia HTN osteoarthritis history of colitis dementia CAD CHF Plan continue to monitor off antibiotics since she is at risk for nosocomial infections
--- NOTE | 2018-12-06 20:57 | PN ---
DATE: 12/06/2018 The patient was seen and examined. I do agree with the note of the medical lab specialist. I was involved in the plan of care. The patient has delirium. She has made some improvement. She had severe sepsis that has resolved. She had hemorrhagic shock that has resolved. Her diarrhea is improved. She has hypokalemia and has not improved it. She was given multiple doses of p.o. and IV potassium. She was not able to tolerate the p.o. The patient is going to be given more potassium today. She is going to continue with lactated Ringer's. Her IV fluids have been discontinued. She is not able to get any anticoagulation because of the risk of bleeding. I did speak to the patient's son yesterday to give an update on the patient's diagnosis and plan of care. She remains DNR. Her prednisone is being tapered. She is on Timolol eye drops. She had a Duplex Doppler done that was negative for DVT. The patient is requesting hospice evaluation. [facility] has been [facility] for evaluation. The overall condition of the patient is poor. Dave Gray MD
[2018-12-07] MEDS: Pantoprazole 40 mg EC Tab PO SCH (06:01)
[2018-12-07 08:25] LABS: BASO # 0.02 K/mm3 (0.0-2.0); BASO % 0.2 % (0.0-3.0); HEMOGLOBIN 8.9 g/dL (12.0-16.0); LYMPH # 2.2 (1.2-3.4); LYMPH % 19.9 % (22.0-35.0); MEAN CELL VOLUME 94.6 fl (80.0-105.0); MEAN CORPUSCULAR HEMOGLOBIN 29.9 pg (25.0-35.0); MEAN CORPUSCULAR HGB CONC 31.6 g/dl (31.0-37.0); MONO # 0.9 (0.1-0.6); MONO % 8.2 % (1.0-6.0); RBC 2.98 10^6/uL (3.5-6.1); RED CELL DISTRIBUTION WIDTH 15.7 % (11.5-14.5); WHITE BLOOD COUNT 10.9 10^3/uL (4.5-11.0)
[2018-12-07 08:30] LABS: ALB/GLOB RATIO 0.8 (1.1-1.8); ALBUMIN 1.8 g/dL (3.0-4.8); ALT/SGPT 19 U/L (7-56); AST/SGOT 25 U/L (14-36); BLOOD UREA NITROGEN 10 mg/dL (7-21); CALCIUM 7.2 mg/dL (8.4-10.5); GFR NON-AFRICAN AMERICAN > 60
--- NOTE | 2018-12-07 08:56 | CP.PCM.PN ---
<Ochoa Klein - Last Filed: 12/07/18 09:35> Subjective - Date & Time of Evaluation Date of Evaluation: 12/07/18 Time of Evaluation: 07:30 - Subjective Subjective: guanakito Klein- Internal Medicine Resident- Progress Note Behalf of Dr. Gray Subjective: Patient seen and examined at bedside. No acute events overnight. Offers no new complaints at this time. Denies fever, chills, chest pain, SOB, abdominal pain, N/V, diarrhea, constipation, and urinary symptoms. 12 Point ROS negative except as indicated in the HPI Physical Examination: - Constitutional Appears: no acute distress - Head Exam Head Exam: ATRAUMATIC, NORMOCEPHALIC - Eye Exam Eye Exam: PERRL - ENT Exam ENT Exam: Mucous Membranes Dry - Respiratory Exam Respiratory Exam: CTA bilaterally - Cardiovascular Exam Cardiovascular Exam: +S1, +S2. 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 GI is consulted- appreciate recommendations- CT abdomen and pelvis without PO or IV contrast showed severe colitis in descending colon and moderate fecal impaction. Continue daily protonix and transfuse pRBCs with Hgb <7 as needed. No plan for scope at this time. Continue liquid diet. Continue prednisone 20mg PO on 12/07, and 10mg PO 12/08. Infectious disease consulted- appreciate recommendations. Blood cultures are negative 2 out of 2 on day 5. Completed course of cefazolin. Continue to hold home aspirin, eliquis, and metoprolol. IR consulted- patient underwent placement of IVC filter. Palliative care consulted- appreciate recommendations. Hospice team to meet with son today. Dispo pending family decision. Patient case reviewed with and plan approved by attending physician, Dr. Gray. Objective - Vital Signs/Intake and Output Vital Signs (last 24 hours): Temp Pulse Resp BP Pulse Ox 98.7 F 85 20 124/79 95 12/06/18 06:00 12/06/18 06:00 12/06/18 06:00 12/06/18 06:00 12/06/18 06:00 Intake and Output: 12/07/18 12/07/18 06:59 18:59 Intake Total 630 0 Output Total 1200 500 Balance -570 -500 - Medications Medications: Current Medications Pantoprazole Sodium (Protonix Ec Tab) 40 mg PO 0600 [facility] Last Admin: 12/07/18 06:01 Dose: Not Given Prednisone (Prednisone Tab) 20 mg PO ONCE ONE Stop: 12/07/18 10:01 Prednisone (Prednisone Tab) 10 mg PO ONCE ONE Stop: 12/08/18 10:01 Timolol Maleate (Timoptic 0.25% Oph Soln) 2 drop OU BID [facility] Last Admin: 12/06/18 18:42 Dose: 2 drop - Labs Labs: 12/07/18 08:00 12/07/18 08:00 PT 20.7 SECONDS (9.4-12.5) H 11/29/18 23:24 INR 1.86 11/29/18 23:24 APTT 26.0 Seconds (26.9-38.3) L 11/28/18 09:45 <Dave Gray S - Last Filed: 12/08/18 21:14> Objective - Vital Signs/Intake and Output Vital Signs (last 24 hours): Temp Pulse Resp BP Pulse Ox 98.7 F 82 20 126/64 98 12/08/18 16:32 12/08/18 16:32 12/08/18 16:32 12/08/18 16:32 12/08/18 16:32 - Labs Labs: 12/07/18 08:00 12/07/18 08:00 PT 20.7 SECONDS (9.4-12.5) H 11/29/18 23:24 INR 1.86 11/29/18 23:24 APTT 26.0 Seconds (26.9-38.3) L 11/28/18 09:45 Assessment and Plan - Assessment and Plan (Free Text) Plan: Pt seen and examined by me. This is a late entry.I have reviewed the note of the medical instrument cable fabricator and I agree with it. I have discussed the assessment and plan with the resident. I have reviewed the medications and the last labs.
[2018-12-07] MEDS: Timolol 0.25% Ophth SOLN OU SCH ×2 (09:08→17:59)
[2018-12-07 16:59] VITALS: RESP 20
--- NOTE | 2018-12-07 21:38 | CP.PCM.PN ---
Subjective - Date & Time of Evaluation Date of Evaluation: 12/07/18 Time of Evaluation: 06:50 - Subjective Subjective: No fevers, not in distress. Objective - Vital Signs/Intake and Output Vital Signs (last 24 hours): Temp Pulse Resp BP Pulse Ox 98.7 F 85 20 124/79 95 12/06/18 06:00 12/06/18 06:00 12/06/18 06:00 12/06/18 06:00 12/06/18 06:00 Intake and Output: 12/06/18 12/07/18 18:59 06:59 Intake Total 120 Output Total 2425 Balance -2305 - Medications Medications: Current Medications Pantoprazole Sodium (Protonix Ec Tab) 40 mg PO 0600 [facility] Prednisone (Prednisone Tab) 20 mg PO ONCE ONE Stop: 12/07/18 10:01 Prednisone (Prednisone Tab) 10 mg PO ONCE ONE Stop: 12/08/18 10:01 Timolol Maleate (Timoptic 0.25% Ophth Soln) 2 drop OU BID [facility] Last Admin: 12/06/18 18:42 Dose: 2 drop - Labs Labs: 12/06/18 06:45 12/06/18 06:45 PT 20.7 SECONDS (9.4-12.5) H 11/29/18 23:24 INR 1.86 11/29/18 23:24 APTT 26.0 Seconds (26.9-38.3) L 11/28/18 09:45 - Constitutional Appears: Chronically Ill - Head Exam Head Exam: NORMAL INSPECTION - Respiratory Exam Respiratory Exam: Decreased Breath Sounds - Cardiovascular Exam Cardiovascular Exam: +S1, +S2 - GI/Abdominal Exam GI & Abdominal Exam: Soft. absent: Tenderness Assessment and Plan - Assessment and Plan (Free Text) Plan: Assessment S/P severe sepsis due to UTI S/P GI bleed history of DVT and pulmonary embolism dementia HTN osteoarthritis history of colitis dementia CAD CHF Plan continue to monitor off antibiotics since she is at risk for hospital-acquired infections
[2018-12-08] MEDS: Pantoprazole 40 mg EC Tab PO SCH (06:51)
[2018-12-08 08:46] VITALS: O2SAT 98
--- NOTE | 2018-12-08 09:37 | PN ---
DATE: 12/08/2018 SUBJECTIVE: The patient is in bed in no acute distress, nontoxic. PHYSICAL EXAMINATION VITAL SIGNS: Temperature 98, blood pressure is 94/60, respiratory rate of 20 and heart rate of 104. HEENT: Unremarkable. NECK: Supple. LUNGS: Have decreased breath sounds. HEART: Normal S1 and S2. ABDOMEN: Soft. LABORATORY EXAMINATION: Reveals a white count of 10,000 and the chemistries are noted. Microbiology is reviewed. Review of orders reveals the patient is off of antibiotics. ASSESSMENT AND PLAN: She is an 83-year-old female status post severe sepsis secondary to urinary tract infection, GI bleed, history of DVT and pulmonary emboli, dementia, hypertension, osteoarthritis, history of colitis, coronary artery disease, congestive heart failure with off of antibiotics, stable.. The patient is for possible discharge to Hospice, awaiting for final decision. Eron Perez MD
--- NOTE | 2018-12-08 10:12 | CP.PCM.DIS ---
<Ochoa Klein - Last Filed: 12/08/18 12:16> Provider - Provider Date of Admission: 11/28/18 11:48 Attending physician: Dave Gray MD Consults: 11/28/18 11:49 Gastroenterology Consult Stat Comment: Consulting Provider: Rhiannon Valadez V Consulting Physician: Rhiannon Valadez V Reason for Consult: GI bleed 11/28/18 12:42 Infectious Disease Consult Stat Comment: Consulting Provider: Eron Perez Consulting Physician: Eron Perez Reason for Consult: Septic shock- UTI 11/28/18 14:27 Physician Consult Routine Comment: Consulting Provider: Hodan Núñez Consulting Physician: Hodan Núñez Reason for Consult: hx of DVT, PE on eliquis, supratherapeutic INR, GI hemorrhage 11/28/18 14:30 Physician Consult Routine Comment: Consulting Provider: Jocelynn White Consulting Physician: Jocelynn White Reason for Consult: advanced directive 11/28/18 14:39 Social Work Referral Routine Comment: To return to snf Physician Instructions: Reason For Exam: To return to snf 11/28/18 14:41 Nursing Referral for Palliative Care Routine Comment: Physician Instructions: Reason For Exam: PT with active bleed 11/28/18 15:00 Nursing Referral for Wound Care Routine Comment: Physician Instructions: Reason For Exam: PT as risk 11/28/18 15:04 Nursing Referral for Wound Care Routine Comment: Physician Instructions: Reason For Exam: Brusing at risk for breakdown 11/29/18 08:19 TCU [Evaluation for TRCU] Routine Comment: Physician Instructions: Reason For Exam: deconditioning, HCAP 12/05/18 08:05 Physician Consult Routine Comment: Consulting Provider: Bryson Obrien Consulting Physician: Bryson Obrien Reason for Consult: IVC filter 12/06/18 19:10 Nursing Referral for Wound Care Routine Comment: Physician Instructions: Reason For Exam: stage 2 pressue ulcer Time Spent in preparation of Discharge (in minutes): 45 Hospital Course - Lab Results Lab Results: Micro Results 11/28/18 10:15 Blood Blood Culture - Final NO GROWTH AFTER 5 DAYS 11/28/18 10:15 Blood Gram Stain - Final TEST NOT PERFORMED 11/28/18 09:45 Blood Blood Culture - Final NO GROWTH AFTER 5 DAYS 11/28/18 09:45 Blood Gram Stain - Final TEST NOT PERFORMED 11/29/18 17:08 Urine,Khanna Urine Culture - Final No Growth (<1,000 CFU/ML) 11/29/18 08:00 Sputum Induced Gram Stain - Final 11/29/18 08:00 Sputum Induced Sputum Culture - Final Staphylococcus Aureus 11/28/18 15:30 Naris MRSA Culture (Admit) - Final MRSA NOT DETECTED 11/28/18 23:00 Stool C. difficile Antigen & Toxins A,B - Final 11/28/18 10:15 Urine Random Urine Culture - Final No Growth (<1,000 CFU/ML) Most Recent Lab Values WBC 10.9 10^3/uL (4.5-11.0) D 12/07/18 08:00 RBC 2.98 10^6/uL (3.5-6.1) L 12/07/18 08:00 Hgb 8.9 g/dL (12.0-16.0) L 12/07/18 08:00 Hct 28.2 % (36.0-48.0) L 12/07/18 08:00 MCV 94.6 fl (80.0-105.0) 12/07/18 08:00 MCH 29.9 pg (25.0-35.0) 12/07/18 08:00 MCHC 31.6 g/dl (31.0-37.0) 12/07/18 08:00 RDW 15.7 % (11.5-14.5) H 12/07/18 08:00 Plt Count 220 10^3/uL (120.0-450.0) 12/07/18 08:00 MPV 10.0 fl (7.0-11.0) 12/07/18 08:00 Neut % (Auto) 71.7 % (50.0-68.0) H 12/07/18 08:00 Lymph % (Auto) 19.9 % (22.0-35.0) L 12/07/18 08:00 [place]oke % (Auto) 8.2 % (1.0-6.0) H 12/07/18 08:00 Eos % (Auto) 0.0 % (1.5-5.0) L 12/07/18 08:00 Baso % (Auto) 0.2 % (0.0-3.0) 12/07/18 08:00 Lymph # (Auto) 2.2 (1.2-3.4) 12/07/18 08:00 [place] # (Auto) 0.9 (0.1-0.6) H 12/07/18 08:00 Eos # (Auto) 0.0 (0.0-0.7) 12/07/18 08:00 Baso # (Auto) 0.02 K/mm3 (0.0-2.0) 12/07/18 08:00 Absolute Neuts (auto) 7.79 (1.4-6.5) H 12/07/18 08:00 Neutrophils % (Manual) 74 % (50.0-70.0) H 11/28/18 09:45 Band Neutrophils % 7 % (0-2) H 11/28/18 09:45 Lymphocytes % (Manual) 9 % (22.0-35.0) L 11/28/18 09:45 Atypical Lymphs % 1 % (0.0-0.0) H 11/28/18 09:45 Monocytes % (Manual) 8 % (1.0-6.0) H 11/28/18 09:45 Eosinophils % (Manual) 1 % (0.0-3.0) 11/28/18 09:45 PT 20.7 SECONDS (9.4-12.5) H 11/29/18 23:24 INR 1.86 11/29/18 23:24 APTT 26.0 Seconds (26.9-38.3) L 11/28/18 09:45 pCO2 28 mm/Hg (35-45) L 12/01/18 05:15 pO2 124.0 mm/Hg (80-100) H 12/01/18 05:15 HCO3 20.4 mmol/L (21-28) L 12/01/18 05:15 ABG pH 7.47 (7.35-7.45) H 12/01/18 05:15 ABG Total CO2 21.3 mmol.L (22-28) L 12/01/18 05:15 ABG O2 Saturation 98.4 % (95-98) H 12/01/18 05:15 ABG O2 Content 12.5 ML/dl (15-23) L 12/01/18 05:15 ABG Base Excess -2.6 mmol/L (-2.0-3.0) L 12/01/18 05:15 ABG Hemoglobin 9.1 g/dL (11.7-17.4) L 12/01/18 05:15 ABG Carboxyhemoglobin 1.1 % (0.5-1.5) 12/01/18 05:15 POC ABG HHb (Measured) 1.6 % (0-5) 12/01/18 05:15 ABG Methemoglobin 1.5 % (0.0-3.0) 12/01/18 05:15 ABG O2 Capacity 12.7 mL/dl (16-24) L 12/01/18 05:15 ABG Potassium 3.5 mmol/L (3.6-5.2) L 11/29/18 14:10 VBG pH 7.42 (7.32-7.43) 11/29/18 09:40 VBG pCO2 31.0 (40-60) L 11/29/18 09:40 VBG HCO3 20.1 mmol/l (21-28) L 11/29/18 09:40 VBG Total CO2 21.1 mmol.L (22-28) L 11/29/18 09:40 VBG O2 Sat (Calc) 75.8 % (40-65) H 11/29/18 09:40 VBG Base Excess -3.4 mmol/L (0.0-2.0) L 11/29/18 09:40 VBG Potassium 3.7 mmol/L (3.6-5.2) 11/29/18 09:40 Hgb O2 Saturation 95.9 % (95.0-98.0) 12/01/18 05:15 Sodium 142.0 mmol/L (132-148) 11/29/18 14:10 Chloride 115.0 mmol/L (98-107) H 11/29/18 14:10 Glucose 172 mg/dl (65-105) H 11/29/18 14:10 Lactate 3.6 mmol/L (0.7-2.1) H 11/29/18 14:10 Mechanical Rate 16 11/28/18 10:15 FiO2 35.0 % 12/01/18 05:15 Tidal Volume 400 11/28/18 10:15 PEEP 5 11/28/18 10:15 Crit Value Called To 11/29/18 14:10 Crit Value Called By Alicja 11/29/18 14:10 Blood Gas Notified Time 1418 11/29/18 14:10 Sodium 142 mmol/L (132-148) 12/07/18 08:00 Potassium 3.8 mmol/L (3.6-5.0) 12/07/18 08:00 Chloride 110 mmol/L (98-107) H 12/07/18 08:00 Carbon Dioxide 32 mmol/L (21-33) 12/07/18 08:00 Anion Gap 4 (10-20) L 12/07/18 08:00 BUN 10 mg/dL (7-21) 12/07/18 08:00 Creatinine 0.3 mg/dl (0.7-1.2) L 12/07/18 08:00 Est GFR ( Amer) > 60 12/07/18 08:00 Est GFR (Non-Af Amer) > 60 12/07/18 08:00 POC Glucose (mg/dL) 165 mg/dL (65-110) H 11/29/18 05:02 Random Glucose 86 mg/dL (70-110) 12/07/18 08:00 Calcium 7.2 mg/dL (8.4-10.5) L 12/07/18 08:00 Phosphorus 3.0 mg/dL (2.5-4.5) 11/29/18 04:15 Magnesium 1.9 mg/dL (1.7-2.2) 12/06/18 06:45 Total Bilirubin 0.5 mg/dL (0.2-1.3) 12/07/18 08:00 AST 25 U/L (14-36) 12/07/18 08:00 ALT 19 U/L (7-56) 12/07/18 08:00 Alkaline Phosphatase 48 U/L (38-126) 12/07/18 08:00 Troponin I 0.06 ng/mL D 11/28/18 18:40 NT-Pro-B Natriuret Pep 05685 pg/mL (0-450) H 12/05/18 07:50 Total Protein 4.3 g/dL (5.8-8.3) L 12/07/18 08:00 Albumin 1.8 g/dL (3.0-4.8) L 12/07/18 08:00 Globulin 2.4 gm/dL 12/07/18 08:00 Albumin/Globulin Ratio 0.8 (1.1-1.8) L 12/07/18 08:00 Lipase 59 U/L (23-300) 11/28/18 18:40 Procalcitonin 3.03 NG/ML (0.19-0.49) H 11/28/18 18:40 Arterial Blood Potassium 3.5 mmol/L (3.6-5.2) L 11/29/18 14:10 Venous Blood Potassium 3.7 mmol/L (3.6-5.2) 11/29/18 09:40 Urine Color Brown (YELLOW) 11/29/18 17:08 Urine Appearance Slight-cloudy (CLEAR) 11/29/18 17:08 Urine pH 5.5 (4.7-8.0) 11/29/18 17:08 Ur Specific [place] 1.025 (1.005-1.035) 11/29/18 17:08 Urine Protein 30 mg/dL (<30 mg/dL) H 11/29/18 17:08 Urine Glucose (UA) Negative mg/dL (NEGATIVE) 11/29/18 17:08 Urine Ketones Negative mg/dL (NEGATIVE) 11/29/18 17:08 Urine Blood Large (NEGATIVE) H 11/29/18 17:08 Urine Nitrate Positive (NEGATIVE) H 11/29/18 17:08 Urine Bilirubin Small (NEGATIVE) H 11/29/18 17:08 Urine Urobilinogen 2.0 E.U./dL (<1 E.U./dL) H 11/29/18 17:08 Ur Leukocyte Esterase Trace Oneil/uL (NEGATIVE) H 11/29/18 17:08 Urine RBC Tntc /hpf (0-2) H 11/29/18 17:08 Urine WBC 5 - 10 /hpf (0-6) H 11/29/18 17:08 Urine Bacteria Many /hpf (NONE) 11/29/18 17:08 Ur L.pneumophila Ag Negative (NEGATIVE) 11/29/18 17:08 Blood Type A POSITIVE 11/28/18 09:45 Antibody Screen Negative 11/28/18 09:45 Crossmatch See Detail 11/28/18 09:45 BBK History Checked Patient has bt 11/28/18 09:45 - Hospital Course Hospital Course: Patient is a 83 year old female with a past medical history of DVT, PE, dementia, chronic peripheral edema, glaucoma, and multiple lower extremity fractures who was brought in via EMS from [facility] for evaluation and treatment of AMS and dark stools. With the use of physical examinations, lab work, and imaging the patient was diagnosed with and treated for severe sepsis secondary to UTI, hemorrhagic shock secondary to GI bleed, along with the patients chronic medical conditions. During their hospital stay the patient was seen by GI, infectious disease, hematology/oncology, interventional radiology, and palliative care whose their recommendations were both appreciated and utilized in the care for this patient. During their hospital stay the patient underwent a CT of the abd/pelvis without contrast, ultrasound of the upper extremities which were reviewed, appreciated, and utilized in the management of the patients clinical course. Findings are listed below. Patient was provided with an inferior venous cava filter as anticoagulation needed to be discontinued. Patient was intubated and was placed on ventilator support. She required pressor support. Patient was weaned off for pressor support and successfully extubated. She was further treated with a protonix drip which was switched to IV doses. At this time the patient is medically stable for discharge to home hospice. Patients family understands and appreciates discharge plan. Patient family instructed to follow up with primary care physicians and referrals. Furthermore, the patients family was instructed to take medications as prescribed and to return to emergency room for evaluation of new or worsening symptoms including but limited to intractable headache, fever, chills, dizziness, chest pain, shortness of breath, abdominal pain, nausea, vomiting, diarrhea, constipation, and urinary symptoms. This is a brief summary of the patients hospital course. Please see patient chart for full details. Studies During Hospitalization: 11/29/2018 CT Abdomen and Pelvis without intravenous contrast- There is severe mural thickening in the descending colon consistent with colitis. There is also mural thickening in the rectum and moderate fecal impaction 12/06/18 Upper Extremity U/S- No sonographic evidence for deep venous thrombosis in the visualized segments of both upper strategies 12/05/2018 CXR- Worsening congestive heart failure with worsening pulmonary edema Procedures During Hospital Stay 11/28/18 Central line IJ placement 12/05/18 Successful deployment of an argon retrievable filter in the IVC at the level of L2 Discharge Diagnoses: AMS- improved Severe sepsis secondary to UTI- resolved Hemorrhagic shock- resolved Diarrhea- resolved Normocytic anemia- stable H/H Hypokalemia- resolved Stage 1 Sacral Ulcer Dementia History of DVT/ PE on AC Discharge Plan - Follow Up Plan Condition: SERIOUS Disposition: HOSPICE - HOME Instructions: Gastrointestinal Bleeding (DC), Khanna Catheter, Female, Palliative Care Additional Instructions: Patient Instructions: 1. Please take home medications as prescribed. You are not being discharged on new medications. 2. Follow up with your primary care physician and referrals within three to five days from discharge. 3. Please go to the nearest emergency room for evaluation of new or worsening symptoms including but limited to intractable headache, fever, chills, dizziness, chest pain, shortness of breath, abdominal pain, nausea, vomiting, diarrhea, constipation, and urinary symptoms. <Dave Gray - Last Filed: 12/08/18 19:13> Provider - Provider Date of Admission: 11/28/18 11:48 Attending physician: Dave Gary MD Consults: 11/28/18 11:49 Gastroenterology Consult Stat Comment: Consulting Provider: Rhiannon Vaaldez V Consulting Physician: Rhiannon Valadez V Reason for Consult: GI bleed 11/28/18 12:42 Infectious Disease Consult Stat Comment: Consulting Provider: Eron Perez Consulting Physician: Eron Perez Reason for Consult: Septic shock- UTI 11/28/18 14:27 Physician Consult Routine Comment: Consulting Provider: Hodan Núñez Consulting Physician: Hodan Núñez Reason for Consult: hx of DVT, PE on eliquis, supratherapeutic INR, GI hemorrhage 11/28/18 14:30 Physician Consult Routine Comment: Consulting Provider: Jocelynn White Consulting Physician: Jocelynn White Reason for Consult: advanced directive 11/28/18 14:39 Social Work Referral Routine Comment: To return to snf Physician Instructions: Reason For Exam: To return to snf 11/28/18 14:41 Nursing Referral for Palliative Care Routine Comment: Physician Instructions: Reason For Exam: PT with active bleed 11/28/18 15:00 Nursing Referral for Wound Care Routine Comment: Physician Instructions: Reason For Exam: PT as risk 11/28/18 15:04 Nursing Referral for Wound Care Routine Comment: Physician Instructions: Reason For Exam: Brusing at risk for breakdown 11/29/18 08:19 TCU [Evaluation for TRCU] Routine Comment: Physician Instructions: Reason For Exam: deconditioning, HCAP 12/05/18 08:05 Physician Consult Routine Comment: Consulting Provider: Bryson Obrien Consulting Physician: Bryson Obrien Reason for Consult: IVC filter 12/06/18 19:10 Nursing Referral for Wound Care Routine Comment: Physician Instructions: Reason For Exam: stage 2 pressue ulcer Hospital Course - Lab Results Lab Results: Micro Results 11/28/18 10:15 Blood Blood Culture - Final NO GROWTH AFTER 5 DAYS 11/28/18 10:15 Blood Gram Stain - Final TEST NOT PERFORMED 11/28/18 09:45 Blood Blood Culture - Final NO GROWTH AFTER 5 DAYS 11/28/18 09:45 Blood Gram Stain - Final TEST NOT PERFORMED 11/29/18 17:08 Urine,Khanna Urine Culture - Final No Growth (<1,000 CFU/ML) 11/29/18 08:00 Sputum Induced Gram Stain - Final 11/29/18 08:00 Sputum Induced Sputum Culture - Final Staphylococcus Aureus 11/28/18 15:30 Naris MRSA Culture (Admit) - Final MRSA NOT DETECTED 11/28/18 23:00 Stool C. difficile Antigen & Toxins A,B - Final 11/28/18 10:15 Urine Random Urine Culture - Final No Growth (<1,000 CFU/ML) Most Recent Lab Values WBC 10.9 10^3/uL (4.5-11.0) D 12/07/18 08:00 RBC 2.98 10^6/uL (3.5-6.1) L 12/07/18 08:00 Hgb 8.9 g/dL (12.0-16.0) L 12/07/18 08:00 Hct 28.2 % (36.0-48.0) L 12/07/18 08:00 MCV 94.6 fl (80.0-105.0) 12/07/18 08:00 MCH 29.9 pg (25.0-35.0) 12/07/18 08:00 MCHC 31.6 g/dl (31.0-37.0) 12/07/18 08:00 RDW 15.7 % (11.5-14.5) H 12/07/18 08:00 Plt Count 220 10^3/uL (120.0-450.0) 12/07/18 08:00 MPV 10.0 fl (7.0-11.0) 12/07/18 08:00 Neut % (Auto) 71.7 % (50.0-68.0) H 12/07/18 08:00 Lymph % (Auto) 19.9 % (22.0-35.0) L 12/07/18 08:00 [place] % (Auto) 8.2 % (1.0-6.0) H 12/07/18 08:00 Eos % (Auto) 0.0 % (1.5-5.0) L 12/07/18 08:00 Baso % (Auto) 0.2 % (0.0-3.0) 12/07/18 08:00 Lymph # (Auto) 2.2 (1.2-3.4) 12/07/18 08:00 [place] # (Auto) 0.9 (0.1-0.6) H 12/07/18 08:00 Eos # (Auto) 0.0 (0.0-0.7) 12/07/18 08:00 Baso # (Auto) 0.02 K/mm3 (0.0-2.0) 12/07/18 08:00 Absolute Neuts (auto) 7.79 (1.4-6.5) H 12/07/18 08:00 Neutrophils % (Manual) 74 % (50.0-70.0) H 11/28/18 09:45 Band Neutrophils % 7 % (0-2) H 11/28/18 09:45 Lymphocytes % (Manual) 9 % (22.0-35.0) L 11/28/18 09:45 Atypical Lymphs % 1 % (0.0-0.0) H 11/28/18 09:45 Monocytes % (Manual) 8 % (1.0-6.0) H 11/28/18 09:45 Eosinophils % (Manual) 1 % (0.0-3.0) 11/28/18 09:45 PT 20.7 SECONDS (9.4-12.5) H 11/29/18 23:24 INR 1.86 11/29/18 23:24 APTT 26.0 Seconds (26.9-38.3) L 11/28/18 09:45 pCO2 28 mm/Hg (35-45) L 12/01/18 05:15 pO2 124.0 mm/Hg (80-100) H 12/01/18 05:15 HCO3 20.4 mmol/L (21-28) L 12/01/18 05:15 ABG pH 7.47 (7.35-7.45) H 12/01/18 05:15 ABG Total CO2 21.3 mmol.L (22-28) L 12/01/18 05:15 ABG O2 Saturation 98.4 % (95-98) H 12/01/18 05:15 ABG O2 Content 12.5 ML/dl (15-23) L 12/01/18 05:15 ABG Base Excess -2.6 mmol/L (-2.0-3.0) L 12/01/18 05:15 ABG Hemoglobin 9.1 g/dL (11.7-17.4) L 12/01/18 05:15 ABG Carboxyhemoglobin 1.1 % (0.5-1.5) 12/01/18 05:15 POC ABG HHb (Measured) 1.6 % (0-5) 12/01/18 05:15 ABG Methemoglobin 1.5 % (0.0-3.0) 12/01/18 05:15 ABG O2 Capacity 12.7 mL/dl (16-24) L 12/01/18 05:15 ABG Potassium 3.5 mmol/L (3.6-5.2) L 11/29/18 14:10 VBG pH 7.42 (7.32-7.43) 11/29/18 09:40 VBG pCO2 31.0 (40-60) L 11/29/18 09:40 VBG HCO3 20.1 mmol/l (21-28) L 11/29/18 09:40 VBG Total CO2 21.1 mmol.L (22-28) L 11/29/18 09:40 VBG O2 Sat (Calc) 75.8 % (40-65) H 11/29/18 09:40 VBG Base Excess -3.4 mmol/L (0.0-2.0) L 11/29/18 09:40 VBG Potassium 3.7 mmol/L (3.6-5.2) 11/29/18 09:40 Hgb O2 Saturation 95.9 % (95.0-98.0) 12/01/18 05:15 Sodium 142.0 mmol/L (132-148) 11/29/18 14:10 Chloride 115.0 mmol/L (98-107) H 11/29/18 14:10 Glucose 172 mg/dl (65-105) H 11/29/18 14:10 Lactate 3.6 mmol/L (0.7-2.1) H 11/29/18 14:10 Mechanical Rate 16 11/28/18 10:15 FiO2 35.0 % 12/01/18 05:15 Tidal Volume 400 11/28/18 10:15 PEEP 5 11/28/18 10:15 Crit Value Called To 11/29/18 14:10 Crit Value Called By Alicja 11/29/18 14:10 Blood Gas Notified Time 1418 11/29/18 14:10 Sodium 142 mmol/L (132-148) 12/07/18 08:00 Potassium 3.8 mmol/L (3.6-5.0) 12/07/18 08:00 Chloride 110 mmol/L (98-107) H 12/07/18 08:00 Carbon Dioxide 32 mmol/L (21-33) 12/07/18 08:00 Anion Gap 4 (10-20) L 12/07/18 08:00 BUN 10 mg/dL (7-21) 12/07/18 08:00 Creatinine 0.3 mg/dl (0.7-1.2) L 12/07/18 08:00 Est GFR ( Amer) > 60 12/07/18 08:00 Est GFR (Non-Af Amer) > 60 12/07/18 08:00 POC Glucose (mg/dL) 165 mg/dL (65-110) H 11/29/18 05:02 Random Glucose 86 mg/dL (70-110) 12/07/18 08:00 Calcium 7.2 mg/dL (8.4-10.5) L 12/07/18 08:00 Phosphorus 3.0 mg/dL (2.5-4.5) 11/29/18 04:15 Magnesium 1.9 mg/dL (1.7-2.2) 12/06/18 06:45 Total Bilirubin 0.5 mg/dL (0.2-1.3) 12/07/18 08:00 AST 25 U/L (14-36) 12/07/18 08:00 ALT 19 U/L (7-56) 12/07/18 08:00 Alkaline Phosphatase 48 U/L (38-126) 12/07/18 08:00 Troponin I 0.06 ng/mL D 11/28/18 18:40 NT-Pro-B Natriuret Pep 37193 pg/mL (0-450) H 12/05/18 07:50 Total Protein 4.3 g/dL (5.8-8.3) L 12/07/18 08:00 Albumin 1.8 g/dL (3.0-4.8) L 12/07/18 08:00 Globulin 2.4 gm/dL 12/07/18 08:00 Albumin/Globulin Ratio 0.8 (1.1-1.8) L 12/07/18 08:00 Lipase 59 U/L (23-300) 11/28/18 18:40 Procalcitonin 3.03 NG/ML (0.19-0.49) H 11/28/18 18:40 Arterial Blood Potassium 3.5 mmol/L (3.6-5.2) L 11/29/18 14:10 Venous Blood Potassium 3.7 mmol/L (3.6-5.2) 11/29/18 09:40 Urine Color Brown (YELLOW) 11/29/18 17:08 Urine Appearance Slight-cloudy (CLEAR) 11/29/18 17:08 Urine pH 5.5 (4.7-8.0) 11/29/18 17:08 Ur Specific [place] 1.025 (1.005-1.035) 11/29/18 17:08 Urine Protein 30 mg/dL (<30 mg/dL) H 11/29/18 17:08 Urine Glucose (UA) Negative mg/dL (NEGATIVE) 11/29/18 17:08 Urine Ketones Negative mg/dL (NEGATIVE) 11/29/18 17:08 Urine Blood Large (NEGATIVE) H 11/29/18 17:08 Urine Nitrate Positive (NEGATIVE) H 11/29/18 17:08 Urine Bilirubin Small (NEGATIVE) H 11/29/18 17:08 Urine Urobilinogen 2.0 E.U./dL (<1 E.U./dL) H 11/29/18 17:08 Ur Leukocyte Esterase Trace Oneil/uL (NEGATIVE) H 11/29/18 17:08 Urine RBC Tntc /hpf (0-2) H 11/29/18 17:08 Urine WBC 5 - 10 /hpf (0-6) H 11/29/18 17:08 Urine Bacteria Many /hpf (NONE) 11/29/18 17:08 Ur L.pneumophila Ag Negative (NEGATIVE) 11/29/18 17:08 Blood Type A POSITIVE 11/28/18 09:45 Antibody Screen Negative 11/28/18 09:45 Crossmatch See Detail 11/28/18 09:45 BBK History Checked Patient has bt 11/28/18 09:45 - Hospital Course Hospital Course: Pt seen and examined by me. I have reviewed the note of the medical record coder and I agree with it. I have discussed the assessment and plan with the resident. I have reviewed the medications and the last labs.
[2018-12-08] MEDS: Timolol 0.25% Ophth SOLN OU SCH ×2 (10:45→17:24)
[2018-12-08 16:33] VITALS: BP 126/64; PULSE 82; TEMP 98.7
--- NOTE | 2018-12-08 21:53 | PN ---
DATE: 12/08/2018 The patient was seen and examined. I do agree with the note of the medical policy specialist. I was involved in the plan of care. The patient is going to be discharged home today. She has delirium. It has improved but not back to baseline. She had septic shock as well as some hemorrhagic shock. This has improved. She is not eating. She is having difficult time in swallowing. The patient has advanced dementia. She is going to be sent home on home hospice. The patient is DNR. She is going to be going back home on home hospice with compassionate care. Dave Gray MD
== END 2018-12-08 20:32 | disposition hospice, home (50) | DRG 853 ==
LOC: ED 09:34 → ERH 11:48 → CCU 14:32 → 3RNO 12-01 17:44
PROVIDERS: ADMIT Internal Medicine Nephrology; ATTEND Internal Medicine Nephrology
PROC: 5A1945Z Respiratory Ventilation, 24-96 Consecutive Hours (ICD-10-PCS; 2018-11-28)
PROC: 0BH17EZ Insertion of Endotracheal Airway into Trachea, Via Natural or Artificial Opening (ICD-10-PCS; 2018-11-28)
PROC: 05HM33Z Insertion of Infusion Device into Right Internal Jugular Vein, Percutaneous Approach (ICD-10-PCS; 2018-11-28)
PROC: B543ZZA Ultrasonography of Right Jugular Veins, Guidance (ICD-10-PCS; 2018-11-28)
PROC: 3E043XZ Introduction of Vasopressor into Central Vein, Percutaneous Approach (ICD-10-PCS; 2018-11-28)
PROC: [UNRECOGNIZED PROCEDURE] (2018-11-28)
PROC: 30263N1 (ICD-10-PCS; 2018-11-28)
PROC: 06H03DZ Insertion of Intraluminal Device into Inferior Vena Cava, Percutaneous Approach (ICD-10-PCS; principal; 2018-12-05)
DX: A41.9 Sepsis, unspecified organism (principal); J96.90 Respiratory failure, unspecified, unspecified whether with hypoxia or hypercapnia; I50.33 Acute on chronic diastolic (congestive) heart failure; R57.1 Hypovolemic shock; R65.21 Severe sepsis with septic shock; R57.8 Other shock; K92.1 Melena; N39.0 Urinary tract infection, site not specified; D62 Acute posthemorrhagic anemia; E87.4 Mixed disorder of acid-base balance; K51.50 Left sided colitis without complications; C78.1 Secondary malignant neoplasm of mediastinum; N17.9 Acute kidney failure, unspecified; I87.1 Compression of vein; R79.1 Abnormal coagulation profile; E87.5 Hyperkalemia; I11.0 Hypertensive heart disease with heart failure; I73.9 Peripheral vascular disease, unspecified; I25.10 Atherosclerotic heart disease of native coronary artery without angina pectoris; L89.151 Pressure ulcer of sacral region, stage 1; E87.6 Hypokalemia; G30.9 Alzheimer's disease, unspecified; F02.80 Dementia in other diseases classified elsewhere, unspecified severity, without behavioral disturbance, psychotic disturbance, mood disturbance, and anxiety; H40.9 Unspecified glaucoma; H54.8 Legal blindness, as defined in USA; I48.91 Unspecified atrial fibrillation; K56.41 Fecal impaction; M19.90 Unspecified osteoarthritis, unspecified site; R09.3 Abnormal sputum; A49.01 Methicillin susceptible Staphylococcus aureus infection, unspecified site; Z66 Do not resuscitate; Z51.5 Encounter for palliative care; Z86.718 Personal history of other venous thrombosis and embolism; Z86.711 Personal history of pulmonary embolism; Z79.01 Long term (current) use of anticoagulants; Z79.82 Long term (current) use of aspirin; Z87.81 Personal history of (healed) traumatic fracture